=== PATIENT | male | born 1965 | race Caucasian/White ===

== ENCOUNTER 2020-06-28 06:21 | Outpatient (REF) | payer OTHER, SELFPAY ==
[2020-06-28 11:05] LABS: MANUAL DIFF FLAG NO
[2020-06-28 11:10] LABS: Basophils Absolute Auto 0.1 X10*3/uL (0.0-0.2); Eosinophils Percent Auto 12.8 % (0-4); Hematocrit 42.7 % (42-52); Hemoglobin 14.5 g/dl (14.0-18.0); Imm Gran Abs Auto 0.01 X10*3/uL (0.00-0.03); Imm Gran Pct Auto 0.1 % (0.0-0.4); Lymphocytes Percent Auto 38.3 % (20-40); Mean Corpuscular Hemoglobin 32.5 pg (27.0-33.0); Mean Corpuscular Volume 95.7 fL (80-98); Mean Platelet Volume 10.1 fL (9.4-12.4); Monocytes Absolute Auto 1.3 X10*3/uL (0.1-1.2); Monocytes Percent Auto 16.9 % (2-11); Neutrophils Absolute Auto 2.4 X10*3/uL (2.0-8.3); Neutrophils Percent Auto 30.9 % (45-73); Platelet Count 481 X10*3/uL (160-400); Red Blood Count 4.46 X10*6/uL (4.60-5.80); White Blood Count 7.8 X10*3/uL (4.8-10.8)
[2020-06-28 11:30] LABS: Alanine Aminotransferase 31 U/L (0-40); Alkaline Phosphatase 77 U/L (39-117); Anion Gap 13 (12-20); Aspartate Amino Transferase 25 U/L (5-37); Bilirubin Direct 0.3 mg/dL (0.0-0.5); Bilirubin Total 0.7 mg/dL (0.0-1.0); Blood Urea Nitrogen 11 mg/dL (9-16); Carbon Dioxide 29 mmol/L (22-29); Chloride 102 mmol/L (96-108); Cholesterol 167 mg/dL; Estimated Glomerular Filt Rate > 60; Glucose Fasting 90 mg/dL (60-99); HDL Cholesterol 57 mg/dL; LDL Cholesterol Calculated 91 mg/dl; Potassium 4.7 mmol/l (3.3-5.1); Sodium 139 mmol/L (135-145); Triglycerides 97 mg/dL
[2020-06-28 13:36] LABS: Prostate Specific Antigen Scr 0.38 ng/mL (<0.05-4.0)
== END 2020-06-28 06:22 | disposition home or self-care (01) ==
LOC: HO.HMGCLDS 06:21
PROVIDERS: PCP Internal Medicine; Visit Provider Internal Medicine
DX: Z12.5 Encounter for screening for malignant neoplasm of prostate (principal); E78.5 Hyperlipidemia, unspecified; R53.83 Other fatigue
CPT/HCPCS: 36415; 80051; 80061; 80076; 82565; 82947; 84153; 84520; 85025

== ENCOUNTER 2020-10-13 06:31 | Day surgery (SDC) | payer OTHER, SELFPAY ==
[2020-10-09 13:59] VITALS: BMI 45.1
--- NOTE | 2020-10-11 13:25 | HO.ANESPROP2 ---
Documented by User: Kristy Pena 10/11/20 13:27 HPI - Anesthesia Eval Consult details Narrative: 55yo M for Colonoscopy [facility] Past Medical History Medical History Asthma Hypertension Surgical History Surgical History Hx of splenectomy Social History Social History Have you been hit, kicked, punched, or otherwise hurt by someone within the past year? If so, by whom?: No Advance Directives: No Advance Directives Information Provided: No Advance Directives on File: No Meds Allergies Allergy/AdvReac Type Severity Reaction Status Date / Time No Known Allergies Allergy Verified 10/09/20 13:57 Home Medications Medication Instructions Recorded Confirmed Last Taken Type lisinopril 1 tab PO DAILY 10/09/20 10/09/20 Unknown History montelukast 1 tab PO DAILY 10/09/20 10/09/20 Unknown History naproxen sodium [Aleve] 220 mg PO BID PRN 10/09/20 10/09/20 Unknown History Exam Exam Date and Time: October 11, 2020 1325 Height,Weight and Vital Signs: Height 5 ft 6 in Weight 127.006 kg Pertinent Lab Results Pertinent Lab Results: Laboratory Tests 06/28/20 06/28/20 06:35 06:35 WBC 7.8 Hgb 14.5 Hct 42.7 Plt Count 481 H Sodium 139 Potassium 4.7 Chloride 102 Carbon Dioxide 29 BUN 11 Creatinine 0.87 Assessment and Plan Assessment Anesthesia Assessment: Chart Reviewed Documented by User: Bee Bajwa 10/13/20 07:42 [facility] Past Medical History Medical History Asthma Hypertension Surgical History Surgical History Hx of splenectomy Social History Social History (Reviewed 10/13/20 @ 07:41 by Bee Gabriel Have you been hit, kicked, punched, or otherwise hurt by someone within the past year? If so, by whom?: No Advance Directives: No Advance Directives Information Provided: No Advance Directives on File: No Meds Allergies Allergy/AdvReac Type Severity Reaction Status Date / Time No Known Allergies Allergy Verified 10/09/20 13:57 Home Medications Medication Instructions Recorded Confirmed Last Taken Type lisinopril 1 tab PO DAILY 10/09/20 10/09/20 Unknown History montelukast 1 tab PO DAILY 10/09/20 10/09/20 Unknown History naproxen sodium [Aleve] 220 mg PO BID PRN 10/09/20 10/09/20 Unknown History Exam Airway Mallampati Class: III (Full neck) TM Dist: >3cm Neck ROM: Full Heart: RRR Lungs: CTA Assessment and Plan Assessment Anesthesia Assessment: Anesthesia Plan Discussed and Chart Reviewed Final Anesthetic Review NPO: Yes ASA Class: III Final Preanesthetic Review: Meds/Allgs Chart Reviewed, Consent Obtained/Reviewed and Anes Risks/Benef Reviewed Patient Risk: Intermediate Procedure Risk: Low Anesthetic Plan Anesthetic Plan: MAC: Disposition: Standard PACU
[2020-10-13 07:00] VITALS: BP 147/95; PULSE 95; RESP 20; TEMP 36.3; O2SAT 96
[2020-10-13] MEDS: Lactated Ringers 1,000 ML 100 ML IVCONT (07:03)
--- NOTE | 2020-10-13 07:18 | MHC.SHP ---
Pre-Procedural Eval Section B Chief Complaint: Screening Details of Present Illness: screening Relevant Family History (Specify if Yes): No Relevant Social History: None Present Medications: see Short Stay Collaborative assessment Medical History: No relevant PMH History of Previous Operations: No relevant previous surgery Allergies: Allergies Allergy/AdvReac Type Severity Reaction Status Date / Time No Known Allergies Allergy Verified 10/09/20 13:57 Review of Systems Sugical H&P ROS: Negative: Constitution, Cardiovascular, Respiratory, Neurological, Psychiatric, Hem-Onc, Allergic/Immunologic, Gastrointestinal, Genitourinary, Musculoskeletal, Integumentary, Endocrine and Eyes/Ears/Nose/Throat Exam Surgical H&P Exam: Normal: HEENT, Normal: Heart, Normal: Lungs, Normal: Extremities, Normal: Abdomen, Normal: Skin and Normal: Neurological Plan Diagnosis/Plan: Unchanged I have reviewed the history and physical and performed a pertinent physical examination on my patient. No changes have occurred unless specified.
--- NOTE | 2020-10-13 07:48 | PM.OP ---
Brief Operative Note Date of Service: 10/13/20 Pre-op diagnosis: screening Post-op diagnosis: same Procedure: colonoscopy Surgeon: Addy Dubose Anesthesia: MAC Estimated blood loss (mL): 0 Pathology: none sent Condition: stable Disposition: PACU
[2020-10-13 07:49] VITALS: BP 132/77; PULSE 79; RESP 18; TEMP 36.7; O2SAT 96
[2020-10-13 08:04] VITALS: BP 153/100; PULSE 81; RESP 17; TEMP 36.4; O2SAT 97
--- NOTE | 2020-10-13 18:44 | OP_ITS ---
SURGEON: Addy Dubose MD INDICATIONS: Colon cancer screening. PREOPERATIVE DIAGNOSIS: POSTOPERATIVE DIAGNOSIS: PROCEDURE PERFORMED: Colonoscopy to the terminal ileum. ESTIMATED BLOOD LOSS: COMPLICATIONS: ANESTHESIA: ASSISTANTS: SPECIMENS: MEDICATIONS: Monitored anesthesia care. DESCRIPTION OF PROCEDURE: History and physical performed. The risks and benefits of the procedure were explained to the patient. Informed consent was obtained. The patient was placed in left lateral decubitus position. A digital rectal exam was performed and was found to be normal. The Olympus pediatric video colonoscope was introduced into the rectum and advanced to the cecum without difficulty. The cecum was identified by transillumination, palpation, and identification of ileocecal valve. Examination was performed. The scope was removed. He tolerated the procedure well and was returned to recovery area in stable condition. FINDINGS: The terminal ileum was normal. The visualized colonic mucosa was normal. The quality of prep was good. No polyps were identified. Retroflexed examination showed small internal hemorrhoids. IMPRESSION: Normal colonoscopy. RECOMMENDATION: 1. Follow up as needed. 2. Repeat colonoscopy is recommended in 10 years for average risk individuals. MD FRANKLIN Naranjo/JACQUELINE / [phone]
== END 2020-10-13 08:28 | disposition home or self-care (01) ==
PROVIDERS: PCP Internal Medicine; Visit Provider Internal Medicine Gastroenterology
PROC: 0DJD8ZZ Inspection of Lower Intestinal Tract, Via Natural or Artificial Opening Endoscopic (ICD-10-PCS; CPT 45378; principal; 2020-10-13 07:30)
DX: Z12.11 Encounter for screening for malignant neoplasm of colon (principal); K64.8 Other hemorrhoids; I10 Essential (primary) hypertension; J45.909 Unspecified asthma, uncomplicated; Z79.1 Long term (current) use of non-steroidal anti-inflammatories (NSAID); Z90.81 Acquired absence of spleen; Z79.899 Other long term (current) drug therapy
CPT/HCPCS: 45378

== ENCOUNTER 2021-07-03 10:50 | Outpatient (REF) | payer OTHER, SELFPAY ==
[2021-07-03 13:56] LABS: MANUAL DIFF FLAG NO
[2021-07-03 14:07] LABS: Basophils Absolute Auto 0.1 X10*3/uL (0.0-0.2); Basophils Percent Auto 1.3 % (0-2); Eosinophils Absolute Auto 1.3 X10*3/uL (0.0-0.4); Eosinophils Percent Auto 15.3 % (0-4); Hematocrit 42.1 % (42.0-52.0); Hemoglobin 14.8 g/dl (14.0-18.0); Imm Gran Abs Auto 0.03 X10*3/uL (0.00-0.03); Imm Gran Pct Auto 0.4 % (0.0-0.4); Lymphocytes Absolute Auto 3.1 X10*3/uL (1.2-4.9); Lymphocytes Percent Auto 35.7 % (20-40); Mean Corpuscular HGB Conc 35.2 g/dl (31.0-36.0); Mean Corpuscular Hemoglobin 33.4 pg (27.0-33.0); Mean Platelet Volume 9.9 fL (9.4-12.4); Monocytes Absolute Auto 1.3 X10*3/uL (0.1-1.2); Monocytes Percent Auto 15.3 % (2-11); Neutrophils Absolute Auto 2.7 x10*3/uL (2.0-8.3); Platelet Count 461 X10*3/uL (160-400); Red Blood Count 4.43 X10*6/uL (4.60-5.80); Red Cell Distribution Width 14.4 % (11.0-16.0); White Blood Count 8.6 X10*3/uL (4.8-10.8)
[2021-07-03 14:56] LABS: PSA,Total (Free>4and<10) 0.47 ng/mL (0.00-4.00)
[2021-07-03 14:58] LABS: Alanine Aminotransferase 31 U/L (0-40); Albumin Level 4.2 g/dL (3.5-5.0); Alkaline Phosphatase 68 U/L (39-117); Anion Gap 12 (12-20); Aspartate Amino Transferase 24 U/L (5-37); Bilirubin Direct 0.3 mg/dL (0.0-0.5); Bilirubin Total 0.8 mg/dL (0.0-1.0); Blood Urea Nitrogen 10 mg/dL (9-16); Calcium 9.4 mg/dL (8.4-10.2); Carbon Dioxide 28 mmol/L (22-29); Chloride 102 mmol/L (96-108); Cholesterol 175 mg/dL; Estimated Glomerular Filt Rate > 60; Glucose Fasting 88 mg/dL (60-99); HDL Cholesterol 55 mg/dL; LDL Cholesterol Calculated 96 mg/dl; Potassium 4.6 mmol/L (3.3-5.1); Sodium 137 mmol/L (135-145); Total Protein 7.2 g/dL (6.5-8.0); Triglycerides 121 mg/dL
== END 2021-07-03 10:51 | disposition home or self-care (01) ==
LOC: HO.HMGCLDS 10:50
PROVIDERS: PCP Internal Medicine; Visit Provider Internal Medicine
DX: Z12.5 Encounter for screening for malignant neoplasm of prostate (principal); R53.83 Other fatigue; E78.5 Hyperlipidemia, unspecified
CPT/HCPCS: 36415; 80053; 80061; 80076; 82248; 84153; 85025

== ENCOUNTER 2022-07-25 11:06 | Outpatient (REF) | payer OTHER, SELFPAY ==
[2022-07-25 14:14] LABS: MANUAL DIFF FLAG NO
[2022-07-25 14:34] LABS: Basophils Absolute Auto 0.1 X10*3/uL (0.0-0.2); Basophils Percent Auto 1.4 % (0-2); Eosinophils Absolute Auto 1.4 X10*3/uL (0.0-0.4); Eosinophils Percent Auto 16.6 % (0-4); Hematocrit 43.4 % (42.0-52.0); Hemoglobin 15.2 g/dl (14.0-18.0); Imm Gran Abs Auto 0.01 X10*3/uL (0.00-0.03); Imm Gran Pct Auto 0.1 % (0.0-0.4); Lymphocytes Absolute Auto 3.4 X10*3/uL (1.2-4.9); Lymphocytes Percent Auto 39.5 % (20-40); Mean Corpuscular Volume 94.1 fL (80.0-98.0); Mean Platelet Volume 9.4 fL (9.4-12.4); Monocytes Absolute Auto 1.3 X10*3/uL (0.1-1.2); Monocytes Percent Auto 14.8 % (2-11); Neutrophils Absolute Auto 2.4 x10*3/uL (2.0-8.3); Neutrophils Percent Auto 27.6 % (45-73); Platelet Count 592 X10*3/uL (160-400); Red Blood Count 4.61 X10*6/uL (4.60-5.80); Red Cell Distribution Width 14.4 % (11.0-16.0); White Blood Count 8.6 X10*3/uL (4.8-10.8)
[2022-07-25 15:17] LABS: Alanine Aminotransferase 21 U/L (0-40); Albumin Level 4.1 g/dL (3.5-5.0); Alkaline Phosphatase 83 U/L (39-117); Anion Gap 12 (12-20); Aspartate Amino Transferase 20 U/L (5-37); Bilirubin Direct 0.3 mg/dL (0.0-0.5); Bilirubin Total 0.8 mg/dL (0.0-1.0); Blood Urea Nitrogen 13 mg/dL (9-16); Carbon Dioxide 29 mmol/L (22-29); Chloride 103 mmol/L (96-108); Cholesterol 204 mg/dL; Estimated Glomerular Filt Rate > 60; Glucose Fasting 88 mg/dL (60-99); HDL Cholesterol 63 mg/dL; LDL Cholesterol Calculated 121 mg/dl; Potassium 5.2 mmol/L (3.3-5.1); Sodium 139 mmol/L (135-145); Total Protein 7.2 g/dL (6.5-8.0); Triglycerides 103 mg/dL
[2022-07-25 17:22] LABS: Prostate Specific Antigen Scr 0.81 ng/mL (<0.05-4.0)
== END 2022-07-25 11:07 | disposition home or self-care (01) ==
LOC: HO.HMGCLDS 11:06
PROVIDERS: PCP Internal Medicine; Visit Provider Internal Medicine
DX: Z00.00 Encounter for general adult medical examination without abnormal findings (principal); Z12.5 Encounter for screening for malignant neoplasm of prostate; R53.83 Other fatigue; E78.5 Hyperlipidemia, unspecified
CPT/HCPCS: 36415; 80051; 80061; 80076; 82565; 82947; 84153; 84520; 85025

== ENCOUNTER 2023-04-11 13:26 | Emergency (ER) | payer OTHER, SELFPAY ==
[2023-04-11 14:06] VITALS: BP 160/88; PULSE 94; RESP 20; TEMP 35.9; O2SAT 97; BMI 40.3
--- NOTE | 2023-04-11 14:10 | ED.GENADULT ---
HPI - General Adult General Chief complaint: Abdominal Pain Stated complaint: Abdominal Pain Related Data Home Medications Medication Instructions Recorded Confirmed lisinopril 10 mg tablet 1 tab PO DAILY 10/09/20 10/09/20 montelukast 10 mg tablet 1 tab PO DAILY 10/09/20 10/09/20 naproxen sodium 220 mg capsule 220 mg PO BID PRN Pain 10/09/20 10/09/20 (Aleve) Allergies Allergy/AdvReac Type Severity Reaction Status Date / Time No Known Allergies Allergy Verified 10/09/20 13:57 [facility] Past Medical History Medical History Asthma Hypertension Surgical History Hx of splenectomy Social History Social History Advance Directives: No Advance Directives Information Provided: No Physical Exam ED Vital Signs: Vital Signs - 24 hr 04/11/23 14:06 Temperature 96.6 F L Pulse Rate 94 Respiratory Rate 20 Blood Pressure 160/88 H Pulse Oximetry 97 Oxygen Delivery Method Room Air BMI result Body Mass Index 40.3 Course Course Course Narrative: This is a rapid medical exam: Additional HPI, ROS, PE not included below will be deferred to primary provider. Patient is a 57-year-old male presenting to the emergency department from PCP office with report of fever while at the office. Patient reports abdominal pain since Friday. Denies nausea, vomiting, diarrhea constipation. Reports pain is currently in area of right lower quadrant. Denies back or flank pain. Denies urinary symptoms. Abdomen soft and nontender, no CVA tenderness. Plan: labs, UA Medical Decision Making Lab Data 04/11/23 16:09 04/11/23 16:09 Labs: Lab Results 04/11/23 04/11/23 04/11/23 Range/Units 16:09 16:09 16:09 WBC 18.9 H (4.8-10.8) X10*3/uL RBC 4.65 (4.60-5.80) X10*6/uL Hgb 15.9 (14.0-18.0) g/dl Hct 44.7 (42.0-52.0) % MCV 96.1 (80.0-98.0) fL MCH 34.2 H (27.0-33.0) pg MCHC 35.6 (31.0-36.0) g/dl RDW 13.7 (11.0-16.0) % Plt Count 418 H D (160-400) X10*3/uL MPV 9.3 L (9.4-12.4) fL Immature Gran % (Auto) 0.4 (0.0-0.4) % Neut % (Auto) 81.8 H (45-73) % Lymph % (Auto) 7.7 L (20-40) % [place] % (Auto) 9.6 (2-11) % Eos % (Auto) 0.1 (0-4) % Baso % (Auto) 0.4 (0-2) % Lymph # (Auto) 1.5 (1.2-4.9) X10*3/uL [place] # (Auto) 1.8 H (0.1-1.2) X10*3/uL Eos # (Auto) 0.0 (0.0-0.4) X10*3/uL Baso # (Auto) 0.1 (0.0-0.2) X10*3/uL Abs Immat Gran (auto) 0.08 H (0.00-0.03) X10*3/uL Absolute Neuts (auto) 15.4 H (2.0-8.3) x10*3/uL Absolute Nucleated RBC 0.000 (0.0-0.012) X10*3/uL Nucleated RBC % (auto) 0.0 (0.0-0.2) /100WBC Sodium 134 L (135-145) mmol/L Potassium 3.9 D (3.3-5.1) mmol/L Chloride 101 (96-108) mmol/L Carbon Dioxide 22 (22-29) mmol/L Anion Gap 15 (12-20) BUN 7 L (9-16) mg/dL Creatinine 0.79 (0.5-1.4) mg/dL Estim Creat Clear Calc 119.1 Estimated GFR > 60 Random Glucose 100 (60-115) mg/dL Calcium 9.9 (8.4-10.2) mg/dL Total Bilirubin 1.1 H (0.0-1.0) mg/dL AST 40 H (5-37) U/L ALT 46 H (0-40) U/L Alkaline Phosphatase 106 (39-117) U/L Total Protein 8.1 H (6.5-8.0) g/dL Albumin 4.2 (3.5-5.0) g/dL Lipase 12 (8-78) U/L Urine Color Dark Yellow Urine Appearance Clear Urine pH 7.5 (5.0-9.0) Ur Specific [place] 1.020 (1.005-1.025) Urine Protein Trace (Neg-Trace) mg/dL Urine Glucose (UA) Negative (Negative) mg/dL Urine Ketones 15 (Negative) mg/dL Urine Blood Negative (Negative) Urine Nitrite Negative (Negative) Ur Leukocyte Esterase Negative (Negative) Discharge Plan Discharge Clinical Impression: Abdominal pain Patient Disposition: Elopement Prescriptions: No Action lisinopril 10 mg tablet 1 tab PO DAILY montelukast 10 mg tablet 1 tab PO DAILY naproxen sodium [Aleve] 220 mg Capsule 220 mg PO BID PRN (Reason: Pain) Discharge Date/Time: 04/11/23 21:17
[2023-04-11 16:13] LABS: MANUAL DIFF FLAG NO
[2023-04-11 16:16] LABS: Appearance Urine Clear; Color Urine Dark Yellow; Glucose Urine UA Negative (Negative); Leukocyte Esterase Urine Negative (Negative); Nitrite Urine Negative (Negative); PH 7.5 (5.0-9.0); Urine Blood Negative (Negative); Urine Ketones 15 mg/dL (Negative); Urine Protein Trace mg/dL (Neg-Trace)
[2023-04-11 16:28] LABS: Alanine Aminotransferase 46 U/L (0-40); Albumin Level 4.2 g/dL (3.5-5.0); Alkaline Phosphatase 106 U/L (39-117); Anion Gap 15 (12-20); Aspartate Amino Transferase 40 U/L (5-37); Bilirubin Total 1.1 mg/dL (0.0-1.0); Blood Urea Nitrogen 7 mg/dL (9-16); Calcium 9.9 mg/dL (8.4-10.2); Carbon Dioxide 22 mmol/L (22-29); Chloride 101 mmol/L (96-108); Creatinine Clr Calc Pharmacy 119.1; Estimated Glomerular Filt Rate > 60; Glucose Random 100 mg/dL (60-115); Lipase 12 U/L (8-78); Potassium 3.9 mmol/L (3.3-5.1); Sodium 134 mmol/L (135-145); Total Protein 8.1 g/dL (6.5-8.0)
[2023-04-11 16:33] LABS: Basophils Absolute Auto 0.1 X10*3/uL (0.0-0.2); Basophils Percent Auto 0.4 % (0-2); Eosinophils Percent Auto 0.1 % (0-4); Hematocrit 44.7 % (42.0-52.0); Hemoglobin 15.9 g/dl (14.0-18.0); Imm Gran Abs Auto 0.08 X10*3/uL (0.00-0.03); Imm Gran Pct Auto 0.4 % (0.0-0.4); Lymphocytes Absolute Auto 1.5 X10*3/uL (1.2-4.9); Lymphocytes Percent Auto 7.7 % (20-40); Mean Corpuscular HGB Conc 35.6 g/dl (31.0-36.0); Mean Corpuscular Hemoglobin 34.2 pg (27.0-33.0); Mean Corpuscular Volume 96.1 fL (80.0-98.0); Mean Platelet Volume 9.3 fL (9.4-12.4); Monocytes Absolute Auto 1.8 X10*3/uL (0.1-1.2); Monocytes Percent Auto 9.6 % (2-11); Neutrophils Absolute Auto 15.4 x10*3/uL (2.0-8.3); Neutrophils Percent Auto 81.8 % (45-73); Platelet Count 418 X10*3/uL (160-400); Red Blood Count 4.65 X10*6/uL (4.60-5.80); Red Cell Distribution Width 13.7 % (11.0-16.0); White Blood Count 18.9 X10*3/uL (4.8-10.8)
--- NOTE | 2023-04-12 14:35 | HO.ANESPROP2 ---
HPI - Anesthesia Eval Consult details Narrative: Acute appendicitis PMFSH Active Problems Active Problems: All Active Problems (Updated 04/12/23 @ 12:46 by JARETH Mack) Abdominal pain (Acute) Acute appendicitis (Acute) Sepsis (Acute) Past Medical History Medical History (Updated 04/12/23 @ 14:36 by Zachary Garibay MD) Asthma Hypertension Obesity (BMI 30-39.9) Family History Family history of problems with anesthesia: No Surgical History Surgical History Hx of splenectomy History of Problems with Anesthesia: No Social History Social History Alcohol intake: current Alcohol intake frequency: a few times a week Meds Allergies Allergy/AdvReac Type Severity Reaction Status Date / Time No Known Allergies Allergy Verified 04/12/23 10:32 Home Medications Medication Instructions Recorded Confirmed Last Taken Type montelukast 10 mg tablet 1 tab PO DAILY 10/09/20 04/12/23 04/11/23 History naproxen sodium 220 mg capsule 220 mg PO BID PRN Pain 10/09/20 04/12/23 Unknown History (Aleve) valsartan 160 mg tablet 160 mg PO DAILY 04/12/23 04/12/23 04/12/23 History Exam Exam Date and Time: April 12, 2023 1435 Height,Weight and Vital Signs: Height 5 ft 6 in Weight 113.398 kg Last Vital Signs Temp 96.6 F L 04/11/23 14:06 Pulse 94 04/11/23 14:06 Resp 20 04/11/23 14:06 BP 160/88 H 04/11/23 14:06 Pulse Ox 97 04/11/23 14:06 O2 Del Method Room Air 04/11/23 14:06 Pertinent Lab Results Pertinent Lab Results: Laboratory Tests 04/11/23 04/11/23 04/11/23 16:09 16:09 16:09 WBC 18.9 H RBC 4.65 Hgb 15.9 Hct 44.7 MCV 96.1 MCH 34.2 H MCHC 35.6 RDW 13.7 Plt Count 418 H D MPV 9.3 L Immature Gran % (Auto) 0.4 Neut % (Auto) 81.8 H Lymph % (Auto) 7.7 L [place] % (Auto) 9.6 Eos % (Auto) 0.1 Baso % (Auto) 0.4 Lymph # (Auto) 1.5 [place] # (Auto) 1.8 H Eos # (Auto) 0.0 Baso # (Auto) 0.1 Abs Immat Gran (auto) 0.08 H Absolute Neuts (auto) 15.4 H Absolute Nucleated RBC 0.000 Nucleated RBC % (auto) 0.0 Sodium 134 L Potassium 3.9 D Chloride 101 Carbon Dioxide 22 Anion Gap 15 BUN 7 L Creatinine 0.79 Estim Creat Clear Calc 119.1 Estimated GFR > 60 Random Glucose 100 Calcium 9.9 Total Bilirubin 1.1 H AST 40 H ALT 46 H Alkaline Phosphatase 106 Total Protein 8.1 H Albumin 4.2 Lipase 12 Urine Color Dark Yellow Urine Appearance Clear Urine pH 7.5 Ur Specific [place] 1.020 Urine Protein Trace Urine Glucose (UA) Negative Urine Ketones 15 Urine Blood Negative Urine Nitrite Negative Ur Leukocyte Esterase Negative Airway Mallampati Class: II TM Dist: >3cm Neck ROM: Full Heart: RRR Lungs: CTA Assessment and Plan Assessment Anesthesia Assessment: Anesthesia Plan Discussed and Chart Reviewed Final Anesthetic Review Family History of Problems with Anesthesia: No History of Problems with Anesthesia: No NPO: Yes ASA Class: III and Emergency Final Preanesthetic Review: No Changes in Pt Med Stat, Meds/Allgs Chart Reviewed, Consent Obtained/Reviewed and Anes Risks/Benef Reviewed Patient Risk: High Procedure Risk: Intermediate Anesthetic Plan Anesthetic Plan: GA Disposition: Standard PACU
== END 2023-04-11 21:17 | disposition left against medical advice (07) ==
PROVIDERS: Registered Nurse Emergency; Emergency Provider Emergency Medicine; PCP Internal Medicine
DX: R10.9 Unspecified abdominal pain (principal); Z79.899 Other long term (current) drug therapy
CPT/HCPCS: 36415; 80053; 81003; 83690; 85025; 99282; 99283

== ENCOUNTER 2023-04-12 10:14 | Inpatient (IN) | payer OTHER, SELFPAY ==
[2023-04-12] VITALS (10 sets, daily range): BP systolic 135–170; BP diastolic 67–90; PULSE 70–99; RESP 15–24; TEMP 36.2–37; O2SAT 96–98; BMI 41.3; BMI 42.7
--- NOTE | ~2023-04-12 | CT_ITS ---
EXAMINATION: CT abdomen pelvis wo IV con CLINICAL INFORMATION: Reason for Exam abd pain COMPARISON: No prior CT available for comparison. TECHNIQUE: Multidetector volumetric imaging was performed from the superior aspect of the liver through the pubic symphysis , noncontrasted study. Sagittal and coronal reformatted images were obtained on the technologist's workstation. This CT examination was performed using dose optimization techniques as appropriate, variously including the following: *Automated exposure control *Adjustment of mA and/or kV according to patient size (this includes techniques or standardized protocols for targeted exams where dose is matched to indication/reason for exam; i.e. extremities or head) *Use of iterative reconstruction technique DLP: 952 mGy-cm FINDINGS: LOWER THORAX: Included lung bases are clear. HEPATOBILIARY: No focal hepatic lesions. No biliary ductal dilatation. GALLBLADDER: Gallbladder unremarkable. 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 PANCREAS: No focal mass or ductal dilatation. STOMACH AND GASTROINTESTINAL TRACT: Stomach is grossly unremarkable. The appendix is dilated swollen 1.5 cm, there is periappendiceal fat stranding which extends surrounding the cecum, adjacent cecal wall inflammation could be reactive. Trace amount of fluid along the gallbladder, suggesting acute appendicitis.. Mild circumferential wall thickening of the right colon, cecum, ascending and proximal transverse colon could be a sequela of chronic or prior colitis. No obstruction. There is diverticulosis of the sigmoid colon without evidence of acute diverticulitis. ADRENALS: No adrenal nodules. KIDNEYS/URETERS: No hydronephrosis, stones or solid mass lesions. URINARY BLADDER: Partially decompressed. PELVIC VISCERA: Unremarkable PERITONEUM: No free air or fluid. LYMPH NODES: No lymphadenopathy. VASCULAR:Abdominal aorta normal in size, no aneurysm found. BONES, ABDOMINAL WALL AND SOFT TISSUES: Age-appropriate changes of the spine and skeletal system, no destructive osteolytic or osteosclerotic bone lesion found CT/CT abdomen pelvis wo IV con IMPRESSION: - ACUTE APPENDICITIS, the appendix is swollen 1.5 cm, there is periappendiceal fat stranding which extends around the cecum, there is a small amount of fluid along the gallbladder, suggesting acute appendicitis cannot rule out early perforation rupture. - There is circumferential wall thickening of the right colon, cecum, ascending and proximal transverse colon could be a sequela of chronic or prior colitis. - Diverticulosis without evidence of acute diverticulitis. - Spleen not found might have been congenitally absent or been removed. (Referring physician staff is being called, by physician staff assistance, to be alerted of the above critical findings and recommendations.) A J 04/12/2023 12:33 PM
--- NOTE | 2023-04-12 11:36 | PC.NURSE ---
Addendum entered by Gloria Muniz 04/12/23 11:46: afebrile Original Note: pt aox4, respirations even and unlabored, vss, skin warm and dry color appropriate to ethnicity. pt states return to ED d/t elevated WBC from previous visit. pt denies n/v/d/cp/sob/dizziness. skin intact no sign of infection. pt reports diffused abd pain x 3 days; last bm today. +bs x 4; no abd distention/tenderness noted. iv established, labs drawn. awaiting primary eval by ed provider. all needs met at this time. call kenney within reach.
--- NOTE | 2023-04-12 11:37 | ED_ITS ---
HPI - General Adult General Chief complaint: Recheck/Abnormal Lab/Rx Stated complaint: elevated white blood cells Time Seen by Provider: 04/12/23 11:17 Source: patient Mode of arrival: ambulatory Limitations: no limitations History of Present Illness HPI narrative: 57-year-old male with history of obesity, hypertension, history of a traumatic splenectomy back in 1970 who presents to the ER for evaluation of ongoing right- sided abdominal discomfort for the last 4 days. He was seen here yesterday for similar complaints, had lab work showing a leukocytosis of 18.9. He ended up eloping. Patient states the abdominal pain started diffusely 4 days ago and has since migrated to right side of his abdomen. The pain has improved since yesterday. He has no associated nausea, vomiting, diarrhea. He is moving his bowels normally. He had some sweats last night but no objective fevers. He denies any urinary symptoms aside from a dark color of his urine. Did not notice any blood. He is unsure if he has an appendix, may have been taken out during his open abdominal surgery in the 70s. No known sick contacts. No pain at this time. complaint: Elevated white blood cell count, right-sided abdominal pain Onset (ago): day(s) (4) Location: abdomen Severity: mild Quality: aching Pain Consistency: intermittent Relieving factors: none Exacerbating factors: none Associated symptoms: denies other symptoms Treatments prior to arrival: none Related Data Home Medications Medication Instructions Recorded Confirmed lisinopril 10 mg tablet 1 tab PO DAILY 10/09/20 04/12/23 montelukast 10 mg tablet 1 tab PO DAILY 10/09/20 04/12/23 naproxen sodium 220 mg capsule 220 mg PO BID PRN Pain 10/09/20 04/12/23 (Aleve) Allergies Allergy/AdvReac Type Severity Reaction Status Date / Time No Known Allergies Allergy Verified 04/12/23 10:32 Review of Systems Review of Systems: Yes all other systems are reviewed and are negative PMF Past Medical History Medical History Asthma Hypertension Surgical History Hx of splenectomy Social History Social History Alcohol intake: current Alcohol intake frequency: a few times a week Smoked in Last 30 Days: No Use of substances other than those prescribed or required for medical reasons: No Advance Directives: No Physical Exam ED Vital Signs: Vital Signs - 24 hr 04/12/23 10:26 04/12/23 11:45 Temperature 98.1 F 98.6 F Pulse Rate 99 89 Respiratory Rate 18 16 Blood Pressure 139/85 143/84 H Pulse Oximetry 96 96 Oxygen Delivery Method Room Air Room Air BMI result Body Mass Index 41.3 Appearance: Alert. Oriented X3. No acute distress. Head: normocephalic, atraumatic. Eyes: Pupils equal, round and reactive to light. ENT: Pharynx normal. No tonsillar swelling or exudate. Neck: Normal inspection. Neck supple. CVS: Normal heart rate and rhythm. Pulses normal. Respiratory: No respiratory distress. Breath sounds normal. Abdomen: Obese, all here old longitudinal surgical scar consistent laparotomy, Soft and nontender. +BS x4 Skin: Skin warm and dry. Normal skin color. Normal skin turgor. No rashes. Extremities: No lower extremity edema. No joint swelling. Neuro/psych: Oriented X 3. No motor deficit. No sensory deficit. CN II-XII intact. Normal speech and cognition. Medical Decision Making Medical Decision Making MDM Narrative: 57-year-old male with history of obesity, HTN, history of splenectomy in the past who presents to the ER for evaluation of leukocytosis and right-sided abdominal pain for the last 4 days. Currently has no pain. Afebrile and hemodynamically stable on arrival to the ER. He was seen in the ED yesterday, had basic labs done showing a significant leukocytosis of 18.9. He ended up eloping prior to imaging. PCP recommended he come back to the ER given the leukocytosis. His pain is overall improved however. Repeat labs today show persistent leukocytosis of 17. Lactic acid is normal. Other labs unremarkable. HR initially [address] scan of the abdomen is showing acute appendicitis, spoke with radiologist, possible early perforation with extensive fat stranding. Dr. Rasheed from [facility] contacted for admission. IV zosyn and fluids ordered. Meets sepsis criteria with tachycardia >90 and leukocytosis. Differential Diagnosis Differential Diagnoses: The differential diagnosis associated with the presentation includes Acute appendicitis, right-sided diverticulitis, colitis, kidney stone, biliary colic, cholecystitis Admission/Observation Consideration of admission/observation: Escalation of care including admission/observation considered Consult Healthcare Provider Management of the patient was discussed with: Software Tester Dr. Rasheed general surgery Lab Data MDM Lab Attestation statement: I reviewed the patient's lab results. Leukocytosis with normal lactic acid 04/12/23 11:46 04/12/23 11:46 Labs: Lab Results 04/12/23 04/12/23 04/12/23 Range/Units 11:46 11:46 11:46 WBC 17.0 H (4.8-10.8) X10*3/uL RBC 4.26 L (4.60-5.80) X10*6/uL Hgb 14.3 (14.0-18.0) g/dl Hct 39.8 L (42.0-52.0) % MCV 93.4 (80.0-98.0) fL MCH 33.6 H (27.0-33.0) pg MCHC 35.9 (31.0-36.0) g/dl RDW 13.2 (11.0-16.0) % Plt Count 429 H (160-400) X10*3/uL MPV 8.9 L (9.4-12.4) fL Immature Gran % (Auto) 0.4 (0.0-0.4) % Neut % (Auto) 76.9 H (45-73) % Lymph % (Auto) 9.4 L (20-40) % [place] % (Auto) 13.0 H (2-11) % Eos % (Auto) 0.1 (0-4) % Baso % (Auto) 0.2 (0-2) % Lymph # (Auto) 1.6 (1.2-4.9) X10*3/uL [place] # (Auto) 2.2 H (0.1-1.2) X10*3/uL Eos # (Auto) 0.0 (0.0-0.4) X10*3/uL Baso # (Auto) 0.0 (0.0-0.2) X10*3/uL Abs Immat Gran (auto) 0.06 H (0.00-0.03) X10*3/uL Absolute Neuts (auto) 13.1 H (2.0-8.3) x10*3/uL Absolute Nucleated RBC 0.000 (0.0-0.012) X10*3/uL Nucleated RBC % (auto) 0.0 (0.0-0.2) /100WBC Smear Tech's Comments VERIFIED Sodium 132 L (135-145) mmol/L Potassium 3.6 (3.3-5.1) mmol/L Chloride 101 (96-108) mmol/L Carbon Dioxide 24 (22-29) mmol/L Anion Gap 11 L (12-20) BUN 7 L (9-16) mg/dL Creatinine 0.76 (0.5-1.4) mg/dL Estim Creat Clear Calc 133.6 Estimated GFR > 60 Random Glucose 113 (60-115) mg/dL Lactic Acid 0.7 (0.5-2.0) mmol/L Calcium 9.3 D (8.4-10.2) mg/dL Total Bilirubin 1.5 H (0.0-1.0) mg/dL AST 64 H (5-37) U/L ALT 80 H (0-40) U/L Alkaline Phosphatase 147 H (39-117) U/L Total Protein 7.2 (6.5-8.0) g/dL Albumin 3.6 (3.5-5.0) g/dL Independent Interpretation I performed an independent interpretation of an: CT Scan Interpretation: CT scan reviewed, right lower quadrant stranding noted, agree with radiologist's read. Radiology Impression Discussion of test interpretation with radiology: I discussed test interpretation with the radiologist and I have reviewed the radiologist's reading. Radiologist Impression: EXAMINATION: CT abdomen pelvis wo IV con CLINICAL INFORMATION: Reason for Exam abd pain COMPARISON: No prior CT available for comparison. TECHNIQUE: Multidetector volumetric imaging was performed from the superior aspect of the liver through the pubic symphysis , noncontrasted study. Sagittal and coronal reformatted images were obtained on the technologist's workstation. ? This CT examination was performed using dose optimization techniques as appropriate, variously including the following: *Automated exposure control *Adjustment of mA and/or kV according to patient size (this includes techniques or standardized protocols for targeted exams where dose is matched to indication/reason for exam; i.e. extremities or head) *Use of iterative reconstruction technique DLP: 952 mGy-cm FINDINGS: LOWER THORAX: Included lung bases are clear. HEPATOBILIARY: No focal hepatic lesions. No biliary ductal dilatation. GALLBLADDER: Gallbladder unremarkable. 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 PANCREAS: No focal mass or ductal dilatation. STOMACH AND GASTROINTESTINAL TRACT: Stomach is grossly unremarkable. The appendix is dilated swollen 1.5 cm, there is periappendiceal fat stranding which extends surrounding the cecum, adjacent cecal wall inflammation could be reactive. Trace amount of fluid along the gallbladder, suggesting acute appendicitis.. Mild circumferential wall thickening of the right colon, cecum, ascending and proximal transverse colon could be a sequela of chronic or prior colitis. No obstruction. There is diverticulosis of the sigmoid colon without evidence of acute diverticulitis. ADRENALS: No adrenal nodules. KIDNEYS/URETERS: No hydronephrosis, stones or solid mass lesions. URINARY BLADDER: Partially decompressed. PELVIC VISCERA: Unremarkable PERITONEUM: No free air or fluid. LYMPH NODES: No lymphadenopathy. VASCULAR:Abdominal aorta normal in size, no aneurysm found. BONES, ABDOMINAL WALL AND SOFT TISSUES: Age-appropriate changes of the spine and skeletal system, no destructive osteolytic or osteosclerotic bone lesion found CT/CT abdomen pelvis wo IV con IMPRESSION: ? - ACUTE APPENDICITIS, the appendix is swollen 1.5 cm, there is periappendiceal fat stranding which extends around the cecum, there is a small amount of fluid along the gallbladder, suggesting acute appendicitis cannot rule out early perforation rupture. ? - There is circumferential wall thickening of the right colon, cecum, ascending and proximal transverse colon could be a sequela of chronic or prior colitis. ? - Diverticulosis without evidence of acute diverticulitis. ? - Spleen not found might have been congenitally absent or been removed. External Record Review External record reviewed: Outpatient record and Prior outpatient labs Prescription Management I considered prescription management with: Pain Medication and Antibiotic Chronic Conditions Patient?s care impacted by: Hypertension Critical Care Time Critical Care Time Critical Care Time: Yes Total Critical Care Time: 41 Attestation: I have personally provided critical care time exclusive of time spent on separately billable procedures. Time includes review of lab data, radiology results, discussion with consultants, and monitoring for potential decompen sation. Intervention performed as documented. Discharge Plan Discharge Clinical Impression: Acute appendicitis, Sepsis Patient Disposition: Admitted As Inpatient
[2023-04-12 11:58] LABS: Basophils Percent Auto 0.2 % (0-2); Eosinophils Percent Auto 0.1 % (0-4); Hematocrit 39.8 % (42.0-52.0); Hemoglobin 14.3 g/dl (14.0-18.0); Imm Gran Abs Auto 0.06 X10*3/uL (0.00-0.03); Imm Gran Pct Auto 0.4 % (0.0-0.4); Lymphocytes Absolute Auto 1.6 X10*3/uL (1.2-4.9); Lymphocytes Percent Auto 9.4 % (20-40); MANUAL DIFF FLAG SCAN; Mean Corpuscular HGB Conc 35.9 g/dl (31.0-36.0); Mean Corpuscular Hemoglobin 33.6 pg (27.0-33.0); Mean Corpuscular Volume 93.4 fL (80.0-98.0); Mean Platelet Volume 8.9 fL (9.4-12.4); Monocytes Absolute Auto 2.2 X10*3/uL (0.1-1.2); Neutrophils Absolute Auto 13.1 x10*3/uL (2.0-8.3); Neutrophils Percent Auto 76.9 % (45-73); Platelet Count 429 X10*3/uL (160-400); Red Blood Count 4.26 X10*6/uL (4.60-5.80); Red Cell Distribution Width 13.2 % (11.0-16.0); SCAN SMEAR FLAG 1
[2023-04-12 12:04] LABS: Lactic Acid 0.7 mmol/L (0.5-2.0)
[2023-04-12 12:09] LABS: Alanine Aminotransferase 80 U/L (0-40); Albumin Level 3.6 g/dL (3.5-5.0); Alkaline Phosphatase 147 U/L (39-117); Anion Gap 11 (12-20); Aspartate Amino Transferase 64 U/L (5-37); Bilirubin Total 1.5 mg/dL (0.0-1.0); Blood Urea Nitrogen 7 mg/dL (9-16); Calcium 9.3 mg/dL (8.4-10.2); Carbon Dioxide 24 mmol/L (22-29); Chloride 101 mmol/L (96-108); Creatinine Clr Calc Pharmacy 133.6; Estimated Glomerular Filt Rate > 60; Glucose Random 113 mg/dL (60-115); Potassium 3.6 mmol/L (3.3-5.1); Sodium 132 mmol/L (135-145); Total Protein 7.2 g/dL (6.5-8.0)
[2023-04-12 12:20] LABS: SLIDE REVIEW VERIFIED
[2023-04-12 12:30] LABS: Appearance Urine Clear; Color Urine Dark Yellow; Glucose Urine UA Negative (Negative); Leukocyte Esterase Urine Trace (Negative); Nitrite Urine Negative (Negative); PH 6.5 (5.0-9.0); Specific Gravity - Urine 1.015 (1.005-1.025); UMIC TRIGGER UACC YES; Urine Blood Negative (Negative); Urine Ketones 15 mg/dL (Negative); Urine Protein Trace mg/dL (Neg-Trace)
[2023-04-12 12:54] LABS: Bacteria Urine None Seen (None Seen); Hyaline Casts Urine 0-2 /LPF (0-2); RBC Urine 0-2 /HPF (0-2); Squamous Epithelial Cell Urine 0-2 /HPF (0-2); WBC Urine 0-5 /HPF (0-5)
[2023-04-12] MEDS: Piperacillin Sodium/Tazobactam 3.375 GM in 0.9 % Sodium Chloride 50 ML IV (12:55)
[2023-04-12] MEDS: 0.9 % Sodium Chloride 1,000 ML 999 ML IVCONT (12:56)
--- NOTE | 2023-04-12 13:10 | PC.NURSE ---
Dr. Acuna and Brian to bedside. ivf and abx infusing.
--- NOTE | 2023-04-12 13:41 | PHA.MEDREC ---
Pharmacy Consult ? Medication Reconciliation Pharmacy has completed the medication reconciliation. Spoke to patient to confirm meds.
--- NOTE | 2023-04-12 14:40 | PC.NURSE ---
report given to surgery.
--- NOTE | 2023-04-12 14:54 | P.HPGS_ITS ---
History of Present Illness History of Present Illness Date of Service: 04/12/23 Chief complaint: elevated white blood cells Narrative: Nitin Murillo JR is a 57 year old male who presents with a four-day history of progressive worsening right lower quadrant pain. This initially started as periumbilical discomfort which we located the right lower quadrant. Patient had progression of symptoms of presented emergency department last evening. Because there are many people waiting room, he left and returned this morning. 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 Chart was reviewed and patient evaluated. Elevated leukocyte count of 17. CT scan consistent with acute appendicitis and question of perforation. [facility] Past Medical History Medical History (Updated 04/12/23 @ 14:36 by Zachary Garibay MD) Asthma Hypertension Obesity (BMI 30-39.9) Surgical History Surgical History Hx of splenectomy Social History Social History Alcohol intake: current Alcohol intake frequency: a few times a week Smoked in Last 30 Days: No Use of substances other than those prescribed or required for medical reasons: No Advance Directives: No Meds Allergies Allergy/AdvReac Type Severity Reaction Status Date / Time No Known Allergies Allergy Verified 04/12/23 10:32 Home Medications Medication Instructions Recorded Confirmed Last Taken Type montelukast 10 mg tablet 1 tab PO DAILY 10/09/20 04/12/23 04/11/23 History naproxen sodium 220 mg capsule 220 mg PO BID PRN Pain 10/09/20 04/12/23 Unknown History (Aleve) valsartan 160 mg tablet 160 mg PO DAILY 04/12/23 04/12/23 04/12/23 History Physical Exam Vital Signs: Vital Signs: Last Vital Signs Temp 97.8 F 04/12/23 14:39 Pulse 85 04/12/23 14:39 Resp 16 04/12/23 14:39 BP 159/80 H 04/12/23 14:39 Pulse Ox 97 04/12/23 14:39 O2 Del Method Room Air 04/12/23 14:39 BMI result Body Mass Index 41.3 Chest: Other: Chest breath sounds bilaterally, HS 1 in 2 GI: Other: Very corpulent abdomen. Marked right lower quadrant localized rebound tenderness. Results Results Labs: Short CBC 04/12/23 Range/Units 11:46 WBC 17.0 H (4.8-10.8) X10*3/uL Hgb 14.3 (14.0-18.0) g/dl Hct 39.8 L (42.0-52.0) % Plt Count 429 H (160-400) X10*3/uL BMP 04/12/23 11:46 Sodium 132 L Potassium 3.6 Chloride 101 Carbon Dioxide 24 BUN 7 L Creatinine 0.76 Calcium 9.3 D Liver Function 04/12/23 Range/Units 11:46 Total Bilirubin 1.5 H (0.0-1.0) mg/dL AST 64 H (5-37) U/L ALT 80 H (0-40) U/L Alkaline Phosphatase 147 H (39-117) U/L Albumin 3.6 (3.5-5.0) g/dL Urine 04/12/23 Range/Units 12:23 Urine Color Dark Yellow Urine Appearance Clear Urine pH 6.5 (5.0-9.0) Ur Specific [place] 1.015 (1.005-1.025) Urine Protein Trace (Neg-Trace) mg/dL Urine Glucose (UA) Negative (Negative) mg/dL Assessment and Plan (1) Acute appendicitis: Status: Acute Plan Risks, benefits, alternatives of laparoscopic possible open appendectomy were reviewed with the patient and included but not limited to bleeding, infection, bowel or bladder injury or leak, numbness, pain, scarring, conversion to open procedure and patient wishes to proceed. All questions were answered. Patient will be taking upper room shortly for the procedure. Time Spent With Patient Time: Total time managing care of this patient today ____ minutes. Quality Stroke Does the patient have a stroke diagnosis?: No VTE Prior VTE?: No VTE Risk Level:: Surgical - low VTE Device Contraindication: Treatment Not Indicated VTE Drug Contraindication: Treatment Not Indicated Procedures Date of Service Date of Service: 04/12/23
[2023-04-12] MEDS: Dextrose 5 % and 0.45 % NaCl 1,000 ML 100 ML IVCONT (17:29)
[2023-04-12] MEDS: Piperacillin Sodium/Tazobactam 4.5 GM in 0.9 % Sodium Chloride 100 ML IV (17:29)
--- NOTE | 2023-04-12 20:06 | W.PM.OPN ---
Operative Note Operative Note Date of Service: 04/12/23 Narrative: Preoperative diagnosis: [] <del>Perforated</del> <del>appendicitis,</del> <del>incarcerated</del> <del>umbilical</del> <del>hernia</del> Postop diagnosis: [] Same Procedure [] laparoscopic appendectomy, primary repair incarcerated umbilical hernia Surgeon: [] Wili Jewel Cupping Machine Operator: [] Type of Anesthesia: [] General Indication for surgery: [] Locally perforated appendicitis with walled-off abscess involving omentum , terminal ileum and cecum. Very corpulent abdomen. Approximately 2 cm incarcerated umbilical hernia with omental contents, which was used as the umbilical port site. Findings: [] Patient brought to the operating room, placed on the operative table supine position, after adequate level of general anesthesia was induced, the patient's abdomen which is very corpulent was prepped and draped in usual sterile fashion. Using a supraumbilical curvilinear incision, which is the site of the patient's some incarcerated umbilical hernia, this carried down through skin, subcutaneous tissue, where hernia sac was identified and circumferentially dissected down the fascia. Sac was opened were incarcerated omental contents and sac were amputated using Bovie. Saucedo technique was used to insufflate the abdominal cavity to 15 mm of CO2. Lower midline and suprapubic ports were placed under direct laparoscopic view, and the patient was placed in Trendelenburg position, tilted to the left. Findings were as noted above. Omental and small bowel adhesions to the right lower quadrant phlegmonous mass were taken away when abscess cavity was identified. A phlegmonous appendix with local perforation was identified and brought out to the field. Next its mesentery was sequentially taken down using ligature device. Appendix was then transected at the cecal base using endoscopic RAKESH stapler. Specimen was placed in an Endo-Catch bag, a retrieved through the umbilical port. The abdominal cavity was very copiously irrigated and secured hemostasis. All ports were removed under direct laparoscopic view. Wounds were closed in the following manner; umbilical port which was decided hernia was closed primarily using interrupted 0 Vicryl sutures. Skin wounds were closed using subcuticular 4-0 Vicryl sutures followed by Steri-Strips and sterile dressings. Wounds were infiltrated 0.5% Marcaine with epinephrine a completion. Sponge, needle, and instrument counts reported correct. Patient tolerated the procedure well and emerged anesthesia in stable condition. EBL minimal
[2023-04-12] MEDS: Ketorolac Tromethamine 30 MG/ML VIAL IVPUSH (20:22)
[2023-04-13] MEDS: Zolpidem Tartrate 5 MG TABLET PO ×2 (00:25→20:03)
[2023-04-13] MEDS: Piperacillin Sodium/Tazobactam 4.5 GM in 0.9 % Sodium Chloride 100 ML IV ×4 (00:27→17:46)
[2023-04-13 02:52] VITALS: RESP 16
[2023-04-13] MEDS: Dextrose 5 % and 0.45 % NaCl 1,000 ML 100 ML IVCONT ×2 (03:25→12:35)
[2023-04-13 06:40] LABS: Anion Gap 12 (12-20); Blood Urea Nitrogen 7 mg/dL (9-16); Calcium 8.8 mg/dL (8.4-10.2); Carbon Dioxide 23 mmol/L (22-29); Chloride 104 mmol/L (96-108); Creatinine Clr Calc Pharmacy 123.2; Estimated Glomerular Filt Rate > 60; Glucose Random 131 mg/dL (60-115); Potassium 3.7 mmol/L (3.3-5.1); Sodium 135 mmol/L (135-145)
[2023-04-13 06:53] VITALS: BP 144/85; PULSE 73; RESP 18; TEMP 36.1; O2SAT 97
[2023-04-13] MEDS: Montelukast Sodium 10 MG TABLET PO (08:23)
[2023-04-13] MEDS: Valsartan 160 MG TABLET PO (08:23)
--- NOTE | 2023-04-13 09:15 | PC.NURSE ---
Pt tolerating clear liquids denies need for pain medication. abdominal lap sites CDI . Routine post op care
--- NOTE | 2023-04-13 15:37 | MHC.CM.PN ---
PT SLEEPING, CM MET WITH HIS S/O AT BEDSIDE SHE REPORTS THE FOLLOWING: PT LIVES WITH HIS S/O HE IS INDEPENDENT WITH ALL CARE HE HAS NO DME AND NO SERVICES SHE THINKS HE HAS A HCP, COPY REQUESTED PCP: LAUREEN ALVAREZ DCP: HOME NO SERVICES PT WILL DRIVE HIMSELF, CAR IN LOT
[2023-04-13 15:38] VITALS: BP 154/85; PULSE 82; RESP 20; TEMP 36.1; O2SAT 97
--- NOTE | 2023-04-13 15:54 | PM.PNGS ---
Subjective Subjective Date of Service: 04/13/23 Interval history: Aside from incisional discomfort, patient is doing well. He passed some flatus. He has been out of bed ambulating, and doing his incentive spirometer. Tolerating clear liquids. Physical Exam Vital Signs: Vital Signs: Last Vital Signs Temp 96.9 F 04/13/23 15:38 Pulse 82 04/13/23 15:38 Resp 20 04/13/23 15:38 BP 154/85 H 04/13/23 15:38 Pulse Ox 97 04/13/23 15:38 O2 Del Method Room Air 04/13/23 15:38 O2 Flow Rate 2 04/12/23 19:20 BMI result Body Mass Index 42.7 GI: Other: Abdomen soft. All wound dressings clean dry and intact Objective Data Active Medications Acetaminophen (Acetaminophen 325 Mg Tablet) 650 mg PO Q6H PRN PRN Reason: Pain, Mild (Pain Scale 1-3) Hydromorphone HCl (Hydromorphone Hcl 0.5 Mg/0.5 Ml Syringe) 0.5 mg IVPUSH Q4H PRN; Protocol PRN Reason: Pain, Severe (Pain Scale 7-10) Dextrose/Sodium Chloride (D51/2ns) 1,000 mls @ 100 mls/hr IVCONT .Q10H [facility] Last Admin: 04/13/23 12:35 Dose: 100 mls/hr Documented By: MI Piperacillin Sod/Tazobactam (Sod 4.5 gm/ Sodium Chloride) 100 mls @ 200 mls/hr IV Q6H [facility] Last Infusion: 04/13/23 12:33 Dose: 0 mls/hr Documented By: MI Ketorolac Tromethamine (Ketorolac Tromethamine 30 Mg/Ml Vial) 30 mg IVPUSH Q6H PRN PRN Reason: Pain, Mild (Pain Scale 1-3) Stop: 04/17/23 16:24 Last Admin: 04/12/23 20:22 Dose: 30 mg Documented By: EITAN Magnesium Hydroxide (Milk Of Magnesia 30 Ml Oral.Susp) 30 ml PO DAILY PRN PRN Reason: Constipation Montelukast Sodium (Montelukast Sodium 10 Mg Tablet) 10 mg PO DAILY [facility] Last Admin: 04/13/23 08:23 Dose: 10 mg Documented By: MI Ondansetron HCl (Ondansetron Hcl 4 Mg/2 Ml Vial) 4 mg IVPUSH Q8H PRN PRN Reason: Nausea and Vomiting Sodium Chloride (0.9 % Sodium Chloride Flush 3 Ml Syringe) 3 ml IVFLUSH QSHIFT [facility] Last Admin: 04/13/23 08:23 Dose: Not Given Documented By: MI Non-Admin Reason: IV Running Valsartan (Valsartan 160 Mg Tablet) 160 mg PO DAILY [facility]; Protocol Last Admin: 04/13/23 08:23 Dose: 160 mg Documented By: MI Zolpidem Tartrate (Zolpidem Tartrate 5 Mg Tablet) 5 mg PO BEDTIME PRN PRN Reason: Insomnia Last Admin: 04/13/23 00:25 Dose: 5 mg Documented By: EITAN Labs 04/12/23 11:46 04/13/23 05:26 Labs: Laboratory Results - last 24 hr 04/13/23 05:26 Anion Gap 12 Estim Creat Clear Calc 123.2 Estimated GFR > 60 Random Glucose 131 H Calcium 8.8 Microbiology Microbiology Results: Microbiology 04/12/23 11:45 Blood Culture - Preliminary Blood - Venous No growth after 24 hours. 04/12/23 11:32 Blood Culture - Preliminary Blood - Venous No growth after 24 hours. Procedures Date of Service Date of Service: 04/13/23 Progress Note: A&P Assessment and plan (1) Acute appendicitis: Status: Acute Plan Continue IV antibiotics, out of bed, incentive spirometry, weight further bowel function before advancing diet. Time Spent With Patient Time: Total time managing care of this patient today ____ minutes. Quality Stroke Does the patient have a stroke diagnosis?: No VTE Prior VTE?: No VTE Risk Level:: Surgical - low VTE Device Contraindication: Treatment Not Indicated VTE Drug Contraindication: Treatment Not Indicated
--- NOTE | 2023-04-13 16:11 | HO.POSTANES ---
Post Anesthesia Evaluation Post Anesthesia Evaluation Date of Service: 04/13/23 Vital Signs: Vital Signs Temp Pulse Resp BP Pulse Ox O2 Del Method 04/13/23 15:38 96.9 F 82 20 154/85 H 97 Room Air 04/13/23 06:53 97 F 73 18 144/85 H 97 Room Air Anesthesia: General Endotracheal-GETA Mental Status: Awake Pain Control: Satisfactory Nausea/Vomiting: None Hydration: Adequate Anesthesia-Related Issues: No Anes. Related Issues
[2023-04-13] MEDS: Lactated Ringers 1,000 ML 100 ML IVCONT (19:01)
[2023-04-13 19:54] VITALS: BP 106/57; PULSE 77; RESP 20; TEMP 37.4; O2SAT 97
[2023-04-13] MEDS: Ketorolac Tromethamine 30 MG/ML VIAL IVPUSH (20:02)
[2023-04-14 00:30] VITALS: BP 143/68; PULSE 80; RESP 18; TEMP 36.4; O2SAT 98
[2023-04-14] MEDS: Piperacillin Sodium/Tazobactam 4.5 GM in 0.9 % Sodium Chloride 100 ML IV ×3 (00:57→12:07)
[2023-04-14] MEDS: 0.9 % Sodium Chloride Flush 3 ML SYRINGE IVFLUSH ×2 (00:58→08:23)
[2023-04-14 07:20] VITALS: BP 158/84; PULSE 87; RESP 16; TEMP 36.7; O2SAT 95
[2023-04-14] MEDS: Montelukast Sodium 10 MG TABLET PO (08:23)
[2023-04-14] MEDS: Valsartan 160 MG TABLET PO (08:23)
--- NOTE | 2023-04-14 09:18 | PM.PNGS ---
Subjective Subjective Date of Service: 04/14/23 Interval history: Feels better this morning. Pain minimal. Has been OOB and ambulating halls. Passing flatus and had BM. Tolerating full liquids and wants solid food. WOuld like to go home. Physical Exam Vital Signs: Vital Signs: Last Vital Signs Temp 98.1 F 04/14/23 07:20 Pulse 87 04/14/23 07:20 Resp 16 04/14/23 07:20 BP 158/84 H 04/14/23 07:20 Pulse Ox 95 04/14/23 07:20 O2 Del Method Room Air 04/14/23 07:20 O2 Flow Rate 2 04/12/23 19:20 BMI result Body Mass Index 42.7 Const: General: comfortable, no acute distress and alert Orientation/consciousness: patient oriented x3 Resp: Effort & Inspection: normal respiratory effort GI: Inspection: Yes distended (mild) and Yes incision (clean) Palpation (GI): Soft to palpation, Tenderness to palpation present (GI) (mild incisional), no guarding and not rigid Skin: General skin exam: no rashes or lesions noted Neuro: General: patient oriented x3 Objective Data Active Medications Acetaminophen (Acetaminophen 325 Mg Tablet) 650 mg PO Q6H PRN PRN Reason: Pain, Mild (Pain Scale 1-3) Hydromorphone HCl (Hydromorphone Hcl 0.5 Mg/0.5 Ml Syringe) 0.5 mg IVPUSH Q4H PRN; Protocol PRN Reason: Pain, Severe (Pain Scale 7-10) Piperacillin Sod/Tazobactam (Sod 4.5 gm/ Sodium Chloride) 100 mls @ 200 mls/hr IV Q6H [facility] Last Infusion: 04/14/23 07:24 Dose: 0 mls/hr Documented By: IMAN Ketorolac Tromethamine (Ketorolac Tromethamine 30 Mg/Ml Vial) 30 mg IVPUSH Q6H PRN PRN Reason: Pain, Mild (Pain Scale 1-3) Stop: 04/17/23 16:24 Last Admin: 04/13/23 20:02 Dose: 30 mg Documented By: ELIZABETH Magnesium Hydroxide (Milk Of Magnesia 30 Ml Oral.Susp) 30 ml PO DAILY PRN PRN Reason: Constipation Montelukast Sodium (Montelukast Sodium 10 Mg Tablet) 10 mg PO DAILY [facility] Last Admin: 04/14/23 08:23 Dose: 10 mg Documented By: IMAN Ondansetron HCl (Ondansetron Hcl 4 Mg/2 Ml Vial) 4 mg IVPUSH Q8H PRN PRN Reason: Nausea and Vomiting Sodium Chloride (0.9 % Sodium Chloride Flush 3 Ml Syringe) 3 ml IVFLUSH QSHIFT [facility] Last Admin: 04/14/23 08:23 Dose: 3 ml Documented By: IMAN Valsartan (Valsartan 160 Mg Tablet) 160 mg PO DAILY [facility]; Protocol Last Admin: 04/14/23 08:23 Dose: 160 mg Documented By: IMAN Zolpidem Tartrate (Zolpidem Tartrate 5 Mg Tablet) 5 mg PO BEDTIME PRN PRN Reason: Insomnia Last Admin: 04/13/23 20:03 Dose: 5 mg Documented By: BEIT Labs 04/12/23 11:46 04/13/23 05:26 Microbiology Microbiology Results: Microbiology 04/12/23 11:45 Blood Culture - Preliminary Blood - Venous No growth after 24 hours. 04/12/23 11:32 Blood Culture - Preliminary Blood - Venous No growth after 24 hours. Procedures Date of Service Date of Service: 04/14/23 Progress Note: A&P Assessment and plan (1) Acute appendicitis: Status: Acute Plan POD #2 s/p laparoscopic appendectomy, primary repair incarcerated umbilical hernia for perforated appendicitis. Doing well with good pain control, moving bowels. VSS. Abdomen benign with clean incisions and appropriate post op tenderness. Will advance to solid diet. If tolerated, stable for dc to home today on PO abx. F/u in office in 1 week. patient comfortable with plan. Time Spent With Patient Time: Total time managing care of this patient today ____ minutes. Quality Stroke Does the patient have a stroke diagnosis?: No VTE Prior VTE?: No VTE Risk Level:: Surgical - low VTE Device Contraindication: Treatment Not Indicated VTE Drug Contraindication: Treatment Not Indicated
--- NOTE | 2023-04-14 13:21 | MHC.CM.PN ---
EMR REVIEWED AND PER M ROUNDS, PT NOT YET MEDICALLY CLEARED FOR DC S/P LAP APPY WITH PERF/SUBSEQUENT HERNIA REPAIR. CM WILL CONTINUE TO FOLLOW FOR ANY CHANGE IN DC NEEDS/PLAN
--- NOTE | 2023-04-14 13:34 | PM.DS ---
DS: Providers Provider Date of Service: 04/14/23 Date of admission: 04/12/23 16:26 Primary care physician: Marcos Woods MD Attending physician on admission: Eugene Rasheed Attending physician on discharge: Eugene Rasheed DS: Diagnosis Discharge Diagnosis (1) Acute appendicitis: Status: Acute DS: Summary Hospital Course Hospital Course: HPI AT ADMISSION: Nitin Murillo JR is a 57 year old male who presents with a four-day history of progressive worsening right lower quadrant pain. This initially started as periumbilical discomfort which we located the right lower quadrant. Patient had progression of symptoms of presented emergency department last evening. Because there are many people waiting room, he left and returned this morning. 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 Chart was reviewed and patient evaluated. Elevated leukocyte count of 17. CT scan consistent with acute appendicitis and question of perforation. HOSPITAL COURSE: He was admitted to the surgical service for further treatment of the acute appendicitis. It was recommended to proceed with laparoscopic appendectomy, possible open. He agreed. He was added onto the OR schedule for that day. He was started on IV zosyn, IVF and kept NPO. On 04/12/23, ?laparoscopic appendectomy, primary repair incarcerated umbilical hernia was performed by Dr. Rasheed without complication. He was found to have a locally perforated appendix intraoperatively. The patient tolerated the procedure well. He had an uncomplicated recovery course. His pain remained well controlled. He began passing flatus and then moving his bowels. His diet was advanced to clear liquids and then solids. He was ambulated. His abdomen remained benign with appropriate post op tenderness and clean incisions. He completed 3 days of IV zosyn. His WBC downtrended. He was discharged to home on 04/14/23 in stable condition on a PO course of flagyl and levaquin. He is to follow up in the office in 1 week. Status at Discharge Functional status at discharge: independent ambulation Overall status at discharge: patient is progressing back to baseline Time Spent with Patient Time attestation: Total time managing care of this patient today ____ minutes. Discharge coordination time: Less than 30 minutes Quality: Safe Use of Opioids Does Pt have an Active Cancer Diagnosis on the Problem List?: No Quality: Stroke Does the patient have a stroke diagnosis?: No Physical Exam Vital Signs: Vital Signs: Last Vital Signs Temp 98.1 F 04/14/23 07:20 Pulse 87 04/14/23 07:20 Resp 16 04/14/23 07:20 BP 158/84 H 04/14/23 07:20 Pulse Ox 95 04/14/23 07:20 O2 Del Method Room Air 04/14/23 07:20 O2 Flow Rate 2 04/12/23 19:20 BMI result Body Mass Index 42.7 Const: General: comfortable, no acute distress and alert Orientation/consciousness: patient oriented x3 Resp: Effort & Inspection: normal respiratory effort GI: Inspection: No distended and Yes incision (clean) Palpation (GI): Soft to palpation, Tenderness to palpation present (GI) (mild incisional), no guarding and not rigid Skin: General skin exam: no rashes or lesions noted Neuro: General: patient oriented x3 and moves all extremities DS: Data Data Completed and Pending Pending studies at discharge: Pending at discharge 04/12/23 16:01 Surgical [PTH] Routine Labs on day of discharge: Preliminary micro results at discharge 04/12/23 11:45 Blood Culture - Preliminary Blood - Venous No growth after 24 hours. 04/12/23 11:32 Blood Culture - Preliminary Blood - Venous No growth after 24 hours. Discharge Plan Discharge Anticipated Discharge Date/Time: 04/14/23 13:21 Patient Disposition: Home, Self-Care Discharge Diagnosis: Perforated appendicitis Referrals: Marcos Woods MD [Primary Care Provider] - 1 Week Eugene Rasheed MD [Physician] - 1 Week Discharge Medications: New hydrocodone-acetaminophen 5-325 mg tablet 1 tab PO Q4-6H PRN (Reason: pain) Qty: 30 0RF Rx Instructions: Partial Fill upon patient request. ciprofloxacin HCl 500 mg tablet 500 mg PO BID Qty: 14 0RF metronidazole [Flagyl] 375 mg capsule 375 mg PO BID Qty: 14 0RF Continued montelukast 10 mg tablet 1 tab PO DAILY naproxen sodium [Aleve] 220 mg Capsule 220 mg PO BID PRN (Reason: Pain) valsartan 160 mg tablet 160 mg PO DAILY Discharge Orders: Discharge Order (Routine); Ordered 04/14/23 Ordered By: Anna Shin Diet: Advance to usual diet Activity on Discharge: No heavy lifting Stand Alone Forms: Patient Portal Discharge page Activity Restrictions/Additional Instructions: Apply an ice pack for short intervals (20 minutes on, followed by at least 20 minutes off) for the first 2 days. Do not apply heat. Do not use creams, lotions, or topical antibiotics. These can cause infection or allergic reaction. Ok to shower. You have steri strips (small white cloth strips) covering your incision- these will fall off ~1 week. Follow up in office with Dr. Rasheed in 1 week. ([phone]) No heavy lifting (>10lbs) or strenuous activity! Call Your Doctor If: -Your temperature exceeds 101.5? F -You experience excessive pain or swelling -You have an unexpected reaction to medication -You have excessive bleeding -You experience continued vomiting/nausea -Your incision begins to separate -Your incision shows signs of infection such as increased redness, swelling, excessive pain, drainage (light blood or clear fluid is normal) or heat Care Plan Goals: Return to baseline health and resume normal activities following recovery period. Health Concerns: None Plan of Treatment: See discharge instructions Assessment: Stable
--- NOTE | 2023-04-14 14:24 | MHC.CM.PN ---
pr dcdhome no skilled services ordered by
== END 2023-04-14 15:14 | disposition home or self-care (01) | DRG 339 ==
LOC: HO.ED 12:43 → HO.SSS 14:46 → HO.SSSA 16:41 → HO.S3 16:42
PROVIDERS: Admitting Provider Surgery; Emergency Provider Student in an Organized Health Care Education/Training Program; PCP Internal Medicine; Visit Provider Surgery
PROC: 0DTJ4ZZ Resection of Appendix, Percutaneous Endoscopic Approach (ICD-10-PCS; CPT 44970; principal; 2023-04-12 14:30)
DX: K35.33 Acute appendicitis with perforation, localized peritonitis, and gangrene, with abscess (principal); K42.0 Umbilical hernia with obstruction, without gangrene; Z68.41 Body mass index [BMI] 40.0-44.9, adult; I10 Essential (primary) hypertension; E66.9 Obesity, unspecified; Z79.899 Other long term (current) drug therapy
CPT/HCPCS: 36415; 74176; 80048; 80053; 81001; 83605; 85025; 87040; 88302; 88304; 99284; J1100; J1885; J2250; J2405; J2543; J3010

== ENCOUNTER → 2023-04-12 14:45 | Outpatient (BNV) | payer OTHER, SELFPAY | PROVIDERS: Emergency Provider Student in an Organized Health Care Education/Training Program; PCP Internal Medicine; Visit Provider Surgery | DX: K35.80 Unspecified acute appendicitis (principal) | CPT/HCPCS: 44970; 99024; 99283 ==

== ENCOUNTER 2023-04-18 11:28 | Outpatient (AMB) | payer OTHER, SELFPAY ==
[2023-04-18 11:34] VITALS: BP 146/90; PULSE 84
--- NOTE | 2023-04-18 11:34 | A.OFFVIS_ITS ---
Intake Vital Signs 04/18/23 11:34 Weight 269 lb BP 146/90 H Blood Pressure Location Rt brachial Position Sitting Pulse 84 Intake Visit Reasons: s/p lap appy, repair incarcerated umbilical hernia Intake Note: Patient here for s/p lap appy, umbilical hernia repair. Reports incisions healing well. C/o mild tenderness with touch. Denies bleeding, pain or itch. Taking rx pain meds as needed. 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 She is doing quite well. He is tolerating a diet. Having normal bowel habits. He is increasing his activity level. He has minimal incisional discomfort. [facility] Medical History (Updated 04/18/23 @ 08:32 by BENSON Gonzalez) Asthma Hypertension Obesity (BMI 30-39.9) Umbilical hernia (04/12/23) Surgical History (Updated 04/18/23 @ 11:46 by Eugene Rasheed MD) History of appendectomy (04/12/23) Hx of splenectomy Social History Household Members: Significant Other Housing: House Do you presently have visiting nurse or other home services: No Alcohol intake: current Alcohol intake frequency: a few times a week Patient Tobacco Use Status: Never used Tobacco service: No Physical Exam Vital Signs: Last Vital Signs Pulse 84 04/18/23 11:34 BP 146/90 H 04/18/23 11:34 GI Other: Abdomen soft, all wounds clean dry and intact. Assessment & Plan Assessment & Plan (1) Acute appendicitis: Code(s): K35.80 - Unspecified acute appendicitis Plan Patient is doing well status post appendectomy for perforated appendicitis. He has been given local wound instructions, and appropriate work note and will follow-up p.r.n. Coding Level of Care Code Global (43531) Diagnoses Acute appendicitis K35.80
== END 2023-04-18 11:42 | disposition home or self-care (01) ==
PROVIDERS: PCP Internal Medicine; Visit Provider Surgery
DX: K35.80 Unspecified acute appendicitis (principal)
CPT/HCPCS: 99024

== ENCOUNTER → 2023-04-18 11:28 | Outpatient (BNVA) | payer OTHER, SELFPAY | PROVIDERS: PCP Internal Medicine; Visit Provider Surgery ==

== ENCOUNTER 2023-07-30 06:11 | Outpatient (REF) | payer OTHER, SELFPAY ==
[2023-07-30 11:24] LABS: MANUAL DIFF FLAG NO
[2023-07-30 11:34] LABS: Basophils Absolute Auto 0.1 X10*3/uL (0.0-0.2); Basophils Percent Auto 1.4 % (0-2); Eosinophils Absolute Auto 1.5 X10*3/uL (0.0-0.4); Eosinophils Percent Auto 17.2 % (0-4); Hematocrit 43.9 % (42.0-52.0); Imm Gran Abs Auto 0.02 X10*3/uL (0.00-0.03); Imm Gran Pct Auto 0.2 % (0.0-0.4); Lymphocytes Absolute Auto 3.3 X10*3/uL (1.2-4.9); Lymphocytes Percent Auto 38.4 % (20-40); Mean Corpuscular HGB Conc 34.2 g/dl (31.0-36.0); Mean Corpuscular Hemoglobin 32.5 pg (27.0-33.0); Mean Platelet Volume 9.6 fL (9.4-12.4); Monocytes Absolute Auto 1.3 X10*3/uL (0.1-1.2); Neutrophils Absolute Auto 2.4 x10*3/uL (2.0-8.3); Neutrophils Percent Auto 27.8 % (45-73); Platelet Count 501 X10*3/uL (160-400); Red Blood Count 4.62 X10*6/uL (4.60-5.80); Red Cell Distribution Width 14.6 % (11.0-16.0); White Blood Count 8.6 X10*3/uL (4.8-10.8)
[2023-07-30 11:53] LABS: Alanine Aminotransferase 24 U/L (0-40); Albumin Level 3.9 g/dL (3.5-5.0); Alkaline Phosphatase 77 U/L (39-117); Anion Gap 12 (12-20); Aspartate Amino Transferase 22 U/L (5-37); Bilirubin Total 0.4 mg/dL (0.0-1.0); Blood Urea Nitrogen 15 mg/dL (9-16); Calcium 9.1 mg/dL (8.4-10.2); Carbon Dioxide 24 mmol/L (22-29); Chloride 106 mmol/L (96-108); Cholesterol 173 mg/dL (<200); Estimated Glomerular Filt Rate > 60; Glucose Fasting 98 mg/dL (60-99); HDL Cholesterol 57 mg/dL (>40); LDL Cholesterol Calculated 95 mg/dL (<100); Potassium 4.4 mmol/L (3.3-5.1); Sodium 138 mmol/L (135-145); Total Protein 7.4 g/dL (6.5-8.0); Triglycerides 108 mg/dL (<150)
[2023-07-30 12:04] LABS: Prostate Specific Antigen 0.44 ng/mL (<0.05-4.0)
== END 2023-07-30 06:12 | disposition home or self-care (01) ==
LOC: HO.HMGCLDS 06:11
PROVIDERS: PCP Internal Medicine; Visit Provider Internal Medicine
DX: Z00.00 Encounter for general adult medical examination without abnormal findings (principal); Z12.5 Encounter for screening for malignant neoplasm of prostate
CPT/HCPCS: 36415; 80053; 80061; 84153; 85025

== ENCOUNTER 2024-07-30 07:47 | Outpatient (REF) | payer OTHER, SELFPAY ==
--- OUTSIDE RECORDS SUMMARY | 2024-07-30 07:50 | XMS_ITS | Patient Health Record ---
Author Organization [facility] Address [address] [place] [address] Care Team Providers Care Clinical Faculty Name Role Phone Marcos Woods MD Primary Care Provider Unavailab Addy Rutherford Jr Unavailable REASON FOR REFERRAL No Information MEDICATIONS Medication SIG (Take, Route, Frequency, Duration) Notes Start Date End Date Status Lisinopril 10 MG 1 tablet Orally Once a day Active Montelukast Sodium 10 MG TAKE 1 TABLET B Y MOUTH EVERY DAY Oral for 90 Active MiraLax (colon prep) 8.3 ounce ((238) grams mixed with Gatorade or Crystal Light orally begin at 5:00 p.m. the day before the procedure for 1 day 09/07/2020 Active Aleve prn Active IMMUNIZATIONS Vaccine Route Administration Date Status Comme nts Influenza Unknown 05/18/2019 Administered SOCIAL HISTORY Tobacco Use: Social History Observation Description Date Details (start date - stop date) Never Smoker NA - NA Sex Assigned At : Social History Observation Description Sex Assigned At Unknown Tobacco Use/Smoking Question Answer Notes Patient is a nonsmoker Alcohol Screen Question Answer Notes Did you have a drink contain ing alcohol in the past year? Yes How often did you have a dri nk containing alcohol in the past year? 2 to 4 times a month (2 points) How many drinks did you have on a typical day when you were drinking in the past year? 3 or 4 drinks (1 point) How often did you have 6 or more drinks on one occasion in the past year? Never (0 point) Points 3 Interpretation Negative PROBLEMS Problem Type ICD Code Onset Dates Problem Status W/U Status Risk SNOMED Code Notes Problem Colon cancer screening (Z12.11) Active confirmed 374886714 Problem buttermaker (current) use of non-steroidal anti-inflammatorie s (NSAID) (Z79.1) Active confirmed 314705372 Problem Encounter for other preprocedural examination (Z01.818) Active confirmed 683261243 PLAN OF TREATMENT Future Test Test Name Order Date COLONOSCOPY 08/05/2019 COLONOSCOPY 09/07/2020 Insurance Providers Payer Name Payer Address Payer Phone Subscriber Number Group Number Insured Name Patient Relationship to Insured Coverage Start Date Coverage End Date [facility] [address] [place] [phone] [id number] RALPH MENDENHALL Self - patient is the insured MEDICAL (GENERAL) HISTORY Medical History History ICD Code asthma hypertension Surgical History Surgery Date(Month/Year) splenectomy
[2024-07-30 10:31] LABS: MANUAL DIFF FLAG NO
[2024-07-30 10:42] LABS: Basophils Absolute Auto 0.1 X10*3/uL (0.0-0.2); Basophils Percent Auto 1.2 % (0-2); Eosinophils Absolute Auto 0.9 X10*3/uL (0.0-0.4); Eosinophils Percent Auto 11.2 % (0-4); Hematocrit 42.5 % (42.0-52.0); Hemoglobin 14.8 g/dl (14.0-18.0); Imm Gran Abs Auto 0.01 X10*3/uL (0.00-0.03); Imm Gran Pct Auto 0.1 % (0.0-0.4); Lymphocytes Absolute Auto 2.9 X10*3/uL (1.2-4.9); Lymphocytes Percent Auto 37.9 % (20-40); Mean Corpuscular HGB Conc 34.8 g/dl (31.0-36.0); Mean Corpuscular Hemoglobin 33.3 pg (27.0-33.0); Mean Corpuscular Volume 95.7 fL (80.0-98.0); Mean Platelet Volume 9.5 fL (9.4-12.4); Monocytes Absolute Auto 1.4 X10*3/uL (0.1-1.2); Monocytes Percent Auto 18.5 % (2-11); Neutrophils Absolute Auto 2.4 x10*3/uL (2.0-8.3); Neutrophils Percent Auto 31.1 % (45-73); Platelet Count 503 X10*3/uL (160-400); Red Blood Count 4.44 X10*6/uL (4.60-5.80); Red Cell Distribution Width 14.3 % (11.0-16.0); White Blood Count 7.7 X10*3/uL (4.8-10.8)
[2024-07-30 11:25] LABS: Alanine Aminotransferase 36 U/L (0-40); Albumin Level 3.9 g/dL (3.5-5.0); Alkaline Phosphatase 91 U/L (39-117); Anion Gap 9 (12-20); Aspartate Amino Transferase 29 U/L (5-37); Bilirubin Total 0.4 mg/dL (0.0-1.0); Blood Urea Nitrogen 14 mg/dL (9-16); Calcium 9.1 mg/dL (8.4-10.2); Carbon Dioxide 28 mmol/L (22-29); Chloride 106 mmol/L (96-108); Cholesterol 204 mg/dL (<200); Estimated Glomerular Filt Rate > 60; Glucose Fasting 102 mg/dL (60-99); HDL Cholesterol 55 mg/dL (>40); LDL Cholesterol Calculated 119 mg/dL (<100); Potassium 4.5 mmol/L (3.3-5.1); Sodium 138 mmol/L (135-145); Total Protein 7.2 g/dL (6.5-8.0); Triglycerides 151 mg/dL (<150)
== END 2024-07-30 07:48 | disposition home or self-care (01) ==
LOC: HO.HMGCLDS 07:47
PROVIDERS: PCP Internal Medicine; Visit Provider Internal Medicine
DX: Z00.00 Encounter for general adult medical examination without abnormal findings (principal); I10 Essential (primary) hypertension; E66.9 Obesity, unspecified; Z12.5 Encounter for screening for malignant neoplasm of prostate
CPT/HCPCS: 36415; 80053; 80061; 84153; 85025

== ENCOUNTER 2024-11-01 15:48 | Outpatient (AMB) | payer OTHER, SELFPAY ==
--- NOTE | 2024-11-01 15:50 | AM.OFFWIN_ITS ---
Intake Vital Signs 11/01/24 15:51 Weight 294 lb BP 126/84 Blood Pressure Location Rt brachial Position Sitting Pulse 100 Pulse Source Pulse Oximeter Temp 98.6 F Temp Source Oral Pulse Oximetry (%) 96 Oxygen Delivery Method Room Air Intake Visit Reasons: EP severe cough, tired Intake Note: Patient here for cough and fatigue that has been present since . Patient Tobacco Use Status: Never used Tobacco Allergies No Known Allergies Allergy (Verified 11/01/24 15:52) Do you need a note to return to daycare/school/sports/work: No HPI HPI Comments History of Present Illness Details History - The patient is a 59-year-old male pres enting with respiratory symptoms characterized by persistent cough and wheezing. - Symptoms initiated a week ago, initial ly improving with prednisone use but regressing subsequently. 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 - He denies associated fever or shortnes s of breath. - Admits to wheezing. - Home results for flu, COVID-19, and RS V tests were negative. - He has had prescribed inhalers but has not used them for years. - He tells me he called his doctor and rowdy jules prescribed 40mg prednisone daily for two weeks from his PCP, Dr Woods. He has the bottle with him and I did confirm that is the dose he was prescribed. He states he is on day 8 of the steroids. Physical Exam General: Cooperative, healthy appearing, comfortable and no acute distress Orientation/consciousness: Patient oriented x3 Limitations: No limitations Head: Normal to inspection Ears: external ears normal, EAC right has some blood, left is normal and TM's normal bilaterally Nose: Normal external nose present, Normal nares present and No nasal discharge present Face and sinus: Normal facial exam and Yes sinuses nontender Mouth: Normal oral and palatal mucosa present and moist mucous membranes Throat: Yes tonsils normal, Yes uvula midline. Posterior oropharynx erythema Eyes: Appearance normal, both eyes and all related structures Neck: Normal visual inspection Respiratory: Very slight expiratory wheeze, dim. Normal respiratory effort, able to speak in complete sentences, Actively coughing, no respiratory distress, not tachypneic, no tripod positioning and no use of accessory muscles. Cardiovascular: Regular rate and rhythm. Normal S1 and S2 Skin: No rashes or lesions noted Neuro: Patient oriented x3 Extremities: Normal to inspection and Yes no clubbing, cyanosis or edema PFSH Medical History Asthma Hypertension Obesity (BMI 30-39.9) Umbilical hernia (04/12/23) Surgical History History of appendectomy (04/12/23) Hx of splenectomy Social History Household Members: Significant Other Housing: House Do you presently have visiting nurse or other home services: No Alcohol intake: current Alcohol intake frequency: a few times a week Patient Tobacco Use Status: Never used Tobacco service: No Review of Systems Const All systems reviewed & are unremarkable except as noted in HPI and below Physical Exam Vital Signs: Last Vital Signs Temp 98.6 F 11/01/24 15:51 Pulse 100 11/01/24 15:51 BP 126/84 11/01/24 15:51 Pulse Ox 96 11/01/24 15:51 Oxygen Delivery Method Room Air 11/01/24 15:51 Assessment & Plan Assessment & Plan (1) Acute viral syndrome: Code(s): B34.9 - Viral infection, unspecified Plan: A PCR test is to be conducted for flu, COVID-19, and RSV for more sensitive results. Antibiotics will be selectively utilized pending chest x-ray results to rule out or confirm pneumonia. A chest x-ray is ordered to investigate potential pneumonia. Prescribe an Albuterol inhaler for symptom relief. Strongly recommended patient check with the prescribing provider, Dr. Woods of the 14 days of 40 mg of prednisone so he can be tapered safely off of the steroid. He is on day 8. Patient and his understands and will call Dr Woods in the morning. Patient was informed and verbally consented to the use of an ambient scribe for clinic note documentation during this visit Orders: Orders XR chest 2V Today R05.9 - Cough, unspecified SARS-CoV2/FLU/RSV Today R09.89 - Other specified symptoms and signs involving the circulatory and respiratory systems Medications: New albuterol sulfate 90 mcg/actuation 2 puffs inhalation Q6H PRN 8.5 grams 0RF shortness of breath or wheezing or cough Coding Level of Care Code New Pt Level 4 (53772) Diagnoses Acute viral syndrome B34.9
[2024-11-01 15:51] VITALS: BP 126/84; PULSE 100; TEMP 37; O2SAT 96
--- OUTSIDE RECORDS SUMMARY | 2024-11-01 18:12 | XMS_ITS | Patient Health Record ---
Author Organization [facility] Address [address] [place] [address] Care Team Providers Care Black Top Paver Operator Name Role Phone Marcos Woods MD Primary Care Provider Unavailab Addy Rutherford Jr Unavailable Reason For Referral No Information Medications Medication SIG (Take, Route, Frequency, Duration) Notes [...] 1 day 09/07/2020 Active Aleve prn Active Immunizations Vaccine Route Administration Date Status Comme nts Influenza Unknown 05/18/2019 Administered Social History Tobacco Use: Social History Observation Description Date Details (start date - stop date) Never Smoker NA - NA Tobacco Use/Smoking Question Answer Notes Patient is [...] Never (0 point) Points 3 Interpretation Negative Problems Problem Type SNOMED Code ICD Code Onset Dates Problem Status W/U Status Risk Notes Problem 938700733 Colon cancer screening (Z12.11) Active confirmed Problem 270925005 alf (current) use of non-steroidal anti-inflammatorie s (NSAID) (Z79.1) Active confirmed Problem 946324564 Encounter for other preprocedural examination (Z01.818) Active confirmed Plan Of Treatment Future Test Test Name Order Date COLONOSCOPY 08/05/2019 COLONOSCOPY 09/07/2020 Insurance Providers Payer Name Payer Address Payer Phone Subscriber Number Group Number Insured Name Patient Relationship to Insured Coverage Start Date Coverage End Date [facility] [address] [place] [phone] [id number] RALPH MENDENHALL Self - patient is the insured Medical (General) History Medical History History ICD Code asthma hypertension Surgical History Surgery Date(Month/Year) splenectomy
== END 2024-11-01 16:39 | disposition home or self-care (01) ==
PROVIDERS: PCP Internal Medicine; Visit Provider Physician Assistant
DX: B34.9 Viral infection, unspecified (principal)

== ENCOUNTER 2024-11-01 15:48 | Outpatient (REF) | payer OTHER, SELFPAY | END 2024-11-01 15:49 | disposition home or self-care (01) | LOC: HO.LAB 15:48 | PROVIDERS: PCP Internal Medicine | DX: Z13.89 Encounter for screening for other disorder (principal) ==

== ENCOUNTER 2024-11-01 16:08 | Outpatient (REF) | payer OTHER, SELFPAY ==
--- NOTE | ~2024-11-01 | XR_ITS ---
CLINICAL HISTORY: R05.9 - Cough, unspecified Chest Radiographs, 2 views Comparison: None Findings: No cardiomegaly. Normal mediastinal contours. No pneumothorax. No opacity. No pleural effusion. Normal upper abdomen. No acute fracture. Impression: No acute findings. This document has been electronically signed by: Alejandra Breaux MD on 11/01/2024 16:52:11
== END 2024-11-01 16:09 | disposition home or self-care (01) ==
LOC: HO.HMGCX 16:08
PROVIDERS: PCP Internal Medicine; Visit Provider Physician Assistant
DX: R05.9 Cough, unspecified (principal)
CPT/HCPCS: 71046

== ENCOUNTER → 2024-11-01 16:15 | Outpatient (BNV) | payer OTHER, SELFPAY | PROVIDERS: PCP Internal Medicine; Visit Provider Radiology Diagnostic Radiology | DX: R05.9 Cough, unspecified (principal) | CPT/HCPCS: 71047 ==

== ENCOUNTER 2024-11-01 19:06 | Emergency (ER) | payer OTHER, SELFPAY ==
--- NOTE | ~2024-11-01 | XR_ITS ---
CLINICAL HISTORY: cough Chest Radiographs, AP Comparison: 11/01/24 Findings: No cardiomegaly. Normal mediastinal contours. No pneumothorax. No opacity. No pleural effusion. Normal upper abdomen. No acute fracture. Impression: No acute findings. This document has been electronically signed by: Alejandra Breaux MD on 11/01/2024 20:45:38
--- NOTE | ~2024-11-01 | CT_ITS ---
CLINICAL HISTORY: + dimer, syncope, tachycardic CT Angiography Chest W Contrast 3D Postprocessing COMPARISON: CR/FL - XR CHEST 1V - 11/01/24 20:12 EDT FINDINGS: Detail limited by artifacts. No pulmonary embolism. No thoracic aortic aneurysm or dissection. No consolidation. Calcified pulmonary granulomas. Nodule in the right middle lobe measuring 6 mm (series 6, image 65). No pleural effusion. No pneumothorax. No cardiomegaly. No pericardial effusion. No pathologically enlarged lymph nodes. No acute fracture. Degenerative changes in the spine and shoulders. Diffusely hypodense liver consistent with hepatic steatosis. Hepatomegaly. IMPRESSION: No acute findings. No pulmonary embolism. Right middle lobe pulmonary nodule. Recommend follow-up chest CT in 6-12 months per Fleischner Society guidelines. Nonemergent/incidental findings above. This document has been electronically signed by: Emerson Ayala MD on 11/02/2024 02:41:42
[2024-11-01 19:31] VITALS: BP 114/72; PULSE 75; O2SAT 95; BMI 48.4
--- NOTE | 2024-11-01 19:41 | ECG_ITS ---
Test Reason : SYNCOPE Blood Pressure : */* mmHG Vent. Rate : 126 BPM Atrial Rate : 126 BPM P-R Int : 142 ms QRS Dur : 96 ms QT Int : 310 ms P-R-T Axes : 9 -33 36 degrees QTcB Int : 448 ms Sinus tachycardia Left axis deviation Inferior infarct , age undetermined Abnormal ECG No previous ECGs available Referred By: Generic ED Physician Electronically Signed By: Alexx Hunter
--- NOTE | 2024-11-01 19:59 | ED_ITS ---
HPI - Syncope General Chief Complaint: Syncope Stated Complaint: syncopal episode while trying for Bowel movement Time Seen by Provider: 11/01/24 19:45 Source: patient and EMS Mode of arrival: EMS Limitations: no limitations History of Present Illness HPI narrative: This is a 59 years old male presented to the emergency department after a syncopal episode he was having a bowel movement and he ended syncopal episode. He reported he has been having cough congestion for a week he was seen at the urgent care today and treated with prednisone. He has a history of COPD MD complaint: felt faint Onset (ago): hour(s) (1) Prodromal symptoms: lightheaded Witnessed: No Context: at rest Injuries sustained associated with event: none Current symptoms: other (Generalized malaise weakness) Related Data Home Medications ?Medication ?Instructions ?Recorded ?Confirmed montelukast 10 mg tablet 1 tab PO DAILY 10/09/20 04/12/23 naproxen sodium 220 mg capsule 220 mg PO BID PRN Pain 10/09/20 04/12/23 (Aleve) valsartan 160 mg tablet 160 mg PO DAILY 04/12/23 04/12/23 Previous Rx's ?Medication ?Instructions ?Recorded albuterol sulfate 90 mcg/actuation 2 puff inhalation Q6H PRN 11/01/24 aerosol inhaler shortness of breath or wheezing or cough #8.5 grams Allergies Allergy/AdvReac Type Severity Reaction Status Date / Time No Known Allergies Allergy Verified 11/01/24 19:35 Review of Systems Constitutional: Constitutional: Reports no additional constitutional complaints Cardiovascular: Cardiovascular: Reports no additional cardiovascular complaints [facility] Past Medical History Attestation statement: The following information was validated with the patient. [facility] Narrative: COPD, hypertension Medical History Umbilical hernia (04/12/23) Obesity (BMI 30-39.9) Hypertension Asthma Surgical History History of appendectomy (04/12/23) Hx of splenectomy Social History Social History Household Members: Significant Other Housing: House Do you presently have visiting nurse or other home services: No Alcohol intake: current Alcohol intake frequency: a few times a week Patient Tobacco Use Status: Never used Tobacco Advance Directives: No Advance Directives Information Provided: No Do you have a plan to hurt others: No Plan service: No Physical Exam Vital Signs: Vital Signs: BMI result Body Mass Index 48.4 Not acute distress tachycardic Const: General: cooperative Nutritional Appearance: well nourished Orientation/consciousness: patient oriented x3 Limitations: no limitations HEENT: Head: Yes normal to inspection Ears: hearing grossly normal bilaterally General nose exam: Normal external nose present Mouth: Normal oral and palatal mucosa present Neck: Neck: Yes normal visual inspection and Yes full ROM Chest: Chest palpation & inspection: normal inspection of the chest Resp: Effort & Inspection: normal respiratory effort Auscultation: rhonchi Cardio: Jugular venous distension: no JVD Rate: regular rate and tachycardic GI: Inspection: Yes normal to inspection Palpation (GI): Soft to palpation, not firm and nontender Skin: General skin exam: no rashes or lesions noted, elasticity normal and turgor normal Lesions: no lesions Rashes: no rashes Neuro: General: patient oriented x3 Extrem: General: Yes normal to inspection, Yes full ROM and Yes capillary refill normal Course Reevaluation(s) Reevaluation #1: Labs pending case signed out to Dr Fletcher ,I am off shift now Time: 21:00 Medical Decision Making Medical Decision Making [facility] Narrative: Patient is here after a syncopal episode also complaining of congestion we will obtain lab chest x-ray EKG Differential Diagnosis Differential Diagnoses: The differential diagnosis associated with the presentation includes Cardiac arrhythmia/dehydration/pneumonia Admission/Observation Consideration of admission/observation: Escalation of care including admission/observation considered Independent Interpretation I performed an independent interpretation of an: EKG Interpretation: Sinus tachycardia rate [address]-T changes Discharge Plan Discharge Clinical Impression: Syncope Qualifiers: Syncope type: unspecified Qualified Code(s): R55 - Syncope and collapse Patient Disposition: Still a Patient Prescriptions: No Action montelukast 10 mg tablet 1 tab PO DAILY naproxen sodium [Aleve] 220 mg Capsule 220 mg PO BID PRN (Reason: Pain) valsartan 160 mg tablet 160 mg PO DAILY albuterol sulfate 90 mcg/actuation HFA aerosol inhaler 2 puff inhalation Q6H PRN (Reason: shortness of breath or wheezing or cough) Qty: 8.5 0RF Print Language: Greek
[2024-11-01 21:14] LABS: MANUAL DIFF FLAG NO
[2024-11-01 21:17] LABS: Basophils Absolute Auto 0.1 X10*3/uL (0.0-0.2); Basophils Percent Auto 0.4 % (0-2); Eosinophils Absolute Auto 0.4 X10*3/uL (0.0-0.4); Hematocrit 39.7 % (42.0-52.0); Hemoglobin 13.9 g/dl (14.0-18.0); Imm Gran Abs Auto 0.21 X10*3/uL (0.00-0.03); Imm Gran Pct Auto 1.5 % (0.0-0.4); Lymphocytes Absolute Auto 0.8 X10*3/uL (1.2-4.9); Lymphocytes Percent Auto 5.2 % (20-40); Mean Corpuscular Hemoglobin 33.3 pg (27.0-33.0); Monocytes Percent Auto 0.2 % (2-11); NRBC Pct Auto 0.2 /100WBC (0.0-0.2); Neutrophils Percent Auto 89.7 % (45-73); Platelet Count 331 X10*3/uL (160-400); Red Blood Count 4.18 X10*6/uL (4.60-5.80); Red Cell Distribution Width 14.2 % (11.0-16.0); White Blood Count 14.4 X10*3/uL (4.8-10.8)
[2024-11-01 21:29] VITALS: BP 119/58; PULSE 107; RESP 21; TEMP 36.4; O2SAT 92
[2024-11-01 21:29] LABS: Alanine Aminotransferase 123 U/L (0-40); Albumin Level 3.2 g/dL (3.5-5.0); Alkaline Phosphatase 168 U/L (39-117); Anion Gap 16 (12-20); Aspartate Amino Transferase 113 U/L (5-37); Bilirubin Total 1.3 mg/dL (0.0-1.0); Blood Urea Nitrogen 14 mg/dL (9-16); Calcium 8.3 mg/dL (8.4-10.2); Carbon Dioxide 22 mmol/L (22-29); Chloride 101 mmol/L (96-108); Creatinine Clr Calc Pharmacy 86.1; Estimated Glomerular Filt Rate > 60; Glucose Random 113 mg/dL (60-115); Potassium 3.5 mmol/L (3.3-5.1); Sodium 135 mmol/L (135-145); Total Protein 6.2 g/dL (6.5-8.0)
[2024-11-01 21:36] LABS: Troponin-I High Sensitivity 16.2 ng/L (<3.5-35.0)
[2024-11-01 21:51] LABS: Influenza A PCR NEGATIVE (Negative); Influenza B PCR NEGATIVE (Negative); Resp Syncy Virus RNA Qual PCR NEGATIVE (Negative); SARS COV2 PCR INHOUSE NEGATIVE (Negative)
[2024-11-01] MEDS: 0.9 % Sodium Chloride 1,000 ML 999 ML IVCONT (22:33)
[2024-11-01 22:42] LABS: Troponin-I High Sensitivity 17.6 ng/L (<3.5-35.0)
[2024-11-01 23:04] LABS: D Dimer High Sensitivity 1123 NG/ML
[2024-11-02 00:18] VITALS: BP 104/67; BP 106/60; BP 113/67; PULSE 105; PULSE 107; PULSE 113
[2024-11-02] MEDS: iohexoL 350 MG/ML 100 ML INFUS..BTL 75 ML IV (01:56)
[2024-11-02 03:05] VITALS: O2SAT 93
[2024-11-02 04:18] LABS: Amphetamine Screen Urine Not Detected (Not Detect); Barbiturates, Urine Not Detected (Not Detect); Benzodiazepines Screen Urine Not Detected (Not Detect); Buprenorphine Scr Not Detected (Not Detect); Cannabinoid Screen Urine Not Detected (Not Detect); Cocaine Screen Urine Not Detected (Not Detect); Fentanyl, urine Not Detected (Not Detect); Methadone Screen, Urine Not Detected (Not Detect); Opiate Screen Urine Not Detected (Not Detect); Oxycodone Screen Urine Not Detected (Not Detect); Phencyclidine Screen Urine Not Detected (Not Detect)
[2024-11-02 04:39] LABS: B Type Natriuretic Peptide 477 pg/mL (<100)
[2024-11-02 04:43] LABS: Appearance Urine Cloudy; Color Urine Dark Yellow; Glucose Urine UA Negative (Negative); Leukocyte Esterase Urine Trace (Negative); Nitrite Urine Negative (Negative); Specific Gravity - Urine >= 1.030 (1.005-1.025); UMIC TRIGGER UACC YES; Urine Blood Negative (Negative); Urine Ketones Trace mg/dL (Negative); Urine Protein 30 (1+) mg/dL (Neg-Trace)
[2024-11-02 04:52] LABS: Bacteria Urine None Seen (None Seen); Granular Casts Urine Present; RBC Urine 0-2 /HPF (0-2); WBC Urine 0-5 /HPF (0-5)
[2024-11-02 05:30] VITALS: BP 104/62; PULSE 103; RESP 18; TEMP 36.4; O2SAT 95
== END 2024-11-02 05:36 | disposition home or self-care (01) ==
PROVIDERS: Emergency Medicine; Emergency Provider Emergency Medicine; PCP Internal Medicine
DX: R55 Syncope and collapse (principal); R05.9 Cough, unspecified; R06.02 Shortness of breath; R53.1 Weakness; R00.0 Tachycardia, unspecified; Z79.899 Other long term (current) drug therapy; Z51.81 Encounter for therapeutic drug level monitoring; Z03.818 Encounter for observation for suspected exposure to other biological agents ruled out
CPT/HCPCS: 0241U; 36415; 71045; 71275; 80053; 80307; 81001; 83880; 84484; 85025; 85379; 93005; 96360; 96361; 99284; 99285; Q9967

== ENCOUNTER → 2024-11-01 19:41 | Outpatient (BNV) | payer OTHER, SELFPAY | PROVIDERS: Emergency Provider Emergency Medicine; PCP Internal Medicine; Visit Provider Internal Medicine Cardiovascular Disease | DX: R00.0 Tachycardia, unspecified (principal) | CPT/HCPCS: 93010 ==

== ENCOUNTER → 2024-11-02 00:10 | Outpatient (BNV) | payer OTHER, SELFPAY | PROVIDERS: Emergency Provider Emergency Medicine; PCP Internal Medicine; Visit Provider Radiology Diagnostic Radiology | DX: R55 Syncope and collapse (principal); R00.0 Tachycardia, unspecified | CPT/HCPCS: 71275 ==

== ENCOUNTER 2024-11-03 19:32 | Inpatient (IN) | payer OTHER, SELFPAY ==
[2024-11-03] VITALS (12 sets, daily range): BP systolic 126–193; BP diastolic 51–125; PULSE 56–68; RESP 24–30; TEMP 36.5–37.9; O2SAT 95–100; BMI 44.6
--- NOTE | ~2024-11-03 | FL_ITS ---
EXAMINATION: XR LUMBAR PUNCTURE CLINICAL INFORMATION: ?meningitis/encephalitis COMPARISON: CT abdomen and pelvis 11/03/2024 TECHNIQUE: Patient has no one to obtain consent. There are 2 positions no sign consent as a necessity for patient to have a lumbar puncture. A site was marked on the skin overlying the L2-3 disc level. The marked area was cleaned and draped in usual sterile manner. 1% lidocaine was administered at the marked site. A 20-gauge 6 inch long needle was then advanced from the skin intrathecally at the L2-3 disc level. Subdural withdrawn and. CSF fluid was collected 2 chest tubes. Postprocedure stylet was reintroduced and needle withdrawn. Complete hemostasis achieved at the site. Sterile band aid was placed at the puncture site. Patient was monitored by anesthesiology during the procedure. FINDINGS/ FL/FL guided lumbar puncture LP impression: Successful fluoroscopy-guided L2-3 lumbar printer performed without immediate complications. Approximately 4 mL of purulent CSF fluid was collected and sent to lab as per referring physician's orders. FLUOROSCOPY TIME: 1 minute 2 seconds DOSE AREA PRODUCT: 2176 uGy-m2 (microgray-meter squared) Electronically signed by: Jn Fleming MD 11/04/2024 12:35 PM EDT
--- NOTE | ~2024-11-03 | XR_ITS ---
CLINICAL HISTORY: s p ett placement 1 view chest x-ray Comparison: CT/SR - CT ANGIO CHEST PE PROTOCOL - 11/03/24 20:49 EDT Findings: The endotracheal tube is approximately 4 cm above the garcia. Enteric tube also well-positioned. Lungs are slightly underexpanded. Right lower lobe linear consolidation. Mild interstitial prominence. Cardiac and mediastinal contours are stable. No acute fracture. IMPRESSION: Well-positioned endotracheal and enteric tubes. Interstitial prominence with somewhat streaky right lower lobe density. Favor atelectasis. This document has been electronically signed by: Bandar Guy MD on 11/06/2024 10:56:23
--- NOTE | ~2024-11-03 | XR_ITS ---
CLINICAL HISTORY: CVC placement Chest Radiograph Comparison: CT/SR - CT CHEST WO IV CON - 11/10/24 21:34 EDT CR/SR - XR CHEST 1V - 11/10/24 13:36 EDT CR - XR CHEST 1V - 11/06/24 10:10 EDT Findings: Left central venous catheter with the tip terminating at the cavoatrial junction. The endotracheal tube terminates 4.6 cm above the garcia. The enteric tube terminates in the upper abdomen out of the field of view. Cardiomegaly. Normal mediastinal contours. No pneumothorax. Right lower lung zone opacity, similar to the prior study and less than on 11/06/24, could be atelectasis and/or pneumonia. No visualized pleural effusion. Normal upper abdomen. No acute fracture. Impression: Properly positioned left central venous catheter. This document has been electronically signed by: Alejandra Breaux MD on 11/11/2024 00:30:15
--- NOTE | ~2024-11-03 | CT_ITS ---
CLINICAL HISTORY: altered mental status CT head without contrast Comparison: None Findings: No intra-axial mass, midline shift, hydrocephalus, or acute hemorrhage. No significant atrophy-like change or white matter disease. There are air-fluid levels within the maxillary sinuses bilaterally. Minimal opacification of the sphenoid sinus The orbits are within normal limits. There is no acute fracture. IMPRESSION: 1. No acute intracranial findings. 2. Acute maxillary sinusitis suggested. This document has been electronically signed by: Bandar uGy MD on 11/03/2024 21:42:15
--- NOTE | ~2024-11-03 | CT_ITS ---
CLINICAL HISTORY: shortness of breath, rising BNP CT angiography chest with contrast. 3D Postprocessing. Comparison: CT/SR - CT ANGIO CHEST PE PROTOCOL - 11/02/24 01:06 EDT Findings: There are a few calcified granulomata present. Previously seen 6 mm nodule in the right middle lobe is not well appreciated on today's study, likely due to motion artifact. Moderate cardiomegaly. Unremarkable thoracic aorta and great vessels. No aneurysm. No pulmonary artery filling defects. The visualized thyroid and mediastinum are unremarkable. There are scattered nonenlarged calcified lymph nodes in the mediastinum, residua from previous granulomatous disease. No consolidation or effusion. The visualized upper abdomen is unremarkable. The bones are intact. IMPRESSION: 1. No pulmonary emboli. This document has been electronically signed by: Bahman Quintana MD on 11/03/2024 22:25:11
--- NOTE | ~2024-11-03 | CT_ITS ---
CLINICAL HISTORY: sepsis, no clear source CT abdomen and pelvis with contrast Comparison: CT/DE/SR - CT ABDOMEN PELVIS WO IV CON - 04/12/23 10:43 EDT Findings: No consolidation or effusion. Moderate cardiomegaly. Spleen is absent. The adrenal glands, pancreas, liver, gallbladder and kidneys are normal in appearance. No bowel obstruction, pneumoperitoneum, or pneumatosis. No ascites. Fat containing bilateral inguinal hernias. The appendix is surgically absent. There is a Manzano catheter in the urinary bladder, in the bladder is decompressed. No acute fracture. IMPRESSION: No acute findings. This document has been electronically signed by: Bahman Quintana MD on 11/03/2024 22:26:10
--- NOTE | ~2024-11-03 | XR_ITS ---
EXAMINATION: XR CHEST 1 VIEW HISTORY: s/p ETT exchange COMPARISON: Comparison is made with the prior examination dated 11/10/2024. FINDINGS: A single AP portable view of the chest performed at 9:54 AM is submitted. Endotracheal tube is again noted with its tip approximately 5.5 cm above the garcia. Orogastric tube and left internal jugular central venous catheter are unchanged in position. The lungs are expanded and clear. There is no pleural effusion, pneumothorax, or pulmonary vascular congestion. The heart is normal in size. There is degenerative disc disease of the spine. XR/XR chest 1V IMPRESSION: 1. Lines and tubes in place as described. 2. No acute cardiopulmonary abnormality. Electronically signed by: Kyle Jimenez MD 11/15/2024 10:00 AM EDT
--- NOTE | ~2024-11-03 | MR_ITS ---
CLINICAL HISTORY: Persistent encephalopathy.Pt is unresponsive, intubated. Breathing motion thru out. Unable to repeat, unable to use anterior head coil for more signal. Best images obtained MR Brain without gadolinium Comparison: MR/SR - MR HEAD/BRAIN WO/W CON - 11/09/24 12:38 EDT Findings: Examination is degraded by motion artifact. Multifocal increased foci of elevated FLAIR, diffusion, and elevated ADC map signal foci within the bilateral cerebral hemispheres including the basal ganglia, as well as the bilateral cerebellar hemispheres, [id number]. Small focus of abnormal signal intensity within the right inferior natali is present. Largest of these lesions appears to be within the left basal ganglia measuring 23 mm anteroposterior (previously measuring 18 mm). No intra-axial mass or hemorrhage. No midline shift. No hydrocephalus. Vascular flow voids are intact. Orbital contents are unremarkable. There is moderate bilateral maxillary sinus mucosal thickening and fluid. Mild bilateral ethmoid and sphenoid sinus mucosal thickening. Small amount of mastoid fluid bilaterally. No focal bone lesion. IMPRESSION: 1. Increased meningoencephalitis. 2. Sinus and mastoid disease. This document has been electronically signed by: Ross Wong MD on 11/15/2024 18:34:25
--- NOTE | ~2024-11-03 | CT_ITS ---
CLINICAL HISTORY: leucocytosis CT chest without contrast Comparison: CR/SR - XR CHEST 1V - 11/10/24 13:36 EDT CR - XR CHEST 1V - 11/06/24 10:[address]/SR - CT ANGIO CHEST PE PROTOCOL - 11/03/24 20:[address]/SR - CT ANGIO CHEST PE PROTOCOL - 11/02/24 01:06 EDT Findings: No mediastinal mass or lymphadenopathy. Calcified lymph nodes. The endotracheal tube terminates 3.7 cm above the garcia. Cardiomegaly. Mild calcified atherosclerotic disease. Dilation of the ascending thoracic aorta, measuring 4.2 cm. Dilation of the descending thoracic aorta, measuring 3.1 cm. Mild calcified atherosclerotic disease. New consolidation at the lung bases. Air bronchograms in the right lower lobe. No pneumothorax. Trace bilateral pleural effusions, new. No acute osseous or soft tissue abnormality. No acute pathology in the imaged portion of the upper abdomen. The enteric tube terminates in the stomach. Impression: New consolidation in the lung bases is favored to be atelectasis. Pneumonia could be considered, particularly in the right lower lobe. New trace bilateral pleural effusions. This document has been electronically signed by: Alejandra Breaux MD on 11/10/2024 22:40:38
--- NOTE | ~2024-11-03 | XR_ITS ---
CLINICAL HISTORY: weakness, diaphoresis 1 view chest x-ray Comparison: CR/WV - XR CHEST 1V - 11/01/24 20:12 EDT Findings: No consolidation or effusion. Heart size is upper limits of normal. No acute fracture. IMPRESSION: 1. No acute findings. This document has been electronically signed by: Bahman Quintana MD on 11/03/2024 20:33:42
--- NOTE | ~2024-11-03 | MR_ITS ---
EXAMINATION: MR BRAIN WITHOUT AND WITH CONTRAST CLINICAL INFORMATION: Encephalitis. COMPARISON: Correlated to CT head dated November 03, 2024. TECHNIQUE: Multiplanar, multisequence MRI of the brain was obtained before and after the intravenous administration of 10 mL gadolinium based without reported immediate complications. FINDINGS: Patient's motion artifact. Bilateral, multifocal, predominantly right-sided patchy, punctate, intra-axial and extra-axial, supratentorial and to a lesser extent infratentorial compartment nonenhancing hyperintense T2 FLAIR restricted diffusion signal abnormality, the most conspicuous in the right frontal deep white matter/basal ganglia and along the hemicranial complexities likely subarachnoid compartment. No acute intracranial hemorrhage, mass effect, midline shift, hydrocephalus or herniation. Flow-void signal within the main cerebral vessels is normal. Sellar/suprasellar region demonstrated no gross masses or abnormal enhancement. There is a bone marrow signal abnormality in the clivus. There is mucosal thickening and enhancement and fluid secretions with the restricted diffusion in the maxillary sinuses. MR/MR head/brain wo/w con IMPRESSION: Meningoencephalitis. Acute Maxillary sinuses disease. Electronically signed by: Maurice Grimaldo MD 11/09/2024 01:59 PM EDT
--- NOTE | ~2024-11-03 | XR_ITS ---
EXAMINATION: XR CHEST 1 VIEW HISTORY: confirm OG tube placement COMPARISON: Comparison is made with the prior examination dated 11/06/2024. FINDINGS: Two AP portable views of the chest performed at 1:38 PM are submitted. An endotracheal tube is again noted, without significant change in position. An orogastric tube is in place with its tip and sidehole below the diaphragm. There is linear subsegmental atelectasis at the right lung base. The left lung is clear. There is no pleural effusion, pneumothorax, or pulmonary vascular congestion. The heart is normal in size. The aorta is tortuous. There is degenerative disc disease of the spine. XR/XR chest 1V IMPRESSION: 1. Lines and tubes in place as described. 2. Subsegmental atelectasis at the right lung base. Electronically signed by: Kyle Jimenez MD 11/10/2024 02:00 PM EDT
--- NOTE | ~2024-11-03 | CT_ITS ---
CLINICAL HISTORY: leucocytosis CT abdomen and pelvis without contrast Comparison: CT/SR - CT ABDOMEN PELVIS W IV CON - 11/03/24 20:49 EDT Findings: New consolidation in the lung bases with trace bilateral pleural effusions. Cholelithiasis. No gallbladder wall thickening or pericholecystic fluid. There is a Manzano catheter in the bladder. Moderate bilateral perinephric stranding, nonspecific and increased. Stranding tracks into the pelvis, greater on the right. The other solid organs are unremarkable. Enteric tube terminating in the stomach. No bowel dilation. Increased submucosal fat in the distal small bowel and colon. Status post appendectomy. Colonic diverticulosis. There is a rectal tube. No aneurysm. Trace calcified atherosclerotic disease. No lymphadenopathy. Trace, new ascites. No acute osseous abnormality. Infiltration of the subcutaneous fat most prominent in the right lower quadrant anterior abdominal wall. Impression: Trace bilateral pleural effusions, new. New consolidation in the lung bases could be atelectasis. Pneumonia could be considered in the right lower lobe. Increased bilateral perinephric stranding which is moderate and tracks into the pelvis, nonspecific. Correlate with urinalysis to exclude infection. Trace ascites, new. This document has been electronically signed by: Alejandra Breaux MD on 11/10/2024 22:39:22
--- NOTE | 2024-11-03 19:52 | ECG_ITS ---
Test Reason : weakness Blood Pressure : */* mmHG Vent. Rate : 66 BPM Atrial Rate : 66 BPM P-R Int : 138 ms QRS Dur : 124 ms QT Int : 424 ms P-R-T Axes : * 27 40 degrees QTcB Int : 444 ms Normal sinus rhythm Inferior infarct (cited on or before 01-Nov-2024) Abnormal ECG When compared with ECG of 01-Nov-2024 19:50, Vent. rate has decreased by 60 bpm Questionable change in QRS duration Referred By: Pako Horner Electronically Signed By: Alexx Hunter
--- NOTE | 2024-11-03 19:52 | ED.GENADULT ---
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 He also has a history of obesity, hypertension, and asthma/COPD. The patient has a apparently been sick for about 10 days with a cough and congestion. He has been seen at an urgent care several days ago and was put on a course of prednisone. He was brought to the emergency room here 2 days ago after he had a syncopal episode following a bowel movement. Yesterday his was hospitalized with RSV. Apparently the patient was still not feeling very well yesterday and today his had a friend of hers check on the patient. Apparently a friend of the 's went this morning and again this afternoon and felt the patient did not look very well. This evening the patient's brother, who was on [facility] [employer] tried to call his brother several times and got no answer. The brother called his sister who went to the patient's house. Apparently the patient was found sitting on the floor looking very ill. He was diaphoretic and looked mottled and seemed confused. Here in the emergency room the patient is denying any pain but he seems quite confused. However he is denying any pain. Specifically he denies a headache, neck pain, sore throat, chest pain, abdominal pain, pain in his extremities. He is not really able to give any additional history. Paramedics did not report any evidence of vomiting. There does not seem to has been any evidence of diarrhea. Related Data Home Medications ?Medication ?Instructions ?Recorded ?Confirmed montelukast 10 mg tablet 1 tab PO DAILY 10/09/20 04/12/23 naproxen sodium 220 mg capsule 220 mg PO BID PRN Pain 10/09/20 04/12/23 (Aleve) valsartan 160 mg tablet 160 mg PO DAILY 04/12/23 04/12/23 Previous Rx's ?Medication ?Instructions ?Recorded albuterol sulfate 90 mcg/actuation 2 puff inhalation Q6H PRN 11/01/24 aerosol inhaler shortness of breath or wheezing or cough #8.5 grams prednisone 1 mg tablet 1 mg PO DAILY #4 tabs 11/02/24 prednisone 5 mg tablet 5 mg PO DAILY #4 tabs 11/02/24 Allergies Allergy/AdvReac Type Severity Reaction Status Date / Time No Known Allergies Allergy Verified 11/03/24 19:43 Review of Systems Review of Systems: Yes all other systems are reviewed and are negative [facility] Past Medical History Medical History Umbilical hernia (04/12/23) Obesity (BMI 30-39.9) Hypertension Asthma Surgical History History of appendectomy (04/12/23) Hx of splenectomy Social History Social History Household Members: Significant Other Housing: House Do you presently have visiting nurse or other home services: No Alcohol intake: current Alcohol intake frequency: a few times a week Patient Tobacco Use Status: Never used Tobacco Smoked in Last 30 Days: No Use of substances other than those prescribed or required for medical reasons: No Advance Directives: No Advance Directives Information Provided: No service: No Physical Exam ED Vital Signs: Vital Signs - 24 hr 11/03/24 19:38 11/03/24 20:03 11/03/24 20:50 Temperature 97.7 F 100.2 F Pulse Rate 68 Respiratory Rate 30 H Blood Pressure 170/99 H 150/72 H Pulse Oximetry 100 Oxygen Delivery Method Non-Rebreather Mask Oxygen Flow Rate 11/03/24 21:03 11/03/24 21:32 11/03/24 21:50 Temperature 99.3 F 98.8 F Pulse Rate 67 59 56 Respiratory Rate 30 H 29 H Blood Pressure 133/51 L 127/66 134/110 H Pulse Oximetry 95 100 Oxygen Delivery Method Nasal Cannula Nasal Cannula Oxygen Flow Rate 2 2 11/03/24 21:54 11/03/24 21:56 11/03/24 22:19 Temperature 98.4 F Pulse Rate 56 62 57 Respiratory Rate 25 H 24 H Blood Pressure 147/68 H 145/67 H 154/74 H Pulse Oximetry Oxygen Delivery Method Oxygen Flow Rate 11/03/24 22:50 11/03/24 23:13 11/03/24 23:40 Temperature Pulse Rate Respiratory Rate Blood Pressure 151/79 H 126/107 H 157/83 H Pulse Oximetry Oxygen Delivery Method Oxygen Flow Rate BMI result Body Mass Index 44.6 Const Other: The patient is a 59-year-old male who was awake but seems somewhat confused. He was diaphoretic. He had mottled skin on his legs. He looked quite ill. HENMT Other: The patient's scalp was quite diaphoretic. Mucous membranes are moist. The posterior pharynx is normal. The face is symmetrical. Eyes Other: Pupils are round equal, conjunctivae are clear, extraocular movements intact. Neck Other: The patient has a thick neck. No JVD is apparent. No nuchal rigidity. Resp Other: Lungs seem fairly clear. No definite wheezes or crackles. Cardio Rate: regular rate Rhythm: regular rhythm Heart sounds: S1 normal heart sound present and S2 normal heart sound present GI Other: The patient has a large abdomen. The abdomen seems soft and not obviously tender. Other: Unremarkable external genitalia Skin Other: The skin of the patient's legs was quite mottled. Neuro Other: The patient was awake but seemed confused. He was able to tell me the correct ear. He was able to tell me his address and he was able to tell me that we are at [facility] but he told me that João Valdez was the president. Pupils are round equal, extraocular movements are intact, face is symmetrical, he has no definite dysarthria but he seems to have a paucity of speech. He is able to move all 4 extremities symmetrically. Extrem Other: The patient's legs are mottled. There is no edema. The patient has a very good left dorsalis pedis pulse. It was less clear whether the right foot had a good dorsalis pedis pulse but there was a good Doppler signal. No calf swelling. Medications Administered Generic Name Dose Route Start Last Admin Trade Name Freq PRN Reason Stop Dose Admin Potassium Chloride 10 meq in 100 mls @ 100 mls/hr 11/03/24 21:45 11/03/24 22:50 Potassium Chloride/H20 IV 11/04/24 01:44 100 mls/hr Q1H MEG Administration Discontinued Medications Generic Name Dose Route Start Last Admin Trade Name Freq PRN Reason Stop Dose Admin Piperacillin Sod/Tazobactam 100 mls @ 200 mls/hr 11/03/24 20:03 11/03/24 21:05 Sod 4.5 gm/ Sodium Chloride IV 11/03/24 20:32 Infused ONCE ONE Infusion Sodium Chloride 1,000 mls @ 999 mls/hr 11/03/24 20:30 11/03/24 21:53 Ns IV 11/03/24 21:30 Infused .Q1H1M MEG Infusion Vancomycin HCl 2,000 mg in 500 mls @ 250 mls/hr 11/03/24 20:38 11/03/24 23:13 Vancomycin/Ns IV 11/03/24 22:37 Infused ONCE ONE Infusion Lactated Ringer's 1,000 mls @ 999 mls/hr 11/03/24 20:45 11/03/24 21:44 Lr IV 11/03/24 21:45 Infused .Q1H1M MEG Infusion Lactated Ringer's 1,000 mls @ 999 mls/hr 11/03/24 22:00 11/03/24 23:12 Lr IV 11/03/24 23:00 Infused .Q1H1M MEG Infusion Iohexol 100 ml 11/03/24 20:58 11/03/24 20:58 Iohexol 350 Mg/Ml 100 Ml Infus..Btl IV 11/03/24 20:59 85 ml ONCE ONE Administration Iohexol 85 ml 11/03/24 21:07 11/03/24 21:08 Iohexol 350 Mg/Ml 100 Ml Infus..Btl IV 11/03/24 21:08 85 ml ONCE ONE Administration Procedures Lumbar Puncture Time Out Performed: Yes Patient Position: right lateral decubitus Skin Prep: Povidone-Iodine 1% Local Anesthetic: lidocaine 1% Amount of anesthesia used (mL): 5 Spinal Needle Gauge: 20G Interspace Used: L4-L5 Fluid Initially Obtained: other (A very small amount of what may have been blood-tinged CSF was obtained. This was sent for Gram stain and culture although the quantity may not has been sufficient.) Medical Decision Making Medical Decision Making MDM Narrative: The patient is a 59-year-old male who was brought to the hospital from his home or he has been found quite ill. He was confused and had mottled skin. It is not clear how long he might have been ill for. Apparently a family friend visit him twice today and thought he did not look very well. The patient has apparently been been sick with a respiratory symptoms for about 10 days. His girlfriend was hospitalized yesterday for a respiratory infection and has tested positive for human metapneumovirus. On arrival the patient was not tachycardic and was not hypotensive but was very diaphoretic and confused. The patient was able to answer simple questions and he denied any headache but it was not clear how reliable he was. He seemed as if he might be septic. 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 The source of sepsis was not obvious[place] [address] in his CRP of 60. Lactate was elevated at 4.2. He was given prompt Zosyn and vancomycin. He was given a L of normal saline, 2 L of lactated Ringer's, 500 mL of crystalloid with vancomycin, and 100 mL of crystalloid with Zosyn. The patient's weight is 133 kilos. He is approximately 5 ft and 10 in. His ideal body weight would be 73 kilos. Since the patient has proBNP was quite elevated at 764 and since this was higher than his BNP 2 days ago when it was 477 I felt that 3,600 mL was an appropriate fluid resuscitation. His initial lactate was 4.6. Repeat lactate was 3.1. Head CT is negative. A CT scan of the chest, abdomen, and pelvis does not show any source of sepsis. I spoke to the hospitalist about admitting the patient. We spoke about a spinal tap. Patient is morbidly obese. I called the patient's brother Domingo to get consent for spinal tap. He gave telephone consent. I attempted a spinal tap with the patient in the right lateral recumbent position at the L4-L5 level. This was done under usual sterile conditions. I used a 20 gauge 3.5 in needle. I think I have obtained a very small amount of serosanguineous spinal fluid, only a few drops. This was sent for a culture and or Gram stain. There was not enough fluid for other testing. The hospitalist will treat the patient empirically with the plan for Interventional Radiology to attempt another lumbar puncture on Friday. Lab Data 11/03/24 19:56 11/03/24 20:01 Labs: Lab Results 11/03/24 11/03/24 11/03/24 Range/Units 19:56 19:59 20:01 WBC 33.5 H* (4.8-10.8) X10*3/uL RBC 5.04 D (4.60-5.80) X10*6/uL Hgb 16.7 D (14.0-18.0) g/dl Hct 44.7 (42.0-52.0) % MCV 88.7 D (80.0-98.0) fL MCH 33.1 H (27.0-33.0) pg MCHC 37.4 H (31.0-36.0) g/dl RDW 13.9 (11.0-16.0) % Plt Count 191 D (160-400) X10*3/uL MPV 9.8 (9.4-12.4) fL Immature Gran % (Auto) Cancelled Neut % (Auto) Cancelled Lymph % (Auto) Cancelled [place] % (Auto) Cancelled Eos % (Auto) Cancelled Baso % (Auto) Cancelled Lymph # (Auto) Cancelled [place] # (Auto) Cancelled Eos # (Auto) Cancelled Baso # (Auto) Cancelled Abs Immat Gran (auto) Cancelled Absolute Neuts (auto) Cancelled Absolute Nucleated RBC 0.050 H (0.0-0.012) X10*3/uL Nucleated RBC % (auto) 0.1 (0.0-0.2) /100WBC Neutrophils % (Manual) 91 H (45-73) % Band Neutrophils % 5 (3-5) % Lymphocytes % (Manual) 3 L (20-40) % Myelocytes % 1 % Abs Neuts (Manual) 32.2 H (2.0-8.3) X10*3/uL Lymphocytes # (Manual) 1.0 L (1.2-4.9) X10*3/uL Myelocytes # 0.3 X10*/uL Nucleated RBCs 1 H (0-0) /100WBC Hypersegmented Neuts PRESENT Toxic Granulation PRESENT Toxic Vacuolation PRESENT Platelet Estimate NORMAL (NORMAL) Giant Platelets PRESENT Plt Morphology Comment NOTED RBC Morphology NORMAL Hypochromasia 1+ (5-14) /OIF Microcytosis 2+ (15-30) /OIF Target Cells 1+ (5-14) /OIF Schistocytes 2+ (3-5) /OIF PT 11.4 (10.9-12.4) SEC INR 1.0 (0.9-1.1) VBG pH (7.32-7.43) VBG pCO2 mmHg VBG pO2 mmHg VBG HCO3 (22-26) mmol/L VBG O2 Saturation % VBG Base Excess mmol/L Sodium 135 (135-145) mmol/L Potassium 3.2 L (3.3-5.1) mmol/L Chloride 99 (96-108) mmol/L Carbon Dioxide 23 (22-29) mmol/L Anion Gap 16 (12-20) BUN 38 H (9-16) mg/dL Creatinine 1.42 H (0.5-1.4) mg/dL Estim Creat Clear Calc 72.8 Estimated GFR 51 Random Glucose 163 H (60-115) mg/dL Lactic Acid (0.5-2.0) mmol/L Lactic Acid F/U @ 2Hr (0.5-2.0) mmol/L Calcium 9.3 D (8.4-10.2) mg/dL Magnesium 2.3 (1.6-2.6) mg/dL Total Bilirubin 1.3 H (0.0-1.0) mg/dL Direct Bilirubin 0.7 H (0.0-0.5) mg/dL AST 180 H (5-37) U/L ALT 232 H (0-40) U/L Alkaline Phosphatase 319 H (39-117) U/L Ammonia (13-55) umol/L Total Creatine Kinase (38-174) U/L Troponin I High Sens 362.4 H* D (<3.5-35.0) ng/L C-Reactive Protein 60.62 H (< or = 0.50) mg/dL B-Natriuretic Peptide 764 H (<100) pg/mL Total Protein 7.7 (6.5-8.0) g/dL Albumin 3.2 L (3.5-5.0) g/dL Lipase (8-78) U/L Urine Color Urine Appearance Urine pH (5.0-9.0) Ur Specific [place] (1.005-1.025) Urine Protein (Neg-Trace) mg/dL Urine Glucose (UA) (Negative) mg/dL Urine Ketones (Negative) mg/dL Urine Blood (Negative) Urine Nitrite (Negative) Ur Leukocyte Esterase (Negative) Urine RBC (0-2) /HPF Urine WBC (0-5) /HPF Ur Squamous Epith Cells (0-2) /HPF Urine Bacteria (None Seen) Hyaline Casts (0-2) /LPF Granular Casts Urine Opiates Screen (Not Detect) Ur Buprenorphine Scrn (Not Detect) ng/mL Ur Oxycodone Screen (Not Detect) ng/mL Urine Methadone Screen (Not Detect) ng/mL Urine Fentanyl Screen (Not Detect) Ur Barbiturates Screen (Not Detect) Ur Phencyclidine Scrn (Not Detect) Ur Amphetamines Screen (Not Detect) U Benzodiazepines Scrn (Not Detect) Urine Cocaine Screen (Not Detect) U Marijuana (THC) Screen (Not Detect) Ethyl Alcohol mg/dL Influenza Type A (PCR) NEGATIVE (Negative) Influenza Type B (PCR) NEGATIVE (Negative) RSV RNA Qual (PCR) NEGATIVE (Negative) SARS-CoV-2 RNA (RT-PCR) NEGATIVE (Negative) 11/03/24 11/03/24 11/03/24 Range/Units 20:03 20:08 20:22 WBC (4.8-10.8) X10*3/uL RBC (4.60-5.80) X10*6/uL Hgb (14.0-18.0) g/dl Hct (42.0-52.0) % MCV (80.0-98.0) fL MCH (27.0-33.0) pg MCHC (31.0-36.0) g/dl RDW (11.0-16.0) % Plt Count (160-400) X10*3/uL MPV (9.4-12.4) fL Immature Gran % (Auto) Neut % (Auto) Lymph % (Auto) [place] % (Auto) Eos % (Auto) Baso % (Auto) Lymph # (Auto) [place] # (Auto) Eos # (Auto) Baso # (Auto) Abs Immat Gran (auto) Absolute Neuts (auto) Absolute Nucleated RBC (0.0-0.012) X10*3/uL Nucleated RBC % (auto) (0.0-0.2) /100WBC Neutrophils % (Manual) (45-73) % Band Neutrophils % (3-5) % Lymphocytes % (Manual) (20-40) % Myelocytes % % Abs Neuts (Manual) (2.0-8.3) X10*3/uL Lymphocytes # (Manual) (1.2-4.9) X10*3/uL Myelocytes # X10*/uL Nucleated RBCs (0-0) /100WBC Hypersegmented Neuts Toxic Granulation Toxic Vacuolation Platelet Estimate (NORMAL) Giant Platelets Plt Morphology Comment RBC Morphology Hypochromasia /OIF Microcytosis /OIF Target Cells /OIF Schistocytes /OIF PT (10.9-12.4) SEC INR (0.9-1.1) VBG pH 7.40 (7.32-7.43) VBG pCO2 37 mmHg VBG pO2 39 mmHg VBG HCO3 23 (22-26) mmol/L VBG O2 Saturation 58.0 % VBG Base Excess -0.4 mmol/L Sodium (135-145) mmol/L Potassium (3.3-5.1) mmol/L Chloride (96-108) mmol/L Carbon Dioxide (22-29) mmol/L Anion Gap (12-20) BUN (9-16) mg/dL Creatinine (0.5-1.4) mg/dL Estim Creat Clear Calc Estimated GFR Random Glucose (60-115) mg/dL Lactic Acid 4.6 H* (0.5-2.0) mmol/L Lactic Acid F/U @ 2Hr (0.5-2.0) mmol/L Calcium (8.4-10.2) mg/dL Magnesium (1.6-2.6) mg/dL Total Bilirubin (0.0-1.0) mg/dL Direct Bilirubin (0.0-0.5) mg/dL AST (5-37) U/L ALT (0-40) U/L Alkaline Phosphatase (39-117) U/L Ammonia 43 (13-55) umol/L Total Creatine Kinase 886 H (38-174) U/L Troponin I High Sens (<3.5-35.0) ng/L C-Reactive Protein (< or = 0.50) mg/dL B-Natriuretic Peptide (<100) pg/mL Total Protein (6.5-8.0) g/dL Albumin (3.5-5.0) g/dL Lipase 39 (8-78) U/L Urine Color Urine Appearance Urine pH (5.0-9.0) Ur Specific [place] (1.005-1.025) Urine Protein (Neg-Trace) mg/dL Urine Glucose (UA) (Negative) mg/dL Urine Ketones (Negative) mg/dL Urine Blood (Negative) Urine Nitrite (Negative) Ur Leukocyte Esterase (Negative) Urine RBC (0-2) /HPF Urine WBC (0-5) /HPF Ur Squamous Epith Cells (0-2) /HPF Urine Bacteria (None Seen) Hyaline Casts (0-2) /LPF Granular Casts Urine Opiates Screen (Not Detect) Ur Buprenorphine Scrn (Not Detect) ng/mL Ur Oxycodone Screen (Not Detect) ng/mL Urine Methadone Screen (Not Detect) ng/mL Urine Fentanyl Screen (Not Detect) Ur Barbiturates Screen (Not Detect) Ur Phencyclidine Scrn (Not Detect) Ur Amphetamines Screen (Not Detect) U Benzodiazepines Scrn (Not Detect) Urine Cocaine Screen (Not Detect) U Marijuana (THC) Screen (Not Detect) Ethyl Alcohol < 10 mg/dL Influenza Type A (PCR) (Negative) Influenza Type B (PCR) (Negative) RSV RNA Qual (PCR) (Negative) SARS-CoV-2 RNA (RT-PCR) (Negative) 11/03/24 11/03/24 11/03/24 Range/Units 20:30 22:30 22:34 WBC (4.8-10.8) X10*3/uL RBC (4.60-5.80) X10*6/uL Hgb (14.0-18.0) g/dl Hct (42.0-52.0) % MCV (80.0-98.0) fL MCH (27.0-33.0) pg MCHC (31.0-36.0) g/dl RDW (11.0-16.0) % Plt Count (160-400) X10*3/uL MPV (9.4-12.4) fL Immature Gran % (Auto) Neut % (Auto) Lymph % (Auto) [place] % (Auto) Eos % (Auto) Baso % (Auto) Lymph # (Auto) [place] # (Auto) Eos # (Auto) Baso # (Auto) Abs Immat Gran (auto) Absolute Neuts (auto) Absolute Nucleated RBC (0.0-0.012) X10*3/uL Nucleated RBC % (auto) (0.0-0.2) /100WBC Neutrophils % (Manual) (45-73) % Band Neutrophils % (3-5) % Lymphocytes % (Manual) (20-40) % Myelocytes % % Abs Neuts (Manual) (2.0-8.3) X10*3/uL Lymphocytes # (Manual) (1.2-4.9) X10*3/uL Myelocytes # X10*/uL Nucleated RBCs (0-0) /100WBC Hypersegmented Neuts Toxic Granulation Toxic Vacuolation Platelet Estimate (NORMAL) Giant Platelets Plt Morphology Comment RBC Morphology Hypochromasia /OIF Microcytosis /OIF Target Cells /OIF Schistocytes /OIF PT (10.9-12.4) SEC INR (0.9-1.1) VBG pH 7.46 H (7.32-7.43) VBG pCO2 24 mmHg VBG pO2 190 mmHg VBG HCO3 17 L (22-26) mmol/L VBG O2 Saturation 99.0 % VBG Base Excess -4.0 mmol/L Sodium (135-145) mmol/L Potassium (3.3-5.1) mmol/L Chloride (96-108) mmol/L Carbon Dioxide (22-29) mmol/L Anion Gap (12-20) BUN (9-16) mg/dL Creatinine (0.5-1.4) mg/dL Estim Creat Clear Calc Estimated GFR Random Glucose (60-115) mg/dL Lactic Acid (0.5-2.0) mmol/L Lactic Acid F/U @ 2Hr (0.5-2.0) mmol/L Calcium (8.4-10.2) mg/dL Magnesium (1.6-2.6) mg/dL Total Bilirubin (0.0-1.0) mg/dL Direct Bilirubin (0.0-0.5) mg/dL AST (5-37) U/L ALT (0-40) U/L Alkaline Phosphatase (39-117) U/L Ammonia (13-55) umol/L Total Creatine Kinase (38-174) U/L Troponin I High Sens 338.9 H* (<3.5-35.0) ng/L C-Reactive Protein (< or = 0.50) mg/dL B-Natriuretic Peptide (<100) pg/mL Total Protein (6.5-8.0) g/dL Albumin (3.5-5.0) g/dL Lipase (8-78) U/L Urine Color Dark Yellow Urine Appearance Cloudy Urine pH 5.5 (5.0-9.0) Ur Specific [place] 1.025 (1.005-1.025) Urine Protein 100 (2+) H (Neg-Trace) mg/dL Urine Glucose (UA) Negative (Negative) mg/dL Urine Ketones Trace (Negative) mg/dL Urine Blood Large (3+) H (Negative) Urine Nitrite Negative (Negative) Ur Leukocyte Esterase Negative (Negative) Urine RBC 6-10 H (0-2) /HPF Urine WBC 0-5 (0-5) /HPF Ur Squamous Epith Cells 6-10 (0-2) /HPF Urine Bacteria None Seen (None Seen) Hyaline Casts 3-5 (0-2) /LPF Granular Casts Present Urine Opiates Screen Not Detected (Not Detect) Ur Buprenorphine Scrn Not Detected (Not Detect) ng/mL Ur Oxycodone Screen Not Detected (Not Detect) ng/mL Urine Methadone Screen Not Detected (Not Detect) ng/mL Urine Fentanyl Screen Not Detected (Not Detect) Ur Barbiturates Screen Not Detected (Not Detect) Ur Phencyclidine Scrn Not Detected (Not Detect) Ur Amphetamines Screen Not Detected (Not Detect) U Benzodiazepines Scrn Not Detected (Not Detect) Urine Cocaine Screen Not Detected (Not Detect) U Marijuana (THC) Screen Not Detected (Not Detect) Ethyl Alcohol mg/dL Influenza Type A (PCR) (Negative) Influenza Type B (PCR) (Negative) RSV RNA Qual (PCR) (Negative) SARS-CoV-2 RNA (RT-PCR) (Negative) 11/03/24 Range/Units 22:48 WBC (4.8-10.8) X10*3/uL RBC (4.60-5.80) X10*6/uL Hgb (14.0-18.0) g/dl Hct (42.0-52.0) % MCV (80.0-98.0) fL MCH (27.0-33.0) pg MCHC (31.0-36.0) g/dl RDW (11.0-16.0) % Plt Count (160-400) X10*3/uL MPV (9.4-12.4) fL Immature Gran % (Auto) Neut % (Auto) Lymph % (Auto) [place] % (Auto) Eos % (Auto) Baso % (Auto) Lymph # (Auto) [place] # (Auto) Eos # (Auto) Baso # (Auto) Abs Immat Gran (auto) Absolute Neuts (auto) Absolute Nucleated RBC (0.0-0.012) X10*3/uL Nucleated RBC % (auto) (0.0-0.2) /100WBC Neutrophils % (Manual) (45-73) % Band Neutrophils % (3-5) % Lymphocytes % (Manual) (20-40) % Myelocytes % % Abs Neuts (Manual) (2.0-8.3) X10*3/uL Lymphocytes # (Manual) (1.2-4.9) X10*3/uL Myelocytes # X10*/uL Nucleated RBCs (0-0) /100WBC Hypersegmented Neuts Toxic Granulation Toxic Vacuolation Platelet Estimate (NORMAL) Giant Platelets Plt Morphology Comment RBC Morphology Hypochromasia /OIF Microcytosis /OIF Target Cells /OIF Schistocytes /OIF PT (10.9-12.4) SEC INR (0.9-1.1) VBG pH (7.32-7.43) VBG pCO2 mmHg VBG pO2 mmHg VBG HCO3 (22-26) mmol/L VBG O2 Saturation % VBG Base Excess mmol/L Sodium (135-145) mmol/L Potassium (3.3-5.1) mmol/L Chloride (96-108) mmol/L Carbon Dioxide (22-29) mmol/L Anion Gap (12-20) BUN (9-16) mg/dL Creatinine (0.5-1.4) mg/dL Estim Creat Clear Calc Estimated GFR Random Glucose (60-115) mg/dL Lactic Acid (0.5-2.0) mmol/L Lactic Acid F/U @ 2Hr 3.1 H* (0.5-2.0) mmol/L Calcium (8.4-10.2) mg/dL Magnesium (1.6-2.6) mg/dL Total Bilirubin (0.0-1.0) mg/dL Direct Bilirubin (0.0-0.5) mg/dL AST (5-37) U/L ALT (0-40) U/L Alkaline Phosphatase (39-117) U/L Ammonia (13-55) umol/L Total Creatine Kinase 633 H (38-174) U/L Troponin I High Sens (<3.5-35.0) ng/L C-Reactive Protein (< or = 0.50) mg/dL B-Natriuretic Peptide (<100) pg/mL Total Protein (6.5-8.0) g/dL Albumin (3.5-5.0) g/dL Lipase (8-78) U/L Urine Color Urine Appearance Urine pH (5.0-9.0) Ur Specific [place] (1.005-1.025) Urine Protein (Neg-Trace) mg/dL Urine Glucose (UA) (Negative) mg/dL Urine Ketones (Negative) mg/dL Urine Blood (Negative) Urine Nitrite (Negative) Ur Leukocyte Esterase (Negative) Urine RBC (0-2) /HPF Urine WBC (0-5) /HPF Ur Squamous Epith Cells (0-2) /HPF Urine Bacteria (None Seen) Hyaline Casts (0-2) /LPF Granular Casts Urine Opiates Screen (Not Detect) Ur Buprenorphine Scrn (Not Detect) ng/mL Ur Oxycodone Screen (Not Detect) ng/mL Urine Methadone Screen (Not Detect) ng/mL Urine Fentanyl Screen (Not Detect) Ur Barbiturates Screen (Not Detect) Ur Phencyclidine Scrn (Not Detect) Ur Amphetamines Screen (Not Detect) U Benzodiazepines Scrn (Not Detect) Urine Cocaine Screen (Not Detect) U Marijuana (THC) Screen (Not Detect) Ethyl Alcohol mg/dL Influenza Type A (PCR) (Negative) Influenza Type B (PCR) (Negative) RSV RNA Qual (PCR) (Negative) SARS-CoV-2 RNA (RT-PCR) (Negative) Critical Care Time Critical Care Time Critical Care Time: Yes Total Critical Care Time: 35 Attestation: The patient was critically ill with a high probability of imminent or life-threatening deterioration. ?I spent greater than 30 minutes of discontinuous time evaluating the patient, delivering critical care at the bedside, discussing evaluating data with consultants. ?Critical care time does not include time spent performing separately billable procedures or teaching. ?Time spent performing critical care with 35 minutes. Discharge Plan Discharge Clinical Impression: Sepsis, Encephalopathy Patient Disposition: Admitted As Inpatient Print Language: Lao
[2024-11-03 20:01] LABS: Hematocrit 44.7 % (42.0-52.0); Hemoglobin 16.7 g/dl (14.0-18.0); Mean Corpuscular HGB Conc 37.4 g/dl (31.0-36.0); Mean Corpuscular Hemoglobin 33.1 pg (27.0-33.0); Mean Corpuscular Volume 88.7 fL (80.0-98.0); Mean Platelet Volume 9.8 fL (9.4-12.4); NRBC Pct Auto 0.1 /100WBC (0.0-0.2); Platelet Count 191 X10*3/uL (160-400); Red Blood Count 5.04 X10*6/uL (4.60-5.80); Red Cell Distribution Width 13.9 % (11.0-16.0)
[2024-11-03] MEDS: Piperacillin Sodium/Tazobactam 4.5 GM in 0.9 % Sodium Chloride 100 ML IV (20:10)
[2024-11-03 20:13] LABS: WBC ABN SCTR FOR CBC 1
[2024-11-03 20:15] LABS: White Blood Count 33.5 X10*3/uL (4.8-10.8)
[2024-11-03 20:17] LABS: VBG Base Excess -0.4 mmol/L; VBG HCO3 23 mmol/L (22-26); VBG pCO2 37 mmHg; VBG pO2 39 mmHg
[2024-11-03 20:19] LABS: Ammonia 43 umol/L (13-55)
[2024-11-03 20:20] LABS: B Type Natriuretic Peptide 764 pg/mL (<100)
[2024-11-03 20:30] LABS: Venous Blood Gas Refer to POC result
[2024-11-03 20:30] LABS: Prothrombin Time 11.4 SEC (10.9-12.4)
[2024-11-03 20:31] LABS: Band Neutrophils Percent 5 % (3-5); Lymphocytes Percent Manual 3 % (20-40); Myelocytes Absolute 0.3 X10*/uL; Myelocytes Percent 1 %; Neutrophils Absolute Manual 32.2 X10*3/uL (2.0-8.3); Neutrophils Percent Manual 91 % (45-73); Nucleated Red Blood Cells 1 /100WBC (0-0); RBC Morphology NORMAL
[2024-11-03 20:32] LABS: Giant Platelet PRESENT; Hypochromasia 1+ (5-14) /OIF; Microcytosis 2+ (15-30) /OIF; Platelet Estimate NORMAL (NORMAL); Platelet Morphology Comment NOTED; Schistocytes 2+ (3-5) /OIF; Target Cells 1+ (5-14) /OIF
[2024-11-03 20:33] LABS: Hypersegmented Neutrophils PRESENT; Toxic Granulation PRESENT; Toxic Vacuolation PRESENT
[2024-11-03] MEDS: 0.9 % Sodium Chloride 1,000 ML 999 ML IV (20:33)
[2024-11-03 20:35] LABS: Alanine Aminotransferase 232 U/L (0-40); Albumin Level 3.2 g/dL (3.5-5.0); Alkaline Phosphatase 319 U/L (39-117); Anion Gap 16 (12-20); Aspartate Amino Transferase 180 U/L (5-37); Bilirubin Direct 0.7 mg/dL (0.0-0.5); Bilirubin Total 1.3 mg/dL (0.0-1.0); Blood Urea Nitrogen 38 mg/dL (9-16); Calcium 9.3 mg/dL (8.4-10.2); Carbon Dioxide 23 mmol/L (22-29); Chloride 99 mmol/L (96-108); Creatinine Clr Calc Pharmacy 72.8; Estimated Glomerular Filt Rate 51; Glucose Random 163 mg/dL (60-115); Magnesium 2.3 mg/dL (1.6-2.6); Potassium 3.2 mmol/L (3.3-5.1); Sodium 135 mmol/L (135-145); Total Protein 7.7 g/dL (6.5-8.0)
[2024-11-03 20:36] LABS: Lactic Acid 4.6 mmol/L (0.5-2.0)
[2024-11-03 20:38] LABS: Appearance Urine Cloudy; Color Urine Dark Yellow; Glucose Urine UA Negative (Negative); Leukocyte Esterase Urine Negative (Negative); Nitrite Urine Negative (Negative); PH 5.5 (5.0-9.0); Specific Gravity - Urine 1.025 (1.005-1.025); UMIC TRIGGER UACC YES; Urine Blood Large (3+) (Negative); Urine Ketones Trace mg/dL (Negative); Urine Protein 100 (2+) mg/dL (Neg-Trace)
[2024-11-03 20:40] LABS: Influenza A PCR NEGATIVE (Negative); Influenza B PCR NEGATIVE (Negative); Resp Syncy Virus RNA Qual PCR NEGATIVE (Negative); SARS COV2 PCR INHOUSE NEGATIVE (Negative)
[2024-11-03 20:46] LABS: Ethanol < 10 mg/dL; Lipase 39 U/L (8-78)
[2024-11-03 20:47] LABS: Amphetamine Screen Urine Not Detected (Not Detect); Barbiturates, Urine Not Detected (Not Detect); Benzodiazepines Screen Urine Not Detected (Not Detect); Buprenorphine Scr Not Detected (Not Detect); Cannabinoid Screen Urine Not Detected (Not Detect); Cocaine Screen Urine Not Detected (Not Detect); Fentanyl, urine Not Detected (Not Detect); Methadone Screen, Urine Not Detected (Not Detect); Opiate Screen Urine Not Detected (Not Detect); Oxycodone Screen Urine Not Detected (Not Detect); Phencyclidine Screen Urine Not Detected (Not Detect)
[2024-11-03 20:55] LABS: Troponin-I High Sensitivity 362.4 ng/L (<3.5-35.0)
[2024-11-03] MEDS: iohexoL 350 MG/ML 100 ML INFUS..BTL IV (20:58)
[2024-11-03] MEDS: Lactated Ringers 1,000 ML 999 ML IV ×2 (20:59→21:55)
[2024-11-03] MEDS: vancomycin/NS 2,000 MG/500 ML PLAST..BAG 250 MG IV (21:05)
[2024-11-03] MEDS: iohexoL 350 MG/ML 100 ML INFUS..BTL 85 ML IV (21:08)
[2024-11-03 21:15] LABS: Bacteria Urine None Seen (None Seen); Granular Casts Urine Present; WBC Urine 0-5 /HPF (0-5)
[2024-11-03 21:37] LABS: C Reactive Protein 60.62 mg/dL (< or = 0.50)
[2024-11-03] MEDS: Potassium Chloride/H20 10 MEQ/100 ML PIGGYBACK 100 MEQ IV ×2 (21:51→22:50)
[2024-11-03 22:09] LABS: Reflex Lactate? Lactic Acid Added
[2024-11-03 22:37] LABS: VBG HCO3 17 mmol/L (22-26); VBG pCO2 24 mmHg; VBG pH 7.46 (7.32-7.43); VBG pO2 190 mmHg
[2024-11-03 22:39] LABS: Venous Blood Gas Refer to POC result
[2024-11-03 22:57] LABS: Troponin-I High Sensitivity 338.9 ng/L (<3.5-35.0)
[2024-11-03 23:15] LABS: ~Lactic Acid-LAB USE ONLY 3.1 mmol/L (0.5-2.0)
--- NOTE | 2024-11-03 23:53 | P.HPHOSP_ITS ---
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 He reports that he was feeling flu-like symptoms for about a week with cough, fever, chills and body aches. His girlfriend is currently admitted here with RSV. Patient was reportedly confused for EMS but but had improvement. Mottling improved with O2 on non-rebreather. Patient is no longer able to respond to any questions to take a further history at this time. He is alert and we will follow minimal verbal commands but does not respond verbally. In the ED the pt was found to have a WBC of 33.5, tachypneic with normal pulse, transitioned to nasal cannula from non-rebreather with good response. He has been unable to provide a history. Per ED provider note: The patient has a apparently been sick for about 10 days with a cough and congestion. He has been seen at an urgent care several days ago and was put on a course of prednisone. He was brought to the emergency room here 2 days ago after he had a syncopal episode following a bowel movement. Yesterday his was hospitalized with RSV. Apparently the patient was still not feeling very well yesterday and today his had a friend of hers check on the patient. Apparently a friend of the 's went this morning and again this afternoon and felt the patient did not look very well. This evening the patient's brother, who was on [facility], tried to call his brother several times and got no answer. The brother called his sister who went to the patient's house. Apparently the patient was found sitting on the floor looking very ill. He was diaphoretic and looked mottled and seemed confused. Here in the emergency room the patient is denying any pain but he seems quite confused. However he is denying any pain. Specifically he denies a headache, neck pain, sore throat, chest pain, abdominal pain, pain in his extremities. He is not really able to give any additional history. Paramedics did not report any evidence of vomiting. There does not seem to has been any evidence of diarrhea. Review of Systems 2 Review of Systems: Yes Unobtainable due to mental condition [facility] Medical History Umbilical hernia (04/12/23) Obesity (BMI 30-39.9) Hypertension Asthma Functional capacity: independent ambulation Surgical History History of appendectomy (04/12/23) Hx of splenectomy Social History Household Members: Significant Other Housing: House Do you presently have visiting nurse or other home services: No Alcohol intake: current Alcohol intake frequency: a few times a week Patient Tobacco Use Status: Never used Tobacco Smoked in Last 30 Days: No Use of substances other than those prescribed or required for medical reasons: No Advance Directives: No Advance Directives Information Provided: No service: No Meds Allergies Allergy/AdvReac Type Severity Reaction Status Date / Time No Known Allergies Allergy Verified 11/03/24 19:43 Active Medications: Current Medications Acetaminophen (Acetaminophen 325 Mg Tablet) 650 mg PO Q6H PRN PRN Reason: Pain, Mild 1-3,fever,headache Calcium Carbonate (Calcium Carbonate 750 Mg Tab.Chew) 750 mg PO Q4H PRN PRN Reason: Heartburn Ceftriaxone Sodium (Ceftriaxone Sodium 2 Gm Vial) 2 gm IVPUSH Q12H MEG Dexamethasone Sodium Phosphate (Dexamethasone Sod Phosphate 10 Mg/Ml Vial) 10 mg IVPUSH Q6H MEG Enoxaparin Sodium (Enoxaparin Sodium 40 Mg/0.4 Ml Syringe) 40 mg SUBCUT Q24H MEG Potassium Chloride (Potassium Chloride/H20) 10 meq in 100 mls @ 100 mls/hr IV Q1H MEG Stop: 11/04/24 01:44 Last Admin: 11/03/24 22:50 Dose: 100 mls/hr Ampicillin Sodium 2 gm/ Sodium (Chloride) 100 mls @ 200 mls/hr IV Q4H MEG Acyclovir Sodium 942.4 mg/ (Sodium Chloride) 118.848 mls @ 118.848 mls/hr IV Q8H MEG Magnesium Hydroxide (Milk Of Magnesia 30 Ml Oral.Susp) 30 ml PO DAILY PRN PRN Reason: Constipation Melatonin (Melatonin 3 Mg Tablet) 6 mg PO BEDTIME PRN PRN Reason: Insomnia Ondansetron HCl (Ondansetron Hcl 4 Mg/2 Ml Vial) 4 mg IVPUSH Q8H PRN PRN Reason: Nausea and Vomiting Pharmacy Consult (Consult Rx Vancomycin Dosing) 1 each MISCELLANE DAILY PRN PRN Reason: Consult order Sodium Chloride (0.9 % Sodium Chloride Flush 3 Ml Syringe) 3 ml IVFLUSH [facility] Medications ?Medication ?Instructions ?Recorded ?Confirmed ?Last Taken ?Type montelukast 10 mg tablet 1 tab PO DAILY 10/09/20 04/12/23 04/11/23 History naproxen sodium 220 mg capsule 220 mg PO BID PRN Pain 10/09/20 04/12/23 Unknown History (Alechidi) valsartan 160 mg tablet 160 mg PO DAILY 04/12/23 04/12/23 04/12/23 History Physical Exam 2 Vital Signs and Narrative: Vital Signs: Last Vital Signs Temp 98.4 F 11/03/24 21:54 Pulse 57 11/03/24 22:19 Resp 24 H 11/03/24 21:56 BP 157/83 H 11/03/24 23:40 Pulse Ox 100 11/03/24 21:32 O2 Del Method Nasal Cannula 11/03/24 21:32 O2 Flow Rate 2 11/03/24 21:32 Oxygen Flow Rate 8 11/03/24 19:38 BMI result Body Mass Index 44.6 General: Alert, not able to express if oriented to person, place or time, rocking on side Resp: CTA bilaterally, no wheezing or crackles CVS: S1, S2, RRR GI: +BS, NT, no distention Skin: Warm, dry. mottled lower extremities. capillary refill 2 seconds. Neuro: No increased sensitivity to light. pupils equal, round and reactive to light. Motor grossly intact bilaterally. was able to squeeze my fingers when prompted. Extremities: No LE edema Psych: Appropriate affect Results Labs 11/03/24 19:56 11/03/24 20:01 Labs: Laboratory Results - last 24 hr 11/03/24 11/03/24 11/03/24 19:56 19:59 20:01 MCV 88.7 D MCH 33.1 H MCHC 37.4 H RDW 13.9 Plt Count 191 D MPV 9.8 Immature Gran % (Auto) Cancelled Neut % (Auto) Cancelled Lymph % (Auto) Cancelled [place] % (Auto) Cancelled Eos % (Auto) Cancelled Baso % (Auto) Cancelled Lymph # (Auto) Cancelled [place] # (Auto) Cancelled Eos # (Auto) Cancelled Baso # (Auto) Cancelled Abs Immat Gran (auto) Cancelled Absolute Neuts (auto) Cancelled Absolute Nucleated RBC 0.050 H Nucleated RBC % (auto) 0.1 Neutrophils % (Manual) 91 H Band Neutrophils % 5 Lymphocytes % (Manual) 3 L Myelocytes % 1 Abs Neuts (Manual) 32.2 H Lymphocytes # (Manual) 1.0 L Myelocytes # 0.3 Nucleated RBCs 1 H Hypersegmented Neuts PRESENT Toxic Granulation PRESENT Toxic Vacuolation PRESENT Platelet Estimate NORMAL Giant Platelets PRESENT Plt Morphology Comment NOTED RBC Morphology NORMAL Hypochromasia 1+ (5-14) Microcytosis 2+ (15-30) Target Cells 1+ (5-14) Schistocytes 2+ (3-5) PT 11.4 INR 1.0 VBG pH VBG pCO2 VBG pO2 VBG HCO3 VBG O2 Saturation VBG Base Excess Anion Gap 16 Estim Creat Clear Calc 72.8 Estimated GFR 51 Random Glucose 163 H Lactic Acid Lactic Acid F/U @ 2Hr Calcium 9.3 D Magnesium 2.3 Total Bilirubin 1.3 H Direct Bilirubin 0.7 H AST 180 H ALT 232 H Alkaline Phosphatase 319 H Ammonia Total Creatine Kinase C-Reactive Protein 60.62 H B-Natriuretic Peptide 764 H Total Protein 7.7 Albumin 3.2 L Lipase Urine Color Urine Appearance Urine pH Ur Specific [place] Urine Protein Urine Glucose (UA) Urine Ketones Urine Blood Urine Nitrite Ur Leukocyte Esterase Urine RBC Urine WBC Ur Squamous Epith Cells Urine Bacteria Hyaline Casts Granular Casts Urine Opiates Screen Ur Buprenorphine Scrn Ur Oxycodone Screen Urine Methadone Screen Urine Fentanyl Screen Ur Barbiturates Screen Ur Phencyclidine Scrn Ur Amphetamines Screen U Benzodiazepines Scrn Urine Cocaine Screen U Marijuana (THC) Screen Ethyl Alcohol Influenza Type A (PCR) NEGATIVE Influenza Type B (PCR) NEGATIVE RSV RNA Qual (PCR) NEGATIVE SARS-CoV-2 RNA (RT-PCR) NEGATIVE 11/03/24 11/03/24 11/03/24 20:03 20:08 20:22 MCV MCH MCHC RDW Plt Count MPV Immature Gran % (Auto) Neut % (Auto) Lymph % (Auto) [place] % (Auto) Eos % (Auto) Baso % (Auto) Lymph # (Auto) [place] # (Auto) Eos # (Auto) Baso # (Auto) Abs Immat Gran (auto) Absolute Neuts (auto) Absolute Nucleated RBC Nucleated RBC % (auto) Neutrophils % (Manual) Band Neutrophils % Lymphocytes % (Manual) Myelocytes % Abs Neuts (Manual) Lymphocytes # (Manual) Myelocytes # Nucleated RBCs Hypersegmented Neuts Toxic Granulation Toxic Vacuolation Platelet Estimate Giant Platelets Plt Morphology Comment RBC Morphology Hypochromasia Microcytosis Target Cells Schistocytes PT INR VBG pH 7.40 VBG pCO2 37 VBG pO2 39 VBG HCO3 23 VBG O2 Saturation 58.0 VBG Base Excess -0.4 Anion Gap Estim Creat Clear Calc Estimated GFR Random Glucose Lactic Acid 4.6 H* Lactic Acid F/U @ 2Hr Calcium Magnesium Total Bilirubin Direct Bilirubin AST ALT Alkaline Phosphatase Ammonia 43 Total Creatine Kinase 886 H C-Reactive Protein B-Natriuretic Peptide Total Protein Albumin Lipase 39 Urine Color Urine Appearance Urine pH Ur Specific [place] Urine Protein Urine Glucose (UA) Urine Ketones Urine Blood Urine Nitrite Ur Leukocyte Esterase Urine RBC Urine WBC Ur Squamous Epith Cells Urine Bacteria Hyaline Casts Granular Casts Urine Opiates Screen Ur Buprenorphine Scrn Ur Oxycodone Screen Urine Methadone Screen Urine Fentanyl Screen Ur Barbiturates Screen Ur Phencyclidine Scrn Ur Amphetamines Screen U Benzodiazepines Scrn Urine Cocaine Screen U Marijuana (THC) Screen Ethyl Alcohol < 10 Influenza Type A (PCR) Influenza Type B (PCR) RSV RNA Qual (PCR) SARS-CoV-2 RNA (RT-PCR) 11/03/24 11/03/24 11/03/24 20:30 22:34 22:48 MCV MCH MCHC RDW Plt Count MPV Immature Gran % (Auto) Neut % (Auto) Lymph % (Auto) [place] % (Auto) Eos % (Auto) Baso % (Auto) Lymph # (Auto) [place] # (Auto) Eos # (Auto) Baso # (Auto) Abs Immat Gran (auto) Absolute Neuts (auto) Absolute Nucleated RBC Nucleated RBC % (auto) Neutrophils % (Manual) Band Neutrophils % Lymphocytes % (Manual) Myelocytes % Abs Neuts (Manual) Lymphocytes # (Manual) Myelocytes # Nucleated RBCs Hypersegmented Neuts Toxic Granulation Toxic Vacuolation Platelet Estimate Giant Platelets Plt Morphology Comment RBC Morphology Hypochromasia Microcytosis Target Cells Schistocytes PT INR VBG pH 7.46 H VBG pCO2 24 VBG pO2 190 VBG HCO3 17 L VBG O2 Saturation 99.0 VBG Base Excess -4.0 Anion Gap Estim Creat Clear Calc Estimated GFR Random Glucose Lactic Acid Lactic Acid F/U @ 2Hr 3.1 H* Calcium Magnesium Total Bilirubin Direct Bilirubin AST ALT Alkaline Phosphatase Ammonia Total Creatine Kinase 633 H C-Reactive Protein B-Natriuretic Peptide Total Protein Albumin Lipase Urine Color Dark Yellow Urine Appearance Cloudy Urine pH 5.5 Ur Specific [place] 1.025 Urine Protein 100 (2+) H Urine Glucose (UA) Negative Urine Ketones Trace Urine Blood Large (3+) H Urine Nitrite Negative Ur Leukocyte Esterase Negative Urine RBC 6-10 H Urine WBC 0-5 Ur Squamous Epith Cells 6-10 Urine Bacteria None Seen Hyaline Casts 3-5 Granular Casts Present Urine Opiates Screen Not Detected Ur Buprenorphine Scrn Not Detected Ur Oxycodone Screen Not Detected Urine Methadone Screen Not Detected Urine Fentanyl Screen Not Detected Ur Barbiturates Screen Not Detected Ur Phencyclidine Scrn Not Detected Ur Amphetamines Screen Not Detected U Benzodiazepines Scrn Not Detected Urine Cocaine Screen Not Detected U Marijuana (THC) Screen Not Detected Ethyl Alcohol Influenza Type A (PCR) Influenza Type B (PCR) RSV RNA Qual (PCR) SARS-CoV-2 RNA (RT-PCR) Assessment and Plan (1) Severe sepsis: Status: Acute (2) Metabolic encephalopathy: Status: Acute (3) Acute lactic acidosis: Status: Acute (4) Elevated LFTs: Status: Acute (5) Hypokalemia: Status: Acute (6) CORINA (acute kidney injury): Status: Acute (7) Class 3 obesity: Status: Acute Plan Patient is a 59-year-old male with a past medical history significant for 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 severe sepsis and metabolic encephalopathy with unknown source, suspected meningitis - WBC 84503, temp of 100.2 max, tachypenic, no tachycardia, lactic acid 4.6, 3.1 on repeat, blood cultures x2 pending - CXR negative - A/P CT negative for acute process - head CT with no acute intracranial findings, acute maxillary sinusitis suggested - Chest CTA negative - UA negative - COVID/flu/RSV negative - U tox negative - trop 362, 338 on repeat likely elevated due to demand ischemia and sepsis - LP difficult to obtain due to body habitus by ED provider quality not sufficient for culture, only sufficient for PCR panel. will need repeat LP by IR - CSF fluid analysis pending - given 2L LR and 1L NS in ED - started on vancomycin and zosyn in ED, switch to acyclovir, ceftriaxone, ampicillin and vancomycin - start decadron 10mg IV Q6H - follow CBC and CMP CORINA - Cr 1.42 - IV fluids as above - monitor BMP hypokalemia - due to CORINA/sepsis - repleated, given 40meq IV - monitor CMP acute lactic acidosis - secondary to sepsis - given IVF in ED - monitor CBC and CMP elevated LFTS - secondary to sepsis - monitor CMP elevated troponin - trop 362, 338 on repeat likely elevated due to demand ischemia and sepsis - EKG with NSR, inferior infarct cited previously class III obesity - BMI 44.6 Full code VTE prophy: lovenox and pneumoboots Pt with severe sepsis and metabolic encephalopathy suspected to be secondary to meningitis, requiring admission for at least 2 midnights stay for further evaluation, IV abx and antivirals. Quality Stroke Does the patient have a stroke diagnosis?: No VTE Prior VTE?: No VTE Risk Level:: Medical - moderate - high VTE Device Contraindication: N/A - Device Ordered VTE Drug Contraindication: N/A - Med Ordered
[2024-11-04] VITALS (32 sets, daily range): BP systolic 93–166; BP diastolic 57–104; PULSE 67–145; RESP 14–34; TEMP 37–37.6; O2SAT 90–98
--- NOTE | 2024-11-04 | ECG_ITS ---
Test Reason : tachy Blood Pressure : */* mmHG Vent. Rate : 161 BPM Atrial Rate : * BPM P-R Int : * ms QRS Dur : 108 ms QT Int : 314 ms P-R-T Axes : * 27 12 degrees QTcB Int : 513 ms Atrial fibrillation with rapid ventricular response Abnormal ECG When compared with ECG of 03-Nov-2024 21:01, Atrial fibrillation has replaced Sinus rhythm Vent. rate has increased by 95 bpm Referred By: Generic ED Physician Electronically Signed By: Alexx Hunter
--- NOTE | 2024-11-04 00:08 | MHC.EDTECH ---
Physically brought down one tube of spinal fluid to lab and handed to Austin. Per Austin, any one label on tube, rest in the bag, didn't matter which was on specimen.
[2024-11-04] MEDS: Potassium Chloride/H20 10 MEQ/100 ML PIGGYBACK 100 MEQ IV ×2 (00:29→01:26)
[2024-11-04] MEDS: dexAMETHasone sod phosphate 10 MG/ML VIAL IVPUSH ×5 (00:31→23:41)
[2024-11-04] MEDS: cefTRIAXone sodium 2 GM VIAL IVPUSH ×3 (00:31→23:34)
[2024-11-04] MEDS: 0.9 % Sodium Chloride Flush 3 ML SYRINGE IVFLUSH ×3 (00:33→23:41)
[2024-11-04 00:52] LABS: Reflex Lactate? 2 Y
--- NOTE | 2024-11-04 01:15 | PM.EVENT ---
Event Note Date of Service: 11/04/24 Event Note: Nurse reported HR in the 150-160's. EKG with afib with RVR. Ordering IV lopressor. Obtaining echo and TSH. Cardiology consult Time Spent With Patient Time: Total time managing care of this patient today ____ minutes.
[2024-11-04] MEDS: Metoprolol Tartrate 5 MG/5 ML VIAL IVPUSH ×2 (01:17→01:50)
--- NOTE | 2024-11-04 01:21 | PC.NURSE ---
Addendum entered by Sarah Payne 11/05/24 19:15: late entry from 11/03, patient IV zosyn completed at 2039. error in end infusion time in OCT. Original Note: patient HR up to 150-160. ek done at bedside and hospitalist notified. ekg now showing a fib rvr. iv metoprolol ordered IV and administered.
[2024-11-04] MEDS: Ampicillin Sodium 2 GM in 0.9 % Sodium Chloride 100 ML IV ×5 (01:55→21:41)
[2024-11-04 02:09] LABS: ~Lactic Acid-LAB USE ONLY 2.7 mmol/L (0.5-2.0)
[2024-11-04] MEDS: dilTIAZem HCL 125 MG in 0.9 % Sodium Chloride 100 ML 10 MG IVCONT (03:06)
[2024-11-04 03:08] LABS: Cryptococcus neoformans/gattii Not Detected (Not Detect.); Enterovirus Not Detected (Not Detect.); Escherichia coli K1 Not Detected (Not Detect.); Haemophilus influenzae Not Detected (Not Detect.); Herpes simplex virus 1 Not Detected (Not Detect.); Herpes simplex virus 2 Not Detected (Not Detect.); Human herpesvirus 6 Not Detected (Not Detect.); Human parechovirus Not Detected (Not Detect.); Listeria monocytogenes Not Detected (Not Detect.); Neisseria meningitidis Not Detected (Not Detect.); Streptococcus agalactiae Not Detected (Not Detect.); Varicella zoster virus Not Detected (Not Detect.)
[2024-11-04 03:17] LABS: Streptococcus pneumoniae Detected (Not Detect.)
[2024-11-04 03:27] LABS: Glucose, Whole Blood 138 mg/dL (60-115)
--- NOTE | 2024-11-04 03:38 | PC.NURSE ---
Took over care from CARISSA Gomez, pt repositioned, hernandez bag emptied.
--- NOTE | 2024-11-04 03:55 | MHC.EDTECH ---
Addendum entered by BENSON Chapa 11/04/24 04:11: Pt boosted/repositioned in bed for comfort. Original Note: 300 ml urine emptied from hernandez bag.
--- NOTE | 2024-11-04 04:14 | PC.NURSE ---
increased cardizem drip to 15mg/hr, wittnessed by CARISSA Irby
--- NOTE | 2024-11-04 04:40 | PC.NURSE ---
pt repositioned in bed, Per Dr. Fabian, no repeat trop.
[2024-11-04 05:17] LABS: Hematocrit 44.6 % (42.0-52.0); Hemoglobin 16.4 g/dl (14.0-18.0); Mean Corpuscular HGB Conc 36.8 g/dl (31.0-36.0); Mean Corpuscular Hemoglobin 33.1 pg (27.0-33.0); Mean Corpuscular Volume 89.9 fL (80.0-98.0); Mean Platelet Volume 10.7 fL (9.4-12.4); NRBC Pct Auto 0.2 /100WBC (0.0-0.2); Platelet Count 157 X10*3/uL (160-400); Red Blood Count 4.96 X10*6/uL (4.60-5.80); Red Cell Distribution Width 13.8 % (11.0-16.0); WBC ABN SCTR FOR CBC 1
[2024-11-04 05:39] LABS: Alanine Aminotransferase 180 U/L (0-40); Albumin Level 2.8 g/dL (3.5-5.0); Anion Gap 16 (12-20); Aspartate Amino Transferase 153 U/L (5-37); Band Neutrophils Percent 17 % (3-5); Bilirubin Total 1.1 mg/dL (0.0-1.0); Blood Urea Nitrogen 31 mg/dL (9-16); Calcium 8.7 mg/dL (8.4-10.2); Carbon Dioxide 19 mmol/L (22-29); Chloride 105 mmol/L (96-108); Creatinine Clr Calc Pharmacy 105.5; Estimated Glomerular Filt Rate > 60; Glucose Random 144 mg/dL (60-115); Lymphocytes Absolute Manual 0.7 X10*3/uL (1.2-4.9); Lymphocytes Percent Manual 2 % (20-40); Monocytes Absolute Manual 0.3 X10*3/uL (0.1-1.2); Monocytes Percent Manual 1 % (2-11); Neutrophils Percent Manual 80 % (45-73); Nucleated Red Blood Cells 1 /100WBC (0-0); Potassium 4.1 mmol/L (3.3-5.1); Sodium 136 mmol/L (135-145)
[2024-11-04 05:42] LABS: Burr Cells 2+ (3-5) /OIF; Large Platelet PRESENT; Platelet Estimate NORMAL (NORMAL); Platelet Morphology Comment NOTED; RBC Morphology NOTED; Schistocytes 1+ (0-2) /OIF; Spherocytes 1+ (0-2) /OIF; Target Cells 1+ (5-14) /OIF
[2024-11-04 05:43] LABS: Howell Jolly Bodies PRESENT; Toxic Granulation PRESENT; Toxic Vacuolation PRESENT
[2024-11-04 05:49] LABS: Alkaline Phosphatase 209 U/L (39-117)
--- NOTE | 2024-11-04 06:16 | PC.NURSE ---
medicated per Dr. Rui le aware of critical labs reported by roxie.
--- NOTE | 2024-11-04 06:30 | PC.NURSE ---
Spoke With Dr. Fabian keep Cardizem drip at 10mg, only go up if heart rate greater than 140
--- NOTE | 2024-11-04 06:41 | PHA.PROG ---
Admission Date/Time: November 03, 2024 23:34 Indication:MOLDER OPERATOR Infection Weight in k kg Serum Creatinine - Last 168 Hours 11/03/24 11/04/24 20:01 04:26 Creatinine 1.42 H 0.98 Estimated CrCl and GFR - Last 168 Hours 11/03/24 11/04/24 20:01 04:26 Estim Creat Clear Calc 72.8 105.5 Estimated GFR 51 > 60 Vancomycin Loading Dose: 2,000 mg Current Vancomycin Dosing Regimen: 1,250mg q12h Vancomycin Monitoring using AUC goal of 400 - 600 range with trough as surrogate marker: 554, predicted trough 17.2 Date and Time for next Vancomycin Level to be drawn: 11/05 @ 0700 Pharmacist Comments on Vancomycin Plan: Vancomycin dosing will take advantage of [employer] as a clinical decision support tool that uses Bayesian modeling to calculate individual patient's pharmacokinetic parameters and forecast the patient's drug concentration time course with the target goal AUC 24 range of 400 - 600 mg/L/hr.
--- NOTE | 2024-11-04 07:00 | CA_ITS ---
Transthoracic Echocardiogram Patient (Last, First, Middle): Nitin Murillo C Gender: Male Date of : 1965 Age: 59 Procedure Date: 11/04/2024 Procedure Type: Transthoracic Echocardiogram Location: ICU Height: 172.72 cm Weight: 132.9 kg BSA: 2.40 m2 Heart Rate: bpm BP: 134 / 86 mmHg Compensation Director: SB Referring MD: Rogelio Fabian MD Symptoms: afib with rvr Study Quality: Fair ECG Rhythm: Atrial Fibrillation w RVR Conclusions: - Normal left ventricular cavity size. The left ventricular systolic function is low normal. The visually estimated ejection fraction is between 50-55%. - Normal right ventricular cavity size and systolic function. Findings Procedure Information Contrast agent, definity, is being given per protocol without apparent complications. The quality of the study was technically difficult. The study quality is limited by patients body habitus and lung artifact. Left Ventricle Normal left ventricular cavity size. The left ventricular systolic function is low normal. The visually estimated ejection fraction is between 50-55%. Regional wall motion abnormalities can not be excluded due to suboptimal endocardial definition. Diastolic function is indeterminate on the basis of available data. Right Ventricle Normal right ventricular cavity size and systolic function. Atria The left atrium was not well visualized. The right atrium was not well visualized. Aortic Valve There is a normal trileaflet aortic valve. There is no aortic valve stenosis. There is no aortic valve regurgitation. Mitral Valve The mitral valve appears normal. There is no mitral valve regurgitation. There is no mitral valve stenosis. Pulmonic Valve The pulmonic valve was not well visualized. Tricuspid Valve The tricuspid valve was not well visualized. There is no tricuspid valve regurgitation. Normal right atrial pressure. There is no evidence of pulmonary hypertension. Great Vessels All visible segments of the aorta are normal in size. The visualized portions of the pulmonary artery and branches are normal. Venous The inferior vena cava is normal in size and collapses greater than 50% with inspiration. Pericardium/Pleural There is no evidence of pericardial effusion. Prior Study Comparison No prior study available for comparison. Measurements 2D Linear Measurements LA Diam: 4.00 2.7-3.8/3.0-4.0 cm LAIDs Index: 1.67 1.5-2.3 cm/m2 LVOT Diam: 2.50 3.0+(-)1.3 cm 2D Systolic Function EF 4C: 38.30 >55% EF 2C: 60.70 >55% EF BiP: 48.60 >55% Mitral Valve MV Pk E: 0.53 Aortic Valve AoV Pk Baltazar: 0.93 AoV Pk Grad: 3.00 ROBERT: 4.96 LVOT LVOT Pk Baltazar: 0.94 LVOT Mn Baltazar: 0.62 LVOT VTI: 0.14 LVOT Pk Grad: 3.00 LVOT Mn Grad: 2.00 LVOT Diam: 2.50 LVOT Area: 4.91 Diastolic Function MV Pk E: 0.53 Right Ventricle TAPSE (mm): 17.00 Tricuspid Valve TR Pk Baltazar: 2.05 TR Pk Grad: 17.00 RA Press: 15.00 RVSP: 32.00 Great Vessels Aorta Sinus of Valsalva: 3.80 2.0-3.5 cm Ao Asc: 3.90 2.1-3.4 cm Pulmonary Valve PV Pk Baltazar: 0.75 Peak PV Grad: 2.00 Updated in Other Vendor System with Status of Final Alexx Hunter MD electronically signed on 11/04/2024 8:16:58 PM with status of Final
--- NOTE | 2024-11-04 08:13 | PC.NURSE ---
assumed care of patient at 0700, patient is in ED stretcher, resting. patient eyes closed, open spontaneously and to noxious stimuli, pupils equal and reactive to light bilat. patient is currently on 2lNC, tachypneic rr 25-30. patient noted to be diaphoretic on upper extrem and face, lower extrem cool. patient mottled on upper and lower extremities, stomach, chest. patient has bilat pedal pulses. patient remains on droplet precautions, hernandez cath in placed emptied 100cc urine at 0700. inpatient attending aware of patient current presentation
--- NOTE | 2024-11-04 08:50 | PC.NURSE ---
seizure precautions in place due to high risk for seizure.
--- NOTE | 2024-11-04 08:58 | PHA.MEDREC ---
Pharmacy Consult ? Medication Reconciliation Pharmacy has completed the medication reconciliation.Med rec complete, spoke to patients , and compared with pharmacy claim history
[2024-11-04] MEDS: vancomycin HCL 1,250 MG in 0.9 % Sodium Chloride 250 ML 166.67 MG IV ×2 (09:12→20:47)
--- NOTE | 2024-11-04 09:48 | P.PNIM_ITS ---
Subjective Subjective Date of Service: 11/04/24 Interval History: Encephalopathy Review of Systems Patient seen and examined during the morning rounds. Patient only open eyes-specially with tactile stimuli. Pupils are still reactive Has some skin mottling specially on the lower extremities Physical Exam 2 Vital Signs: Vital Signs: Last Vital Signs Temp 99.3 F 11/04/24 09:13 Pulse 120 H 11/04/24 09:13 Resp 20 11/04/24 09:13 BP 93/64 11/04/24 09:13 Pulse Ox 93 11/04/24 09:13 O2 Del Method Nasal Cannula 11/04/24 09:13 O2 Flow Rate 2 11/04/24 09:13 Oxygen Flow Rate 8 11/03/24 19:38 BMI result Body Mass Index 44.6 Physical exam-limited due to patient participation neuro: As above-awake only to tactile stimuli, pupil are reactive. Unable to do other neuro exam because of patient participation. cvs: Irregular rhythm, S1-S2 heard. Skin: Has skin mottling specially on the lower extremities Rest of the exam-please see H and P note. Objective Data Active Medications Acetaminophen (Acetaminophen 325 Mg Tablet) 650 mg PO Q6H PRN PRN Reason: Pain, Mild 1-3,fever,headache Calcium Carbonate (Calcium Carbonate 750 Mg Tab.Chew) 750 mg PO Q4H PRN PRN Reason: Heartburn Ceftriaxone Sodium (Ceftriaxone Sodium 2 Gm Vial) 2 gm IVPUSH Q12H COUNT INCLUDES THE [facility] Last Admin: 11/04/24 00:31 Dose: 2 gm Documented By: HENOK Dexamethasone Sodium Phosphate (Dexamethasone Sod Phosphate 10 Mg/Ml Vial) 10 mg IVPUSH Q6H COUNT INCLUDES THE [facility] Last Admin: 11/04/24 05:56 Dose: 10 mg Documented By: HENOK Enoxaparin Sodium (Enoxaparin Sodium 40 Mg/0.4 Ml Syringe) 40 mg SUBCUT Q24H COUNT INCLUDES THE [facility] Last Admin: 11/04/24 08:03 Dose: Not Given Documented By: LUIS Non-Admin Reason: held for procedure Acyclovir Sodium 1,000 mg/ (Sodium Chloride) 270 mls @ 270 mls/hr IV Q8H COUNT INCLUDES THE [facility] Last Infusion: 11/04/24 09:12 Dose: Infused Documented By: LUIS Ampicillin Sodium 2 gm/ Sodium (Chloride) 100 mls @ 200 mls/hr IV Q4H COUNT INCLUDES THE [facility] Last Infusion: 11/04/24 08:09 Dose: Infused Documented By: LUIS Diltiazem HCl 125 mg/ Sodium (Chloride) 125 mls @ 0 mls/hr IVCONT .Q0M COUNT INCLUDES THE [facility]; Protocol Last Titration: 11/04/24 08:23 Dose: 15 mg/hr, 15 mls/hr Documented By: LUIS Vancomycin HCl 1,250 mg/ (Sodium Chloride) 250 mls @ 166.667 mls/hr IV Q12H COUNT INCLUDES THE [facility] Last Admin: 11/04/24 09:12 Dose: 166.67 mls/hr Documented By: LUIS Magnesium Hydroxide (Milk Of Magnesia 30 Ml Oral.Susp) 30 ml PO DAILY PRN PRN Reason: Constipation Melatonin (Melatonin 3 Mg Tablet) 6 mg PO BEDTIME PRN PRN Reason: Insomnia Ondansetron HCl (Ondansetron Hcl 4 Mg/2 Ml Vial) 4 mg IVPUSH Q8H PRN PRN Reason: Nausea and Vomiting Pharmacy Consult (Consult Rx Vancomycin Dosing) 1 each MISCELLANE DAILY PRN PRN Reason: Consult order Sodium Chloride (0.9 % Sodium Chloride Flush 3 Ml Syringe) 3 ml IVFLUSH QSHIFT COUNT INCLUDES THE [facility] Last Admin: 11/04/24 08:08 Dose: Not Given Documented By: LUIS Non-Admin Reason: IV Running Labs 11/04/24 04:26 11/04/24 04:26 Labs: Laboratory Results - last 24 hr 11/03/24 11/03/24 11/03/24 19:56 19:59 20:01 MCV 88.7 D MCH 33.1 H MCHC 37.4 H RDW 13.9 Plt Count 191 D MPV 9.8 Immature Gran % (Auto) Cancelled Neut % (Auto) Cancelled Lymph % (Auto) Cancelled [place] % (Auto) Cancelled Eos % (Auto) Cancelled Baso % (Auto) Cancelled Lymph # (Auto) Cancelled [place] # (Auto) Cancelled Eos # (Auto) Cancelled Baso # (Auto) Cancelled Abs Immat Gran (auto) Cancelled Absolute Neuts (auto) Cancelled Absolute Nucleated RBC 0.050 H Nucleated RBC % (auto) 0.1 Neutrophils % (Manual) 91 H Band Neutrophils % 5 Lymphocytes % (Manual) 3 L Monocytes % (Manual) Myelocytes % 1 Abs Neuts (Manual) 32.2 H Lymphocytes # (Manual) 1.0 L Monocytes # (Manual) Myelocytes # 0.3 Nucleated RBCs 1 H Hypersegmented Neuts PRESENT Toxic Granulation PRESENT Toxic Vacuolation PRESENT Platelet Estimate NORMAL Large Platelets Giant Platelets PRESENT Plt Morphology Comment NOTED RBC Morphology NORMAL Hypochromasia 1+ (5-14) Microcytosis 2+ (15-30) Spherocytes Target Cells 1+ (5-14) [place] Bodies [place] Cells Schistocytes 2+ (3-5) PT 11.4 INR 1.0 VBG pH VBG pCO2 VBG pO2 VBG HCO3 VBG O2 Saturation VBG Base Excess Anion Gap 16 Estim Creat Clear Calc 72.8 Estimated GFR 51 POC Glucose Random Glucose 163 H Lactic Acid Lactic Acid F/U @ 2Hr Lactic Acid F/U @ 4Hr Calcium 9.3 D Magnesium 2.3 Total Bilirubin 1.3 H Direct Bilirubin 0.7 H AST 180 H ALT 232 H Alkaline Phosphatase 319 H Ammonia Total Creatine Kinase C-Reactive Protein 60.62 H B-Natriuretic Peptide 764 H Total Protein 7.7 Albumin 3.2 L Lipase Urine Color Urine Appearance Urine pH Ur Specific [place] Urine Protein Urine Glucose (UA) Urine Ketones Urine Blood Urine Nitrite Ur Leukocyte Esterase Urine RBC Urine WBC Ur Squamous Epith Cells Urine Bacteria Hyaline Casts Granular Casts CSF C.neoform/gat PCR CSF CMV DNA (PCR) CSF Enterovirus (PCR) CSF E. coli K1 (PCR) CSF H. influenzae (PCR) CSF HSV I (PCR) CSF HSV II (PCR) CSF HHV 6 (PCR) CSF L.monocytogenes PCR CSF N. meningitidis PCR CSF Parechovirus (PCR) CSF S. agalactiae (PCR) CSF S. pneumoniae (PCR) CSF VZV (PCR) Urine Opiates Screen Ur Buprenorphine Scrn Ur Oxycodone Screen Urine Methadone Screen Urine Fentanyl Screen Ur Barbiturates Screen Ur Phencyclidine Scrn Ur Amphetamines Screen U Benzodiazepines Scrn Urine Cocaine Screen U Marijuana (THC) Screen Ethyl Alcohol Influenza Type A (PCR) NEGATIVE Influenza Type B (PCR) NEGATIVE RSV RNA Qual (PCR) NEGATIVE SARS-CoV-2 RNA (RT-PCR) NEGATIVE 11/03/24 11/03/24 11/03/24 20:03 20:08 20:22 MCV MCH MCHC RDW Plt Count MPV Immature Gran % (Auto) Neut % (Auto) Lymph % (Auto) [place] % (Auto) Eos % (Auto) Baso % (Auto) Lymph # (Auto) [place] # (Auto) Eos # (Auto) Baso # (Auto) Abs Immat Gran (auto) Absolute Neuts (auto) Absolute Nucleated RBC Nucleated RBC % (auto) Neutrophils % (Manual) Band Neutrophils % Lymphocytes % (Manual) Monocytes % (Manual) Myelocytes % Abs Neuts (Manual) Lymphocytes # (Manual) Monocytes # (Manual) Myelocytes # Nucleated RBCs Hypersegmented Neuts Toxic Granulation Toxic Vacuolation Platelet Estimate Large Platelets Giant Platelets Plt Morphology Comment RBC Morphology Hypochromasia Microcytosis Spherocytes Target Cells [place] Bodies [place] Cells Schistocytes PT INR VBG pH 7.40 VBG pCO2 37 VBG pO2 39 VBG HCO3 23 VBG O2 Saturation 58.0 VBG Base Excess -0.4 Anion Gap Estim Creat Clear Calc Estimated GFR POC Glucose Random Glucose Lactic Acid 4.6 H* Lactic Acid F/U @ 2Hr Lactic Acid F/U @ 4Hr Calcium Magnesium Total Bilirubin Direct Bilirubin AST ALT Alkaline Phosphatase Ammonia 43 Total Creatine Kinase 886 H C-Reactive Protein B-Natriuretic Peptide Total Protein Albumin Lipase 39 Urine Color Urine Appearance Urine pH Ur Specific [place] Urine Protein Urine Glucose (UA) Urine Ketones Urine Blood Urine Nitrite Ur Leukocyte Esterase Urine RBC Urine WBC Ur Squamous Epith Cells Urine Bacteria Hyaline Casts Granular Casts CSF C.neoform/gat PCR CSF CMV DNA (PCR) CSF Enterovirus (PCR) CSF E. coli K1 (PCR) CSF H. influenzae (PCR) CSF HSV I (PCR) CSF HSV II (PCR) CSF HHV 6 (PCR) CSF L.monocytogenes PCR CSF N. meningitidis PCR CSF Parechovirus (PCR) CSF S. agalactiae (PCR) CSF S. pneumoniae (PCR) CSF VZV (PCR) Urine Opiates Screen Ur Buprenorphine Scrn Ur Oxycodone Screen Urine Methadone Screen Urine Fentanyl Screen Ur Barbiturates Screen Ur Phencyclidine Scrn Ur Amphetamines Screen U Benzodiazepines Scrn Urine Cocaine Screen U Marijuana (THC) Screen Ethyl Alcohol < 10 Influenza Type A (PCR) Influenza Type B (PCR) RSV RNA Qual (PCR) SARS-CoV-2 RNA (RT-PCR) 11/03/24 11/03/24 11/03/24 20:30 22:34 22:48 MCV MCH MCHC RDW Plt Count MPV Immature Gran % (Auto) Neut % (Auto) Lymph % (Auto) [place] % (Auto) Eos % (Auto) Baso % (Auto) Lymph # (Auto) [place] # (Auto) Eos # (Auto) Baso # (Auto) Abs Immat Gran (auto) Absolute Neuts (auto) Absolute Nucleated RBC Nucleated RBC % (auto) Neutrophils % (Manual) Band Neutrophils % Lymphocytes % (Manual) Monocytes % (Manual) Myelocytes % Abs Neuts (Manual) Lymphocytes # (Manual) Monocytes # (Manual) Myelocytes # Nucleated RBCs Hypersegmented Neuts Toxic Granulation Toxic Vacuolation Platelet Estimate Large Platelets Giant Platelets Plt Morphology Comment RBC Morphology Hypochromasia Microcytosis Spherocytes Target Cells [place] Bodies [place] Cells Schistocytes PT INR VBG pH 7.46 H VBG pCO2 24 VBG pO2 190 VBG HCO3 17 L VBG O2 Saturation 99.0 VBG Base Excess -4.0 Anion Gap Estim Creat Clear Calc Estimated GFR POC Glucose Random Glucose Lactic Acid Lactic Acid F/U @ 2Hr 3.1 H* Lactic Acid F/U @ 4Hr Calcium Magnesium Total Bilirubin Direct Bilirubin AST ALT Alkaline Phosphatase Ammonia Total Creatine Kinase 633 H C-Reactive Protein B-Natriuretic Peptide Total Protein Albumin Lipase Urine Color Dark Yellow Urine Appearance Cloudy Urine pH 5.5 Ur Specific [place] 1.025 Urine Protein 100 (2+) H Urine Glucose (UA) Negative Urine Ketones Trace Urine Blood Large (3+) H Urine Nitrite Negative Ur Leukocyte Esterase Negative Urine RBC 6-10 H Urine WBC 0-5 Ur Squamous Epith Cells 6-10 Urine Bacteria None Seen Hyaline Casts 3-5 Granular Casts Present CSF C.neoform/gat PCR CSF CMV DNA (PCR) CSF Enterovirus (PCR) CSF E. coli K1 (PCR) CSF H. influenzae (PCR) CSF HSV I (PCR) CSF HSV II (PCR) CSF HHV 6 (PCR) CSF L.monocytogenes PCR CSF N. meningitidis PCR CSF Parechovirus (PCR) CSF S. agalactiae (PCR) CSF S. pneumoniae (PCR) CSF VZV (PCR) Urine Opiates Screen Not Detected Ur Buprenorphine Scrn Not Detected Ur Oxycodone Screen Not Detected Urine Methadone Screen Not Detected Urine Fentanyl Screen Not Detected Ur Barbiturates Screen Not Detected Ur Phencyclidine Scrn Not Detected Ur Amphetamines Screen Not Detected U Benzodiazepines Scrn Not Detected Urine Cocaine Screen Not Detected U Marijuana (THC) Screen Not Detected Ethyl Alcohol Influenza Type A (PCR) Influenza Type B (PCR) RSV RNA Qual (PCR) SARS-CoV-2 RNA (RT-PCR) 11/03/24 11/04/24 11/04/24 23:52 01:47 03:22 MCV MCH MCHC RDW Plt Count MPV Immature Gran % (Auto) Neut % (Auto) Lymph % (Auto) [place] % (Auto) Eos % (Auto) Baso % (Auto) Lymph # (Auto) [place] # (Auto) Eos # (Auto) Baso # (Auto) Abs Immat Gran (auto) Absolute Neuts (auto) Absolute Nucleated RBC Nucleated RBC % (auto) Neutrophils % (Manual) Band Neutrophils % Lymphocytes % (Manual) Monocytes % (Manual) Myelocytes % Abs Neuts (Manual) Lymphocytes # (Manual) Monocytes # (Manual) Myelocytes # Nucleated RBCs Hypersegmented Neuts Toxic Granulation Toxic Vacuolation Platelet Estimate Large Platelets Giant Platelets Plt Morphology Comment RBC Morphology Hypochromasia Microcytosis Spherocytes Target Cells [place] Bodies [place] Cells Schistocytes PT INR VBG pH VBG pCO2 VBG pO2 VBG HCO3 VBG O2 Saturation VBG Base Excess Anion Gap Estim Creat Clear Calc Estimated GFR POC Glucose 138 H Random Glucose Lactic Acid Lactic Acid F/U @ 2Hr Lactic Acid F/U @ 4Hr 2.7 H* Calcium Magnesium Total Bilirubin Direct Bilirubin AST ALT Alkaline Phosphatase Ammonia Total Creatine Kinase C-Reactive Protein B-Natriuretic Peptide Total Protein Albumin Lipase Urine Color Urine Appearance Urine pH Ur Specific [place] Urine Protein Urine Glucose (UA) Urine Ketones Urine Blood Urine Nitrite Ur Leukocyte Esterase Urine RBC Urine WBC Ur Squamous Epith Cells Urine Bacteria Hyaline Casts Granular Casts CSF C.neoform/gat PCR Not Detected CSF CMV DNA (PCR) Not Detected CSF Enterovirus (PCR) Not Detected CSF E. coli K1 (PCR) Not Detected CSF H. influenzae (PCR) Not Detected CSF HSV I (PCR) Not Detected CSF HSV II (PCR) Not Detected CSF HHV 6 (PCR) Not Detected CSF L.monocytogenes PCR Not Detected CSF N. meningitidis PCR Not Detected CSF Parechovirus (PCR) Not Detected CSF S. agalactiae (PCR) Not Detected CSF S. pneumoniae (PCR) Detected A* CSF VZV (PCR) Not Detected Urine Opiates Screen Ur Buprenorphine Scrn Ur Oxycodone Screen Urine Methadone Screen Urine Fentanyl Screen Ur Barbiturates Screen Ur Phencyclidine Scrn Ur Amphetamines Screen U Benzodiazepines Scrn Urine Cocaine Screen U Marijuana (THC) Screen Ethyl Alcohol Influenza Type A (PCR) Influenza Type B (PCR) RSV RNA Qual (PCR) SARS-CoV-2 RNA (RT-PCR) 11/04/24 04:26 MCV 89.9 MCH 33.1 H MCHC 36.8 H RDW 13.8 Plt Count 157 L MPV 10.7 Immature Gran % (Auto) Cancelled Neut % (Auto) Cancelled Lymph % (Auto) Cancelled [place] % (Auto) Cancelled Eos % (Auto) Cancelled Baso % (Auto) Cancelled Lymph # (Auto) Cancelled [place] # (Auto) Cancelled Eos # (Auto) Cancelled Baso # (Auto) Cancelled Abs Immat Gran (auto) Cancelled Absolute Neuts (auto) Cancelled Absolute Nucleated RBC 0.070 H Nucleated RBC % (auto) 0.2 Neutrophils % (Manual) 80 H Band Neutrophils % 17 H Lymphocytes % (Manual) 2 L Monocytes % (Manual) 1 L Myelocytes % Abs Neuts (Manual) 33.0 H Lymphocytes # (Manual) 0.7 L Monocytes # (Manual) 0.3 Myelocytes # Nucleated RBCs 1 H Hypersegmented Neuts Toxic Granulation PRESENT Toxic Vacuolation PRESENT Platelet Estimate NORMAL Large Platelets PRESENT Giant Platelets Plt Morphology Comment NOTED RBC Morphology NOTED Hypochromasia Microcytosis Spherocytes 1+ (0-2) Target Cells 1+ (5-14) [place] Bodies PRESENT [place] Cells 2+ (3-5) Schistocytes 1+ (0-2) PT INR VBG pH VBG pCO2 VBG pO2 VBG HCO3 VBG O2 Saturation VBG Base Excess Anion Gap 16 Estim Creat Clear Calc 105.5 Estimated GFR > 60 POC Glucose Random Glucose 144 H Lactic Acid Lactic Acid F/U @ 2Hr Lactic Acid F/U @ 4Hr Calcium 8.7 D Magnesium Total Bilirubin 1.1 H Direct Bilirubin AST 153 H ALT 180 H Alkaline Phosphatase 209 H Ammonia Total Creatine Kinase C-Reactive Protein B-Natriuretic Peptide Total Protein 7.0 Albumin 2.8 L Lipase Urine Color Urine Appearance Urine pH Ur Specific [place] Urine Protein Urine Glucose (UA) Urine Ketones Urine Blood Urine Nitrite Ur Leukocyte Esterase Urine RBC Urine WBC Ur Squamous Epith Cells Urine Bacteria Hyaline Casts Granular Casts CSF C.neoform/gat PCR CSF CMV DNA (PCR) CSF Enterovirus (PCR) CSF E. coli K1 (PCR) CSF H. influenzae (PCR) CSF HSV I (PCR) CSF HSV II (PCR) CSF HHV 6 (PCR) CSF L.monocytogenes PCR CSF N. meningitidis PCR CSF Parechovirus (PCR) CSF S. agalactiae (PCR) CSF S. pneumoniae (PCR) CSF VZV (PCR) Urine Opiates Screen Ur Buprenorphine Scrn Ur Oxycodone Screen Urine Methadone Screen Urine Fentanyl Screen Ur Barbiturates Screen Ur Phencyclidine Scrn Ur Amphetamines Screen U Benzodiazepines Scrn Urine Cocaine Screen U Marijuana (THC) Screen Ethyl Alcohol Influenza Type A (PCR) Influenza Type B (PCR) RSV RNA Qual (PCR) SARS-CoV-2 RNA (RT-PCR) Microbiology Microbiology Results: Microbiology 11/03/24 23:52 Gram Stain - Final Cerebrospinal Fluid CSF Examination - Final Fluid Description - Final 11/03/24 19:58 Blood Culture - Preliminary Blood - Venous Prelim: GPC Gram Stain only 11/03/24 20:03 Blood Culture - Preliminary Blood - Venous Prelim: GPC Gram Stain only Assessment and Plan (1) CORINA (acute kidney injury): Status: Acute (2) Elevated LFTs: Status: Acute (3) Metabolic encephalopathy: Status: Acute (4) Acute lactic acidosis: Status: Acute Assessment and Plan: 59-year-old male with a past medical history significant for 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 admited for severe sepsis and metabolic encephalopathy with unknown source, suspected meningitis WBC 31804, temp of 100.2 max, tachypenic acute lactic acidosis -lactic acid trending down 4.6-3.1-2.7 blood cultures -gram positive cocci in chains CXR negative,A/P CT negative for acute process, head CT with no acute intracranial findings, acute maxillary sinusitis suggested,Chest CTA negative, UA negative, COVID/flu/RSV negative, U tox negative LP difficult to obtain due to body habitus by ED provider quality not sufficient for culture, only sufficient for PCR panel-which is positive for strep pneumoniae. consider repeat LP by IR. plan: continue vancomycin and zosyn in ED, switch to acyclovir, ceftriaxone, ampicillin and vancomycin, decadron 10mg IV Q6H - follow CBC and CMP AFib with RVR: On Cardizem drip, please refer to Dr. luke's note last night. CORINA: cr improving with hydration hypokalemia - due to CORINA/sepsis - repleated,and resolved. acute lactic acidosis - secondary to sepsis improving with given IVF in ED - monitor CBC and CMP elevated LFTS-trending down - secondary to sepsis - monitor CMP elevated troponin- trop 362, 338 on repeat likely elevated due to demand ischemia and sepsis EKG with NSR, inferior infarct cited previously cardio eval pending class III obesity - BMI 44.6 Full code VTE prophy: lovenox and pneumoboots Patient will benefit from ICU level of care-considering severe encephalopathy with severe sepsis - suspected to be secondary to meningitis. Assessment and coordination time spent 70 minute. Above was discussed with ICU provider in detail. Total time managing care of this patient today: 70 minutes. Quality Stroke Does the patient have a stroke diagnosis?: No VTE Prior VTE?: No VTE Risk Level:: Medical - moderate - high VTE Device Contraindication: N/A - Device Ordered VTE Drug Contraindication: N/A - Med Ordered
[2024-11-04 09:51] LABS: Adenovirus PCR Not Detected (Not Detect.); Bordetella parapertussis PCR Not Detected (Not Detect.); Bordetella pertussis PCR Not Detected (Not Detect.); Chlamydia pneumoniae PCR Not Detected (Not Detect.); Coronavirus 229E PCR Not Detected (Not Detect.); Coronavirus HKU1 PCR Not Detected (Not Detect.); Coronavirus NL63 PCR Not Detected (Not Detect.); Coronavirus OC43 PCR Not Detected (Not Detect.); Human metapneumovirus PCR Not Detected (Not Detect.); Influenza A PCR Not Detected (Not Detect.); Influenza B PCR Not Detected (Not Detect.); Mycoplasma pneumoniae PCR Not Detected (Not Detect.); Parainfluenza 1 PCR Not Detected (Not Detect.); Parainfluenza 2 PCR Not Detected (Not Detect.); Parainfluenza 3 PCR Not Detected (Not Detect.); Parainfluenza 4 PCR Not Detected (Not Detect.); RSV PCR Not Detected (Not Detect.); Rhino/Enterovirus PCR Not Detected (Not Detect.); SARS-CoV-2 PCR Not Detected (Not Detect.)
--- NOTE | 2024-11-04 10:24 | MHC.CM.PN ---
Patient is here with AMS and per ROUNDS, being transferred to ICU. CM called only Contact/Significant Other/Ashley @ listed number and discovered that she is currently hospitalized herself. Patient lives in a house with Ashley and he works timekeeper plus and is functionally independent. Patient's goal would be to return home; CM has initiated and will follow for dc planning. PCP is Dr. Marcos Woods and Patient may need assist with transportation at time of dc, pending hospital coarse.Ashley was unsure if Patient ever completed a HCP but mentioned it may be his Sister/Massiel, if he did complete one.
--- NOTE | 2024-11-04 10:37 | P.CNNE_ITS ---
History of Present Illness Data of Consult Service Date: 11/04/24 Primary Care Provider: Unknown Physician HPI Reason for consult: Encephalitis 59 years old man with history of splenectomy was found unresponsive at home. Apparently he was not feeling well and was being treated for possible viral infection and then was noted to be unresponsive and brought here. When I saw him he was was to verbal communication. There was no sign of any seizure. After multiple investigations, he has been diagnosed with strep meningitis/encephalitis. Review of Systems 2 Review of Systems: Could not be done with [facility] Past Medical History Medical History Umbilical hernia (04/12/23) Obesity (BMI 30-39.9) Hypertension Asthma Surgical History Surgical History History of appendectomy (04/12/23) Hx of splenectomy Social History Social History Household Members: Significant Other Housing: House Do you presently have visiting nurse or other home services: No Alcohol intake: current Alcohol intake frequency: a few times a week Patient Tobacco Use Status: Never used Tobacco Smoked in Last 30 Days: No Use of substances other than those prescribed or required for medical reasons: No Advance Directives: No Advance Directives Information Provided: No service: No Meds Allergies Allergy/AdvReac Type Severity Reaction Status Date / Time No Known Allergies Allergy Verified 11/03/24 19:43 Active Medications: Current Medications Acetaminophen (Acetaminophen 325 Mg Tablet) 650 mg PO Q6H PRN PRN Reason: Pain, Mild 1-3,fever,headache Calcium Carbonate (Calcium Carbonate 750 Mg Tab.Chew) 750 mg PO Q4H PRN PRN Reason: Heartburn Ceftriaxone Sodium (Ceftriaxone Sodium 2 Gm Vial) 2 gm IVPUSH Q12H [facility] Last Admin: 11/04/24 00:31 Dose: 2 gm Dexamethasone Sodium Phosphate (Dexamethasone Sod Phosphate 10 Mg/Ml Vial) 10 mg IVPUSH Q6H [facility] Last Admin: 11/04/24 05:56 Dose: 10 mg Enoxaparin Sodium (Enoxaparin Sodium 40 Mg/0.4 Ml Syringe) 40 mg SUBCUT Q24H [facility] Last Admin: 11/04/24 08:03 Dose: Not Given Acyclovir Sodium 1,000 mg/ (Sodium Chloride) 270 mls @ 270 mls/hr IV Q8H [facility] Last Infusion: 11/04/24 09:12 Dose: Infused Ampicillin Sodium 2 gm/ Sodium (Chloride) 100 mls @ 200 mls/hr IV Q4H [facility] Last Infusion: 11/04/24 08:09 Dose: Infused Diltiazem HCl 125 mg/ Sodium (Chloride) 125 mls @ 0 mls/hr IVCONT .Q0M [facility]; Protocol Last Titration: 11/04/24 08:23 Dose: 15 mg/hr, 15 mls/hr Vancomycin HCl 1,250 mg/ (Sodium Chloride) 250 mls @ 166.667 mls/hr IV Q12H [facility] Last Admin: 11/04/24 09:12 Dose: 166.67 mls/hr Magnesium Hydroxide (Milk Of Magnesia 30 Ml Oral.Susp) 30 ml PO DAILY PRN PRN Reason: Constipation Melatonin (Melatonin 3 Mg Tablet) 6 mg PO BEDTIME PRN PRN Reason: Insomnia Ondansetron HCl (Ondansetron Hcl 4 Mg/2 Ml Vial) 4 mg IVPUSH Q8H PRN PRN Reason: Nausea and Vomiting Pharmacy Consult (Consult Rx Vancomycin Dosing) 1 each MISCELLANE DAILY PRN PRN Reason: Consult order Sodium Chloride (0.9 % Sodium Chloride Flush 3 Ml Syringe) [facility] Last Admin: 11/04/24 08:08 Dose: Not Given Home Medications ?Medication ?Instructions ?Recorded ?Confirmed ?Last Taken ?Type montelukast 10 mg tablet 10 mg PO BEDTIME 10/09/20 11/04/24 04/11/23 History naproxen sodium 220 mg capsule 220 mg PO BID PRN Pain 10/09/20 11/04/24 Unknown History (Aleve) valsartan 160 mg tablet 160 mg PO DAILY 04/12/23 11/04/24 04/12/23 History prednisone 20 mg tablet 20 mg PO BID 11/04/24 11/04/24 Unknown History sildenafil 100 mg tablet 100 mg PO DAILY PRN Erectile 11/04/24 11/04/24 Unknown History Dysfunction Physical Exam 2 Vital Signs: Vital Signs: Last Vital Signs Temp 99.5 F 11/04/24 10:11 Pulse 122 H 11/04/24 10:11 Resp 20 11/04/24 10:11 BP 106/57 L 11/04/24 10:11 Pulse Ox 95 11/04/24 10:11 O2 Del Method Nasal Cannula 11/04/24 10:11 O2 Flow Rate 2 11/04/24 10:11 Oxygen Flow Rate 8 11/03/24 19:38 BMI result Body Mass Index 44.6 Neuro: Other: Unresponsive to verbal stimuli. Did not open his eyes. Resisted to eye opening. Pupils were round reactive and eye movements were roving. Face was symmetrical. No respond to pain in upper extremities. In feet, he withdrew. Deep tendon reflexes were absent with flexor plantars. Results Labs 11/04/24 04:26 11/04/24 04:26 Labs: Short CBC 11/03/24 11/04/24 Range/Units 19:56 04:26 WBC 33.5 H* 34.0 H* (4.8-10.8) X10*3/uL Hgb 16.7 D 16.4 (14.0-18.0) g/dl Hct 44.7 44.6 (42.0-52.0) % Plt Count 191 D 157 L (160-400) X10*3/uL BMP 11/03/24 11/04/24 20:01 04:26 Sodium 135 136 Potassium 3.2 L 4.1 D Chloride 99 105 Carbon Dioxide 23 19 L BUN 38 H 31 H Creatinine 1.42 H 0.98 Calcium 9.3 D 8.7 D Cardiac Enzymes 11/03/24 11/03/24 Range/Units 20:22 22:48 Total Creatine Kinase 886 H 633 H (38-174) U/L Liver Function 11/03/24 11/04/24 Range/Units 20:01 04:26 Total Bilirubin 1.3 H 1.1 H (0.0-1.0) mg/dL Direct Bilirubin 0.7 H (0.0-0.5) mg/dL AST 180 H 153 H (5-37) U/L ALT 232 H 180 H (0-40) U/L Alkaline Phosphatase 319 H 209 H (39-117) U/L Albumin 3.2 L 2.8 L (3.5-5.0) g/dL Urine 11/03/24 Range/Units 20:30 Urine Color Dark Yellow Urine Appearance Cloudy Urine pH 5.5 (5.0-9.0) Ur Specific [place] 1.025 (1.005-1.025) Urine Protein 100 (2+) H (Neg-Trace) mg/dL Urine Glucose (UA) Negative (Negative) mg/dL Head CT did not reveal any significant abnormality. Microbiology Microbiology Results: Microbiology 11/03/24 20:03 Blood - Venous Blood Culture - Preliminary Prelim: GPC Gram Stain only 11/03/24 19:58 Blood - Venous Blood Culture - Preliminary Prelim: GPC Gram Stain only 11/03/24 23:52 Cerebrospinal Fluid Gram Stain - Final 11/03/24 23:52 Cerebrospinal Fluid CSF Examination - Final 11/03/24 23:52 Cerebrospinal Fluid Fluid Description - Final Assessment and Plan (1) Encephalopathy: Qualifiers: Encephalopathy type: toxic metabolic Qualified Code(s): G92.8 - Other toxic encephalopathy Status: Acute 59 years old man probably with bacterial encephalitis/meningitis. Other than appropriate treatment for infection, an EEG is recommended to rule out nonconvulsive status. Procedures Date of Service Date of Service: 11/04/24
--- NOTE | 2024-11-04 10:38 | P.CONCA_ITS ---
History of Present Illness History of Present Illness Date of Service: 11/04/24 Requesting physician: Emilia Acuna Chief complaint: AMS Narrative: The patient was seen and examined at bedside on 11/04/2024. He recently was in [place] where he and his both got sick and on coming back he had respiratory issues. He subsequently got really sick and came to the emergency department and was thought to have meningitis. He had LP performed which was positive for streptococcal PCR. He was barely responsive at the time of history. He was just mumbling. He went into atrial fibrillation with rapid ventricular response and that is the reason we were consulted. Heart rates were in 120s. No history possible due to poor mental status. [facility] Past Medical History Medical History (Updated 11/05/24 @ 11:23 by Alexx Hunter MD) Umbilical hernia (04/12/23) Obesity (BMI 30-39.9) Hypertension Asthma Surgical History Surgical History (Updated 11/04/24 @ 12:36 by Mason Spence MD) History of appendectomy (04/12/23) Hx of splenectomy Social History Social History Household Members: Significant Other Housing: House Do you presently have visiting nurse or other home services: No Alcohol intake: current Alcohol intake frequency: a few times a week Patient Tobacco Use Status: Never used Tobacco service: No Meds Allergies Allergy/AdvReac Type Severity Reaction Status Date / Time No Known Allergies Allergy Verified 11/03/24 19:43 Active Medications: Current Medications Acetaminophen (Acetaminophen 325 Mg Tablet) 650 mg PO Q6H PRN PRN Reason: Pain, Mild 1-3,fever,headache Calcium Carbonate (Calcium Carbonate 750 Mg Tab.Chew) 750 mg PO Q4H PRN PRN Reason: Heartburn Ceftriaxone Sodium (Ceftriaxone Sodium 2 Gm Vial) 2 gm IVPUSH Q12H [facility] Last Admin: 11/04/24 00:31 Dose: 2 gm Dexamethasone Sodium Phosphate (Dexamethasone Sod Phosphate 10 Mg/Ml Vial) 10 mg IVPUSH Q6H [facility] Last Admin: 11/04/24 05:56 Dose: 10 mg Enoxaparin Sodium (Enoxaparin Sodium 40 Mg/0.4 Ml Syringe) 40 mg SUBCUT Q24H [facility] Last Admin: 11/04/24 08:03 Dose: Not Given Acyclovir Sodium 1,000 mg/ (Sodium Chloride) 270 mls @ 270 mls/hr IV Q8H [facility] Last Infusion: 11/04/24 09:12 Dose: Infused Ampicillin Sodium 2 gm/ Sodium (Chloride) 100 mls @ 200 mls/hr IV Q4H [facility] Last Infusion: 11/04/24 08:09 Dose: Infused Diltiazem HCl 125 mg/ Sodium (Chloride) 125 mls @ 0 mls/hr IVCONT .Q0M [facility]; Protocol Last Titration: 11/04/24 08:23 Dose: 15 mg/hr, 15 mls/hr Vancomycin HCl 1,250 mg/ (Sodium Chloride) 250 mls @ 166.667 mls/hr IV Q12H [facility] Last Admin: 11/04/24 09:12 Dose: 166.67 mls/hr Magnesium Hydroxide (Milk Of Magnesia 30 Ml Oral.Susp) 30 ml PO DAILY PRN PRN Reason: Constipation Melatonin (Melatonin 3 Mg Tablet) 6 mg PO BEDTIME PRN PRN Reason: Insomnia Ondansetron HCl (Ondansetron Hcl 4 Mg/2 Ml Vial) 4 mg IVPUSH Q8H PRN PRN Reason: Nausea and Vomiting Pharmacy Consult (Consult Rx Vancomycin Dosing) 1 each MISCELLANE DAILY PRN PRN Reason: Consult order Sodium Chloride (0.9 % Sodium Chloride Flush 3 Ml Syringe) [facility] Last Admin: 11/04/24 08:08 Dose: Not Given Home Medications ?Medication ?Instructions ?Recorded ?Confirmed ?Last Taken ?Type montelukast 10 mg tablet 10 mg PO BEDTIME 10/09/20 11/04/24 04/11/23 History naproxen sodium 220 mg capsule 220 mg PO BID PRN Pain 10/09/20 11/04/24 Unknown History (Aleve) valsartan 160 mg tablet 160 mg PO DAILY 04/12/23 11/04/24 04/12/23 History prednisone 20 mg tablet 20 mg PO BID 11/04/24 11/04/24 Unknown History sildenafil 100 mg tablet 100 mg PO DAILY PRN Erectile 11/04/24 11/04/24 Unknown History Dysfunction Physical Exam 2 Vital Signs: Vital Signs: Last Vital Signs Temp 99.5 F 11/04/24 10:11 Pulse 122 H 11/04/24 10:11 Resp 20 11/04/24 10:11 BP 106/57 L 11/04/24 10:11 Pulse Ox 95 11/04/24 10:11 O2 Del Method Nasal Cannula 11/04/24 10:11 O2 Flow Rate 2 11/04/24 10:11 Oxygen Flow Rate 8 11/03/24 19:38 BMI result Body Mass Index 44.6 GENERAL APPEARANCE: Obtunded. Making grunting sounds. NECK: no carotid bruit, no obvious jugular venous distention. SKIN: no suspicious lesions, warm and dry. HEART: no murmurs, irregular rate and rhythm. LUNGS: clear to auscultation anteriorly. NEUROLOGIC: Unresponsive. Objective Labs and Meds 11/05/24 05:29 11/05/24 05:29 Lab results: Laboratory Results - last 24 hr 11/03/24 11/03/24 11/03/24 19:56 19:59 20:01 WBC 33.5 H* RBC 5.04 D Hgb 16.7 D Hct 44.7 MCV 88.7 D MCH 33.1 H MCHC 37.4 H RDW 13.9 Plt Count 191 D MPV 9.8 Immature Gran % (Auto) Cancelled Neut % (Auto) Cancelled Lymph % (Auto) Cancelled [place] % (Auto) Cancelled Eos % (Auto) Cancelled Baso % (Auto) Cancelled Lymph # (Auto) Cancelled [place] # (Auto) Cancelled Eos # (Auto) Cancelled Baso # (Auto) Cancelled Abs Immat Gran (auto) Cancelled Absolute Neuts (auto) Cancelled Absolute Nucleated RBC 0.050 H Nucleated RBC % (auto) 0.1 Neutrophils % (Manual) 91 H Band Neutrophils % 5 Lymphocytes % (Manual) 3 L Monocytes % (Manual) Myelocytes % 1 Abs Neuts (Manual) 32.2 H Lymphocytes # (Manual) 1.0 L Monocytes # (Manual) Myelocytes # 0.3 Nucleated RBCs 1 H Hypersegmented Neuts PRESENT Toxic Granulation PRESENT Toxic Vacuolation PRESENT Platelet Estimate NORMAL Large Platelets Giant Platelets PRESENT Plt Morphology Comment NOTED RBC Morphology NORMAL Hypochromasia 1+ (5-14) Microcytosis 2+ (15-30) Spherocytes Target Cells 1+ (5-14) [place] Bodies [place] Cells Schistocytes 2+ (3-5) Smear Path Review SEE NOTE PT 11.4 INR 1.0 VBG pH VBG pCO2 VBG pO2 VBG HCO3 VBG O2 Saturation VBG Base Excess Sodium 135 Potassium 3.2 L Chloride 99 Carbon Dioxide 23 Anion Gap 16 BUN 38 H Creatinine 1.42 H Estim Creat Clear Calc 72.8 Estimated GFR 51 POC Glucose Random Glucose 163 H Lactic Acid Lactic Acid F/U @ 2Hr Lactic Acid F/U @ 4Hr Calcium 9.3 D Magnesium 2.3 Total Bilirubin 1.3 H Direct Bilirubin 0.7 H AST 180 H ALT 232 H Alkaline Phosphatase 319 H Ammonia Total Creatine Kinase Troponin I High Sens 362.4 H* D C-Reactive Protein 60.62 H B-Natriuretic Peptide 764 H Total Protein 7.7 Albumin 3.2 L Lipase Urine Color Urine Appearance Urine pH Ur Specific [place] Urine Protein Urine Glucose (UA) Urine Ketones Urine Blood Urine Nitrite Ur Leukocyte Esterase Urine RBC Urine WBC Ur Squamous Epith Cells Urine Bacteria Hyaline Casts Granular Casts CSF C.neoform/gat PCR CSF CMV DNA (PCR) CSF Enterovirus (PCR) CSF E. coli K1 (PCR) CSF H. influenzae (PCR) CSF HSV I (PCR) CSF HSV II (PCR) CSF HHV 6 (PCR) CSF L.monocytogenes PCR CSF N. meningitidis PCR CSF Parechovirus (PCR) CSF S. agalactiae (PCR) CSF S. pneumoniae (PCR) CSF VZV (PCR) Urine Opiates Screen Ur Buprenorphine Scrn Ur Oxycodone Screen Urine Methadone Screen Urine Fentanyl Screen Ur Barbiturates Screen Ur Phencyclidine Scrn Ur Amphetamines Screen U Benzodiazepines Scrn Urine Cocaine Screen U Marijuana (THC) Screen Ethyl Alcohol Influenza Type A (PCR) NEGATIVE Influenza Type B (PCR) NEGATIVE RSV RNA Qual (PCR) NEGATIVE SARS-CoV-2 RNA (RT-PCR) NEGATIVE 11/03/24 11/03/24 11/03/24 20:03 20:08 20:22 WBC RBC Hgb Hct MCV MCH MCHC RDW Plt Count MPV Immature Gran % (Auto) Neut % (Auto) Lymph % (Auto) [place] % (Auto) Eos % (Auto) Baso % (Auto) Lymph # (Auto) [place] # (Auto) Eos # (Auto) Baso # (Auto) Abs Immat Gran (auto) Absolute Neuts (auto) Absolute Nucleated RBC Nucleated RBC % (auto) Neutrophils % (Manual) Band Neutrophils % Lymphocytes % (Manual) Monocytes % (Manual) Myelocytes % Abs Neuts (Manual) Lymphocytes # (Manual) Monocytes # (Manual) Myelocytes # Nucleated RBCs Hypersegmented Neuts Toxic Granulation Toxic Vacuolation Platelet Estimate Large Platelets Giant Platelets Plt Morphology Comment RBC Morphology Hypochromasia Microcytosis Spherocytes Target Cells [place] Cells Schistocytes Smear Path Review PT INR VBG pH 7.40 VBG pCO2 37 VBG pO2 39 VBG HCO3 23 VBG O2 Saturation 58.0 VBG Base Excess -0.4 Sodium Potassium Chloride Carbon Dioxide Anion Gap BUN Creatinine Estim Creat Clear Calc Estimated GFR POC Glucose Random Glucose Lactic Acid 4.6 H* Lactic Acid F/U @ 2Hr Lactic Acid F/U @ 4Hr Calcium Magnesium Total Bilirubin Direct Bilirubin AST ALT Alkaline Phosphatase Ammonia 43 Total Creatine Kinase 886 H Troponin I High Sens C-Reactive Protein B-Natriuretic Peptide Total Protein Albumin Lipase 39 Urine Color Urine Appearance Urine pH Ur Specific [place] Urine Protein Urine Glucose (UA) Urine Ketones Urine Blood Urine Nitrite Ur Leukocyte Esterase Urine RBC Urine WBC Ur Squamous Epith Cells Urine Bacteria Hyaline Casts Granular Casts CSF C.neoform/gat PCR CSF CMV DNA (PCR) CSF Enterovirus (PCR) CSF E. coli K1 (PCR) CSF H. influenzae (PCR) CSF HSV I (PCR) CSF HSV II (PCR) CSF HHV 6 (PCR) CSF L.monocytogenes PCR CSF N. meningitidis PCR CSF Parechovirus (PCR) CSF S. agalactiae (PCR) CSF S. pneumoniae (PCR) CSF VZV (PCR) Urine Opiates Screen Ur Buprenorphine Scrn Ur Oxycodone Screen Urine Methadone Screen Urine Fentanyl Screen Ur Barbiturates Screen Ur Phencyclidine Scrn Ur Amphetamines Screen U Benzodiazepines Scrn Urine Cocaine Screen U Marijuana (THC) Screen Ethyl Alcohol < 10 Influenza Type A (PCR) Influenza Type B (PCR) RSV RNA Qual (PCR) SARS-CoV-2 RNA (RT-PCR) 11/03/24 11/03/24 11/03/24 20:30 22:30 22:34 WBC RBC Hgb Hct MCV MCH MCHC RDW Plt Count MPV Immature Gran % (Auto) Neut % (Auto) Lymph % (Auto) [place] % (Auto) Eos % (Auto) Baso % (Auto) Lymph # (Auto) [place] # (Auto) Eos # (Auto) Baso # (Auto) Abs Immat Gran (auto) Absolute Neuts (auto) Absolute Nucleated RBC Nucleated RBC % (auto) Neutrophils % (Manual) Band Neutrophils % Lymphocytes % (Manual) Monocytes % (Manual) Myelocytes % Abs Neuts (Manual) Lymphocytes # (Manual) Monocytes # (Manual) Myelocytes # Nucleated RBCs Hypersegmented Neuts Toxic Granulation Toxic Vacuolation Platelet Estimate Large Platelets Giant Platelets Plt Morphology Comment RBC Morphology Hypochromasia Microcytosis Spherocytes Target Cells [place] Cells Schistocytes Smear Path Review PT INR VBG pH 7.46 H VBG pCO2 24 VBG pO2 190 VBG HCO3 17 L VBG O2 Saturation 99.0 VBG Base Excess -4.0 Sodium Potassium Chloride Carbon Dioxide Anion Gap BUN Creatinine Estim Creat Clear Calc Estimated GFR POC Glucose Random Glucose Lactic Acid Lactic Acid F/U @ 2Hr Lactic Acid F/U @ 4Hr Calcium Magnesium Total Bilirubin Direct Bilirubin AST ALT Alkaline Phosphatase Ammonia Total Creatine Kinase Troponin I High Sens 338.9 H* C-Reactive Protein B-Natriuretic Peptide Total Protein Albumin Lipase Urine Color Dark Yellow Urine Appearance Cloudy Urine pH 5.5 Ur Specific [place] 1.025 Urine Protein 100 (2+) H Urine Glucose (UA) Negative Urine Ketones Trace Urine Blood Large (3+) H Urine Nitrite Negative Ur Leukocyte Esterase Negative Urine RBC 6-10 H Urine WBC 0-5 Ur Squamous Epith Cells 6-10 Urine Bacteria None Seen Hyaline Casts 3-5 Granular Casts Present CSF C.neoform/gat PCR CSF CMV DNA (PCR) CSF Enterovirus (PCR) CSF E. coli K1 (PCR) CSF H. influenzae (PCR) CSF HSV I (PCR) CSF HSV II (PCR) CSF HHV 6 (PCR) CSF L.monocytogenes PCR CSF N. meningitidis PCR CSF Parechovirus (PCR) CSF S. agalactiae (PCR) CSF S. pneumoniae (PCR) CSF VZV (PCR) Urine Opiates Screen Not Detected Ur Buprenorphine Scrn Not Detected Ur Oxycodone Screen Not Detected Urine Methadone Screen Not Detected Urine Fentanyl Screen Not Detected Ur Barbiturates Screen Not Detected Ur Phencyclidine Scrn Not Detected Ur Amphetamines Screen Not Detected U Benzodiazepines Scrn Not Detected Urine Cocaine Screen Not Detected U Marijuana (THC) Screen Not Detected Ethyl Alcohol Influenza Type A (PCR) Influenza Type B (PCR) RSV RNA Qual (PCR) SARS-CoV-2 RNA (RT-PCR) 0311/03/24 11/04/24 22:48 23:52 01:47 WBC RBC Hgb Hct MCV MCH MCHC RDW Plt Count MPV Immature Gran % (Auto) Neut % (Auto) Lymph % (Auto) [place] % (Auto) Eos % (Auto) Baso % (Auto) Lymph # (Auto) [place] # (Auto) Eos # (Auto) Baso # (Auto) Abs Immat Gran (auto) Absolute Neuts (auto) Absolute Nucleated RBC Nucleated RBC % (auto) Neutrophils % (Manual) Band Neutrophils % Lymphocytes % (Manual) Monocytes % (Manual) Myelocytes % Abs Neuts (Manual) Lymphocytes # (Manual) Monocytes # (Manual) Myelocytes # Nucleated RBCs Hypersegmented Neuts Toxic Granulation Toxic Vacuolation Platelet Estimate Large Platelets Giant Platelets Plt Morphology Comment RBC Morphology Hypochromasia Microcytosis Spherocytes Target Cells [place]odies [place] Cells Schistocytes Smear Path Review PT INR VBG pH VBG pCO2 VBG pO2 VBG HCO3 VBG O2 Saturation VBG Base Excess Sodium Potassium Chloride Carbon Dioxide Anion Gap BUN Creatinine Estim Creat Clear Calc Estimated GFR POC Glucose Random Glucose Lactic Acid Lactic Acid F/U @ 2Hr 3.1 H* Lactic Acid F/U @ 4Hr 2.7 H* Calcium Magnesium Total Bilirubin Direct Bilirubin AST ALT Alkaline Phosphatase Ammonia Total Creatine Kinase 633 H Troponin I High Sens C-Reactive Protein B-Natriuretic Peptide Total Protein Albumin Lipase Urine Color Urine Appearance Urine pH Ur Specific [place] Urine Protein Urine Glucose (UA) Urine Ketones Urine Blood Urine Nitrite Ur Leukocyte Esterase Urine RBC Urine WBC Ur Squamous Epith Cells Urine Bacteria Hyaline Casts Granular Casts CSF C.neoform/gat PCR Not Detected CSF CMV DNA (PCR) Not Detected CSF Enterovirus (PCR) Not Detected CSF E. coli K1 (PCR) Not Detected CSF H. influenzae (PCR) Not Detected CSF HSV I (PCR) Not Detected CSF HSV II (PCR) Not Detected CSF HHV 6 (PCR) Not Detected CSF L.monocytogenes PCR Not Detected CSF N. meningitidis PCR Not Detected CSF Parechovirus (PCR) Not Detected CSF S. agalactiae (PCR) Not Detected CSF S. pneumoniae (PCR) Detected A* CSF VZV (PCR) Not Detected Urine Opiates Screen Ur Buprenorphine Scrn Ur Oxycodone Screen Urine Methadone Screen Urine Fentanyl Screen Ur Barbiturates Screen Ur Phencyclidine Scrn Ur Amphetamines Screen U Benzodiazepines Scrn Urine Cocaine Screen U Marijuana (THC) Screen Ethyl Alcohol Influenza Type A (PCR) Influenza Type B (PCR) RSV RNA Qual (PCR) SARS-CoV-2 RNA (RT-PCR) 11/04/24 11/04/24 03:22 04:26 WBC 34.0 H* RBC 4.96 Hgb 16.4 Hct 44.6 MCV 89.9 MCH 33.1 H MCHC 36.8 H RDW 13.8 Plt Count 157 L MPV 10.7 Immature Gran % (Auto) Cancelled Neut % (Auto) Cancelled Lymph % (Auto) Cancelled [place] % (Auto) Cancelled Eos % (Auto) Cancelled Baso % (Auto) Cancelled Lymph # (Auto) Cancelled [place] # (Auto) Cancelled Eos # (Auto) Cancelled Baso # (Auto) Cancelled Abs Immat Gran (auto) Cancelled Absolute Neuts (auto) Cancelled Absolute Nucleated RBC 0.070 H Nucleated RBC % (auto) 0.2 Neutrophils % (Manual) 80 H Band Neutrophils % 17 H Lymphocytes % (Manual) 2 L Monocytes % (Manual) 1 L Myelocytes % Abs Neuts (Manual) 33.0 H Lymphocytes # (Manual) 0.7 L Monocytes # (Manual) 0.3 Myelocytes # Nucleated RBCs 1 H Hypersegmented Neuts Toxic Granulation PRESENT Toxic Vacuolation PRESENT Platelet Estimate NORMAL Large Platelets PRESENT Giant Platelets Plt Morphology Comment NOTED RBC Morphology NOTED Hypochromasia Microcytosis Spherocytes 1+ (0-2) Target Cells 1+ (5-14) [place] Bodies PRESENT [place] Cells 2+ (3-5) Schistocytes 1+ (0-2) Smear Path Review PT INR VBG pH VBG pCO2 VBG pO2 VBG HCO3 VBG O2 Saturation VBG Base Excess Sodium 136 Potassium 4.1 D Chloride 105 Carbon Dioxide 19 L Anion Gap 16 BUN 31 H Creatinine 0.98 Estim Creat Clear Calc 105.5 Estimated GFR > 60 POC Glucose 138 H Random Glucose 144 H Lactic Acid Lactic Acid F/U @ 2Hr Lactic Acid F/U @ 4Hr Calcium 8.7 D Magnesium Total Bilirubin 1.1 H Direct Bilirubin AST 153 H ALT 180 H Alkaline Phosphatase 209 H Ammonia Total Creatine Kinase Troponin I High Sens C-Reactive Protein B-Natriuretic Peptide Total Protein 7.0 Albumin 2.8 L Lipase Urine Color Urine Appearance Urine pH Ur Specific [place] Urine Protein Urine Glucose (UA) Urine Ketones Urine Blood Urine Nitrite Ur Leukocyte Esterase Urine RBC Urine WBC Ur Squamous Epith Cells Urine Bacteria Hyaline Casts Granular Casts CSF C.neoform/gat PCR CSF CMV DNA (PCR) CSF Enterovirus (PCR) CSF E. coli K1 (PCR) CSF H. influenzae (PCR) CSF HSV I (PCR) CSF HSV II (PCR) CSF HHV 6 (PCR) CSF L.monocytogenes PCR CSF N. meningitidis PCR CSF Parechovirus (PCR) CSF S. agalactiae (PCR) CSF S. pneumoniae (PCR) CSF VZV (PCR) Urine Opiates Screen Ur Buprenorphine Scrn Ur Oxycodone Screen Urine Methadone Screen Urine Fentanyl Screen Ur Barbiturates Screen Ur Phencyclidine Scrn Ur Amphetamines Screen U Benzodiazepines Scrn Urine Cocaine Screen U Marijuana (THC) Screen Ethyl Alcohol Influenza Type A (PCR) Influenza Type B (PCR) RSV RNA Qual (PCR) SARS-CoV-2 RNA (RT-PCR) Assessment and Plan (1) Streptococcal meningitis: Status: Acute (2) PAF (paroxysmal atrial fibrillation): Status: Acute Plan 59 year gentleman presenting with change in mental status and bacterial meningitis. He developed AFib with RVR. Not unusual developed AFib in the setting of severe sepsis. He is quite sick and has mottling of skin on his legs. He we will be transferred to intensive care unit. On appropriate antibiotics. Atrial fibrillation is a bystander currently, we will treat with rate controlled. Given lumbar puncture I would wait before starting any anticoagulation at least for a couple of days. We will follow along with you. Procedures Date of Service Date of Service: 11/05/24
[2024-11-04] MEDS: dilTIAZem HCL 125 MG in 0.9 % Sodium Chloride 100 ML 15 MG IVCONT ×2 (11:09→19:25)
--- NOTE | 2024-11-04 11:44 | PC.NURSE ---
patient off unit with resource rn from ED, patient report given to danii in icu
--- NOTE | 2024-11-04 12:32 | P.PNCC_ITS ---
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 On ER evaluation patient encephalopathic with significant leukocytosis. Initial CT head with no acute findings. Initial LP with on insufficiency so for PCR that is positive for Streptococcus. Blood cultures positive for Streptococcus. 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 Repeat LP performed in IR with additional CSF sent for culture. Critical Care Time (minutes): 60 Physical Exam 2 Vital Signs: Vital Signs: Last Vital Signs Temp 99.5 F 11/04/24 10:11 Pulse 122 H 11/04/24 10:11 Resp 20 11/04/24 10:11 BP 106/57 L 11/04/24 10:11 Pulse Ox 95 11/04/24 10:11 O2 Del Method Nasal Cannula 11/04/24 10:11 O2 Flow Rate 2 11/04/24 10:11 Oxygen Flow Rate 8 11/03/24 19:38 BMI result Body Mass Index 44.6 Const: General: no acute distress, lethargic (Withdraws to pain) and other (Lower extremities mottled) Nutritional Appearance: obese O rientation/consciousness: lethargic (Withdraws to pain) Eyes: Sclerae: sclerae normal Neck: Neck: Yes no lymphadenopathy, Yes trachea midline and Yes supple Resp: Effort & Inspection: normal respiratory effort and no respiratory distress Auscultation: clear to auscultation bilaterally Cardio: Rate: tachycardic Rhythm: regular rhythm Heart sounds: no gallops, no murmurs and no rubs GI: Palpation (GI): Soft to palpation and Other GI palpation findings present ( Nontender) Auscultation: normal bowel sounds Extrem: General: Yes no pedal edema, No clubbing and No cyanosis Objective Data Labs 11/04/24 04:26 11/04/24 04:26 Labs: Laboratory Results - last 24 hr 11/03/24 11/03/24 11/03/24 19:56 19:59 20:01 WBC 33.5 H* RBC 5.04 D Hgb 16.7 D Hct 44.7 MCV 88.7 D MCH 33.1 H MCHC 37.4 H RDW 13.9 Plt Count 191 D MPV 9.8 Immature Gran % (Auto) Cancelled Neut % (Auto) Cancelled Lymph % (Auto) Cancelled [place] % (Auto) Cancelled Eos % (Auto) Cancelled Baso % (Auto) Cancelled Lymph # (Auto) Cancelled [place] # (Auto) Cancelled Eos # (Auto) Cancelled Baso # (Auto) Cancelled Abs Immat Gran (auto) Cancelled Absolute Neuts (auto) Cancelled Absolute Nucleated RBC 0.050 H Nucleated RBC % (auto) 0.1 Neutrophils % (Manual) 91 H Band Neutrophils % 5 Lymphocytes % (Manual) 3 L Monocytes % (Manual) Myelocytes % 1 Abs Neuts (Manual) 32.2 H Lymphocytes # (Manual) 1.0 L Monocytes # (Manual) Myelocytes # 0.3 Nucleated RBCs 1 H Hypersegmented Neuts PRESENT Toxic Granulation PRESENT Toxic Vacuolation PRESENT Platelet Estimate NORMAL Large Platelets Giant Platelets PRESENT Plt Morphology Comment NOTED RBC Morphology NORMAL Hypochromasia 1+ (5-14) Microcytosis 2+ (15-30) Spherocytes Target Cells 1+ (5-14) [place] Bodies [place] Cells Schistocytes 2+ (3-5) Smear Path Review SEE NOTE PT 11.4 INR 1.0 VBG pH VBG pCO2 VBG pO2 VBG HCO3 VBG O2 Saturation VBG Base Excess Sodium 135 Potassium 3.2 L Chloride 99 Carbon Dioxide 23 Anion Gap 16 BUN 38 H Creatinine 1.42 H Estim Creat Clear Calc 72.8 Estimated GFR 51 POC Glucose Random Glucose 163 H Lactic Acid Lactic Acid F/U @ 2Hr Lactic Acid F/U @ 4Hr Calcium 9.3 D Magnesium 2.3 Total Bilirubin 1.3 H Direct Bilirubin 0.7 H AST 180 H ALT 232 H Alkaline Phosphatase 319 H Ammonia Total Creatine Kinase Troponin I High Sens 362.4 H* D C-Reactive Protein 60.62 H B-Natriuretic Peptide 764 H Total Protein 7.7 Albumin 3.2 L Lipase Urine Color Urine Appearance Urine pH Ur Specific [place] Urine Protein Urine Glucose (UA) Urine Ketones Urine Blood Urine Nitrite Ur Leukocyte Esterase Urine RBC Urine WBC Ur Squamous Epith Cells Urine Bacteria Hyaline Casts Granular Casts CSF C.neoform/gat PCR CSF CMV DNA (PCR) CSF Enterovirus (PCR) CSF E. coli K1 (PCR) CSF H. influenzae (PCR) CSF HSV I (PCR) CSF HSV II (PCR) CSF HHV 6 (PCR) CSF L.monocytogenes PCR CSF N. meningitidis PCR CSF Parechovirus (PCR) CSF S. agalactiae (PCR) CSF S. pneumoniae (PCR) CSF VZV (PCR) Urine Opiates Screen Ur Buprenorphine Scrn Ur Oxycodone Screen Urine Methadone Screen Urine Fentanyl Screen Ur Barbiturates Screen Ur Phencyclidine Scrn Ur Amphetamines Screen U Benzodiazepines Scrn Urine Cocaine Screen U Marijuana (THC) Screen Ethyl Alcohol Respiratory Panel [place] Adenovirus (Rapid PCR) B.pert (TEM-PCR) B.parapertussis DNA PCR C. pneumoniae DNA (PCR) Coronavirus OC43 (PCR) Coronavirus HKU1 (PCR) Coronavirus 229E (PCR) Coronavirus NL63 (PCR) Human Metapneumovir PCR Influenza A (RT-PCR) Influenza Type A (PCR) NEGATIVE Influenza B (RT-PCR) Influenza Type B (PCR) NEGATIVE M. pneumoniae (PCR) Parainfluenza 1 (PCR) Parainfluenza 2 (PCR) Parainfluenza 3 (PCR) Parainfluenza 4 (PCR) RSV (PCR) RSV RNA Qual (PCR) NEGATIVE Entero/Rhino (PCR) SARS-CoV-2 RNA (RT-PCR) NEGATIVE 11/03/24 11/03/24 11/03/24 20:03 20:08 20:22 WBC RBC Hgb Hct MCV MCH MCHC RDW Plt Count MPV Immature Gran % (Auto) Neut % (Auto) Lymph % (Auto) [place] % (Auto) Eos % (Auto) Baso % (Auto) Lymph # (Auto) [place] # (Auto) Eos # (Auto) Baso # (Auto) Abs Immat Gran (auto) Absolute Neuts (auto) Absolute Nucleated RBC Nucleated RBC % (auto) Neutrophils % (Manual) Band Neutrophils % Lymphocytes % (Manual) Monocytes % (Manual) Myelocytes % Abs Neuts (Manual) Lymphocytes # (Manual) Monocytes # (Manual) Myelocytes # Nucleated RBCs Hypersegmented Neuts Toxic Granulation Toxic Vacuolation Platelet Estimate Large Platelets Giant Platelets Plt Morphology Comment RBC Morphology Hypochromasia Microcytosis Spherocytes Target Cells [place] Bodies [place] Cells Schistocytes Smear Path Review PT INR VBG pH 7.40 VBG pCO2 37 VBG pO2 39 VBG HCO3 23 VBG O2 Saturation 58.0 VBG Base Excess -0.4 Sodium Potassium Chloride Carbon Dioxide Anion Gap BUN Creatinine Estim Creat Clear Calc Estimated GFR POC Glucose Random Glucose Lactic Acid 4.6 H* Lactic Acid F/U @ 2Hr Lactic Acid F/U @ 4Hr Calcium Magnesium Total Bilirubin Direct Bilirubin AST ALT Alkaline Phosphatase Ammonia 43 Total Creatine Kinase 886 H Troponin I High Sens C-Reactive Protein B-Natriuretic Peptide Total Protein Albumin Lipase 39 Urine Color Urine Appearance Urine pH Ur Specific [place] Urine Protein Urine Glucose (UA) Urine Ketones Urine Blood Urine Nitrite Ur Leukocyte Esterase Urine RBC Urine WBC Ur Squamous Epith Cells Urine Bacteria Hyaline Casts Granular Casts CSF C.neoform/gat PCR CSF CMV DNA (PCR) CSF Enterovirus (PCR) CSF E. coli K1 (PCR) CSF H. influenzae (PCR) CSF HSV I (PCR) CSF HSV II (PCR) CSF HHV 6 (PCR) CSF L.monocytogenes PCR CSF N. meningitidis PCR CSF Parechovirus (PCR) CSF S. agalactiae (PCR) CSF S. pneumoniae (PCR) CSF VZV (PCR) Urine Opiates Screen Ur Buprenorphine Scrn Ur Oxycodone Screen Urine Methadone Screen Urine Fentanyl Screen Ur Barbiturates Screen Ur Phencyclidine Scrn Ur Amphetamines Screen U Benzodiazepines Scrn Urine Cocaine Screen U Marijuana (THC) Screen Ethyl Alcohol < 10 Respiratory Panel [place] Adenovirus (Rapid PCR) B.pert (TEM-PCR) B.parapertussis DNA PCR C. pneumoniae DNA (PCR) Coronavirus OC43 (PCR) Coronavirus HKU1 (PCR) Coronavirus 229E (PCR) Coronavirus NL63 (PCR) Human Metapneumovir PCR Influenza A (RT-PCR) Influenza Type A (PCR) Influenza B (RT-PCR) Influenza Type B (PCR) M. pneumoniae (PCR) Parainfluenza 1 (PCR) Parainfluenza 2 (PCR) Parainfluenza 3 (PCR) Parainfluenza 4 (PCR) RSV (PCR) RSV RNA Qual (PCR) Entero/Rhino (PCR) SARS-CoV-2 RNA (RT-PCR) 11/03/24 11/03/24 11/03/24 20:30 22:30 22:34 WBC RBC Hgb Hct MCV MCH MCHC RDW Plt Count MPV Immature Gran % (Auto) Neut % (Auto) Lymph % (Auto) [place] % (Auto) Eos % (Auto) Baso % (Auto) Lymph # (Auto) [place] # (Auto) Eos # (Auto) Baso # (Auto) Abs Immat Gran (auto) Absolute Neuts (auto) Absolute Nucleated RBC Nucleated RBC % (auto) Neutrophils % (Manual) Band Neutrophils % Lymphocytes % (Manual) Monocytes % (Manual) Myelocytes % Abs Neuts (Manual) Lymphocytes # (Manual) Monocytes # (Manual) Myelocytes # Nucleated RBCs Hypersegmented Neuts Toxic Granulation Toxic Vacuolation Platelet Estimate Large Platelets Giant Platelets Plt Morphology Comment RBC Morphology Hypochromasia Microcytosis Spherocytes Target Cells [place] Bodies [place] Cells Schistocytes Smear Path Review PT INR VBG pH 7.46 H VBG pCO2 24 VBG pO2 190 VBG HCO3 17 L VBG O2 Saturation 99.0 VBG Base Excess -4.0 Sodium Potassium Chloride Carbon Dioxide Anion Gap BUN Creatinine Estim Creat Clear Calc Estimated GFR POC Glucose Random Glucose Lactic Acid Lactic Acid F/U @ 2Hr Lactic Acid F/U @ 4Hr Calcium Magnesium Total Bilirubin Direct Bilirubin AST ALT Alkaline Phosphatase Ammonia Total Creatine Kinase Troponin I High Sens 338.9 H* C-Reactive Protein B-Natriuretic Peptide Total Protein Albumin Lipase Urine Color Dark Yellow Urine Appearance Cloudy Urine pH 5.5 Ur Specific [place] 1.025 Urine Protein 100 (2+) H Urine Glucose (UA) Negative Urine Ketones Trace Urine Blood Large (3+) H Urine Nitrite Negative Ur Leukocyte Esterase Negative Urine RBC 6-10 H Urine WBC 0-5 Ur Squamous Epith Cells 6-10 Urine Bacteria None Seen Hyaline Casts 3-5 Granular Casts Present CSF C.neoform/gat PCR CSF CMV DNA (PCR) CSF Enterovirus (PCR) CSF E. coli K1 (PCR) CSF H. influenzae (PCR) CSF HSV I (PCR) CSF HSV II (PCR) CSF HHV 6 (PCR) CSF L.monocytogenes PCR CSF N. meningitidis PCR CSF Parechovirus (PCR) CSF S. agalactiae (PCR) CSF S. pneumoniae (PCR) CSF VZV (PCR) Urine Opiates Screen Not Detected Ur Buprenorphine Scrn Not Detected Ur Oxycodone Screen Not Detected Urine Methadone Screen Not Detected Urine Fentanyl Screen Not Detected Ur Barbiturates Screen Not Detected Ur Phencyclidine Scrn Not Detected Ur Amphetamines Screen Not Detected U Benzodiazepines Scrn Not Detected Urine Cocaine Screen Not Detected U Marijuana (THC) Screen Not Detected Ethyl Alcohol Respiratory Panel [place] Adenovirus (Rapid PCR) B.pert (TEM-PCR) B.parapertussis DNA PCR C. pneumoniae DNA (PCR) Coronavirus OC43 (PCR) Coronavirus HKU1 (PCR) Coronavirus 229E (PCR) Coronavirus NL63 (PCR) Human Metapneumovir PCR Influenza A (RT-PCR) Influenza Type A (PCR) Influenza B (RT-PCR) Influenza Type B (PCR) M. pneumoniae (PCR) Parainfluenza 1 (PCR) Parainfluenza 2 (PCR) Parainfluenza 3 (PCR) Parainfluenza 4 (PCR) RSV (PCR) RSV RNA Qual (PCR) Entero/Rhino (PCR) SARS-CoV-2 RNA (RT-PCR) 11/03/24 11/03/24 11/04/24 22:48 23:52 01:13 WBC RBC Hgb Hct MCV MCH MCHC RDW Plt Count MPV Immature Gran % (Auto) Neut % (Auto) Lymph % (Auto) [place] % (Auto) Eos % (Auto) Baso % (Auto) Lymph # (Auto) [place] # (Auto) Eos # (Auto) Baso # (Auto) Abs Immat Gran (auto) Absolute Neuts (auto) Absolute Nucleated RBC Nucleated RBC % (auto) Neutrophils % (Manual) Band Neutrophils % Lymphocytes % (Manual) Monocytes % (Manual) Myelocytes % Abs Neuts (Manual) Lymphocytes # (Manual) Monocytes # (Manual) Myelocytes # Nucleated RBCs Hypersegmented Neuts Toxic Granulation Toxic Vacuolation Platelet Estimate Large Platelets Giant Platelets Plt Morphology Comment RBC Morphology Hypochromasia Microcytosis Spherocytes Target Cells [place] Bodies [place] Cells Schistocytes Smear Path Review PT INR VBG pH VBG pCO2 VBG pO2 VBG HCO3 VBG O2 Saturation VBG Base Excess Sodium Potassium Chloride Carbon Dioxide Anion Gap BUN Creatinine Estim Creat Clear Calc Estimated GFR POC Glucose Random Glucose Lactic Acid Lactic Acid F/U @ 2Hr 3.1 H* Lactic Acid F/U @ 4Hr Calcium Magnesium Total Bilirubin Direct Bilirubin AST ALT Alkaline Phosphatase Ammonia Total Creatine Kinase 633 H Troponin I High Sens C-Reactive Protein B-Natriuretic Peptide Total Protein Albumin Lipase Urine Color Urine Appearance Urine pH Ur Specific [place] Urine Protein Urine Glucose (UA) Urine Ketones Urine Blood Urine Nitrite Ur Leukocyte Esterase Urine RBC Urine WBC Ur Squamous Epith Cells Urine Bacteria Hyaline Casts Granular Casts CSF C.neoform/gat PCR Not Detected CSF CMV DNA (PCR) Not Detected CSF Enterovirus (PCR) Not Detected CSF E. coli K1 (PCR) Not Detected CSF H. influenzae (PCR) Not Detected CSF HSV I (PCR) Not Detected CSF HSV II (PCR) Not Detected CSF HHV 6 (PCR) Not Detected CSF L.monocytogenes PCR Not Detected CSF N. meningitidis PCR Not Detected CSF Parechovirus (PCR) Not Detected CSF S. agalactiae (PCR) Not Detected CSF S. pneumoniae (PCR) Detected A* CSF VZV (PCR) Not Detected Urine Opiates Screen Ur Buprenorphine Scrn Ur Oxycodone Screen Urine Methadone Screen Urine Fentanyl Screen Ur Barbiturates Screen Ur Phencyclidine Scrn Ur Amphetamines Screen U Benzodiazepines Scrn Urine Cocaine Screen U Marijuana (THC) Screen Ethyl Alcohol Respiratory Panel [place] See Note Adenovirus (Rapid PCR) Not Detected B.pert (TEM-PCR) Not Detected B.parapertussis DNA PCR Not Detected C. pneumoniae DNA (PCR) Not Detected Coronavirus OC43 (PCR) Not Detected Coronavirus HKU1 (PCR) Not Detected Coronavirus 229E (PCR) Not Detected Coronavirus NL63 (PCR) Not Detected Human Metapneumovir PCR Not Detected Influenza A (RT-PCR) Not Detected Influenza Type A (PCR) Influenza B (RT-PCR) Not Detected Influenza Type B (PCR) M. pneumoniae (PCR) Not Detected Parainfluenza 1 (PCR) Not Detected Parainfluenza 2 (PCR) Not Detected Parainfluenza 3 (PCR) Not Detected Parainfluenza 4 (PCR) Not Detected RSV (PCR) Not Detected RSV RNA Qual (PCR) Entero/Rhino (PCR) Not Detected SARS-CoV-2 RNA (RT-PCR) Not Detected 11/04/24 11/04/24 11/04/24 01:47 03:22 04:26 WBC 34.0 H* RBC 4.96 Hgb 16.4 Hct 44.6 MCV 89.9 MCH 33.1 H MCHC 36.8 H RDW 13.8 Plt Count 157 L MPV 10.7 Immature Gran % (Auto) Cancelled Neut % (Auto) Cancelled Lymph % (Auto) Cancelled [place] % (Auto) Cancelled Eos % (Auto) Cancelled Baso % (Auto) Cancelled Lymph # (Auto) Cancelled [place] # (Auto) Cancelled Eos # (Auto) Cancelled Baso # (Auto) Cancelled Abs Immat Gran (auto) Cancelled Absolute Neuts (auto) Cancelled Absolute Nucleated RBC 0.070 H Nucleated RBC % (auto) 0.2 Neutrophils % (Manual) 80 H Band Neutrophils % 17 H Lymphocytes % (Manual) 2 L Monocytes % (Manual) 1 L Myelocytes % Abs Neuts (Manual) 33.0 H Lymphocytes # (Manual) 0.7 L Monocytes # (Manual) 0.3 Myelocytes # Nucleated RBCs 1 H Hypersegmented Neuts Toxic Granulation PRESENT Toxic Vacuolation PRESENT Platelet Estimate NORMAL Large Platelets PRESENT Giant Platelets Plt Morphology Comment NOTED RBC Morphology NOTED Hypochromasia Microcytosis Spherocytes 1+ (0-2) Target Cells 1+ (5-14) [place] Bodies PRESENT [place] Cells 2+ (3-5) Schistocytes 1+ (0-2) Smear Path Review PT INR VBG pH VBG pCO2 VBG pO2 VBG HCO3 VBG O2 Saturation VBG Base Excess Sodium 136 Potassium 4.1 D Chloride 105 Carbon Dioxide 19 L Anion Gap 16 BUN 31 H Creatinine 0.98 Estim Creat Clear Calc 105.5 Estimated GFR > 60 POC Glucose 138 H Random Glucose 144 H Lactic Acid Lactic Acid F/U @ 2Hr Lactic Acid F/U @ 4Hr 2.7 H* Calcium 8.7 D Magnesium Total Bilirubin 1.1 H Direct Bilirubin AST 153 H ALT 180 H Alkaline Phosphatase 209 H Ammonia Total Creatine Kinase Troponin I High Sens C-Reactive Protein B-Natriuretic Peptide Total Protein 7.0 Albumin 2.8 L Lipase Urine Color Urine Appearance Urine pH Ur Specific [place] Urine Protein Urine Glucose (UA) Urine Ketones Urine Blood Urine Nitrite Ur Leukocyte Esterase Urine RBC Urine WBC Ur Squamous Epith Cells Urine Bacteria Hyaline Casts Granular Casts CSF C.neoform/gat PCR CSF CMV DNA (PCR) CSF Enterovirus (PCR) CSF E. coli K1 (PCR) CSF H. influenzae (PCR) CSF HSV I (PCR) CSF HSV II (PCR) CSF HHV 6 (PCR) CSF L.monocytogenes PCR CSF N. meningitidis PCR CSF Parechovirus (PCR) CSF S. agalactiae (PCR) CSF S. pneumoniae (PCR) CSF VZV (PCR) Urine Opiates Screen Ur Buprenorphine Scrn Ur Oxycodone Screen Urine Methadone Screen Urine Fentanyl Screen Ur Barbiturates Screen Ur Phencyclidine Scrn Ur Amphetamines Screen U Benzodiazepines Scrn Urine Cocaine Screen U Marijuana (THC) Screen Ethyl Alcohol Respiratory Panel [place] Adenovirus (Rapid PCR) B.pert (TEM-PCR) B.parapertussis DNA PCR C. pneumoniae DNA (PCR) Coronavirus OC43 (PCR) Coronavirus HKU1 (PCR) Coronavirus 229E (PCR) Coronavirus NL63 (PCR) Human Metapneumovir PCR Influenza A (RT-PCR) Influenza Type A (PCR) Influenza B (RT-PCR) Influenza Type B (PCR) M. pneumoniae (PCR) Parainfluenza 1 (PCR) Parainfluenza 2 (PCR) Parainfluenza 3 (PCR) Parainfluenza 4 (PCR) RSV (PCR) RSV RNA Qual (PCR) Entero/Rhino (PCR) SARS-CoV-2 RNA (RT-PCR) Microbiology Microbiology Results: Microbiology 11/03/24 20:03 Blood - Venous Blood Culture - Preliminary Prelim: GPC Gram Stain only 11/03/24 19:58 Blood - Venous Blood Culture - Preliminary Prelim: GPC Gram Stain only 11/03/24 23:52 Cerebrospinal Fluid Gram Stain - Final 11/03/24 23:52 Cerebrospinal Fluid CSF Examination - Final 11/03/24 23:52 Cerebrospinal Fluid Fluid Description - Final Progress Note: A&P Assessment and plan (1) Streptococcal bacteremia: Status: Acute (2) Streptococcal meningitis: Status: Acute (3) Hx of splenectomy: Status: Acute (4) Encephalopathy: Status: Acute Plan Assessment: 59-year-old gentleman admitted with encephalopathy secondary to streptococcal meningitis/bacteremia Plan: Neuro: Streptococcal meningitis based on CSF PCR studies. CSF culture is pending. Continue empiric antibiotics and general dexamethasone. Initial CT head with no acute findings. Cardiac: No acute issues. Pulmonary: No acute issues. Renal: Acute renal failure resolved. Endo: No acute issues. GI: No acute issues. ID: Streptococcal bacteremia and streptococcal meningitis. Continue empiric antibiotics Inogen dexamethasone. Cultures are pending. Repeat blood cultures positive, will consider 2D echo. Heme/Onc: No acute issues. Psych: No acute issues. Miscellaneous: No acute issues. Prophylaxis: Heparin Diet: NPO Critical care time spent: 60 minutes Quality Stroke Does the patient have a stroke diagnosis?: No VTE Prior VTE?: No VTE Risk Level:: Medical - moderate - high VTE Device Contraindication: N/A - Device Ordered VTE Drug Contraindication: N/A - Med Ordered
[2024-11-04 13:29] LABS: Appearance CSF TURBID; CSF Monos 1 %; CSF Tube # 2; CSF Volume 2.5 ML; Color CSF YELLOW; Lymphocytes CSF 1 %; Neutrophils CSF 98 %; Red Blood Cell CSF 50 MM*3
[2024-11-04 13:32] LABS: White Blood Cell CSF 3375 MM*3
--- NOTE | 2024-11-04 18:08 | PC.NURSE ---
Assumed care at approx 1200. PT arrived on a stretcher from ED by way of IR procedure. Diltiazem drip running at 15mg/hr upon arrival. Pt moaning, diaphoretic, obtunded. Pt has mottled skin, barely opens eyes to voice. Dilt drip titrated per MAR. Pt remains tachypnic, tachycardic. See MAR for medication administration, assessments for further details.
[2024-11-04] MEDS: Albumin Human 25 % 100 ML IV (19:27)
[2024-11-05] VITALS (27 sets, daily range): BP systolic 119–189; BP diastolic 63–107; PULSE 97–123; RESP 21–42; TEMP 37.3–38.1; O2SAT 90–93; BMI 49.5
[2024-11-05] MEDS: Ampicillin Sodium 2 GM in 0.9 % Sodium Chloride 100 ML IV ×3 (01:21→11:23)
[2024-11-05] MEDS: Albumin Human 25 % 100 ML IV ×3 (01:22→14:27)
[2024-11-05] MEDS: dilTIAZem HCL 125 MG in 0.9 % Sodium Chloride 100 ML 15 MG IVCONT ×3 (01:35→18:30)
[2024-11-05] MEDS: dexAMETHasone sod phosphate 10 MG/ML VIAL IVPUSH ×4 (05:51→23:51)
[2024-11-05 05:56] LABS: Hematocrit 37.8 % (42.0-52.0); Hemoglobin 13.8 g/dl (14.0-18.0); Mean Corpuscular HGB Conc 36.5 g/dl (31.0-36.0); Mean Corpuscular Hemoglobin 32.5 pg (27.0-33.0); Mean Corpuscular Volume 88.9 fL (80.0-98.0); Mean Platelet Volume 11.9 fL (9.4-12.4); NRBC Pct Auto 0.4 /100WBC (0.0-0.2); PLT CLUMP 1; Red Blood Count 4.25 X10*6/uL (4.60-5.80); Red Cell Distribution Width 13.8 % (11.0-16.0); WBC ABN SCTR FOR CBC 1
[2024-11-05 05:59] LABS: White Blood Count 28.2 X10*3/uL (4.8-10.8)
[2024-11-05 06:11] LABS: VBG Base Excess 1.4 mmol/L; VBG HCO3 20 mmol/L (22-26); VBG pCO2 21 mmHg; VBG pO2 123 mmHg
[2024-11-05 06:13] LABS: Alanine Aminotransferase 98 U/L (0-40); Albumin Level 2.8 g/dL (3.5-5.0); Anion Gap 16 (12-20); Aspartate Amino Transferase 136 U/L (5-37); Bilirubin Total 0.7 mg/dL (0.0-1.0); Blood Urea Nitrogen 40 mg/dL (9-16); Carbon Dioxide 18 mmol/L (22-29); Chloride 113 mmol/L (96-108); Creatinine Clr Calc Pharmacy 83.3; Estimated Glomerular Filt Rate 59; Glucose Random 154 mg/dL (60-115); Magnesium 2.7 mg/dL (1.6-2.6); Phosphorus 2.2 mg/dL (2.7-4.5); Potassium 4.6 mmol/L (3.3-5.1); Sodium 142 mmol/L (135-145); Total Protein 6.5 g/dL (6.5-8.0)
[2024-11-05 06:21] LABS: Alkaline Phosphatase 126 U/L (39-117)
[2024-11-05 06:27] LABS: Thyroid Stimulating Hormone 0.49 uIU/mL (0.32-4.0)
--- NOTE | 2024-11-05 06:37 | PC.NURSE ---
Assumed care at 1900. Patient remains obtunded. Withdraws from pain. Responds to care by moaning out at times. Afib on telemetry, Cardizem drip infusing at 15mg/hr. LS rhonchorous, Oxymask/ O2 increased to 8L overnight. Patient desating to mid 80's. O2 sat 93% at present time. Patient NPO. [place] patent /draining yellow urine. Skin intact , diffuse purple rash . Vitals signs stable.
[2024-11-05 06:46] LABS: Platelet Count 86 X10*3/uL (160-400)
[2024-11-05 06:50] LABS: Band Neutrophils Percent 5 % (3-5); Lymphocytes Absolute Manual 0.3 X10*3/uL (1.2-4.9); Lymphocytes Percent Manual 1 % (20-40); Monocytes Absolute Manual 1.4 X10*3/uL (0.1-1.2); Monocytes Percent Manual 5 % (2-11); Neutrophils Absolute Manual 26.5 X10*3/uL (2.0-8.3); Neutrophils Percent Manual 89 % (45-73)
[2024-11-05 06:51] LABS: Burr Cells 1+ (0-2) /OIF; Large Platelet PRESENT; Platelet Estimate DECREASED (NORMAL); Platelet Morphology Comment NOTED; RBC Morphology NOTED; Rouleau PRESENT; Schistocytes 1+ (0-2) /OIF; Target Cells 1+ (5-14) /OIF
[2024-11-05 06:52] LABS: Toxic Granulation PRESENT
[2024-11-05] MEDS: Potassium Phosphate/NS 15 MMOL/250 ML PLAST..BAG 62.5 MMOL IV (08:02)
[2024-11-05 08:05] LABS: Venous Blood Gas Refer to POC result
[2024-11-05] MEDS: 0.9 % Sodium Chloride Flush 3 ML SYRINGE IVFLUSH ×3 (08:11→23:50)
[2024-11-05] MEDS: Enoxaparin Sodium 40 MG/0.4 ML SYRINGE SUBCUT (08:16)
[2024-11-05 09:04] LABS: Vancomycin Trough 15.6 mcg/mL (10.0-20.0)
--- NOTE | 2024-11-05 09:16 | HE.PHANOTE ---
RE: VANCO DOSING Trough came back as 15.6 mg/L. Due to indication of [employer] infection, dose is kept at 1250 mg q12h for 1 more dose and trough is scheduled for tonight 11/05/24 @1900 and will reassess.
[2024-11-05] MEDS: vancomycin HCL 1,250 MG in 0.9 % Sodium Chloride 250 ML 166.67 MG IV (10:22)
--- NOTE | 2024-11-05 11:24 | PM.PNCARD ---
Subjective Subjective Date of Service: 11/05/24 Interval history: Seen examined at bedside. Getting albumin infusion. AFib heart rates are low 100s. Poor mental status as before Physical Exam Vital Signs: Last Vital Signs Temp 99.5 F 11/05/24 10:00 Pulse 102 H 11/05/24 10:10 Resp 26 H 11/05/24 10:00 BP 146/92 H 11/05/24 10:10 Pulse Ox 92 11/05/24 10:00 O2 Del Method Oxymask 11/05/24 10:00 O2 Flow Rate 8 11/05/24 10:00 Oxygen Flow Rate 8 11/03/24 19:38 BMI result Body Mass Index 49.5 GENERAL APPEARANCE: Not responding to stimuli. Making grunting sounds. NECK: no carotid bruit, no obvious jugular venous distention. SKIN: no suspicious lesions, warm and dry. HEART: no murmurs, irregular rate and rhythm. LUNGS: clear to auscultation anteriorly. NEUROLOGIC: Unresponsive. Objective Labs and Meds 11/05/24 05:29 11/05/24 05:29 Lab results: Laboratory Results - last 24 hr 11/04/24 11/05/24 11/05/24 11:55 05:29 06:08 WBC 28.2 H RBC 4.25 L Hgb 13.8 L Hct 37.8 L MCV 88.9 MCH 32.5 MCHC 36.5 H RDW 13.8 Plt Count 86 L D MPV 11.9 Immature Gran % (Auto) Cancelled Neut % (Auto) Cancelled Lymph % (Auto) Cancelled [place] % (Auto) Cancelled Eos % (Auto) Cancelled Baso % (Auto) Cancelled Lymph # (Auto) Cancelled [place] # (Auto) Cancelled Eos # (Auto) Cancelled Baso # (Auto) Cancelled Abs Immat Gran (auto) Cancelled Absolute Neuts (auto) Cancelled Absolute Nucleated RBC 0.100 H Nucleated RBC % (auto) 0.4 H Neutrophils % (Manual) 89 H Band Neutrophils % 5 Lymphocytes % (Manual) 1 L Monocytes % (Manual) 5 Abs Neuts (Manual) 26.5 H Lymphocytes # (Manual) 0.3 L Monocytes # (Manual) 1.4 H Toxic Granulation PRESENT Platelet Estimate DECREASED Large Platelets PRESENT Plt Morphology Comment NOTED RBC Morphology NOTED Target Cells 1+ (5-14) [place] Cells 1+ (0-2) Rouleaux PRESENT Schistocytes 1+ (0-2) VBG pH 7.60 H* VBG pCO2 21 VBG pO2 123 VBG HCO3 20 L VBG O2 Saturation 99.0 VBG Base Excess 1.4 Sodium 142 Potassium 4.6 Chloride 113 H Carbon Dioxide 18 L Anion Gap 16 BUN 40 H Creatinine 1.24 Estim Creat Clear Calc 83.3 Estimated GFR 59 Random Glucose 154 H Calcium 9.0 Phosphorus 2.2 L Magnesium 2.7 H Total Bilirubin 0.7 AST 136 H ALT 98 H Alkaline Phosphatase 126 H Total Protein 6.5 Albumin 2.8 L TSH 0.49 CSF Tube Number 2 CSF Volume 2.5 CSF Appearance TURBID CSF Color YELLOW CSF WBC 3375 H* CSF RBC 50 CSF Neutrophils 98 CSF Lymphocytes 1 CSF Monocytes % 1 Vancomycin Trough 11/05/24 08:36 WBC RBC Hgb Hct MCV MCH MCHC RDW Plt Count MPV Immature Gran % (Auto) Neut % (Auto) Lymph % (Auto) [place] % (Auto) Eos % (Auto) Baso % (Auto) Lymph # (Auto) [place] # (Auto) Eos # (Auto) Baso # (Auto) Abs Immat Gran (auto) Absolute Neuts (auto) Absolute Nucleated RBC Nucleated RBC % (auto) Neutrophils % (Manual) Band Neutrophils % Lymphocytes % (Manual) Monocytes % (Manual) Abs Neuts (Manual) Lymphocytes # (Manual) Monocytes # (Manual) Toxic Granulation Platelet Estimate Large Platelets Plt Morphology Comment RBC Morphology Target Cells Juan Manuel Cells Rouleaux Schistocytes VBG pH VBG pCO2 VBG pO2 VBG HCO3 VBG O2 Saturation VBG Base Excess Sodium Potassium Chloride Carbon Dioxide Anion Gap BUN Creatinine Estim Creat Clear Calc Estimated GFR Random Glucose Calcium Phosphorus Magnesium Total Bilirubin AST ALT Alkaline Phosphatase Total Protein Albumin TSH CSF Tube Number CSF Volume CSF Appearance CSF Color CSF WBC CSF RBC CSF Neutrophils CSF Lymphocytes CSF Monocytes % Vancomycin Trough 15.6 Imaging Radiologist's impression: Impressions Lumbar Puncture Fluoroscopy 11/03/24 11:00 impression: Successful fluoroscopy-guided L2-3 lumbar printer performed without immediate complications. Approximately 4 mL of purulent CSF fluid was collected and sent to lab as per referring physician's orders. FLUOROSCOPY TIME: 1 minute 2 seconds DOSE AREA PRODUCT: 2176 uGy-m2 (microgray-meter squared) Electronically signed by: Jn Fleming MD 11/04/2024 12:35 PM EDT Progress Note: A&P Assessment and plan (1) PAF (paroxysmal atrial fibrillation): Status: Acute Plan Paroxysmal atrial fibrillation in his 59 year gentleman with bacterial meningitis. He is on antibiotics and steroids at this point. AFib is not uncontrolled currently. Can use beta-blockers as he has good biventricular function on echocardiography. Would avoid anticoagulation for at least 48 hours. If platelets are dropping with sepsis I think we should be more careful. Overall quite sick with severe sepsis. Care conservative and supportive. Thank you for allowing me to participate in the care of your patient. Please feel free to contact me if you have any questions. Time Spent With Patient Time: Total time managing care of this patient today ____ minutes. Progress Note: Quality Stroke Does the patient have a stroke diagnosis?: No Procedures Date of Service Date of Service: 11/05/24
[2024-11-05] MEDS: cefTRIAXone sodium 2 GM VIAL IVPUSH ×2 (12:11→23:51)
--- NOTE | 2024-11-05 13:51 | P.PNCC_ITS ---
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 On ER evaluation patient encephalopathic with significant leukocytosis. Initial CT head with no acute findings. Initial LP with on insufficiency so for PCR that is positive for Streptococcus. Blood cultures positive for Streptococcus. 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 Repeat LP performed in IR with additional CSF sent for culture with CSF Gram stain positive for Streptococcus. No events overnight. Critical Care Time (minutes): 30 Physical Exam 2 Vital Signs: Vital Signs: Last Vital Signs Temp 99.9 F 11/05/24 13:00 Pulse 103 H 11/05/24 13:00 Resp 30 H 11/05/24 13:00 BP 157/96 H 11/05/24 13:00 Pulse Ox 92 11/05/24 13:00 O2 Del Method Oxymask 11/05/24 13:00 O2 Flow Rate 8 11/05/24 13:00 Oxygen Flow Rate 8 11/03/24 19:38 BMI result Body Mass Index 49.5 Const: General: no acute distress and lethargic (Response to painful stimuli) Nutritional Appearance: obese Orientation/consciousness: lethargic (Response to painful stimuli) Eyes: Sclerae: sclerae normal Neck: Neck: Yes no lymphadenopathy, Yes trachea midline and Yes supple Resp: Effort & Inspection: normal respiratory effort and no respiratory distress Auscultation: clear to auscultation bilaterally Cardio: Rate: tachycardic Rhythm: regular rhythm Heart sounds: no gallops, no murmurs and no rubs GI: Palpation (GI): Soft to palpation and Other GI palpation findings present ( Nontender) Auscultation: normal bowel sounds Extrem: General: No clubbing, No cyanosis and Yes edema (Trace bilateral) Objective Data Labs 11/05/24 05:29 11/05/24 05:29 Labs: Laboratory Results - last 24 hr 11/05/24 11/05/24 11/05/24 05:29 06:08 08:36 WBC 28.2 H RBC 4.25 L Hgb 13.8 L Hct 37.8 L MCV 88.9 MCH 32.5 MCHC 36.5 H RDW 13.8 Plt Count 86 L D MPV 11.9 Immature Gran % (Auto) Cancelled Neut % (Auto) Cancelled Lymph % (Auto) Cancelled [place] % (Auto) Cancelled Eos % (Auto) Cancelled Baso % (Auto) Cancelled Lymph # (Auto) Cancelled [place] # (Auto) Cancelled Eos # (Auto) Cancelled Baso # (Auto) Cancelled Abs Immat Gran (auto) Cancelled Absolute Neuts (auto) Cancelled Absolute Nucleated RBC 0.100 H Nucleated RBC % (auto) 0.4 H Neutrophils % (Manual) 89 H Band Neutrophils % 5 Lymphocytes % (Manual) 1 L Monocytes % (Manual) 5 Abs Neuts (Manual) 26.5 H Lymphocytes # (Manual) 0.3 L Monocytes # (Manual) 1.4 H Toxic Granulation PRESENT Platelet Estimate DECREASED Large Platelets PRESENT Plt Morphology Comment NOTED RBC Morphology NOTED Target Cells 1+ (5-14) Juan Manuel Cells 1+ (0-2) Rouleaux PRESENT Schistocytes 1+ (0-2) VBG pH 7.60 H* VBG pCO2 21 VBG pO2 123 VBG HCO3 20 L VBG O2 Saturation 99.0 VBG Base Excess 1.4 Sodium 142 Potassium 4.6 Chloride 113 H Carbon Dioxide 18 L Anion Gap 16 BUN 40 H Creatinine 1.24 Estim Creat Clear Calc 83.3 Estimated GFR 59 Random Glucose 154 H Calcium 9.0 Phosphorus 2.2 L Magnesium 2.7 H Total Bilirubin 0.7 AST 136 H ALT 98 H Alkaline Phosphatase 126 H Total Protein 6.5 Albumin 2.8 L TSH 0.49 Vancomycin Trough 15.6 Microbiology Microbiology Results: Microbiology 11/03/24 20:03 Blood - Venous Blood Culture - Preliminary Streptococcus pneumoniae 11/03/24 19:58 Blood - Venous Blood Culture - Preliminary Streptococcus pneumoniae 11/03/24 23:52 Cerebrospinal Fluid Gram Stain - Final 11/03/24 23:52 Cerebrospinal Fluid CSF Examination - Final 11/03/24 23:52 Cerebrospinal Fluid Fluid Description - Final 11/03/24 23:52 Cerebrospinal Fluid CSF Culture - Preliminary Streptococcus pneumoniae 11/04/24 11:55 Cerebrospinal Fluid Gram Stain - Final 11/04/24 11:55 Cerebrospinal Fluid CSF Examination - Final 11/04/24 11:55 Cerebrospinal Fluid Fluid Description - Final 11/04/24 11:55 Cerebrospinal Fluid CSF Culture - Preliminary Culture in progress. Progress Note: A&P Assessment and plan (1) PAF (paroxysmal atrial fibrillation): Status: Acute (2) Hx of splenectomy: Status: Acute (3) Streptococcal bacteremia: Status: Acute (4) Streptococcal meningitis: Status: Acute (5) Encephalopathy: Status: Acute Plan Assessment: 59-year-old gentleman admitted with encephalopathy secondary to streptococcal meningitis/bacteremia Plan: Neuro: Streptococcal meningitis based on CSF PCR studies and Gram stain. CSF culture is pending. Continue empiric antibiotics and general dexamethasone. Initial CT head with no acute findings. Cardiac: No acute issues. Pulmonary: No acute issues. Renal: Acute renal failure resolved. Endo: No acute issues. GI: No acute issues. ID: Streptococcal bacteremia and streptococcal meningitis. Continue empiric antibiotics and dexamethasone. Cultures are pending. Repeat blood cultures negative to date. 2D echo with no evidence of vegetation. Heme/Onc: No acute issues. Psych: No acute issues. Miscellaneous: No acute issues. Prophylaxis: Heparin Diet: NPO Critical care time spent: 30 minutes Quality Stroke Does the patient have a stroke diagnosis?: No VTE Prior VTE?: No VTE Risk Level:: Medical - moderate - high VTE Device Contraindication: N/A - Device Ordered VTE Drug Contraindication: N/A - Med Ordered
--- NOTE | 2024-11-05 14:14 | P.CNID_ITS ---
History of Present Illness Data of Consult Service Date: 11/05/24 Requesting physician: Emilia Acuna Primary Care Provider: Unknown Physician HPI Reason for consult: strep pneumonia meningitis He presents to ER after being found on floor mottled and not speaking coherently on 11/03. He was admitted and LP and blood cultures done both showed strep pneumonia and sensitivities pending. He has h/o splenectomy as child. He has unremarkable CXR and head film shows sinus CT. On 11/01 he came to ER with cough and syncopal episode and WBC 14,000 but wanted to go home and left. Review of Systems 2 Review of Systems: Yes Unobtainable due to mental status PMFSH Past Medical History Medical History Umbilical hernia (04/12/23) Obesity (BMI 30-39.9) Hypertension Asthma Family History Family history: reviewed and not pertinent Surgical History Surgical History History of appendectomy (04/12/23) Hx of splenectomy Social History Social History Household Members: Significant Other Housing: House Do you presently have visiting nurse or other home services: No Alcohol intake: current Alcohol intake frequency: a few times a week Patient Tobacco Use Status: Never used Tobacco service: No Meds Allergies Allergy/AdvReac Type Severity Reaction Status Date / Time No Known Allergies Allergy Verified 11/03/24 19:43 Active Medications: Current Medications Acetaminophen (Acetaminophen 325 Mg Tablet) 650 mg PO Q6H PRN PRN Reason: Pain, Mild 1-3,fever,headache Calcium Carbonate (Calcium Carbonate 750 Mg Tab.Chew) 750 mg PO Q4H PRN PRN Reason: Heartburn Ceftriaxone Sodium (Ceftriaxone Sodium 2 Gm Vial) 2 gm IVPUSH Q12H MEG Last Admin: 11/05/24 12:11 Dose: 2 gm Dexamethasone Sodium Phosphate (Dexamethasone Sod Phosphate 10 Mg/Ml Vial) 10 mg IVPUSH Q6H MEG Last Admin: 11/05/24 12:08 Dose: 10 mg Enoxaparin Sodium (Enoxaparin Sodium 40 Mg/0.4 Ml Syringe) 40 mg SUBCUT Q24H MEG Last Admin: 11/05/24 08:16 Dose: 40 mg Diltiazem HCl 125 mg/ Sodium (Chloride) 125 mls @ 0 mls/hr IVCONT .Q0M [facility]; Protocol Last Admin: 11/05/24 10:10 Dose: 15 mg/hr, 15 mls/hr Vancomycin HCl 1,250 mg/ (Sodium Chloride) 250 mls @ 166.667 mls/hr IV Q12H [facility] Last Infusion: 11/05/24 12:00 Dose: Infused Albumin Human (Kedbumin 25 %) 100 mls @ 100 mls/hr IV Q6H [facility] Stop: 11/05/24 14:59 Last Infusion: 11/05/24 09:15 Dose: Infused Magnesium Hydroxide (Milk Of Magnesia 30 Ml Oral.Susp) 30 ml PO DAILY PRN PRN Reason: Constipation Melatonin (Melatonin 3 Mg Tablet) 6 mg PO BEDTIME PRN PRN Reason: Insomnia Ondansetron HCl (Ondansetron Hcl 4 Mg/2 Ml Vial) 4 mg IVPUSH Q8H PRN PRN Reason: Nausea and Vomiting Pharmacy Consult (Consult Rx Vancomycin Dosing) 1 each MISCELLANE DAILY PRN PRN Reason: Consult order Sodium Chloride (0.9 % Sodium Chloride Flush 3 Ml Syringe) 3 ml IVFLUSH [facility] Last Admin: 11/05/24 08:11 Dose: 3 ml Home Medications ?Medication ?Instructions ?Recorded ?Confirmed ?Last Taken ?Type montelukast 10 mg tablet 10 mg PO BEDTIME 10/09/20 11/04/24 04/11/23 History naproxen sodium 220 mg capsule 220 mg PO BID PRN Pain 10/09/20 11/04/24 Unknown History (Aleve) valsartan 160 mg tablet 160 mg PO DAILY 04/12/23 11/04/24 04/12/23 History prednisone 20 mg tablet 20 mg PO BID 11/04/24 11/04/24 Unknown History sildenafil 100 mg tablet 100 mg PO DAILY PRN Erectile 11/04/24 11/04/24 Unknown History Dysfunction Physical Exam 2 Vital Signs: Vital Signs: Last Vital Signs Temp 99.9 F 11/05/24 13:00 Pulse 103 H 11/05/24 13:00 Resp 30 H 11/05/24 13:00 BP 157/96 H 11/05/24 13:00 Pulse Ox 92 11/05/24 13:00 O2 Del Method Oxymask 11/05/24 13:00 O2 Flow Rate 8 11/05/24 13:00 Oxygen Flow Rate 8 11/03/24 19:38 BMI result Body Mass Index 49.5 Const: General: cooperative HEENT: Head: Yes normal to inspection Face and sinus: Yes normal facial exam Mouth: Normal oral and palatal mucosa present Teeth and gingiva: d entition normal Eyes: Other: pupil pinpoint,not focusing Pupils: Equal, round and reactive pupils present Resp: Effort & Inspection: normal respiratory effort Cardio: Rate: regular rate Rhythm: regular rhythm GI: Palpation (GI): Soft to palpation and nontender : General: Yes no CVA tenderness Back/Spine/Pelvis: Back: no CVA tenderness Skin: General skin exam: no rashes or lesions noted Neuro: Other: completely encephalopathic,no response meningismus Cranial nerves: Yes Equal, round and reactive pupils present Extrem: General: Yes normal to inspection Psych: Appearance: grossly normal Results Labs 11/05/24 05:29 11/05/24 05:29 Labs: Short CBC 11/05/24 Range/Units 05:29 WBC 28.2 H (4.8-10.8) X10*3/uL Hgb 13.8 L (14.0-18.0) g/dl Hct 37.8 L (42.0-52.0) % Plt Count 86 L D (160-400) X10*3/uL BMP 11/05/24 05:29 Sodium 142 Potassium 4.6 Chloride 113 H Carbon Dioxide 18 L BUN 40 H Creatinine 1.24 Calcium 9.0 Liver Function 11/05/24 Range/Units 05:29 Total Bilirubin 0.7 (0.0-1.0) mg/dL AST 136 H (5-37) U/L ALT 98 H (0-40) U/L Alkaline Phosphatase 126 H (39-117) U/L Albumin 2.8 L (3.5-5.0) g/dL Microbiology Microbiology Results: Microbiology 11/03/24 20:03 Blood - Venous Blood Culture - Preliminary Streptococcus pneumoniae 11/03/24 19:58 Blood - Venous Blood Culture - Preliminary Streptococcus pneumoniae 11/03/24 23:52 Cerebrospinal Fluid Gram Stain - Final 11/03/24 23:52 Cerebrospinal Fluid CSF Examination - Final 11/03/24 23:52 Cerebrospinal Fluid Fluid Description - Final 11/03/24 23:52 Cerebrospinal Fluid CSF Culture - Preliminary Streptococcus pneumoniae 11/04/24 11:55 Cerebrospinal Fluid Gram Stain - Final 11/04/24 11:55 Cerebrospinal Fluid CSF Examination - Final 11/04/24 11:55 Cerebrospinal Fluid Fluid Description - Final 11/04/24 11:55 Cerebrospinal Fluid CSF Culture - Preliminary Culture in progress. Assessment and Plan (1) Hx of splenectomy: Status: Acute (2) Streptococcal meningitis: Status: Acute (3) Streptococcal bacteremia: Status: Acute (4) Sepsis: Status: Acute Plan He is still obtunded. He has had tachypnea and tachycardia and leukocytosis. He does have 3375 cells in CSF. Would continue meningitis doses Ceftriaxone. 4 days Dexamethasone. No need prophyaxis family or isolate. If doesnt wake up next day or two consider MRI brain look for abscess/enlarged ventricles. Check for hearing loss and visual changes when more awake. Prognosis guarded and splenectomy risk factor. Consider check HIV test as well.
[2024-11-05 17:38] LABS: Vancomycin Random 21.7 mcg/mL (15-20)
[2024-11-05 20:33] LABS: ABG Base Excess 0.2 mmol/L; ABG HCO3 22 mmol/L (22-26); ABG pCO2 29 mmHg (32-45); ABG pH 7.49 (7.35-7.45); ABG pO2 73 mmHg (83-108)
[2024-11-05 21:35] LABS: ABG Refer to POC result
[2024-11-05] MEDS: Furosemide 40 MG/4 ML VIAL IVPUSH (22:39)
[2024-11-06] VITALS (30 sets, daily range): BP systolic 104–189; BP diastolic 55–103; PULSE 83–125; RESP 18–48; TEMP 34.6–38.4; O2SAT 90–97; BMI 46.9
[2024-11-06] MEDS: Labetalol HCL 100 MG/20 ML VIAL 10 MG IVPUSH (02:19)
[2024-11-06] MEDS: dilTIAZem HCL 125 MG in 0.9 % Sodium Chloride 100 ML 15 MG IVCONT (02:39)
[2024-11-06 05:06] LABS: VBG Base Excess 3.3 mmol/L; VBG HCO3 24 mmol/L (22-26); VBG pCO2 29 mmHg; VBG pH 7.53 (7.32-7.43); VBG pO2 80 mmHg
[2024-11-06 05:10] LABS: Basophils Absolute Auto 0.1 X10*3/uL (0.0-0.2); Basophils Percent Auto 0.6 % (0-2); Hematocrit 38.2 % (42.0-52.0); Hemoglobin 13.8 g/dl (14.0-18.0); Imm Gran Abs Auto 0.38 X10*3/uL (0.00-0.03); Imm Gran Pct Auto 1.9 % (0.0-0.4); Lymphocytes Absolute Auto 0.6 X10*3/uL (1.2-4.9); Lymphocytes Percent Auto 2.8 % (20-40); MANUAL DIFF FLAG SCAN; Mean Corpuscular HGB Conc 36.1 g/dl (31.0-36.0); Mean Corpuscular Hemoglobin 32.9 pg (27.0-33.0); Mean Corpuscular Volume 91.2 fL (80.0-98.0); Mean Platelet Volume 12.1 fL (9.4-12.4); Monocytes Absolute Auto 1.8 X10*3/uL (0.1-1.2); Monocytes Percent Auto 8.8 % (2-11); NRBC Pct Auto 0.4 /100WBC (0.0-0.2); Neutrophils Absolute Auto 17.3 x10*3/uL (2.0-8.3); Neutrophils Percent Auto 85.9 % (45-73); Red Blood Count 4.19 X10*6/uL (4.60-5.80); Red Cell Distribution Width 14.5 % (11.0-16.0); SCAN SMEAR FLAG 1; White Blood Count 20.1 X10*3/uL (4.8-10.8)
[2024-11-06 05:15] LABS: Platelet Count 94 X10*3/uL (160-400)
[2024-11-06 05:32] LABS: SLIDE REVIEW VERIFIED
[2024-11-06 05:37] LABS: Alanine Aminotransferase 75 U/L (0-40); Albumin Level 3.4 g/dL (3.5-5.0); Anion Gap 16 (12-20); Aspartate Amino Transferase 94 U/L (5-37); Bilirubin Total 0.9 mg/dL (0.0-1.0); Blood Urea Nitrogen 50 mg/dL (9-16); Calcium 9.2 mg/dL (8.4-10.2); Carbon Dioxide 23 mmol/L (22-29); Chloride 116 mmol/L (96-108); Creatinine Clr Calc Pharmacy 76.8; Estimated Glomerular Filt Rate 50; Glucose Random 204 mg/dL (60-115); Magnesium 2.8 mg/dL (1.6-2.6); Phosphorus 3.5 mg/dL (2.7-4.5); Potassium 3.6 mmol/L (3.3-5.1); Sodium 151 mmol/L (135-145)
[2024-11-06 05:40] LABS: Alkaline Phosphatase 119 U/L (39-117)
[2024-11-06] MEDS: dexAMETHasone sod phosphate 10 MG/ML VIAL IVPUSH ×4 (05:54→23:42)
[2024-11-06 06:14] LABS: Venous Blood Gas Refer to POC result
--- NOTE | 2024-11-06 06:21 | PC.NURSE ---
Critical Care Nursing Note? assumed care of patient at 1900 Neuro:? alert and oriented, vague at times Cardiac: sinus rhythm, levophed gtt titrated off Resp: BiPAP and HiFlo, lung sounds diminished, O2 saturation reads 5-6 points less when taken on finger versus forehead GI/:? urinal Integumentary/Musculoskeletal: dry, flaky skin? ID:? [email or web address]? Events: n/a Plan moving forward:Wean supplemental oxygen to baseline 2LNC?
[2024-11-06 07:02] LABS: Vancomycin Random 11.7 mcg/mL (15-20)
--- NOTE | 2024-11-06 07:13 | HE.PHANOTE ---
RE VANCO DOSING: DOSE WAS HELD 11/05 @2100 DUE TO ELEVATIONS IN SCR AND TROUGH. TODAY, TROUGH IS LOWER AT 11.7. PATIENT HAS MIDLEVEL PROVIDER INFECTION, PLAN IS TO CONTINUE ON VANCO RESTARTING THIS MORNING AT 0800 AND WILL RECHECK LEVEL AND SCR TONIGHT BEFORE NEXT DOSE @1800.
[2024-11-06] MEDS: vancomycin HCL 1,000 MG in 0.9 % Sodium Chloride 250 ML 270 MG IV (09:28)
[2024-11-06] MEDS: 0.9 % Sodium Chloride Flush 3 ML SYRINGE IVFLUSH ×3 (09:29→23:42)
[2024-11-06] MEDS: propofoL 200 MG/20 ML VIAL 100 MG IVPUSH (09:55)
[2024-11-06] MEDS: propofoL 1,000 MG/100 ML VIAL 25.2 MG IVCONT ×4 (10:00→21:03)
[2024-11-06] MEDS: Enoxaparin Sodium 40 MG/0.4 ML SYRINGE SUBCUT (10:14)
[2024-11-06] MEDS: Chlorhexidine Gluc Oral Rinse 15 ML MOUTHWASH BUCCAL ×3 (10:24→20:22)
[2024-11-06] MEDS: bisacodyL 10 MG SUPP.RECT PR (10:25)
[2024-11-06] MEDS: dilTIAZem HCL 125 MG in 0.9 % Sodium Chloride 100 ML IVCONT (11:08)
--- NOTE | 2024-11-06 11:19 | W.PM.CCHP ---
Procedures Date of Service Date of Service: 11/06/24 Intubation Intubation Comments: Patient with acute hypoxia secondary to pulmonary aspiration refractory to nasotracheal suctioning requiring emergent intubation. Intubated with 7.5 cuffed ET tube under glide scope guidance with no immediate complications. ET tube position verified on chest x-ray Consent for Procedure: Emergent-no informed consent obtained
--- NOTE | 2024-11-06 11:26 | P.PNCC_ITS ---
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 On ER evaluation patient encephalopathic with significant leukocytosis. Initial CT head with no acute findings. Initial LP with on insufficiency so for PCR that is positive for Streptococcus. Blood cultures positive for Streptococcus. 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 Repeat LP performed in IR with additional CSF culture positive for Streptococcus. Overnight with increasing aspiration events requiring emergent intubation for hypoxia this a.m. Critical Care Time (minutes): 60 Physical Exam 2 Vital Signs: Vital Signs: Last Vital Signs Temp 97.7 F 11/06/24 10:00 Pulse 98 11/06/24 11:08 Resp 18 11/06/24 11:00 BP 105/70 11/06/24 11:00 Pulse Ox 96 11/06/24 11:00 O2 Del Method Mechanical Ventil ation 11/06/24 11:00 O2 Flow Rate 8 11/06/24 09:00 FiO2 100 11/06/24 10:19 Oxygen Flow Rate 8 11/03/24 19:38 BMI result Body Mass Index 46.9 Const: General: no acute distress and other (Sedated on ventilatory support) Eyes: Sclerae: sclerae normal EOM: EOMs intact bilaterally Neck: Neck: Yes no lymphadenopathy, Yes trachea midline and Yes supple Resp: Auscultation: crackles (Mild bilateral) Cardio: Rate: regular rate Rhythm: regular rhythm Heart sounds: no gallops, no murmurs and no rubs GI: Palpation (GI): Soft to palpation and Other GI palpation findings present ( Nontender) Auscultation: normal bowel sounds Extrem: Other: Mottled lower extremities lower thigh down bilateral General: Yes no pedal edema, No clubbing and No cyanosis Objective Data Labs 11/06/24 04:57 11/06/24 04:57 Labs: Laboratory Results - last 24 hr 11/05/24 11/05/24 11/06/24 17:11 20:29 04:57 WBC 20.1 H RBC 4.19 L Hgb 13.8 L Hct 38.2 L MCV 91.2 MCH 32.9 MCHC 36.1 H RDW 14.5 Plt Count 94 L MPV 12.1 Immature Gran % (Auto) 1.9 H Neut % (Auto) 85.9 H Lymph % (Auto) 2.8 L [place] % (Auto) 8.8 Eos % (Auto) 0.0 Baso % (Auto) 0.6 Lymph # (Auto) 0.6 L [place] # (Auto) 1.8 H Eos # (Auto) 0.0 Baso # (Auto) 0.1 Abs Immat Gran (auto) 0.38 H Absolute Neuts (auto) 17.3 H Absolute Nucleated RBC 0.080 H Nucleated RBC % (auto) 0.4 H Smear Tech's Comments VERIFIED O2 Saturation 94.0 ABG pH at Pt Temp 7.49 H ABG pCO2 at Pt Temp 29 L ABG pO2 at Pt Temp 73 L ABG HCO3 22 ABG Base Excess (Actual) 0.2 VBG pH VBG pCO2 VBG pO2 VBG HCO3 VBG O2 Saturation VBG Base Excess Sodium 151 H Potassium 3.6 D Chloride 116 H Carbon Dioxide 23 Anion Gap 16 BUN 50 H Creatinine 1.43 H Estim Creat Clear Calc 76.8 Estimated GFR 50 Random Glucose 204 H Calcium 9.2 Phosphorus 3.5 Magnesium 2.8 H Total Bilirubin 0.9 AST 94 H ALT 75 H Alkaline Phosphatase 119 H Total Protein 7.0 Albumin 3.4 L Random Vancomycin 21.7 H 11/06/24 11/06/24 05:01 06:32 WBC RBC Hgb Hct MCV MCH MCHC RDW Plt Count MPV Immature Gran % (Auto) Neut % (Auto) Lymph % (Auto) [place] % (Auto) Eos % (Auto) Baso % (Auto) Lymph # (Auto) [place] # (Auto) Eos # (Auto) Baso # (Auto) Abs Immat Gran (auto) Absolute Neuts (auto) Absolute Nucleated RBC Nucleated RBC % (auto) Smear Tech's Comments O2 Saturation ABG pH at Pt Temp ABG pCO2 at Pt Temp ABG pO2 at Pt Temp ABG HCO3 ABG Base Excess (Actual) VBG pH 7.53 H VBG pCO2 29 VBG pO2 80 VBG HCO3 24 VBG O2 Saturation 96.0 VBG Base Excess 3.3 Sodium Potassium Chloride Carbon Dioxide Anion Gap BUN Creatinine Estim Creat Clear Calc Estimated GFR Random Glucose Calcium Phosphorus Magnesium Total Bilirubin AST ALT Alkaline Phosphatase Total Protein Albumin Random Vancomycin 11.7 L Microbiology Microbiology Results: Microbiology 11/04/24 13:35 Blood - Venous Blood Culture - Preliminary No growth after 24 hours. 11/04/24 13:35 Blood - Venous Blood Culture - Preliminary No growth after 24 hours. 11/03/24 20:03 Blood - Venous Blood Culture - Preliminary Streptococcus pneumoniae 11/03/24 19:58 Blood - Venous Blood Culture - Preliminary Streptococcus pneumoniae 11/03/24 23:52 Cerebrospinal Fluid Gram Stain - Final 11/03/24 23:52 Cerebrospinal Fluid CSF Examination - Final 11/03/24 23:52 Cerebrospinal Fluid Fluid Description - Final 11/03/24 23:52 Cerebrospinal Fluid CSF Culture - Preliminary Streptococcus pneumoniae 11/04/24 11:55 Cerebrospinal Fluid Gram Stain - Final 11/04/24 11:55 Cerebrospinal Fluid CSF Examination - Final 11/04/24 11:55 Cerebrospinal Fluid Fluid Description - Final 11/04/24 11:55 Cerebrospinal Fluid CSF Culture - Preliminary Culture in progress. Progress Note: A&P Assessment and plan (1) Pulmonary aspiration: Status: Acute (2) Acute respiratory failure with hypoxia: Status: Acute (3) Encephalopathy: Status: Acute (4) Streptococcal meningitis: Status: Acute (5) Streptococcal bacteremia: Status: Acute (6) Class 3 obesity: Status: Acute (7) PAF (paroxysmal atrial fibrillation): Status: Acute Plan Assessment: 59-year-old gentleman admitted with encephalopathy secondary to streptococcal meningitis/bacteremia further complicated by pulmonary aspiration requiring intubation and ventilatory support Plan: Neuro: Streptococcal meningitis based on CSF PCR studies and Gram stain. CSF culture is pending. Continue empiric antibiotics and general dexamethasone. Initial CT head with no acute findings. Cardiac: No acute issues. Pulmonary: Acute hypoxic respiratory failure secondary to pulmonary aspiration requiring intubation and ventilatory support. Continue to titrate off as tolerated. Renal: Acute renal failure resolved. Endo: No acute issues. GI: No acute issues. ID: Streptococcal bacteremia and streptococcal meningitis. Continue empiric antibiotics and dexamethasone. Cultures are pending. Repeat blood cultures negative to date. 2D echo with no evidence of vegetation. Heme/Onc: No acute issues. Psych: No acute issues. Miscellaneous: No acute issues. Prophylaxis: Heparin, famotidine Diet: Tube feeds Critical care time spent: 60 minutes Quality Stroke Does the patient have a stroke diagnosis?: No VTE Prior VTE?: No VTE Risk Level:: Medical - moderate - high VTE Device Contraindication: N/A - Device Ordered VTE Drug Contraindication: N/A - Med Ordered
[2024-11-06] MEDS: cefTRIAXone sodium 2 GM VIAL IVPUSH ×2 (13:16→23:42)
--- NOTE | 2024-11-06 15:14 | PM.IDPN ---
Subjective Subjective Date of Service: 11/06/24 Critical Care Time (minutes): 15 Comment: He is intubated now. He has strep pneumonia sensitive to PCN and cephalosporin He has decreased GFR today. CXR streaky right base ?atelectasis Objective Data Labs 11/06/24 04:57 11/06/24 04:57 Labs: Laboratory Results - last 24 hr 11/05/24 11/05/24 11/06/24 17:11 20:29 04:57 WBC 20.1 H RBC 4.19 L Hgb 13.8 L Hct 38.2 L MCV 91.2 MCH 32.9 MCHC 36.1 H RDW 14.5 Plt Count 94 L MPV 12.1 Immature Gran % (Auto) 1.9 H Neut % (Auto) 85.9 H Lymph % (Auto) 2.8 L [place] % (Auto) 8.8 Eos % (Auto) 0.0 Baso % (Auto) 0.6 Lymph # (Auto) 0.6 L [place] # (Auto) 1.8 H Eos # (Auto) 0.0 Baso # (Auto) 0.1 Abs Immat Gran (auto) 0.38 H Absolute Neuts (auto) 17.3 H Absolute Nucleated RBC 0.080 H Nucleated RBC % (auto) 0.4 H Smear Tech's Comments VERIFIED O2 Saturation 94.0 ABG pH at Pt Temp 7.49 H ABG pCO2 at Pt Temp 29 L ABG pO2 at Pt Temp 73 L ABG HCO3 22 ABG Base Excess (Actual) 0.2 VBG pH VBG pCO2 VBG pO2 VBG HCO3 VBG O2 Saturation VBG Base Excess Sodium 151 H Potassium 3.6 D Chloride 116 H Carbon Dioxide 23 Anion Gap 16 BUN 50 H Creatinine 1.43 H Estim Creat Clear Calc 76.8 Estimated GFR 50 Random Glucose 204 H Calcium 9.2 Phosphorus 3.5 Magnesium 2.8 H Total Bilirubin 0.9 AST 94 H ALT 75 H Alkaline Phosphatase 119 H Total Protein 7.0 Albumin 3.4 L Random Vancomycin 21.7 H 11/06/24 11/06/24 05:01 06:32 WBC RBC Hgb Hct MCV MCH MCHC RDW Plt Count MPV Immature Gran % (Auto) Neut % (Auto) Lymph % (Auto) [place] % (Auto) Eos % (Auto) Baso % (Auto) Lymph # (Auto) [place] # (Auto) Eos # (Auto) Baso # (Auto) Abs Immat Gran (auto) Absolute Neuts (auto) Absolute Nucleated RBC Nucleated RBC % (auto) Smear Tech's Comments O2 Saturation ABG pH at Pt Temp ABG pCO2 at Pt Temp ABG pO2 at Pt Temp ABG HCO3 ABG Base Excess (Actual) VBG pH 7.53 H VBG pCO2 29 VBG pO2 80 VBG HCO3 24 VBG O2 Saturation 96.0 VBG Base Excess 3.3 Sodium Potassium Chloride Carbon Dioxide Anion Gap BUN Creatinine Estim Creat Clear Calc Estimated GFR Random Glucose Calcium Phosphorus Magnesium Total Bilirubin AST ALT Alkaline Phosphatase Total Protein Albumin Random Vancomycin 11.7 L Microbiology Microbiology Results: Microbiology 11/03/24 23:52 Cerebrospinal Fluid Gram Stain - Final 11/03/24 23:52 Cerebrospinal Fluid CSF Examination - Final 11/03/24 23:52 Cerebrospinal Fluid Fluid Description - Final 11/03/24 23:52 Cerebrospinal Fluid CSF Culture - Final Streptococcus pneumoniae 11/03/24 20:03 Blood - Venous Blood Culture - Final Streptococcus pneumoniae 11/03/24 19:58 Blood - Venous Blood Culture - Final Streptococcus pneumoniae 11/04/24 11:55 Cerebrospinal Fluid Gram Stain - Final 11/04/24 11:55 Cerebrospinal Fluid CSF Examination - Final 11/04/24 11:55 Cerebrospinal Fluid Fluid Description - Final 11/04/24 11:55 Cerebrospinal Fluid CSF Culture - Preliminary Gram positive cocci 11/04/24 13:35 Blood - Venous Blood Culture - Preliminary No growth after 24 hours. 11/04/24 13:35 Blood - Venous Blood Culture - Preliminary No growth after 24 hours. Physical Exam Vital Signs: Vital Signs: Last Vital Signs Temp 99.0 F 11/06/24 14:00 Pulse 88 11/06/24 14:00 Resp 19 11/06/24 14:00 BP 120/73 11/06/24 14:00 Pulse Ox 93 11/06/24 14:00 O2 Del Method Mechanical Ventil ation 11/06/24 14:00 O2 Flow Rate 8 11/06/24 09:00 FiO2 50 11/06/24 14:00 Oxygen Flow Rate 8 11/03/24 19:38 BMI result Body Mass Index 46.9 Const: General: cooperative HEENT: Other: pupils pinpoint Head: Yes normal to inspection Face and sinus: Yes normal facial exam Mouth: Normal oral and palatal mucosa present Teeth and gingiva: dentition normal Eyes: General: appearance normal, both eyes and all related structures Pupils: Equal, round and reactive pupils present Resp: Effort & Inspection: normal respiratory effort Cardio: Rate: regular rate Rhythm: regular rhythm GI: Palpation (GI): Soft to palpation and nontender : General: Yes no CVA tenderness Back/Spine/Pelvis: Back: no CVA tenderness Skin: General skin exam: no rashes or lesions noted Neuro: General: moves all extremities Cranial nerves: Yes Equal, round and reactive pupils present Extrem: General: Yes normal to inspection Psych: Other: sedated Assessment and Plan Assessment and plan (1) Acute respiratory failure with hypoxia: Problem details: Sepsis ,strep pneumonia timmons sensitive Decreased GFR IV Ceftriaxone 2 g every 12 h and Dexamethasone 3/4 days Ceftriaxone 3/14 days Prognosis guarded. PCV-20 and catch up other vaccines on discharge. Status: Acute (2) Pulmonary aspiration: Status: Acute (3) Streptococcal meningitis: Status: Acute (4) Streptococcal bacteremia: Status: Acute (5) Sepsis: Status: Acute Time Spent With Patient Time: Total time managing care of this patient today ____ minutes.
[2024-11-06 18:20] LABS: Vancomycin Random 16.8 mcg/mL (15-20)
[2024-11-06 18:21] LABS: Creatinine Clr Calc Pharmacy 67.3; Estimated Glomerular Filt Rate 45
[2024-11-06 18:26] LABS: Glucose, Whole Blood 193 mg/dL (60-115)
--- NOTE | 2024-11-06 19:33 | PC.NURSE ---
Neuro: Patient currently sedated on Propofol as per OCT, attempted to titrate but patient resp increased to 24-30, and vent alarming, returned to original dosage as per OCT Cardiac: Cardizem gtt, titrated off this shift as HR decreased to 80?s dipped to 70, MD aware currently 100-110's Resp: Patient Tachypenic into the 50?s this morning, HR 110?-120?s, MD made aware, intubated at 0955 for respiratory distress, bilateral lung sounds heard, color change noted on colorimetric, placed on ACVC, see vent assessment for full details. Confirmed placement on chest xray, Tolerating well with sedation.? GI/: OG tube placed on intubation and placement confirmed on xray, tube feeds started as ordered increasing to goal as ordered, hernandez patent and draining. Integumentary/Musculoskeletal: purplish discoloration to lower extremities bilaterally, non pitting edema noted to upper and lower extremities Psychosocial (family etc.): family at bedside most of the day Infectious Disease: ID MD in to see patient, stated no precautions needed and family is not at risk, family made aware.
[2024-11-06] MEDS: dilTIAZem HCL 125 MG in 0.9 % Sodium Chloride 100 ML 10 MG IVCONT (23:35)
[2024-11-07] VITALS (31 sets, daily range): BP systolic 122–158; BP diastolic 68–96; PULSE 79–118; RESP 19–30; TEMP 34.8–38.6; O2SAT 91–96
[2024-11-07] MEDS: propofoL 1,000 MG/100 ML VIAL 25.2 MG IVCONT ×5 (00:15→18:03)
[2024-11-07 04:57] LABS: VBG HCO3 24 mmol/L (22-26); VBG pCO2 27 mmHg; VBG pH 7.55 (7.32-7.43); VBG pO2 92 mmHg
[2024-11-07 05:08] LABS: Basophils Percent Auto 0.3 % (0-2); Hematocrit 37.2 % (42.0-52.0); Hemoglobin 13.8 g/dl (14.0-18.0); Imm Gran Abs Auto 0.48 X10*3/uL (0.00-0.03); Imm Gran Pct Auto 3.1 % (0.0-0.4); Lymphocytes Absolute Auto 0.9 X10*3/uL (1.2-4.9); Lymphocytes Percent Auto 5.8 % (20-40); MANUAL DIFF FLAG SCAN; Mean Corpuscular HGB Conc 37.1 g/dl (31.0-36.0); Mean Corpuscular Hemoglobin 33.5 pg (27.0-33.0); Mean Corpuscular Volume 90.3 fL (80.0-98.0); Monocytes Absolute Auto 1.4 X10*3/uL (0.1-1.2); Monocytes Percent Auto 9.1 % (2-11); NRBC Pct Auto 0.8 /100WBC (0.0-0.2); Neutrophils Absolute Auto 12.6 x10*3/uL (2.0-8.3); Neutrophils Percent Auto 81.7 % (45-73); Platelet Count 130 X10*3/uL (160-400); Red Blood Count 4.12 X10*6/uL (4.60-5.80); Red Cell Distribution Width 15.1 % (11.0-16.0); SCAN SMEAR FLAG 1; White Blood Count 15.4 X10*3/uL (4.8-10.8)
[2024-11-07 05:35] LABS: SLIDE REVIEW VERIFIED
[2024-11-07] MEDS: dexAMETHasone sod phosphate 10 MG/ML VIAL IVPUSH ×3 (05:37→17:54)
[2024-11-07 05:45] LABS: Anion Gap 15 (12-20); Blood Urea Nitrogen 64 mg/dL (9-16); Carbon Dioxide 22 mmol/L (22-29); Chloride 123 mmol/L (96-108); Creatinine Clr Calc Pharmacy 66.5; Estimated Glomerular Filt Rate 44; Glucose Random 267 mg/dL (60-115); Magnesium 2.8 mg/dL (1.6-2.6); Phosphorus 2.4 mg/dL (2.7-4.5); Potassium 4.3 mmol/L (3.3-5.1); Sodium 156 mmol/L (135-145)
[2024-11-07 05:55] LABS: Venous Blood Gas Refer to POC result
[2024-11-07] MEDS: dilTIAZem HCL 125 MG in 0.9 % Sodium Chloride 100 ML 15 MG IVCONT ×2 (07:20→15:40)
[2024-11-07] MEDS: Chlorhexidine Gluc Oral Rinse 15 ML MOUTHWASH BUCCAL ×3 (08:08→20:20)
[2024-11-07] MEDS: Famotidine/PF 20 MG/2 ML VIAL IVPUSH (08:08)
[2024-11-07] MEDS: Enoxaparin Sodium 40 MG/0.4 ML SYRINGE SUBCUT (08:08)
[2024-11-07] MEDS: Albumin Human 25 % 100 ML IV ×2 (08:08→14:29)
[2024-11-07] MEDS: 0.9 % Sodium Chloride Flush 3 ML SYRINGE IVFLUSH ×3 (08:09→23:47)
[2024-11-07] MEDS: Potassium Phosphate/NS 15 MMOL/250 ML PLAST..BAG 62.5 MMOL IV (09:00)
--- NOTE | 2024-11-07 10:20 | PM.CCPN ---
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 On ER evaluation patient encephalopathic with significant leukocytosis. Initial CT head with no acute findings. Initial LP with on insufficiency so for PCR that is positive for Streptococcus. Blood cultures positive for Streptococcus. 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 Repeat LP performed in IR with additional CSF culture positive for Streptococcus. Required intubation on 11/06/2024 for pulmonary aspiration and acute refractory hypoxia. No events overnight. Critical Care Time (minutes): 60 Physical Exam Vital Signs: Vital Signs: Last Vital Signs Temp 100.8 F H 11/07/24 09:00 Pulse 103 H 11/07/24 09:00 Resp 19 11/07/24 09:00 BP 125/74 11/07/24 09:00 Pulse Ox 96 11/07/24 09:00 O2 Del Method Mechanical Ventil ation 11/07/24 09:00 O2 Flow Rate 8 11/06/24 09:00 FiO2 50 11/07/24 09:00 Oxygen Flow Rate 8 11/03/24 19:38 BMI result Body Mass Index 46.9 Const: General: no acute distress and other (Sedated on ventilatory support) Nutritional Appearance: obese Eyes: Sclerae: sclerae normal Neck: Neck: Yes no lymphadenopathy, Yes trachea midline and Yes supple Resp: Auscultation: crackles (Mild bilateral) Cardio: Rate: regular rate Rhythm: regular rhythm Heart sounds: no gallops, no murmurs and no rubs GI: Palpation (GI): Soft to palpation and Other GI palpation findings present ( Nontender) Auscultation: normal bowel sounds Extrem: General: Yes no pedal edema, No clubbing and No cyanosis Objective Data Labs 11/07/24 04:48 11/07/24 04:48 Labs: Laboratory Results - last 24 hr 11/06/24 11/06/24 11/07/24 17:54 18:21 04:48 WBC 15.4 H RBC 4.12 L Hgb 13.8 L Hct 37.2 L MCV 90.3 MCH 33.5 H MCHC 37.1 H RDW 15.1 Plt Count 130 L D MPV 12.0 Immature Gran % (Auto) 3.1 H Neut % (Auto) 81.7 H Lymph % (Auto) 5.8 L [place] % (Auto) 9.1 Eos % (Auto) 0.0 Baso % (Auto) 0.3 Lymph # (Auto) 0.9 L [place] # (Auto) 1.4 H Eos # (Auto) 0.0 Baso # (Auto) 0.0 Abs Immat Gran (auto) 0.48 H Absolute Neuts (auto) 12.6 H Absolute Nucleated RBC 0.120 H Nucleated RBC % (auto) 0.8 H Smear Tech's Comments VERIFIED VBG pH VBG pCO2 VBG pO2 VBG HCO3 VBG O2 Saturation VBG Base Excess Sodium 156 H Potassium 4.3 Chloride 123 H Carbon Dioxide 22 Anion Gap 15 BUN 64 H Creatinine 1.58 H 1.60 H Estim Creat Clear Calc 67.3 66.5 Estimated GFR 45 44 POC Glucose 193 H Random Glucose 267 H Calcium 9.0 Phosphorus 2.4 L Magnesium 2.8 H Albumin 3.0 L Random Vancomycin 16.8 11/07/24 04:52 WBC RBC Hgb Hct MCV MCH MCHC RDW Plt Count MPV Immature Gran % (Auto) Neut % (Auto) Lymph % (Auto) [place] % (Auto) Eos % (Auto) Baso % (Auto) Lymph # (Auto) [place] # (Auto) Eos # (Auto) Baso # (Auto) Abs Immat Gran (auto) Absolute Neuts (auto) Absolute Nucleated RBC Nucleated RBC % (auto) Smear Tech's Comments VBG pH 7.55 H VBG pCO2 27 VBG pO2 92 VBG HCO3 24 VBG O2 Saturation 98.0 VBG Base Excess 3.0 Sodium Potassium Chloride Carbon Dioxide Anion Gap BUN Creatinine Estim Creat Clear Calc Estimated GFR POC Glucose Random Glucose Calcium Phosphorus Magnesium Albumin Random Vancomycin Microbiology Microbiology Results: Microbiology 11/04/24 11:55 Cerebrospinal Fluid Gram Stain - Final 11/04/24 11:55 Cerebrospinal Fluid CSF Examination - Final 11/04/24 11:55 Cerebrospinal Fluid Fluid Description - Final 11/04/24 11:55 Cerebrospinal Fluid CSF Culture - Final Streptococcus pneumoniae 11/04/24 13:35 Blood - Venous Blood Culture - Preliminary No growth after 48 hours. 11/04/24 13:35 Blood - Venous Blood Culture - Preliminary No growth after 48 hours. 11/03/24 23:52 Cerebrospinal Fluid Gram Stain - Final 11/03/24 23:52 Cerebrospinal Fluid CSF Examination - Final 11/03/24 23:52 Cerebrospinal Fluid Fluid Description - Final 11/03/24 23:52 Cerebrospinal Fluid CSF Culture - Final Streptococcus pneumoniae 11/03/24 20:03 Blood - Venous Blood Culture - Final Streptococcus pneumoniae 11/03/24 19:58 Blood - Venous Blood Culture - Final Streptococcus pneumoniae Progress Note: A&P Assessment and plan (1) PAF (paroxysmal atrial fibrillation): Status: Acute (2) Class 3 obesity: Status: Acute (3) Hx of splenectomy: Status: Acute (4) CORINA (acute kidney injury): Status: Acute (5) Streptococcal bacteremia: Status: Acute (6) Streptococcal meningitis: Status: Acute (7) Pulmonary aspiration: Status: Acute (8) Acute respiratory failure with hypoxia: Status: Acute Plan Assessment: 59-year-old gentleman admitted with encephalopathy secondary to streptococcal meningitis/bacteremia further complicated by pulmonary aspiration requiring intubation and ventilatory support Plan: Neuro: Streptococcal meningitis based on CSF PCR studies and Gram stain. CSF culture is pending. Continue empiric antibiotics and general dexamethasone. Initial CT head with no acute findings. Cardiac: No acute issues. Pulmonary: Acute hypoxic respiratory failure secondary to pulmonary aspiration requiring intubation and ventilatory support. Continue to titrate off as tolerated. Renal: Hypernatremia, started on D5. Non oliguric. Continue to monitor renal indices and urine output. Endo: No acute issues. GI: No acute issues. ID: Streptococcal bacteremia and streptococcal meningitis. Continue ceftriaxone day 11/29 and dexamethasone day 11/19. Repeat blood cultures negative to date. 2D echo with no evidence of vegetation. Heme/Onc: No acute issues. Psych: No acute issues. Miscellaneous: No acute issues. Prophylaxis: Heparin, famotidine Diet: Tube feeds Critical care time spent: 60 minutes Quality Stroke Does the patient have a stroke diagnosis?: No VTE Prior VTE?: No VTE Risk Level:: Medical - moderate - high VTE Device Contraindication: N/A - Device Ordered VTE Drug Contraindication: N/A - Med Ordered
[2024-11-07] MEDS: Dextrose 5 % 1,000 ML 200 ML IVCONT ×2 (10:58→16:24)
[2024-11-07] MEDS: cefTRIAXone sodium 2 GM VIAL IVPUSH (11:12)
[2024-11-07 12:18] LABS: Glucose, Whole Blood 287 mg/dL (60-115)
[2024-11-07 15:21] LABS: OBS Int Ctl Valid YES; OBS1 POSITIVE (NEGATIVE)
--- NOTE | 2024-11-07 18:22 | PC.NURSE ---
ICU Day #: 4 Vent Day #: 2 Neuro/Resp: Sedated/intubated, on? propofol gtt per OCT. Does not open eyes , does not track, does not follow commands, flaccid extremities (passive ROM performed/reposition maintained).? Sedation vacation initiated approx. @ 1010,? tolerated PSV for approx 40 minutes? Now back on sedation and ACVC vent support? Cardiac: A fib, HR up to 110s, on Cardizem gtt - see MAR, Dr. Spence aware of the above vitals. GI: LBM? 11/07 , +bowel sounds, OGT in place, tolerating? TF without signs of intolerance. POC Q6hr : Manzano in place, patent /draining. Infectious:? on Ceftriaxone? Lines: peripheral IVs.
[2024-11-07 18:28] LABS: Glucose, Whole Blood 349 mg/dL (60-115)
[2024-11-07 20:37] LABS: Anion Gap 11 (12-20); Blood Urea Nitrogen 58 mg/dL (9-16); Calcium 8.5 mg/dL (8.4-10.2); Carbon Dioxide 23 mmol/L (22-29); Chloride 123 mmol/L (96-108); Creatinine Clr Calc Pharmacy 74.4; Estimated Glomerular Filt Rate 50; Glucose Random 403 mg/dL (60-115); Magnesium 2.6 mg/dL (1.6-2.6); Phosphorus 3.1 mg/dL (2.7-4.5); Potassium 4.3 mmol/L (3.3-5.1); Sodium 153 mmol/L (135-145)
[2024-11-07] MEDS: Insulin Lispro 100 UNIT/ML 3 ML VIAL 10 UNIT SUBCUT (21:03)
[2024-11-07] MEDS: propofoL 1,000 MG/100 ML VIAL 16.8 MG IVCONT (21:06)
[2024-11-07] MEDS: Dextrose 5 % 1,000 ML 125 ML IVCONT (21:45)
[2024-11-07] MEDS: dilTIAZem HCL 125 MG in 0.9 % Sodium Chloride 100 ML 10 MG IVCONT (23:47)
[2024-11-08] VITALS (40 sets, daily range): BP systolic 120–182; BP diastolic 58–113; PULSE 69–132; RESP 25–33; TEMP 34.9–38.7; O2SAT 92–95; BMI 43.2
[2024-11-08] MEDS: cefTRIAXone sodium 2 GM VIAL IVPUSH ×3 (00:39→23:48)
[2024-11-08] MEDS: dexAMETHasone sod phosphate 10 MG/ML VIAL IVPUSH ×2 (00:39→06:27)
[2024-11-08] MEDS: propofoL 1,000 MG/100 ML VIAL 25.2 MG IVCONT ×3 (00:40→08:27)
[2024-11-08 00:56] LABS: Glucose, Whole Blood 342 mg/dL (60-115)
[2024-11-08] MEDS: Insulin Lispro 100 UNIT/ML 3 ML VIAL SUBCUT ×4 (01:00→17:51)
[2024-11-08 05:41] LABS: VBG Base Excess 1.1 mmol/L; VBG HCO3 22 mmol/L (22-26); VBG pCO2 27 mmHg; VBG pH 7.52 (7.32-7.43); VBG pO2 69 mmHg
[2024-11-08 05:55] LABS: Venous Blood Gas Refer to POC result
[2024-11-08 06:11] LABS: Hematocrit 34.3 % (42.0-52.0); Hemoglobin 12.1 g/dl (14.0-18.0); Mean Corpuscular HGB Conc 35.3 g/dl (31.0-36.0); Mean Corpuscular Volume 93.5 fL (80.0-98.0); Mean Platelet Volume 12.2 fL (9.4-12.4); Platelet Count 182 X10*3/uL (160-400); Red Blood Count 3.67 X10*6/uL (4.60-5.80); Red Cell Distribution Width 15.2 % (11.0-16.0); White Blood Count 15.7 X10*3/uL (4.8-10.8)
[2024-11-08 06:12] LABS: NRBC Pct Auto 1.9 /100WBC (0.0-0.2)
[2024-11-08 06:16] LABS: Alanine Aminotransferase 72 U/L (0-40); Alkaline Phosphatase 101 U/L (39-117); Anion Gap 12 (12-20); Aspartate Amino Transferase 45 U/L (5-37); Bilirubin Total 0.6 mg/dL (0.0-1.0); Blood Urea Nitrogen 54 mg/dL (9-16); Calcium 8.2 mg/dL (8.4-10.2); Carbon Dioxide 22 mmol/L (22-29); Chloride 123 mmol/L (96-108); Estimated Glomerular Filt Rate 47; Glucose Random 374 mg/dL (60-115); Magnesium 2.5 mg/dL (1.6-2.6); Potassium 4.4 mmol/L (3.3-5.1); Sodium 153 mmol/L (135-145); Total Protein 5.9 g/dL (6.5-8.0)
[2024-11-08 07:53] LABS: Band Neutrophils Percent 1 % (3-5); Lymphocytes Absolute Manual 0.9 X10*3/uL (1.2-4.9); Lymphocytes Percent Manual 6 % (20-40); Metamyelocytes Absolute 0.3 X10*3/uL; Metamyelocytes Percent 2 %; Monocytes Absolute Manual 0.8 X10*3/uL (0.1-1.2); Monocytes Percent Manual 5 % (2-11); Neutrophils Absolute Manual 13.7 X10*3/uL (2.0-8.3); Neutrophils Percent Manual 86 % (45-73); Nucleated Red Blood Cells 3 /100WBC (0-0); RBC Morphology NOTED
[2024-11-08 07:54] LABS: Howell Jolly Bodies PRESENT; Large Platelet PRESENT; Platelet Estimate NORMAL (NORMAL); Platelet Morphology Comment NOTED; Target Cells 1+ (5-14) /OIF
[2024-11-08] MEDS: 0.9 % Sodium Chloride Flush 3 ML SYRINGE IVFLUSH ×3 (07:57→21:29)
[2024-11-08] MEDS: Chlorhexidine Gluc Oral Rinse 15 ML MOUTHWASH BUCCAL ×3 (08:26→19:36)
[2024-11-08] MEDS: Enoxaparin Sodium 40 MG/0.4 ML SYRINGE SUBCUT (08:26)
[2024-11-08] MEDS: Famotidine/PF 20 MG/2 ML VIAL IVPUSH (08:27)
[2024-11-08] MEDS: Acetaminophen 325 MG TABLET 650 MG PO ×2 (09:25→17:52)
[2024-11-08] MEDS: dexmedeTOMIDidine HCL/NS 400 MCG/100 ML INFUS..BTL 32.25 MCG IVCONT ×2 (09:28→11:42)
[2024-11-08 10:16] LABS: Osmolality Urine 554 mosm/kg (373-1093)
--- NOTE | 2024-11-08 10:35 | MHC.CLN ---
PT IS INTUBATED AND SEDATED DISCUSSED AT ROUNDS WITH PT RECEIVING PROMOTE AT MAX GOAL RATE 60ML/HR WITH 240ML FWF Q 6 HRS PROVIDES 1440KCALS (2105KCALS WITH SEDATION; 30KCALS/KG), 90G PROTEIN (1.28G/KG), 2168ML TOTAL WATER FROM FORMULA AND FLUSHES (30.9ML/KG) RECOMMEND INCREASING WATER FLUSHES TO 300ML FWF Q 4 HRS TO PROVIDE 3008ML TOTAL (33ML/KG BASED ON CMW) MONITOR TOLERANCE & LYTES SEE ALSO FULL CLINICAL NUTRITION ASSESSMENT
[2024-11-08 11:30] LABS: Glucose, Whole Blood 263 mg/dL (60-115)
[2024-11-08] MEDS: Dextrose 5 % 1,000 ML 80 ML IVCONT (13:17)
[2024-11-08] MEDS: fentaNYL citrate/PF 100 MCG/2 ML VIAL 25 MCG IVPUSH ×2 (13:49→18:00)
[2024-11-08] MEDS: dexmedeTOMIDidine HCL/NS 400 MCG/100 ML INFUS..BTL 38.7 MCG IVCONT (14:36)
--- NOTE | 2024-11-08 14:41 | MHC.CM.PN ---
PER MD ROUNDS, PT REMAINS ON VENTILATORY SUPPORT. BROTHER REMINGTON AT BEDSIDE. CM WILL CONTINUE TO FOLLOW FOR ANY CHANGE TO DC NEEDS.
[2024-11-08] MEDS: niCARdipine HCL 25 MG in 0.9 % Sodium Chloride 240 ML 50 MG IVCONT ×2 (15:07→19:35)
[2024-11-08 15:29] LABS: Anion Gap 13 (12-20); Blood Urea Nitrogen 60 mg/dL (9-16); Calcium 8.4 mg/dL (8.4-10.2); Carbon Dioxide 20 mmol/L (22-29); Chloride 124 mmol/L (96-108); Creatinine Clr Calc Pharmacy 68.2; Estimated Glomerular Filt Rate 48; Glucose Random 314 mg/dL (60-115); Potassium 5.3 mmol/L (3.3-5.1); Sodium 152 mmol/L (135-145)
[2024-11-08 16:29] LABS: Glucose, Whole Blood 282 mg/dL (60-115)
--- NOTE | 2024-11-08 16:44 | PM.CCPN ---
Subjective Subjective Date of Service: 11/08/24 Critical Care Time (minutes): 35 Comment: Continues to be on ventilator support On diltiazem drip this morning for AFib with RVR On propofol drip for sedation Physical Exam Vital Signs: Vital Signs: Last Vital Signs Temp 101.1 F H 11/08/24 16:00 Pulse 82 11/08/24 16:00 Resp 30 H 11/08/24 16:00 BP 132/87 11/08/24 16:00 Pulse Ox 92 11/08/24 16:00 O2 Del Method Mechanical Ventil ation 11/08/24 16:00 O2 Flow Rate 8 11/06/24 09:00 FiO2 40 11/08/24 16:00 Oxygen Flow Rate 8 11/03/24 19:38 BMI result Body Mass Index 43.2 General: acute distress, ill appearing and tired appearing Nutritional Appearance: well nourished and overweight Eyes: appearance normal, both eyes and all related structures; Alignment and Position: alignment normal and position normal Neck: No lymphadenopathy, no thyromegaly Resp: bilateral air entry equal, occasional added sounds present Cardio: Regular rate, regular rhythm; Heart sounds: S1 normal heart sound present and S2 normal heart sound present GI: soft, nontender, no guarding, no hepatosplenomegaly : bladder normal to inspection, bladder normal to palpation, no renal angle tenderness Skin: no rashes or lesions noted and elasticity normal Neuro: Does not follow any commands, poor neurological response, no focal deficits Objective Data Labs 11/08/24 05:33 11/08/24 14:51 Labs: Laboratory Results - last 24 hr 11/07/24 11/07/24 11/08/24 18:24 19:54 00:44 WBC RBC Hgb Hct MCV MCH MCHC RDW Plt Count MPV Immature Gran % (Auto) Neut % (Auto) Lymph % (Auto) [place] % (Auto) Eos % (Auto) Baso % (Auto) Lymph # (Auto) [place] # (Auto) Eos # (Auto) Baso # (Auto) Abs Immat Gran (auto) Absolute Neuts (auto) Absolute Nucleated RBC Nucleated RBC % (auto) Neutrophils % (Manual) Band Neutrophils % Lymphocytes % (Manual) Monocytes % (Manual) Metamyelocytes % Abs Neuts (Manual) Lymphocytes # (Manual) Monocytes # (Manual) Metamyelocytes # Nucleated RBCs Platelet Estimate Large Platelets Plt Morphology Comment RBC Morphology Target Cells Felipe-Alafaya Bodies Smear Path Review VBG pH VBG pCO2 VBG pO2 VBG HCO3 VBG O2 Saturation VBG Base Excess Sodium 153 H Potassium 4.3 Chloride 123 H Carbon Dioxide 23 Anion Gap 11 L BUN 58 H Creatinine 1.43 H Estim Creat Clear Calc 74.4 Estimated GFR 50 POC Glucose 349 H 342 H Random Glucose 403 H* Calcium 8.5 Phosphorus 3.1 Magnesium 2.6 Total Bilirubin AST ALT Alkaline Phosphatase Total Protein Albumin Urine Osmolality Ur Random Sodium 11/08/24 11/08/24 11/08/24 05:33 05:38 09:22 WBC 15.7 H RBC 3.67 L Hgb 12.1 L Hct 34.3 L MCV 93.5 MCH 33.0 MCHC 35.3 RDW 15.2 Plt Count 182 D MPV 12.2 Immature Gran % (Auto) Cancelled Neut % (Auto) Cancelled Lymph % (Auto) Cancelled [place] % (Auto) Cancelled Eos % (Auto) Cancelled Baso % (Auto) Cancelled Lymph # (Auto) Cancelled [place] # (Auto) Cancelled Eos # (Auto) Cancelled Baso # (Auto) Cancelled Abs Immat Gran (auto) Cancelled Absolute Neuts (auto) Cancelled Absolute Nucleated RBC 0.300 H Nucleated RBC % (auto) 1.9 H Neutrophils % (Manual) 86 H Band Neutrophils % 1 L Lymphocytes % (Manual) 6 L Monocytes % (Manual) 5 Metamyelocytes % 2 Abs Neuts (Manual) 13.7 H Lymphocytes # (Manual) 0.9 L Monocytes # (Manual) 0.8 Metamyelocytes # 0.3 Nucleated RBCs 3 H Platelet Estimate NORMAL Large Platelets PRESENT Plt Morphology Comment NOTED RBC Morphology NOTED Target Cells 1+ (5-14) Felipe-Alafaya Bodies PRESENT Smear Path Review SEE NOTE VBG pH 7.52 H VBG pCO2 27 VBG pO2 69 VBG HCO3 22 VBG O2 Saturation 94.0 VBG Base Excess 1.1 Sodium 153 H Potassium 4.4 Chloride 123 H Carbon Dioxide 22 Anion Gap 12 BUN 54 H Creatinine 1.52 H Estim Creat Clear Calc 70.0 Estimated GFR 47 POC Glucose Random Glucose 374 H* Calcium 8.2 L Phosphorus 3.0 Magnesium 2.5 Total Bilirubin 0.6 AST 45 H ALT 72 H Alkaline Phosphatase 101 Total Protein 5.9 L Albumin 3.0 L Urine Osmolality 554 Ur Random Sodium 24.0 11/08/24 11/08/24 11/08/24 11:22 14:51 16:23 WBC RBC Hgb Hct MCV MCH MCHC RDW Plt Count MPV Immature Gran % (Auto) Neut % (Auto) Lymph % (Auto) [place] % (Auto) Eos % (Auto) Baso % (Auto) Lymph # (Auto) [place] # (Auto) Eos # (Auto) Baso # (Auto) Abs Immat Gran (auto) Absolute Neuts (auto) Absolute Nucleated RBC Nucleated RBC % (auto) Neutrophils % (Manual) Band Neutrophils % Lymphocytes % (Manual) Monocytes % (Manual) Metamyelocytes % Abs Neuts (Manual) Lymphocytes # (Manual) Monocytes # (Manual) Metamyelocytes # Nucleated RBCs Platelet Estimate Large Platelets Plt Morphology Comment RBC Morphology Target Cells Felipe-Alafaya Bodies Smear Path Review VBG pH VBG pCO2 VBG pO2 VBG HCO3 VBG O2 Saturation VBG Base Excess Sodium 152 H Potassium 5.3 H D Chloride 124 H Carbon Dioxide 20 L Anion Gap 13 BUN 60 H Creatinine 1.49 H Estim Creat Clear Calc 68.2 Estimated GFR 48 POC Glucose 263 H 282 H Random Glucose 314 H Calcium 8.4 Phosphorus Magnesium Total Bilirubin AST ALT Alkaline Phosphatase Total Protein Albumin Urine Osmolality Ur Random Sodium Microbiology Microbiology Results: Microbiology 11/04/24 11:55 Cerebrospinal Fluid Gram Stain - Final 11/04/24 11:55 Cerebrospinal Fluid CSF Examination - Final 11/04/24 11:55 Cerebrospinal Fluid Fluid Description - Final 11/04/24 11:55 Cerebrospinal Fluid CSF Culture - Final Streptococcus pneumoniae 11/04/24 13:35 Blood - Venous Blood Culture - Preliminary No growth after 48 hours. 11/04/24 13:35 Blood - Venous Blood Culture - Preliminary No growth after 48 hours. 11/03/24 23:52 Cerebrospinal Fluid Gram Stain - Final 11/03/24 23:52 Cerebrospinal Fluid CSF Examination - Final 11/03/24 23:52 Cerebrospinal Fluid Fluid Description - Final 11/03/24 23:52 Cerebrospinal Fluid CSF Culture - Final Streptococcus pneumoniae 11/03/24 20:03 Blood - Venous Blood Culture - Final Streptococcus pneumoniae 11/03/24 19:58 Blood - Venous Blood Culture - Final Streptococcus pneumoniae Progress Note: A&P Assessment and plan (1) PAF (paroxysmal atrial fibrillation): Status: Acute (2) Class 3 obesity: Status: Acute (3) CORINA (acute kidney injury): Status: Acute (4) Hypokalemia: Status: Acute (5) Metabolic encephalopathy: Status: Acute (6) Pulmonary aspiration: Status: Acute (7) Acute respiratory failure with hypoxia: Status: Acute Plan 59-year-old gentleman with underlying 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 On ER evaluation patient encephalopathic with significant leukocytosis. Initial CT head with no acute findings. Initial LP with on insufficiency so for PCR that is positive for Streptococcus. Blood cultures positive for Streptococcus. 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 Repeat LP performed in IR with additional CSF culture positive for Streptococcus. Required intubation on 11/06/2024 for pulmonary aspiration and acute refractory hypoxia. Neuro: Acute encephalopathy due to pneumococcal meningitis If the mental status does not improve by tomorrow we will get a MRI of the brain On propofol for sedation, as needed fentanyl for analgesia. Propofol turned off, started on Precedex, we will continue to closely monitor the mental status off propofol Close neurological status monitoring in the ICU every hour Cardiac: Patient was already around Cardizem drip due to tachycardia, after starting Precedex heart rate improved, currently is off Cardizem drip Became became hypotensive to 180s so started on a nicardipine drip for the management of hypertensive urgency Respiratory: Acute hypoxemic respiratory failure due to aspiration pneumonia from poor mental status, reintubated on 11/06/2024 Currently on ventilator support On PRVC mode FiO2 40%, PEEP 5, TV 400, RR 20 Peak pressures and plateau pressures are under the curve Ventilator management bundle with head end elevation, aspiration precaution, chlorhexidine mouthwash, daily awakening trials, daily spontaneous breathing trials GI: We will start on tube feeds Renal: Acute kidney injury possibly secondary to ATN from strep bacteremia Baseline creatinine normal, creatinine today is 1.49 We will closely monitor I's and O's Avoid nephrotoxic medications Acute hypernatremia: Sodium up to 153 On D5 water drip We will send urine sodium and urine osmolality Overall patient is volume overloaded, IVC 2.4 cm noncollapsible, peripheral edema present Heme: Chronic anemia, closely monitor H&H, transfuse for hemoglobin less than 7 grams/deciliter Endocrine: Blood sugars under control Sliding scale insulin as needed Infectious disease: Blood and CSF cultures positive for strep Initially treated with dexamethasone for the management of strep meningitis Antibiotics de-escalated to ceftriaxone Musculoskeletal: Decubitus ulcer prevention protocol Lines: Peripheral Manzano removed Abdominal ultrasound bedside showed some urine in the bladder Prophylaxis: Lovenox, famotidine Quality Stroke Does the patient have a stroke diagnosis?: No VTE Prior VTE?: No VTE Risk Level:: Medical - moderate - high VTE Device Contraindication: N/A - Device Ordered VTE Drug Contraindication: N/A - Med Ordered
[2024-11-08] MEDS: dexmedeTOMIDidine HCL/NS 400 MCG/100 ML INFUS..BTL 48.38 MCG IVCONT ×4 (16:53→22:27)
[2024-11-08] MEDS: propofoL 1,000 MG/100 ML VIAL 8.4 MG IVCONT (17:21)
[2024-11-08 17:38] LABS: Glucose, Whole Blood 313 mg/dL (60-115)
--- NOTE | 2024-11-08 18:40 | PC.NURSE ---
Assumed care at 0700- pt. remains mechanically vented and sedated on propofol gtt- +cough, +pain response, -gag, grimaces with oral care, does not open eyes, extremities flaccid. HR sustaining 140s- MD notified. Pt. cross titrated to precedex- see MAR- no change in neuro status. Pt. afib on tele, HR sustaining 70s-90s on precedex gtt. Pt. RR sustaining >35, SBP sustaining 160s-180s, MD notified- PRN fentanyl ordered and given per OCT. No change to SBPs, MD notified- nicardipine gtt ordered and started per MAR. RR remains >30-Propofol restarted per OCT. OGT patent, running TF per order- no s/s of TF intolerance. Manzano removed at 1230, no spontaneous void. Bladder scanned at 1800 for approx 880cc- straight cath performed for 800cc dark yellow urine. [place] catheter currently in place. Tmax 101.8- MD aware, PRN tylenol given per OCT, ice bags applied. Q2 oral care and repositioning performed. Family at bedside, updated by this RN and MD. Plan of care ongoing.
[2024-11-08] MEDS: propofoL 1,000 MG/100 ML VIAL 33.6 MG IVCONT ×2 (21:28→23:48)
[2024-11-09] VITALS (38 sets, daily range): BP systolic 86–147; BP diastolic 48–89; PULSE 50–109; RESP 17–31; TEMP 34.8–39.1; O2SAT 94–100; BMI 43.6
--- NOTE | 2024-11-09 | EEG_ITS ---
This is a 16-channel portable EEG performed in ICU. Patient is intubated and unresponsive. Background EEG rhythm is low amplitude diffuse theta to delta range with no asymmetry, sharp wave spikes, or paroxysmal tendency or asymmetry. Some lead artifacts are noted. Cardiac lead did not reveal any significant abnormality. IMPRESSION: Severe generalized slowing of nonspecific nature. Clinical correlation is recommended. No evidence of epileptic activity. MD KEYUR Olsen/JACQUELINE / [id number]
[2024-11-09] MEDS: Insulin Lispro 100 UNIT/ML 3 ML VIAL SUBCUT ×4 (00:04→17:32)
[2024-11-09 00:05] LABS: Glucose, Whole Blood 292 mg/dL (60-115)
[2024-11-09] MEDS: dexmedeTOMIDidine HCL/NS 400 MCG/100 ML INFUS..BTL 48.38 MCG IVCONT ×11 (00:38→19:58)
[2024-11-09] MEDS: niCARdipine HCL 25 MG in 0.9 % Sodium Chloride 240 ML 50 MG IVCONT (00:39)
[2024-11-09] MEDS: Dextrose 5 % 1,000 ML 80 ML IVCONT ×2 (01:21→15:58)
[2024-11-09] MEDS: propofoL 1,000 MG/100 ML VIAL 33.6 MG IVCONT ×3 (02:32→08:30)
[2024-11-09 04:42] LABS: VBG Base Excess 0.1 mmol/L; VBG HCO3 22 mmol/L (22-26); VBG pCO2 30 mmHg; VBG pH 7.47 (7.32-7.43); VBG pO2 40 mmHg
[2024-11-09 05:09] LABS: Venous Blood Gas Refer to POC result
[2024-11-09 05:15] LABS: Basophils Absolute Auto 0.1 X10*3/uL (0.0-0.2); Basophils Percent Auto 0.3 % (0-2); Hematocrit 39.1 % (42.0-52.0); Hemoglobin 13.4 g/dl (14.0-18.0); Imm Gran Pct Auto 1.9 % (0.0-0.4); Lymphocytes Absolute Auto 1.6 X10*3/uL (1.2-4.9); Lymphocytes Percent Auto 5.9 % (20-40); MANUAL DIFF FLAG SCAN; Mean Corpuscular HGB Conc 34.3 g/dl (31.0-36.0); Mean Corpuscular Volume 96.3 fL (80.0-98.0); Mean Platelet Volume 11.9 fL (9.4-12.4); Monocytes Absolute Auto 1.4 X10*3/uL (0.1-1.2); Monocytes Percent Auto 5.3 % (2-11); NRBC Pct Auto 0.7 /100WBC (0.0-0.2); Neutrophils Absolute Auto 22.9 x10*3/uL (2.0-8.3); Neutrophils Percent Auto 86.6 % (45-73); Platelet Count 255 X10*3/uL (160-400); Red Blood Count 4.06 X10*6/uL (4.60-5.80); Red Cell Distribution Width 15.4 % (11.0-16.0); SCAN SMEAR FLAG 1; White Blood Count 26.4 X10*3/uL (4.8-10.8)
[2024-11-09 05:37] LABS: Alanine Aminotransferase 52 U/L (0-40); Albumin Level 2.7 g/dL (3.5-5.0); Anion Gap 13 (12-20); Aspartate Amino Transferase 25 U/L (5-37); Bilirubin Total 0.5 mg/dL (0.0-1.0); Blood Urea Nitrogen 52 mg/dL (9-16); Calcium 7.6 mg/dL (8.4-10.2); Carbon Dioxide 20 mmol/L (22-29); Chloride 124 mmol/L (96-108); Creatinine Clr Calc Pharmacy 74.7; Estimated Glomerular Filt Rate 53; Glucose Random 302 mg/dL (60-115); Magnesium 2.4 mg/dL (1.6-2.6); Potassium 4.7 mmol/L (3.3-5.1); Sodium 152 mmol/L (135-145); Total Protein 5.5 g/dL (6.5-8.0)
[2024-11-09 05:44] LABS: Alkaline Phosphatase 85 U/L (39-117)
[2024-11-09 05:51] LABS: SLIDE REVIEW VERIFIED
--- NOTE | 2024-11-09 06:11 | PC.NURSE ---
Patient remains intubated/sedated. RASS -4 for vent synchrony, propofol and precedex gtts running per OCT. Afib on tele, HR 80s-90s. Nicardipine gtt running?per MAR for BP control. Patient is edematous to extremities, occasionally?weeping. Tmax 101.8, ice packs applied with good effect. Lung sounds diminished throughout, see vent assessment. TF running at goal. FMS in place and patent, draining dark brown liquid stool. Patient has [place] catheter, no urine output. Bladder scanned at 0000 for >750mL, patient straight cath'd?per protocol for 900mL. Patient continued with no urine output, bladder scanned at 0600 for 1120mLs. JARETH Roche notified, hernandez catheter replaced with 1200 immediate output. Skin overall warm dry and intact, with purple mottling/discoloration?to bilateral thighs. Patient repositioned Q2HR, bed locked in lowest position, bed alarm on.?
[2024-11-09] MEDS: Enoxaparin Sodium 40 MG/0.4 ML SYRINGE SUBCUT (08:29)
[2024-11-09] MEDS: Chlorhexidine Gluc Oral Rinse 15 ML MOUTHWASH BUCCAL ×3 (08:29→19:58)
[2024-11-09] MEDS: 0.9 % Sodium Chloride Flush 3 ML SYRINGE IVFLUSH ×3 (08:29→23:22)
[2024-11-09] MEDS: Famotidine/PF 20 MG/2 ML VIAL IVPUSH (08:30)
--- NOTE | 2024-11-09 08:55 | P.PNCC_ITS ---
Subjective Subjective Date of Service: 11/09/24 Critical Care Time (minutes): 35 Comment: Continues to be on ventilator support Poor neurological response Physical Exam 2 Vital Signs: Vital Signs: Last Vital Signs Temp 101.1 F H 11/09/24 08:00 Pulse 78 11/09/24 08:00 Resp 25 H 11/09/24 08:00 BP 136/87 11/09/24 08:00 Pulse Ox 97 11/09/24 08:00 O2 Del Method Mechanical Ventil ation 11/09/24 08:00 O2 Flow Rate 8 11/06/24 09:00 FiO2 30 11/09/24 08:00 Oxygen Flow Rate 8 11/03/24 19:38 BMI result Body Mass Index 43.6 General: In somewhat acute distress, ill appearing and tired appearing Nutritional Appearance: well nourished and overweight Eyes: appearance normal, both eyes and all related structures; Alignment and Position: alignment normal and position normal Neck: No lymphadenopathy, no thyromegaly Resp: bilateral air entry equal, occasional added sounds present Cardio: Regular rate, regular rhythm; Heart sounds: S1 normal heart sound present and S2 normal heart sound present GI: soft, nontender, no guarding, no hepatosplenomegaly : bladder normal to inspection, bladder normal to palpation, no renal angle tenderness Skin: no rashes or lesions noted and elasticity normal Neuro: Poor neurological response, does not follow any commands Objective Data Labs 11/09/24 04:39 11/09/24 04:39 Labs: Laboratory Results - last 24 hr 11/08/24 11/08/24 11/08/24 05:33 09:22 11:22 WBC RBC Hgb Hct MCV MCH MCHC RDW Plt Count MPV Immature Gran % (Auto) Neut % (Auto) Lymph % (Auto) [place] % (Auto) Eos % (Auto) Baso % (Auto) Lymph # (Auto) [place] # (Auto) Eos # (Auto) Baso # (Auto) Abs Immat Gran (auto) Absolute Neuts (auto) Absolute Nucleated RBC Nucleated RBC % (auto) Smear Tech's Comments Smear Path Review SEE NOTE VBG pH VBG pCO2 VBG pO2 VBG HCO3 VBG O2 Saturation VBG Base Excess Sodium Potassium Chloride Carbon Dioxide Anion Gap BUN Creatinine Estim Creat Clear Calc Estimated GFR POC Glucose 263 H Random Glucose Calcium Phosphorus Magnesium Total Bilirubin AST ALT Alkaline Phosphatase Total Protein Albumin Urine Osmolality 554 Ur Random Sodium 24.0 11/08/24 11/08/24 11/08/24 14:51 16:23 17:30 WBC RBC Hgb Hct MCV MCH MCHC RDW Plt Count MPV Immature Gran % (Auto) Neut % (Auto) Lymph % (Auto) [place] % (Auto) Eos % (Auto) Baso % (Auto) Lymph # (Auto) [place] # (Auto) Eos # (Auto) Baso # (Auto) Abs Immat Gran (auto) Absolute Neuts (auto) Absolute Nucleated RBC Nucleated RBC % (auto) Smear Tech's Comments Smear Path Review VBG pH VBG pCO2 VBG pO2 VBG HCO3 VBG O2 Saturation VBG Base Excess Sodium 152 H Potassium 5.3 H D Chloride 124 H Carbon Dioxide 20 L Anion Gap 13 BUN 60 H Creatinine 1.49 H Estim Creat Clear Calc 68.2 Estimated GFR 48 POC Glucose 282 H 313 H Random Glucose 314 H Calcium 8.4 Phosphorus Magnesium Total Bilirubin AST ALT Alkaline Phosphatase Total Protein Albumin Urine Osmolality Ur Random Sodium 11/09/24 11/09/24 11/09/24 00:02 04:38 04:39 WBC 26.4 H RBC 4.06 L Hgb 13.4 L Hct 39.1 L MCV 96.3 MCH 33.0 MCHC 34.3 RDW 15.4 Plt Count 255 D MPV 11.9 Immature Gran % (Auto) 1.9 H Neut % (Auto) 86.6 H Lymph % (Auto) 5.9 L [place] % (Auto) 5.3 Eos % (Auto) 0.0 Baso % (Auto) 0.3 Lymph # (Auto) 1.6 [place] # (Auto) 1.4 H Eos # (Auto) 0.0 Baso # (Auto) 0.1 Abs Immat Gran (auto) 0.50 H Absolute Neuts (auto) 22.9 H Absolute Nucleated RBC 0.180 H Nucleated RBC % (auto) 0.7 H Smear Tech's Comments VERIFIED Smear Path Review VBG pH 7.47 H VBG pCO2 30 VBG pO2 40 VBG HCO3 22 VBG O2 Saturation 65.0 VBG Base Excess 0.1 Sodium 152 H Potassium 4.7 Chloride 124 H Carbon Dioxide 20 L Anion Gap 13 BUN 52 H Creatinine 1.36 Estim Creat Clear Calc 74.7 Estimated GFR 53 POC Glucose 292 H Random Glucose 302 H Calcium 7.6 L D Phosphorus 4.0 Magnesium 2.4 Total Bilirubin 0.5 AST 25 ALT 52 H Alkaline Phosphatase 85 Total Protein 5.5 L Albumin 2.7 L Urine Osmolality Ur Random Sodium Microbiology Microbiology Results: Microbiology 11/04/24 11:55 Cerebrospinal Fluid Gram Stain - Final 11/04/24 11:55 Cerebrospinal Fluid CSF Examination - Final 11/04/24 11:55 Cerebrospinal Fluid Fluid Description - Final 11/04/24 11:55 Cerebrospinal Fluid CSF Culture - Final Streptococcus pneumoniae 11/04/24 13:35 Blood - Venous Blood Culture - Preliminary No growth after 48 hours. 11/04/24 13:35 Blood - Venous Blood Culture - Preliminary No growth after 48 hours. 11/03/24 23:52 Cerebrospinal Fluid Gram Stain - Final 11/03/24 23:52 Cerebrospinal Fluid CSF Examination - Final 11/03/24 23:52 Cerebrospinal Fluid Fluid Description - Final 11/03/24 23:52 Cerebrospinal Fluid CSF Culture - Final Streptococcus pneumoniae 11/03/24 20:03 Blood - Venous Blood Culture - Final Streptococcus pneumoniae 11/03/24 19:58 Blood - Venous Blood Culture - Final Streptococcus pneumoniae Progress Note: A&P Assessment and plan (1) PAF (paroxysmal atrial fibrillation): Status: Acute (2) Class 3 obesity: Status: Acute (3) Elevated LFTs: Status: Acute (4) CORINA (acute kidney injury): Status: Acute (5) Acute viral syndrome: Status: Acute (6) Streptococcal bacteremia: Status: Acute (7) Metabolic encephalopathy: Status: Acute (8) Pulmonary aspiration: Status: Acute (9) Acute respiratory failure with hypoxia: Status: Acute Plan 59-year-old gentleman with underlying 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 On ER evaluation patient encephalopathic with significant leukocytosis. Initial CT head with no acute findings. Initial LP with on insufficiency so for PCR that is positive for Streptococcus. Blood cultures positive for Streptococcus. 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 Repeat LP performed in IR with additional CSF culture positive for Streptococcus. Required intubation on 11/06/2024 for pulmonary aspiration and acute refractory hypoxia. 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 Propofol turned off, started on Precedex, we will continue to closely monitor the mental status off propofol Close neurological status monitoring in the ICU every hour Cardiac: Hypertensive urgency: on nicardipine drip for the management of hypertensive urgency Respiratory: Acute hypoxemic respiratory failure due to aspiration pneumonia from poor mental status, reintubated on 11/06/2024 Currently on ventilator support On PRVC mode FiO2 40%, PEEP 5, TV 400, RR 20 poor candidate for weaning trials due to poor mental status Peak pressures and plateau pressures are under the curve Ventilator management bundle with head end elevation, aspiration precaution, chlorhexidine mouthwash, daily awakening trials, daily spontaneous breathing trials GI: on tube feeds Renal: Acute kidney injury possibly secondary to ATN from strep bacteremia Baseline creatinine normal, creatinine today is 1.36 which is trending down We will closely monitor I's and O's Avoid nephrotoxic medications Acute hypernatremia: Sodium up to 152, will give lasix 40mg 1 time due to significant edema and volume overload on the bedside ultrasound On D5 water drip at 100 cc/hour Overall patient is volume overloaded, IVC 2.4 cm noncollapsible, peripheral edema present Heme: Chronic anemia, closely monitor H&H, transfuse for hemoglobin less than 7 grams/deciliter Endocrine: Blood sugars under control Sliding scale insulin as needed Infectious disease: Blood and CSF cultures positive for strep, in the setting of s/p spleenectomy Initially treated with dexamethasone for the management of strep meningitis Antibiotics de-escalated to ceftriaxone Musculoskeletal: Decubitus ulcer prevention protocol Lines: Peripheral Manzano removed Abdominal ultrasound bedside showed some urine in the bladder Prophylaxis: Lovenox, famotidine Quality Stroke Does the patient have a stroke diagnosis?: No VTE Prior VTE?: No VTE Risk Level:: Medical - moderate - high VTE Device Contraindication: N/A - Device Ordered VTE Drug Contraindication: N/A - Med Ordered
[2024-11-09] MEDS: niCARdipine HCL 25 MG in 0.9 % Sodium Chloride 240 ML IVCONT (09:26)
[2024-11-09] MEDS: Furosemide 40 MG/4 ML VIAL IVPUSH (09:44)
[2024-11-09 11:17] LABS: Glucose, Whole Blood 351 mg/dL (60-115)
[2024-11-09] MEDS: cefTRIAXone sodium 2 GM VIAL IVPUSH ×2 (11:21→23:52)
[2024-11-09] MEDS: fentaNYL citrate/PF 100 MCG/2 ML VIAL 25 MCG IVPUSH (12:45)
[2024-11-09] MEDS: gadobutroL 10 ML VIAL IVPUSH (13:14)
--- NOTE | 2024-11-09 14:45 | MHC.CM.PN ---
Pt remains intubated in ICU w/meningitis: MRI and EEG scheduled. Pt on Cardene gtt secondary to Afib. D/C planning ongoing - pt independent prior to admission. CM to follow
[2024-11-09 18:01] LABS: Glucose, Whole Blood 280 mg/dL (60-115)
--- NOTE | 2024-11-09 18:12 | PC.NURSE ---
Assumed care at 0700. Pt mechanically vented. Pt on dex and prop drips. D5 running at 80mL/hr. TF running at goal rate, pt tolerating. Propofol stopped at 1000 in preparation for EEG and for sedation vacation. Pt taken to MRI at approx 1200. Pt temp elevated, 102.6 max. Pt placed on cooling blanket at approx 1430 to some positive effect. See MAR and assorted assessments for details.
[2024-11-09 21:55] LABS: Alanine Aminotransferase 58 U/L (0-40); Albumin Level 2.4 g/dL (3.5-5.0); Alkaline Phosphatase 88 U/L (39-117); Anion Gap 10 (12-20); Aspartate Amino Transferase 43 U/L (5-37); Bilirubin Total 0.8 mg/dL (0.0-1.0); Blood Urea Nitrogen 71 mg/dL (9-16); Carbon Dioxide 19 mmol/L (22-29); Chloride 125 mmol/L (96-108); Estimated Glomerular Filt Rate 40; Glucose Random 290 mg/dL (60-115); Potassium 5.3 mmol/L (3.3-5.1); Sodium 149 mmol/L (135-145); Total Protein 5.5 g/dL (6.5-8.0)
[2024-11-09] MEDS: dexmedeTOMIDidine HCL/NS 400 MCG/100 ML INFUS..BTL 41.93 MCG IVCONT (21:56)
[2024-11-09] MEDS: Sodium Zirconium Cyclosilicate 10 GM POWD.PACK PO (22:35)
[2024-11-10] VITALS (56 sets, daily range): BP systolic 75–169; BP diastolic 37–87; PULSE 58–174; RESP 23–42; TEMP 35–39.2; O2SAT 91–100; BMI 41.6
[2024-11-10] MEDS: dexmedeTOMIDidine HCL/NS 400 MCG/100 ML INFUS..BTL 41.93 MCG IVCONT ×4 (00:13→06:16)
[2024-11-10] MEDS: Insulin Lispro 100 UNIT/ML 3 ML VIAL SUBCUT ×5 (00:14→23:45)
[2024-11-10] MEDS: Dextrose 5 % 1,000 ML 80 ML IVCONT (04:16)
[2024-11-10 04:49] LABS: Glucose, Whole Blood 266 mg/dL (60-115)
[2024-11-10 05:15] LABS: VBG Base Excess -3.4 mmol/L; VBG HCO3 18 mmol/L (22-26); VBG pCO2 25 mmHg; VBG pH 7.46 (7.32-7.43); VBG pO2 41 mmHg
[2024-11-10 05:17] LABS: Basophils Absolute Auto 0.1 X10*3/uL (0.0-0.2); Basophils Percent Auto 0.4 % (0-2); Eosinophils Absolute Auto 0.1 X10*3/uL (0.0-0.4); Eosinophils Percent Auto 0.3 % (0-4); Hematocrit 37.8 % (42.0-52.0); Hemoglobin 12.9 g/dl (14.0-18.0); Imm Gran Abs Auto 0.49 X10*3/uL (0.00-0.03); Imm Gran Pct Auto 1.5 % (0.0-0.4); Lymphocytes Absolute Auto 1.9 X10*3/uL (1.2-4.9); Lymphocytes Percent Auto 5.8 % (20-40); MANUAL DIFF FLAG SCAN; Mean Corpuscular HGB Conc 34.1 g/dl (31.0-36.0); Mean Corpuscular Hemoglobin 32.6 pg (27.0-33.0); Mean Corpuscular Volume 95.5 fL (80.0-98.0); Mean Platelet Volume 12.1 fL (9.4-12.4); Monocytes Absolute Auto 0.8 X10*3/uL (0.1-1.2); Monocytes Percent Auto 2.4 % (2-11); NRBC Pct Auto 0.2 /100WBC (0.0-0.2); Neutrophils Absolute Auto 29.8 x10*3/uL (2.0-8.3); Neutrophils Percent Auto 89.6 % (45-73); Platelet Count 181 X10*3/uL (160-400); Red Blood Count 3.96 X10*6/uL (4.60-5.80); Red Cell Distribution Width 14.6 % (11.0-16.0); SCAN SMEAR FLAG 1
[2024-11-10 05:23] LABS: Venous Blood Gas Refer to POC result
[2024-11-10 05:24] LABS: White Blood Count 33.3 X10*3/uL (4.8-10.8)
[2024-11-10 05:35] LABS: Alanine Aminotransferase 40 U/L (0-40); Albumin Level 2.1 g/dL (3.5-5.0); Anion Gap 13 (12-20); Aspartate Amino Transferase 33 U/L (5-37); Bilirubin Total 0.6 mg/dL (0.0-1.0); Blood Urea Nitrogen 79 mg/dL (9-16); Calcium 7.4 mg/dL (8.4-10.2); Carbon Dioxide 18 mmol/L (22-29); Chloride 121 mmol/L (96-108); Creatinine Clr Calc Pharmacy 48.5; Estimated Glomerular Filt Rate 33; Glucose Random 337 mg/dL (60-115); Magnesium 2.3 mg/dL (1.6-2.6); Phosphorus 5.9 mg/dL (2.7-4.5); Potassium 4.8 mmol/L (3.3-5.1); Sodium 147 mmol/L (135-145); Total Protein 4.8 g/dL (6.5-8.0)
[2024-11-10 05:37] LABS: Alkaline Phosphatase 84 U/L (39-117)
[2024-11-10 05:47] LABS: SLIDE REVIEW VERIFIED
--- NOTE | 2024-11-10 06:24 | PC.NURSE ---
Assumed care 1899 - pt intubated?and sedated. On precedex, RASS - 4 for vent synchrony - see MAR for titrations. On ACPC settings - see vent assessment.BP 90-100s systolic, Cardene turned off - see MAR for titrations. Afib on tele, converted to sinus?@ 2109,??HR 50s. K - 5.3, Lokelma ordered and administered. Fecal management?system in place and patent - draining dark brown liquid stool.?
[2024-11-10] MEDS: 0.9 % Sodium Chloride Flush 3 ML SYRINGE IVFLUSH ×2 (07:41→16:17)
[2024-11-10] MEDS: Chlorhexidine Gluc Oral Rinse 15 ML MOUTHWASH BUCCAL ×3 (07:41→20:20)
[2024-11-10] MEDS: Enoxaparin Sodium 40 MG/0.4 ML SYRINGE SUBCUT (07:41)
[2024-11-10] MEDS: Famotidine/PF 20 MG/2 ML VIAL IVPUSH (07:42)
--- NOTE | 2024-11-10 08:47 | P.PNCC_ITS ---
Subjective Subjective Date of Service: 11/10/24 Interval History: Continues to have very poor mental status, not opening eyes or following any commands. Only neurological response we see is over breathing the vent and vent dyssynchrony Critical Care Time (minutes): 35 Physical Exam 2 Vital Signs: Vital Signs: Last Vital Signs Temp 99.9 F 11/10/24 08:00 Pulse 78 11/10/24 08:00 Resp 30 H 11/10/24 08:00 BP 101/52 L 11/10/24 08:00 Pulse Ox 94 11/10/24 08:00 O2 Del Method Mechanical Ventil ation 11/10/24 08:00 O2 Flow Rate 8 11/06/24 09:00 FiO2 25 11/10/24 08:00 Oxygen Flow Rate 8 11/03/24 19:38 BMI result Body Mass Index 41.6 General: Middle-aged male, ill-appearing, lying unresponsive connected to the ventilator Nutritional Appearance: well nourished and overweight Eyes: appearance normal, both eyes and all related structures; Alignment and Position: alignment normal and position normal Neck: No lymphadenopathy, no thyromegaly Resp: bilateral air entry equal, occasional added sounds present Cardio: Regular rate, regular rhythm; Heart sounds: S1 normal heart sound present and S2 normal heart sound present GI: soft, nontender, no guarding, no hepatosplenomegaly : bladder normal to inspection, bladder normal to palpation, no renal angle tenderness Skin: no rashes or lesions noted and elasticity normal Neuro: No spontaneous movements, does not follow commands, Objective Data Labs 11/10/24 05:05 11/10/24 05:05 Labs: Laboratory Results - last 24 hr 11/09/24 11/09/24 11/09/24 11:08 17:14 21:29 WBC RBC Hgb Hct MCV MCH MCHC RDW Plt Count MPV Immature Gran % (Auto) Neut % (Auto) Lymph % (Auto) Patrick % (Auto) Eos % (Auto) Baso % (Auto) Lymph # (Auto) Patrick # (Auto) Eos # (Auto) Baso # (Auto) Abs Immat Gran (auto) Absolute Neuts (auto) Absolute Nucleated RBC Nucleated RBC % (auto) Smear Tech's Comments VBG pH VBG pCO2 VBG pO2 VBG HCO3 VBG O2 Saturation VBG Base Excess Sodium 149 H Potassium 5.3 H Chloride 125 H Carbon Dioxide 19 L Anion Gap 10 L BUN 71 H Creatinine 1.76 H Estim Creat Clear Calc 58.0 Estimated GFR 40 POC Glucose 351 H* 280 H Random Glucose 290 H Calcium 8.0 L Phosphorus Magnesium Total Bilirubin 0.8 AST 43 H ALT 58 H Alkaline Phosphatase 88 Total Protein 5.5 L Albumin 2.4 L 11/09/24 11/10/24 11/10/24 23:43 05:05 05:06 WBC 33.3 H* RBC 3.96 L Hgb 12.9 L Hct 37.8 L MCV 95.5 MCH 32.6 MCHC 34.1 RDW 14.6 Plt Count 181 D MPV 12.1 Immature Gran % (Auto) 1.5 H Neut % (Auto) 89.6 H Lymph % (Auto) 5.8 L Patrick % (Auto) 2.4 Eos % (Auto) 0.3 Baso % (Auto) 0.4 Lymph # (Auto) 1.9 Patrick # (Auto) 0.8 Eos # (Auto) 0.1 Baso # (Auto) 0.1 Abs Immat Gran (auto) 0.49 H Absolute Neuts (auto) 29.8 H Absolute Nucleated RBC 0.060 H Nucleated RBC % (auto) 0.2 Smear Tech's Comments VERIFIED VBG pH 7.46 H VBG pCO2 25 VBG pO2 41 VBG HCO3 18 L VBG O2 Saturation 68.0 VBG Base Excess -3.4 Sodium 147 H Potassium 4.8 Chloride 121 H Carbon Dioxide 18 L Anion Gap 13 BUN 79 H Creatinine 2.05 H Estim Creat Clear Calc 48.5 Estimated GFR 33 POC Glucose 266 H Random Glucose 337 H Calcium 7.4 L D Phosphorus 5.9 H Magnesium 2.3 Total Bilirubin 0.6 AST 33 ALT 40 Alkaline Phosphatase 84 Total Protein 4.8 L Albumin 2.1 L Microbiology Microbiology Results: Microbiology 11/04/24 13:35 Blood - Venous Blood Culture - Final No growth after 5 days. 11/04/24 13:35 Blood - Venous Blood Culture - Final No growth after 5 days. 11/04/24 11:55 Cerebrospinal Fluid Gram Stain - Final 11/04/24 11:55 Cerebrospinal Fluid CSF Examination - Final 11/04/24 11:55 Cerebrospinal Fluid Fluid Description - Final 11/04/24 11:55 Cerebrospinal Fluid CSF Culture - Final Streptococcus pneumoniae 11/03/24 23:52 Cerebrospinal Fluid Gram Stain - Final 11/03/24 23:52 Cerebrospinal Fluid CSF Examination - Final 11/03/24 23:52 Cerebrospinal Fluid Fluid Description - Final 11/03/24 23:52 Cerebrospinal Fluid CSF Culture - Final Streptococcus pneumoniae 11/03/24 20:03 Blood - Venous Blood Culture - Final Streptococcus pneumoniae 11/03/24 19:58 Blood - Venous Blood Culture - Final Streptococcus pneumoniae Progress Note: A&P Assessment and plan (1) PAF (paroxysmal atrial fibrillation): Status: Acute (2) Class 3 obesity: Status: Acute (3) Elevated LFTs: Status: Acute (4) CORINA (acute kidney injury): Status: Acute (5) Hypokalemia: Status: Acute (6) Acute viral syndrome: Status: Acute (7) Sepsis: Status: Acute (8) Streptococcal bacteremia: Status: Acute (9) Encephalopathy: Status: Acute (10) Acute respiratory failure with hypoxia: Status: Acute (11) Pulmonary aspiration: Status: Acute Plan 59-year-old gentleman with underlying 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 On ER evaluation patient encephalopathic with significant leukocytosis. Initial CT head with no acute findings. Initial LP with on insufficiency so for PCR that is positive for Streptococcus. Blood cultures positive for Streptococcus. 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 Repeat LP performed in IR with additional CSF culture positive for Streptococcus. Required intubation on 11/06/2024 for pulmonary aspiration and acute refractory hypoxia. 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 EEG showing generalized slowing, no seizures. On Precedex for anxiolysis- will titrate down; off propofol since yesterday. Close neurological status monitoring in the ICU every hour Cardiac: Hypertensive urgency: off nicardipine drip for the management of hypertensive urgency Paroxysmal atrial fibrillation: previously on diltiazem drip currently in sinus rhtyhm Respiratory: Acute hypoxemic respiratory failure due to aspiration pneumonia from poor mental status, reintubated on 11/06/2024 Currently on ventilator support On PRVC mode FiO2 40%, PEEP 5, TV 400, RR 20, poor candidate for weaning trials due to poor mental status Peak pressures and plateau pressures are under the curve Ventilator management bundle with head end elevation, aspiration precaution, chlorhexidine mouthwash, daily awakening trials, daily spontaneous breathing trials GI: on tube feeds Renal: Acute kidney injury possibly secondary to ATN from strep bacteremia Baseline creatinine normal, creatinine increasing, up to 2.05 this morning Net fluid balance 3.8 L positive yesterday, we will increase Lasix to 40 mg b.i.d. We will closely monitor I's and O's Avoid nephrotoxic medications Acute hypernatremia: Sodium down to 147 On D5 water drip at 100 cc/hour, we will stop Overall patient is volume overloaded, IVC 2.4 cm noncollapsible, peripheral edema present Acute hyperphosphatemia: We will adjust the tube feeds as his renal function is slightly worsening Heme: Chronic anemia, closely monitor H&H, transfuse for hemoglobin less than 7 grams/deciliter Endocrine: Blood sugars not under control due to dextrose drip for hypernatremia We will discontinue dextrose Sliding scale insulin as needed Infectious disease: Blood and CSF cultures positive for strep, in the setting of s/p spleenectomy Initially treated with dexamethasone for the management of strep meningitis Antibiotics de-escalated to ceftriaxone Musculoskeletal: Decubitus ulcer prevention protocol Lines: Peripheral Manzano removed Prophylaxis: heparin, famotidine Quality Stroke Does the patient have a stroke diagnosis?: No VTE Prior VTE?: No VTE Risk Level:: Medical - moderate - high VTE Device Contraindication: N/A - Device Ordered VTE Drug Contraindication: N/A - Med Ordered
[2024-11-10] MEDS: Heparin Sodium,Porcine 5,000 UNIT/ML VIAL 5000 UNIT SUBCUT ×2 (10:17→16:50)
--- NOTE | 2024-11-10 10:30 | MHC.CLN ---
F/U PT REMAINS INTUBATED AND SEDATED DISCUSSED AT ROUNDS WITH PT RECEIVING PROMOTE AT MAX GOAL RATE 60ML/HR WITH 300ML FWF Q 4 HRS PROVIDES 1440KCALS (2105KCALS WITH SEDATION; 30KCALS/KG), 90G PROTEIN (1.28G/KG), 3008ML TOTAL WATER FROM FORMULA AND FLUSHES (33ML/KG) MONITOR TOLERANCE & LYTES
[2024-11-10] MEDS: cefTRIAXone sodium 2 GM VIAL IVPUSH (11:32)
[2024-11-10] MEDS: Furosemide 40 MG/4 ML VIAL IVPUSH ×2 (11:32→16:50)
[2024-11-10 11:47] LABS: Glucose, Whole Blood 237 mg/dL (60-115)
--- NOTE | 2024-11-10 14:36 | MHC.CM.PN ---
Pt continues on ventilatory support d/t strep pna in a pt s/p splenectomy as a child. No sedation and no return of neuro/cognitive fx:pt to continue vent support and IV ATB. Pt from home w/significant other: d/c plans remain ongoing
[2024-11-10] MEDS: Amiodarone/Dextrose 150 MG/100 ML PLAST..BAG 600 MG IV ×2 (15:00→15:09)
--- NOTE | 2024-11-10 15:08 | P.CNID_ITS ---
History of Present Illness Data of Consult Service Date: 11/10/24 Primary Care Provider: Marcos Woods MD [facility] Past Medical History Medical History Umbilical hernia (04/12/23) Obesity (BMI 30-39.9) Hypertension Asthma Family History Family history: reviewed and not pertinent Surgical History Surgical History History of appendectomy (04/12/23) Hx of splenectomy Social History Social History Household Members: Significant Other Housing: House Do you presently have visiting nurse or other home services: No Alcohol intake: current Alcohol intake frequency: a few times a week Patient Tobacco Use Status: Never used Tobacco service: No Meds Allergies Allergy/AdvReac Type Severity Reaction Status Date / Time No Known Allergies Allergy Verified 11/03/24 19:43 Active Medications: Current Medications Acetaminophen (Acetaminophen 325 Mg Tablet) 650 mg PO Q6H PRN PRN Reason: Pain, Mild 1-3,fever,headache Last Admin: 11/08/24 17:52 Dose: 650 mg Calcium Carbonate (Calcium Carbonate 750 Mg Tab.Chew) 750 mg PO Q4H PRN PRN Reason: Heartburn Ceftriaxone Sodium (Ceftriaxone Sodium 2 Gm Vial) 2 gm IVPUSH Q12H FOR[facility]LY [facility], [facility]1983 Last Admin: 11/10/24 11:32 Dose: 2 gm Chlorhexidine Gluconate (Chlorhexidine Gluc Oral Rinse 15 Ml Mouthwash) 15 ml BUCCAL TID FORMERLY [facility], 1928–1983 Last Admin: 11/10/24 07:41 Dose: 15 ml Famotidine (Famotidine/Pf 20 Mg/2 Ml Vial) 20 mg IVPUSH DAILY FOR[facility]LY [facility], [facility]1983 Last Admin: 11/10/24 07:42 Dose: 20 mg Fentanyl (Fentanyl Citrate/Pf 100 Mcg/2 Ml Vial) 25 mcg IVPUSH Q2H PRN; Protocol PRN Reason: Anxiety Last Admin: 11/09/24 12:45 Dose: 25 mcg Furosemide (Furosemide 40 Mg/4 Ml Vial) 40 mg IVPUSH BID@0900,1800 FOR[facility], [facility]; Protocol Last Admin: 11/10/24 11:32 Dose: 40 mg Heparin Sodium (Porcine) (Heparin Sodium,Porcine 5,000 Unit/Ml Vial) 5,000 unit SUBCUT Q8H EMG Last Admin: 11/10/24 10:17 Dose: 5,000 unit Propofol (Diprivan) 1,000 mg in 100 mls @ 0 mls/hr IVCONT .Q0M MEG; Protocol Last Titration: 11/09/24 19:15 Dose: Infused Dexmedetomidine HCl (Precedex) 400 mcg in 100 mls @ 0 mls/hr IVCONT .Q0M MEG; Protocol Last Titration: 11/10/24 15:06 Dose: 1 mcg/kg/hr, 32.25 mls/hr Insulin Human Lispro (Insulin Lispro 100 Unit/Ml 3 Ml Vial) 0 unit SUBCUT Q6H MEG; Protocol Last Admin: 11/10/24 12:07 Dose: 4 unit Sodium Chloride (0.9 % Sodium Chloride Flush 3 Ml Syringe) 3 ml IVFLUSH QSHIFT [facility] Last Admin: 11/10/24 07:41 Dose: 3 ml Home Medications ?Medication ?Instructions ?Recorded ?Confirmed ?Last Taken ?Type montelukast 10 mg tablet 10 mg PO BEDTIME 10/09/20 11/04/24 04/11/23 History naproxen sodium 220 mg capsule 220 mg PO BID PRN Pain 10/09/20 11/04/24 Unknown History (Aleve) valsartan 160 mg tablet 160 mg PO DAILY 04/12/23 11/04/24 04/12/23 History prednisone 20 mg tablet 20 mg PO BID 11/04/24 11/04/24 Unknown History sildenafil 100 mg tablet 100 mg PO DAILY PRN Erectile 11/04/24 11/04/24 Unknown History Dysfunction Physical Exam 2 Vital Signs: Vital Signs: Last Vital Signs Temp 101.3 F H 11/10/24 15:00 Pulse 174 H 11/10/24 15:06 Resp 24 H 11/10/24 15:06 BP 123/86 11/10/24 15:06 Pulse Ox 96 11/10/24 15:06 O2 Del Method Mechanical Ventil ation 11/10/24 15:00 O2 Flow Rate 8 11/06/24 09:00 FiO2 25 11/10/24 15:00 Oxygen Flow Rate 8 11/03/24 19:38 BMI result Body Mass Index 41.6 Results Labs 11/10/24 05:05 11/10/24 05:05 Labs: Short CBC 11/10/24 Range/Units 05:05 WBC 33.3 H* (4.8-10.8) X10*3/uL Hgb 12.9 L (14.0-18.0) g/dl Hct 37.8 L (42.0-52.0) % Plt Count 181 D (160-400) X10*3/uL BMP 11/09/24 11/10/24 21:29 05:05 Sodium 149 H 147 H Potassium 5.3 H 4.8 Chloride 125 H 121 H Carbon Dioxide 19 L 18 L BUN 71 H 79 H Creatinine 1.76 H 2.05 H Calcium 8.0 L 7.4 L D Liver Function 11/09/24 11/10/24 Range/Units 21:29 05:05 Total Bilirubin 0.8 0.6 (0.0-1.0) mg/dL AST 43 H 33 (5-37) U/L ALT 58 H 40 (0-40) U/L Alkaline Phosphatase 88 84 (39-117) U/L Albumin 2.4 L 2.1 L (3.5-5.0) g/dL Microbiology Microbiology Results: Microbiology 11/04/24 13:35 Blood - Venous Blood Culture - Final No growth after 5 days. 11/04/24 13:35 Blood - Venous Blood Culture - Final No growth after 5 days. 11/04/24 11:55 Cerebrospinal Fluid Gram Stain - Final 11/04/24 11:55 Cerebrospinal Fluid CSF Examination - Final 11/04/24 11:55 Cerebrospinal Fluid Fluid Description - Final 11/04/24 11:55 Cerebrospinal Fluid CSF Culture - Final Streptococcus pneumoniae 11/03/24 23:52 Cerebrospinal Fluid Gram Stain - Final 11/03/24 23:52 Cerebrospinal Fluid CSF Examination - Final 11/03/24 23:52 Cerebrospinal Fluid Fluid Description - Final 11/03/24 23:52 Cerebrospinal Fluid CSF Culture - Final Streptococcus pneumoniae 11/03/24 20:03 Blood - Venous Blood Culture - Final Streptococcus pneumoniae 11/03/24 19:58 Blood - Venous Blood Culture - Final Streptococcus pneumoniae
[2024-11-10] MEDS: dexmedeTOMIDidine HCL/NS 400 MCG/100 ML INFUS..BTL 48.38 MCG IVCONT ×2 (15:09→15:53)
[2024-11-10 15:14] LABS: Hematocrit 40.1 % (42.0-52.0); Hemoglobin 13.9 g/dl (14.0-18.0); Mean Corpuscular HGB Conc 34.7 g/dl (31.0-36.0); Mean Corpuscular Hemoglobin 32.8 pg (27.0-33.0); Mean Corpuscular Volume 94.6 fL (80.0-98.0); Mean Platelet Volume 11.9 fL (9.4-12.4); NRBC Pct Auto 0.1 /100WBC (0.0-0.2); Platelet Count 252 X10*3/uL (160-400); Red Blood Count 4.24 X10*6/uL (4.60-5.80); Red Cell Distribution Width 14.5 % (11.0-16.0)
[2024-11-10 15:18] LABS: White Blood Count 46.5 X10*3/uL (4.8-10.8)
[2024-11-10] MEDS: dilTIAZem HCL 125 MG in 0.9 % Sodium Chloride 100 ML 10 MG IVCONT ×2 (15:20→22:04)
[2024-11-10 15:30] LABS: Anion Gap 15 (12-20); Blood Urea Nitrogen 86 mg/dL (9-16); Calcium 8.3 mg/dL (8.4-10.2); Carbon Dioxide 21 mmol/L (22-29); Chloride 118 mmol/L (96-108); Creatinine Clr Calc Pharmacy 39.6; Estimated Glomerular Filt Rate 26; Glucose Random 225 mg/dL (60-115); Potassium 4.5 mmol/L (3.3-5.1); Sodium 149 mmol/L (135-145)
[2024-11-10] MEDS: fentaNYL citrate/PF 100 MCG/2 ML VIAL 25 MCG IVPUSH (15:36)
[2024-11-10] MEDS: Amiodarone HCL 900 MG in 0.9 % Sodium Chloride 500 ML 34.53 MG IVCONT (15:41)
[2024-11-10] MEDS: propofoL 1,000 MG/100 ML VIAL 25.2 MG IVCONT (15:52)
[2024-11-10] MEDS: Norepinephrine Bitartrate/D5W 8 MG/250 ML PLAST..BAG 11.63 MG IVCONT (16:06)
[2024-11-10] MEDS: cefEPime HCl 1 GM in 0.9 % Sodium Chloride 50 ML IV (16:16)
[2024-11-10] MEDS: Acetaminophen 1,000 MG/100 ML PIGGYBACK 400 MG IV (16:49)
[2024-11-10] MEDS: Linezolid/D5W 600 MG/300 ML PIGGYBACK 300 MG IV (17:10)
--- NOTE | 2024-11-10 17:44 | P.PNCC_ITS ---
Critical Care Event Note Summary Date of Service: 11/10/24 Code activated: No Narrative: This case had a high probability of a clinically significant, sudden, or life threatening deterioration of this patient's condition which required my full and direct attention, intervention and personal management. Critical Care Time (minutes): 60 Comment: Patient went into AFib with RVR with heart rate over 200 along with tachypnea and desaturation. Patient's ventilator settings was changed from pressor support to PRVC due to instability. Patient is treated with 2 boluses of amiodarone without much improvement in the heart rate, a diltiazem drip was started which was up titrated to maximum of 15 mg per hour. Following the amiodarone boluses amiodarone drip has been started. Precedex was restarted to help with increased work of breathing without much benefit, later propofol was added following which patient became hypotensive. Levophed support was started, heart rate continues to remain high we will switch from Levophed to phenylephrine. As his white count increased to 40,000, creatinine increased to 2.5 his antibiotics is escalated to cefepime and Zyvox. We will get a [facility] abdomen and pelvis once he is more stable. Critical care time spent is about 60 minutes on managing AFib with RVR with rates about 200, managing ventilator dyssynchrony, managing multiple sedative drips, vasopressor management, switching vasopressors, titrating multiple drips.
[2024-11-10] MEDS: dexmedeTOMIDidine HCL/NS 400 MCG/100 ML INFUS..BTL 32.25 MCG IVCONT ×3 (17:53→23:18)
[2024-11-10] MEDS: Phenylephrine HCL 20 MG in 0.9 % Sodium Chloride 250 ML 46.91 MG IVCONT ×2 (18:45→23:19)
--- NOTE | 2024-11-10 19:00 | PC.NURSE ---
Assumed care of patient 0700. Sedation vacation per MD started 08:45. PSV trial started at 10:00AM, vent settings PSV 14/5.0, 25%. Pt maintaining volumes 400+ mL, mild tachypnea. Pt provided cold bed bath due to temp 99.9F at 11:15AM. Minerva care and hernandez care provided. IV Ceftriaxone given per orders. Pt has increased stool output via fecal management system, dark brown color. MD notified. 800mL output this shift 0700-19:00.? Approx 14:00 patient HR increasing, sinus tachycardia. Plan for repeat CBC, BMP and repeat blood cultures x2. 14:55 RN assisted phlebotomy with BC draw via ultrasound due to miss. Pt tele rhythm changed to Afib RVR with HR 200. MD called to bedside. New orders: Amiodarone load dose 150mg given x2. Amiodarone gtt started @1mg/min per MD. Cardizem gtt started per protocol. Prn Fentanyl IVP 25 mcg given per MD for RR 40. IV Precedex gtt restarted per MD. Respiratory therapy to bedside, changed vent settings from PSV back to ACPC RR 18/ inspiratory pressure 12/ PEEP 5 /FiO2 25%. Propofol gtt started per protocol per MD verbal order. Levophed gtt started per MD 16:06 after propofol initiated for MAP less than goal of 65. Levophed gtt titrated off 17:45 due to MAP 80s-90s. New critical lab 15:18 WBC count 46.5. New orders for Linezolid IV and Cefepime IV given. Plan for Abd CT and Chest CT w/o contrast when patient HR stabilized. IV Tylenol given for Tmax 102.6F, improved to 101.3F. Family (brother Nelson + Sister Massiel) updated by MD in waiting room. Family visited at bedside when patient HR improved to 120s. 18:30? FiO2 increased to 35% due to SaO2 88%. Phenylephrine gtt started per MD and per protocol 18:45 for MAP <65 with positive effect. HR 105 Afib during RN to RN report. BP 104/66 (MAP 68).
[2024-11-10 20:16] LABS: Appearance Urine Clear; Color Urine Yellow; Glucose Urine UA Negative (Negative); Leukocyte Esterase Urine Trace (Negative); Nitrite Urine Negative (Negative); UMIC TRIGGER UACC YES; Urine Blood Small (1+) (Negative); Urine Ketones Negative (Negative); Urine Protein Trace mg/dL (Neg-Trace)
[2024-11-10] MEDS: propofoL 1,000 MG/100 ML VIAL 16.8 MG IVCONT (20:20)
[2024-11-10 20:26] LABS: Bacteria Urine None Seen (None Seen); Squamous Epithelial Cell Urine 0-2 /HPF (0-2); UACC Culture Trigger YES
[2024-11-10] MEDS: Acetaminophen Oral Liquid 650 MG/20.3 ML SOLUTION 975 MG PO (23:46)
[2024-11-11] VITALS (35 sets, daily range): BP systolic 79–166; BP diastolic 29–88; PULSE 58–145; RESP 20–34; TEMP 34.7–39.1; O2SAT 92–99
[2024-11-11 01:07] LABS: Alanine Aminotransferase 38 U/L (0-40); Albumin Level 2.4 g/dL (3.5-5.0); Alkaline Phosphatase 83 U/L (39-117); Anion Gap 13 (12-20); Aspartate Amino Transferase 32 U/L (5-37); Bilirubin Total 0.3 mg/dL (0.0-1.0); Blood Urea Nitrogen 92 mg/dL (9-16); Calcium 7.9 mg/dL (8.4-10.2); Carbon Dioxide 19 mmol/L (22-29); Chloride 122 mmol/L (96-108); Creatinine Clr Calc Pharmacy 36.3; Estimated Glomerular Filt Rate 24; Glucose Random 253 mg/dL (60-115); Potassium 4.7 mmol/L (3.3-5.1); Sodium 149 mmol/L (135-145); Total Protein 5.7 g/dL (6.5-8.0)
[2024-11-11] MEDS: Heparin Sodium,Porcine 5,000 UNIT/ML VIAL 5000 UNIT SUBCUT ×3 (01:15→16:51)
[2024-11-11] MEDS: Albumin Human 25 % 100 ML 133.33 ML IV ×2 (01:15→01:54)
[2024-11-11] MEDS: propofoL 1,000 MG/100 ML VIAL 16.8 MG IVCONT ×2 (01:56→08:06)
[2024-11-11] MEDS: dexmedeTOMIDidine HCL/NS 400 MCG/100 ML INFUS..BTL 32.25 MCG IVCONT ×4 (01:57→20:33)
--- NOTE | 2024-11-11 03:14 | W.PM.CCHP ---
Procedures Date of Service Date of Service: 11/11/24 Central Line Placement Left IJ: Consent for Procedure: Emergent-no informed consent obtained Time out performed: Yes Sterile Technique Used: Yes Patient placed on monitor/pulse ox: Yes MD prep: mask, gown, gloves and other (hair cap) Central line prep: Chlorhexidine scrub Local anesthesia used: other anesthetic (propofol 100mg IVP) Ultrasound used for placement: Yes Central line lumen inserted: triple (20cm) Post procedure: sutured in place, good blood return, all ports aspirated, flushed, capped and sterile dressing applied Post procedure x-ray: tip of catheter in good position and no pneumothorax seen Patient tolerated procedure: well Complications: none
[2024-11-11] MEDS: cefEPime HCl 1 GM in 0.9 % Sodium Chloride 50 ML IV ×2 (03:40→16:52)
[2024-11-11] MEDS: Linezolid/D5W 600 MG/300 ML PIGGYBACK 300 MG IV ×2 (04:03→16:53)
[2024-11-11 04:22] LABS: Glucose, Whole Blood 264 mg/dL (60-115)
[2024-11-11 04:22] LABS: Glucose, Whole Blood 192 mg/dL (60-115)
[2024-11-11 04:35] LABS: VBG Base Excess -1.4 mmol/L; VBG HCO3 18 mmol/L (22-26); VBG pCO2 20 mmHg; VBG pH 7.57 (7.32-7.43); VBG pO2 55 mmHg
--- NOTE | 2024-11-11 04:35 | PC.NURSE ---
Upon initial assessment at 1900- pt on propofol/precedex gtts, RASS -4, titrated for vent synchrony. Afib on tele, HR 90-110s, cardizem/amio gtts infusing per OCT. Phenylephrine gtt titrated to maintain MAP > 65. Pt brought to CT scan at approx 2130 without incident. Pt converted from AF to NSR at approx 2200. Cardizem/amio gtts turned off per JARETH Roche. Phlebotomy unable to obtain labs. L IJ TLC placed by PA, placement confirmed by pCXR. ETT #7.5, 25 cm at lip, on ACPC settings, FiO2 titrated down as tolerated. Sputum sample sent per order. TF infusing at goal. FMS in place. Manzano in place, UOP approx 100 mL/hr. Urine sample sent per ordered. Tmax 102.6 via core bladder probe despite ice bags and APAP 975 mg via OGT x1- cooling blanket applied anteriorly with good effect. Skin overall intact. Repositioned in bed q2hr with wedges/pillows. Bed locked in lowest position. Family updated at bedside adn aware of pt status/plan of care. See EMR/flowsheet for further details.
[2024-11-11 04:38] LABS: Venous Blood Gas Refer to POC result
[2024-11-11 05:08] LABS: Basophils Absolute Auto 0.1 X10*3/uL (0.0-0.2); Basophils Percent Auto 0.2 % (0-2); Eosinophils Absolute Auto 0.1 X10*3/uL (0.0-0.4); Eosinophils Percent Auto 0.3 % (0-4); Hematocrit 28.6 % (42.0-52.0); Hemoglobin 10.1 g/dl (14.0-18.0); Imm Gran Abs Auto 0.34 X10*3/uL (0.00-0.03); Imm Gran Pct Auto 1.1 % (0.0-0.4); Lymphocytes Absolute Auto 1.6 X10*3/uL (1.2-4.9); Lymphocytes Percent Auto 5.1 % (20-40); MANUAL DIFF FLAG SCAN; Mean Corpuscular HGB Conc 35.3 g/dl (31.0-36.0); Mean Corpuscular Hemoglobin 32.8 pg (27.0-33.0); Mean Corpuscular Volume 92.9 fL (80.0-98.0); Mean Platelet Volume 12.4 fL (9.4-12.4); Monocytes Absolute Auto 0.9 X10*3/uL (0.1-1.2); Monocytes Percent Auto 2.8 % (2-11); NRBC Pct Auto 0.1 /100WBC (0.0-0.2); Neutrophils Percent Auto 90.5 % (45-73); Platelet Count 198 X10*3/uL (160-400); Red Blood Count 3.08 X10*6/uL (4.60-5.80); Red Cell Distribution Width 14.4 % (11.0-16.0); SCAN SMEAR FLAG 1
[2024-11-11 05:14] LABS: White Blood Count 30.9 X10*3/uL (4.8-10.8)
[2024-11-11 05:27] LABS: Alanine Aminotransferase 26 U/L (0-40); Albumin Level 2.7 g/dL (3.5-5.0); Anion Gap 16 (12-20); Aspartate Amino Transferase 25 U/L (5-37); Bilirubin Total 0.4 mg/dL (0.0-1.0); Blood Urea Nitrogen 97 mg/dL (9-16); Carbon Dioxide 16 mmol/L (22-29); Chloride 122 mmol/L (96-108); Creatinine Clr Calc Pharmacy 31.4; Estimated Glomerular Filt Rate 20; Glucose Random 276 mg/dL (60-115); Magnesium 2.5 mg/dL (1.6-2.6); Phosphorus 5.3 mg/dL (2.7-4.5); Potassium 4.5 mmol/L (3.3-5.1); Sodium 149 mmol/L (135-145); Total Protein 5.4 g/dL (6.5-8.0)
[2024-11-11 05:29] LABS: Alkaline Phosphatase 64 U/L (39-117)
[2024-11-11 05:32] LABS: SLIDE REVIEW VERIFIED
[2024-11-11] MEDS: Insulin Lispro 100 UNIT/ML 3 ML VIAL SUBCUT ×3 (05:36→17:56)
[2024-11-11] MEDS: 0.9 % Sodium Chloride Flush 3 ML SYRINGE IVFLUSH ×2 (08:09→15:00)
--- NOTE | 2024-11-11 08:33 | P.PNCC_ITS ---
Subjective Subjective Date of Service: 11/11/24 Interval History: Restarted back on sedation yesterday after the episode of tachycardia and tachypnea that lasted several hours He was in AFib with RVR needing multiple amiodarone boluses, amiodarone drip and a Cardizem drip. Currently he is reverted back to sinus rhythm. Remains on ventilator support Critical Care Time (minutes): 35 Physical Exam 2 Vital Signs: Vital Signs: Last Vital Signs Temp 100.4 F 11/11/24 08:00 Pulse 61 11/11/24 08:00 Resp 32 H 11/11/24 08:00 BP 109/54 L 11/11/24 08:00 Pulse Ox 96 11/11/24 08:00 O2 Del Method Mechanical Ventil ation 11/11/24 08:00 O2 Flow Rate 8 11/06/24 09:00 FiO2 30 11/11/24 08:00 Oxygen Flow Rate 8 11/03/24 19:38 BMI result Body Mass Index 41.6 General: Late middle-aged male in severe distress, lying unresponsive Nutritional Appearance: well nourished and overweight Eyes: appearance normal, both eyes and all related structures; Alignment and Position: alignment normal and position normal Neck: No lymphadenopathy, no thyromegaly Resp: bilateral air entry equal, crackles heard more in the left lung base and lateral areas Cardio: Regular rate, regular rhythm; Heart sounds: S1 normal heart sound present and S2 normal heart sound present, edema present GI: soft, nontender, no guarding, no hepatosplenomegaly : bladder normal to inspection, bladder normal to palpation, no renal angle tenderness Skin: no rashes or lesions noted and elasticity normal Neuro: No spontaneous neurological activity Objective Data Labs 11/11/24 04:24 11/11/24 04:24 Labs: Laboratory Results - last 24 hr 11/10/24 11/10/24 11/10/24 11:37 14:56 18:12 WBC 46.5 H* RBC 4.24 L Hgb 13.9 L Hct 40.1 L MCV 94.6 MCH 32.8 MCHC 34.7 RDW 14.5 Plt Count 252 D MPV 11.9 Immature Gran % (Auto) Neut % (Auto) Lymph % (Auto) [place] % (Auto) Eos % (Auto) Baso % (Auto) Lymph # (Auto) [place] # (Auto) Eos # (Auto) Baso # (Auto) Abs Immat Gran (auto) Absolute Neuts (auto) Absolute Nucleated RBC 0.040 H Nucleated RBC % (auto) 0.1 Smear Tech's Comments VBG pH VBG pCO2 VBG pO2 VBG HCO3 VBG O2 Saturation VBG Base Excess Sodium 149 H Potassium 4.5 Chloride 118 H Carbon Dioxide 21 L Anion Gap 15 BUN 86 H Creatinine 2.51 H Estim Creat Clear Calc 39.6 Estimated GFR 26 POC Glucose 237 H 264 H Random Glucose 225 H Calcium 8.3 L D Phosphorus Magnesium Total Bilirubin AST ALT Alkaline Phosphatase Total Protein Albumin Urine Color Urine Appearance Urine pH Ur Specific [place] Urine Protein Urine Glucose (UA) Urine Ketones Urine Blood Urine Nitrite Ur Leukocyte Esterase Urine RBC Urine WBC Ur Squamous Epith Cells Urine Bacteria Hyaline Casts 11/10/24 11/10/24 11/11/24 20:07 23:43 00:46 WBC RBC Hgb Hct MCV MCH MCHC RDW Plt Count MPV Immature Gran % (Auto) Neut % (Auto) Lymph % (Auto) [place] % (Auto) Eos % (Auto) Baso % (Auto) Lymph # (Auto) [place] # (Auto) Eos # (Auto) Baso # (Auto) Abs Immat Gran (auto) Absolute Neuts (auto) Absolute Nucleated RBC Nucleated RBC % (auto) Smear Tech's Comments VBG pH VBG pCO2 VBG pO2 VBG HCO3 VBG O2 Saturation VBG Base Excess Sodium 149 H Potassium 4.7 Chloride 122 H Carbon Dioxide 19 L Anion Gap 13 BUN 92 H Creatinine 2.74 H Estim Creat Clear Calc 36.3 Estimated GFR 24 POC Glucose 192 H Random Glucose 253 H Calcium 7.9 L Phosphorus Magnesium Total Bilirubin 0.3 AST 32 ALT 38 Alkaline Phosphatase 83 Total Protein 5.7 L Albumin 2.4 L Urine Color Yellow Urine Appearance Clear Urine pH 5.0 Ur Specific [place] 1.010 Urine Protein Trace Urine Glucose (UA) Negative Urine Ketones Negative Urine Blood Small (1+) H Urine Nitrite Negative Ur Leukocyte Esterase Trace H Urine RBC 3-5 H Urine WBC 11-20 H Ur Squamous Epith Cells 0-2 Urine Bacteria None Seen Hyaline Casts 6-10 11/11/24 11/11/24 04:24 04:28 WBC 30.9 H* RBC 3.08 L D Hgb 10.1 L D Hct 28.6 L D MCV 92.9 MCH 32.8 MCHC 35.3 RDW 14.4 Plt Count 198 MPV 12.4 Immature Gran % (Auto) 1.1 H Neut % (Auto) 90.5 H Lymph % (Auto) 5.1 L [place] % (Auto) 2.8 Eos % (Auto) 0.3 Baso % (Auto) 0.2 Lymph # (Auto) 1.6 [place] # (Auto) 0.9 Eos # (Auto) 0.1 Baso # (Auto) 0.1 Abs Immat Gran (auto) 0.34 H Absolute Neuts (auto) 28.0 H Absolute Nucleated RBC 0.020 H Nucleated RBC % (auto) 0.1 Smear Tech's Comments VERIFIED VBG pH 7.57 H VBG pCO2 20 VBG pO2 55 VBG HCO3 18 L VBG O2 Saturation 88.0 VBG Base Excess -1.4 Sodium 149 H Potassium 4.5 Chloride 122 H Carbon Dioxide 16 L Anion Gap 16 BUN 97 H Creatinine 3.16 H Estim Creat Clear Calc 31.4 Estimated GFR 20 POC Glucose Random Glucose 276 H Calcium 8.0 L Phosphorus 5.3 H Magnesium 2.5 Total Bilirubin 0.4 AST 25 ALT 26 Alkaline Phosphatase 64 Total Protein 5.4 L Albumin 2.7 L Urine Color Urine Appearance Urine pH Ur Specific [place] Urine Protein Urine Glucose (UA) Urine Ketones Urine Blood Urine Nitrite Ur Leukocyte Esterase Urine RBC Urine WBC Ur Squamous Epith Cells Urine Bacteria Hyaline Casts Microbiology Microbiology Results: Microbiology 11/10/24 20:07 Sputum - Suctioned Gram Stain - Final 11/04/24 13:35 Blood - Venous Blood Culture - Final No growth after 5 days. 11/04/24 13:35 Blood - Venous Blood Culture - Final No growth after 5 days. 11/04/24 11:55 Cerebrospinal Fluid Gram Stain - Final 11/04/24 11:55 Cerebrospinal Fluid CSF Examination - Final 11/04/24 11:55 Cerebrospinal Fluid Fluid Description - Final 11/04/24 11:55 Cerebrospinal Fluid CSF Culture - Final Streptococcus pneumoniae 11/03/24 23:52 Cerebrospinal Fluid Gram Stain - Final 11/03/24 23:52 Cerebrospinal Fluid CSF Examination - Final 11/03/24 23:52 Cerebrospinal Fluid Fluid Description - Final 11/03/24 23:52 Cerebrospinal Fluid CSF Culture - Final Streptococcus pneumoniae 11/03/24 20:03 Blood - Venous Blood Culture - Final Streptococcus pneumoniae 11/03/24 19:58 Blood - Venous Blood Culture - Final Streptococcus pneumoniae Progress Note: A&P Assessment and plan (1) PAF (paroxysmal atrial fibrillation): Status: Acute (2) Class 3 obesity: Status: Acute (3) CORINA (acute kidney injury): Status: Acute (4) Hypokalemia: Status: Acute (5) Acute lactic acidosis: Status: Acute (6) Streptococcal bacteremia: Status: Acute (7) Metabolic encephalopathy: Status: Acute (8) Encephalopathy: Status: Acute (9) Pulmonary aspiration: Status: Acute (10) Acute respiratory failure with hypoxia: Status: Acute Plan 59-year-old gentleman with underlying 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 On ER evaluation patient encephalopathic with significant leukocytosis. Initial CT head with no acute findings. Initial LP with on insufficiency so for PCR that is positive for Streptococcus. Blood cultures positive for Streptococcus. 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 Repeat LP performed in IR with additional CSF culture positive for Streptococcus. Required intubation on 11/06/2024 for pulmonary aspiration and acute refractory hypoxia. 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 EEG showing generalized slowing, no seizures. Had to be restarted on Precedex and propofol yesterday, we will taper off propofol 1st and then wean Precedex as tolerated Close neurological status monitoring in the ICU every hour Cardiac: Paroxysmal atrial fibrillation: on diltiazem drip that was turned off this morning Continue amiodarone drip currently in sinus [facility] Respiratory: Acute hypoxemic respiratory failure due to aspiration pneumonia from poor mental status, reintubated on 11/06/2024 Currently on ventilator support On PC mode FiO2 30%, 18/5, rate 18, poor candidate for weaning trials due to poor mental status Peak pressures and plateau pressures are under the curve Ventilator management bundle with head end elevation, aspiration precaution, chlorhexidine mouthwash, daily awakening trials, daily spontaneous breathing trials GI: on tube feeds Renal: Acute kidney injury possibly secondary to ATN from strep bacteremia Baseline creatinine normal, creatinine increasing, up to 2.05 this morning Net fluid balance 3.8 L positive yesterday, we will increase Lasix to 40 mg t.i.d. We will closely monitor I's and O's Avoid nephrotoxic medications high an-ion gap metabolic acidosis: secondary to renal failure, non anion gap acidosis secondary to hyperventilation will watch, bicarb 16 Acute hypernatremia: Sodium remains at 149 D5W stopped due to concerns of generalized edema, continue free water flushes Overall patient is volume overloaded, IVC 2.4 cm noncollapsible, peripheral edema present Acute hyperphosphatemia: We will adjust the tube feeds as his renal function is slightly worsening Heme: Chronic anemia,HB drop from 13.9 to 10.1 this morning; will watch for signs for bleeding closely monitor H&H, transfuse for hemoglobin less than 7 grams/deciliter WBC count down to 30.9 this morning from 46.5k yesterday Endocrine: blood sugars better after stopping dextrose drip Sliding scale insulin as needed Infectious disease: Blood and CSF cultures positive for strep, in the setting of s/p spleenectomy Initially treated with dexamethasone for 4 days for the management of strep meningitis Antibiotics escalated to cefepime and Zyvox due to worsening leuckocytosis and fevers CT chest abdomen and pelvis suggestive of bilateral pneumonia and perinephric stranding. Blood and urine cultures from yesterday pending. Musculoskeletal: Decubitus ulcer prevention protocol Lines: left IJ TLC Manzano due to failed voiding trials Prophylaxis: heparin, famotidine Quality Stroke Does the patient have a stroke diagnosis?: No VTE Prior VTE?: No VTE Risk Level:: Medical - moderate - high VTE Device Contraindication: N/A - Device Ordered VTE Drug Contraindication: N/A - Med Ordered
[2024-11-11] MEDS: Famotidine/PF 20 MG/2 ML VIAL IVPUSH (09:36)
[2024-11-11] MEDS: Furosemide 40 MG/4 ML VIAL IVPUSH ×3 (09:36→20:33)
[2024-11-11] MEDS: Chlorhexidine Gluc Oral Rinse 15 ML MOUTHWASH BUCCAL ×3 (09:38→20:32)
[2024-11-11] MEDS: dexmedeTOMIDidine HCL/NS 400 MCG/100 ML INFUS..BTL 19.35 MCG IVCONT ×2 (12:18→17:40)
[2024-11-11 12:51] LABS: Glucose, Whole Blood 269 mg/dL (60-115)
[2024-11-11 12:51] LABS: Glucose, Whole Blood 268 mg/dL (60-115)
[2024-11-11] MEDS: Acetaminophen 325 MG TABLET 650 MG PO (14:56)
[2024-11-11 15:15] LABS: Hematocrit 30.6 % (42.0-52.0); Hemoglobin 10.9 g/dl (14.0-18.0); Mean Corpuscular HGB Conc 35.6 g/dl (31.0-36.0); Mean Corpuscular Hemoglobin 33.4 pg (27.0-33.0); Mean Corpuscular Volume 93.9 fL (80.0-98.0); Mean Platelet Volume 12.4 fL (9.4-12.4); Platelet Count 250 X10*3/uL (160-400); Red Blood Count 3.26 X10*6/uL (4.60-5.80); Red Cell Distribution Width 14.5 % (11.0-16.0)
[2024-11-11 15:22] LABS: White Blood Count 31.4 X10*3/uL (4.8-10.8)
[2024-11-11 15:59] LABS: Anion Gap 14 (12-20); Blood Urea Nitrogen 102 mg/dL (9-16); Calcium 8.4 mg/dL (8.4-10.2); Carbon Dioxide 21 mmol/L (22-29); Chloride 120 mmol/L (96-108); Creatinine Clr Calc Pharmacy 30.9; Estimated Glomerular Filt Rate 20; Glucose Random 322 mg/dL (60-115); Potassium 4.5 mmol/L (3.3-5.1); Sodium 150 mmol/L (135-145)
[2024-11-11] MEDS: Amiodarone HCL 900 MG in 0.9 % Sodium Chloride 500 ML 17.27 MG IVCONT (17:24)
[2024-11-11 17:47] LABS: Glucose, Whole Blood 285 mg/dL (60-115)
--- NOTE | 2024-11-11 18:32 | PC.NURSE ---
ICU Day #: 8 Vent Day #: 6 Neuro/Resp:? Continues Sedated/intubated, propofol titrated off this am, continues on? precedex gtt per OCT. Does not open eyes , does not track, does not follow commands, flaccid extremities (passive ROM performed/reposition maintained).? Cardiac: Sinus Rhythm, Amiodarone gtt restarted per Dr. Estrada?s orders. GI: Fecal management device in place , +bowel sounds, OGT in place, tolerating? TF without signs of intolerance. POC Q6hr : Manzano in place, patent /draining. Infectious: ? On cefepine & zyvox Lines: TLC L. IJ, ?peripheral IV
[2024-11-12] VITALS (38 sets, daily range): BP systolic 100–164; BP diastolic 55–84; PULSE 62–166; RESP 28–99; TEMP 34.5–39.6; O2SAT 93–99
--- NOTE | 2024-11-12 | ECG_ITS ---
Test Reason : arrhythmia Blood Pressure : */* mmHG Vent. Rate : 63 BPM Atrial Rate : 63 BPM P-R Int : 154 ms QRS Dur : 98 ms QT Int : 380 ms P-R-T Axes : 10 40 61 degrees QTcB Int : 388 ms Normal sinus rhythm Normal ECG When compared with ECG of 04-Nov-2024 01:10, Sinus rhythm has replaced Atrial fibrillation Vent. rate has decreased by 98 bpm Nonspecific T wave abnormality no longer evident in Inferior leads Referred By: Tomas Roche Electronically Signed By: CODI ROTHMAN MD
[2024-11-12] MEDS: Insulin Lispro 100 UNIT/ML 3 ML VIAL SUBCUT ×4 (00:12→17:47)
[2024-11-12] MEDS: dexmedeTOMIDidine HCL/NS 400 MCG/100 ML INFUS..BTL 12.9 MCG IVCONT ×3 (00:12→13:04)
[2024-11-12] MEDS: Heparin Sodium,Porcine 5,000 UNIT/ML VIAL 5000 UNIT SUBCUT ×3 (00:15→16:51)
[2024-11-12] MEDS: 0.9 % Sodium Chloride Flush 3 ML SYRINGE IVFLUSH ×3 (00:15→16:05)
[2024-11-12 01:14] LABS: Glucose, Whole Blood 298 mg/dL (60-115)
[2024-11-12] MEDS: Acetaminophen 325 MG TABLET 650 MG PO ×3 (02:12→17:47)
[2024-11-12] MEDS: cefEPime HCl 1 GM in 0.9 % Sodium Chloride 50 ML IV ×2 (03:45→16:48)
[2024-11-12] MEDS: Linezolid/D5W 600 MG/300 ML PIGGYBACK 300 MG IV ×2 (04:38→16:50)
[2024-11-12 04:59] LABS: VBG Base Excess 0.3 mmol/L; VBG HCO3 22 mmol/L (22-26); VBG pCO2 27 mmHg; VBG pH 7.51 (7.32-7.43); VBG pO2 50 mmHg
[2024-11-12 05:09] LABS: Basophils Percent Auto 0.1 % (0-2); Eosinophils Absolute Auto 0.1 X10*3/uL (0.0-0.4); Eosinophils Percent Auto 0.5 % (0-4); Hematocrit 28.8 % (42.0-52.0); Hemoglobin 10.3 g/dl (14.0-18.0); Imm Gran Abs Auto 0.22 X10*3/uL (0.00-0.03); Imm Gran Pct Auto 0.8 % (0.0-0.4); Lymphocytes Absolute Auto 1.1 X10*3/uL (1.2-4.9); MANUAL DIFF FLAG SCAN; Mean Corpuscular HGB Conc 35.8 g/dl (31.0-36.0); Mean Corpuscular Hemoglobin 33.2 pg (27.0-33.0); Mean Corpuscular Volume 92.9 fL (80.0-98.0); Mean Platelet Volume 11.8 fL (9.4-12.4); Monocytes Absolute Auto 1.2 X10*3/uL (0.1-1.2); Monocytes Percent Auto 4.2 % (2-11); Neutrophils Absolute Auto 24.8 x10*3/uL (2.0-8.3); Neutrophils Percent Auto 90.4 % (45-73); Platelet Count 300 X10*3/uL (160-400); Red Cell Distribution Width 14.3 % (11.0-16.0); SCAN SMEAR FLAG 1; White Blood Count 27.4 X10*3/uL (4.8-10.8)
[2024-11-12 05:30] LABS: Alanine Aminotransferase 28 U/L (0-40); Albumin Level 2.6 g/dL (3.5-5.0); Alkaline Phosphatase 85 U/L (39-117); Anion Gap 13 (12-20); Aspartate Amino Transferase 37 U/L (5-37); Bilirubin Total 0.7 mg/dL (0.0-1.0); Blood Urea Nitrogen 106 mg/dL (9-16); Calcium 8.3 mg/dL (8.4-10.2); Carbon Dioxide 21 mmol/L (22-29); Chloride 118 mmol/L (96-108); Estimated Glomerular Filt Rate 19; Glucose Random 352 mg/dL (60-115); Magnesium 2.3 mg/dL (1.6-2.6); Phosphorus 4.7 mg/dL (2.7-4.5); Potassium 4.5 mmol/L (3.3-5.1); Sodium 147 mmol/L (135-145); Total Protein 5.9 g/dL (6.5-8.0)
[2024-11-12 05:32] LABS: Venous Blood Gas Refer to POC result
[2024-11-12 05:41] LABS: SLIDE REVIEW VERIFIED
[2024-11-12] MEDS: Albumin Human 25 % 100 ML 133.33 ML IV ×4 (06:02→23:22)
--- NOTE | 2024-11-12 08:37 | PM.CCPN ---
Subjective Subjective Date of Service: 11/12/24 Interval History: Continues to be on ventilator support WBC count slightly improving, down to 27k Sodium down to 147 Critical Care Time (minutes): 35 Physical Exam Vital Signs: Vital Signs: Last Vital Signs Temp 101.1 F H 11/12/24 08:00 Pulse 92 11/12/24 08:00 Resp 36 H 11/12/24 08:00 BP 152/78 H 11/12/24 08:00 Pulse Ox 97 11/12/24 08:00 O2 Del Method Mechanical Ventil ation 11/12/24 08:00 O2 Flow Rate 8 11/06/24 09:00 FiO2 30 11/12/24 08:00 Oxygen Flow Rate 8 11/03/24 19:38 BMI result Body Mass Index 41.6 General: acute distress, ill appearing and tired appearing Nutritional Appearance: well nourished and overweight Eyes: appearance normal, both eyes and all related structures; Alignment and Position: alignment normal and position normal Neck: No lymphadenopathy, no thyromegaly Resp: bilateral air entry equal, occasional added sounds present Cardio: Regular rate, regular rhythm; Heart sounds: S1 normal heart sound present and S2 normal heart sound present GI: soft, nontender, no guarding, no hepatosplenomegaly : bladder normal to inspection, bladder normal to palpation, no renal angle tenderness Skin: no rashes or lesions noted and elasticity normal Neuro: oriented to person, oriented to place, oriented to time and moves all extremities Objective Data Labs 11/12/24 05:00 11/12/24 05:00 Labs: Laboratory Results - last 24 hr 11/11/24 11/11/24 11/11/24 11:38 12:35 14:52 WBC 31.4 H* RBC 3.26 L Hgb 10.9 L Hct 30.6 L MCV 93.9 MCH 33.4 H MCHC 35.6 RDW 14.5 Plt Count 250 D MPV 12.4 Immature Gran % (Auto) Neut % (Auto) Lymph % (Auto) [place] % (Auto) Eos % (Auto) Baso % (Auto) Lymph # (Auto) [place] # (Auto) Eos # (Auto) Baso # (Auto) Abs Immat Gran (auto) Absolute Neuts (auto) Absolute Nucleated RBC 0.000 Nucleated RBC % (auto) 0.0 Smear Tech's Comments VBG pH VBG pCO2 VBG pO2 VBG HCO3 VBG O2 Saturation VBG Base Excess Sodium 150 H Potassium 4.5 Chloride 120 H Carbon Dioxide 21 L Anion Gap 14 BUN 102 H Creatinine 3.21 H Estim Creat Clear Calc 30.9 Estimated GFR 20 POC Glucose 269 H 268 H Random Glucose 322 H Calcium 8.4 Phosphorus Magnesium Total Bilirubin AST ALT Alkaline Phosphatase Total Protein Albumin 11/11/24 11/11/24 11/12/24 17:24 23:30 04:54 WBC RBC Hgb Hct MCV MCH MCHC RDW Plt Count MPV Immature Gran % (Auto) Neut % (Auto) Lymph % (Auto) [place] % (Auto) Eos % (Auto) Baso % (Auto) Lymph # (Auto) [place] # (Auto) Eos # (Auto) Baso # (Auto) Abs Immat Gran (auto) Absolute Neuts (auto) Absolute Nucleated RBC Nucleated RBC % (auto) Smear Tech's Comments VBG pH 7.51 H VBG pCO2 27 VBG pO2 50 VBG HCO3 22 VBG O2 Saturation 81.0 VBG Base Excess 0.3 Sodium Potassium Chloride Carbon Dioxide Anion Gap BUN Creatinine Estim Creat Clear Calc Estimated GFR POC Glucose 285 H 298 H Random Glucose Calcium Phosphorus Magnesium Total Bilirubin AST ALT Alkaline Phosphatase Total Protein Albumin 11/12/24 05:00 WBC 27.4 H RBC 3.10 L Hgb 10.3 L Hct 28.8 L MCV 92.9 MCH 33.2 H MCHC 35.8 RDW 14.3 Plt Count 300 MPV 11.8 Immature Gran % (Auto) 0.8 H Neut % (Auto) 90.4 H Lymph % (Auto) 4.0 L [place] % (Auto) 4.2 Eos % (Auto) 0.5 Baso % (Auto) 0.1 Lymph # (Auto) 1.1 L [place] # (Auto) 1.2 Eos # (Auto) 0.1 Baso # (Auto) 0.0 Abs Immat Gran (auto) 0.22 H Absolute Neuts (auto) 24.8 H Absolute Nucleated RBC 0.000 Nucleated RBC % (auto) 0.0 Smear Tech's Comments VERIFIED VBG pH VBG pCO2 VBG pO2 VBG HCO3 VBG O2 Saturation VBG Base Excess Sodium 147 H Potassium 4.5 Chloride 118 H Carbon Dioxide 21 L Anion Gap 13 BUN 106 H Creatinine 3.31 H Estim Creat Clear Calc 30.0 Estimated GFR 19 POC Glucose Random Glucose 352 H* Calcium 8.3 L Phosphorus 4.7 H Magnesium 2.3 Total Bilirubin 0.7 AST 37 ALT 28 Alkaline Phosphatase 85 Total Protein 5.9 L Albumin 2.6 L Microbiology Microbiology Results: Microbiology 11/10/24 20:07 Sputum - Suctioned Gram Stain - Final 11/10/24 20:07 Sputum - Suctioned Sputum Culture - Preliminary Culture in progress. 11/10/24 14:59 Blood - Venous Blood Culture - Preliminary No growth after 24 hours. 11/10/24 14:57 Blood - Venous Blood Culture - Preliminary No growth after 24 hours. 11/10/24 20:26 Urine clean catch - Clean Catch Midstream Urine Culture - Preliminary No growth to date. 11/04/24 13:35 Blood - Venous Blood Culture - Final No growth after 5 days. 11/04/24 13:35 Blood - Venous Blood Culture - Final No growth after 5 days. 11/04/24 11:55 Cerebrospinal Fluid Gram Stain - Final 11/04/24 11:55 Cerebrospinal Fluid CSF Examination - Final 11/04/24 11:55 Cerebrospinal Fluid Fluid Description - Final 11/04/24 11:55 Cerebrospinal Fluid CSF Culture - Final Streptococcus pneumoniae 11/03/24 23:52 Cerebrospinal Fluid Gram Stain - Final 11/03/24 23:52 Cerebrospinal Fluid CSF Examination - Final 11/03/24 23:52 Cerebrospinal Fluid Fluid Description - Final 11/03/24 23:52 Cerebrospinal Fluid CSF Culture - Final Streptococcus pneumoniae 11/03/24 20:03 Blood - Venous Blood Culture - Final Streptococcus pneumoniae 11/03/24 19:58 Blood - Venous Blood Culture - Final Streptococcus pneumoniae Progress Note: A&P Assessment and plan (1) PAF (paroxysmal atrial fibrillation): Status: Acute (2) Class 3 obesity: Status: Acute (3) Hx of splenectomy: Status: Acute (4) CORINA (acute kidney injury): Status: Acute (5) Acute lactic acidosis: Status: Acute (6) Acute viral syndrome: Status: Acute (7) Metabolic encephalopathy: Status: Acute (8) Encephalopathy: Status: Acute (9) Acute respiratory failure with hypoxia: Status: Acute (10) Pulmonary aspiration: Status: Acute Plan 59-year-old gentleman with underlying 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 On ER evaluation patient encephalopathic with significant leukocytosis. Initial CT head with no acute findings. Initial LP with on insufficiency so for PCR that is positive for Streptococcus. Blood cultures positive for Streptococcus. 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 Repeat LP performed in IR with additional CSF culture positive for Streptococcus. Required intubation on 11/06/2024 for pulmonary aspiration and acute refractory hypoxia. 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 EEG showing generalized slowing, no seizures. on Precedex for anxiolysis, off propofol Close neurological status monitoring in the ICU every hour Cardiac: Paroxysmal atrial fibrillation: remains in sinus rhythm Continue amiodarone drip, will switch to PO for loading dose tomorrow Respiratory: Acute hypoxemic respiratory failure due to aspiration pneumonia from poor mental status, reintubated on 11/06/2024 Currently on ventilator support On PC mode FiO2 30%, 12/5, rate 18, poor candidate for weaning trials due to poor mental status Peak pressures and plateau pressures are under the curve Ventilator management bundle with head end elevation, aspiration precaution, chlorhexidine mouthwash, daily awakening trials, daily spontaneous breathing trials GI: on tube feeds s/p spleenectomy during childhood secondary to trauma Renal: Acute kidney injury possibly secondary to ATN from strep bacteremia Baseline creatinine normal, creatinine increasing but no indication for renal replacement therapy Net fluid balance negative 3 litres yesterday, we will decrease Lasix to 40 mg B.i.d. Overall volume overloaded IVC. We will closely monitor I's and O's Avoid nephrotoxic medications high an-ion gap metabolic acidosis: secondary to renal failure, non anion gap acidosis secondary to hyperventilation will watch, bicarb 21 Acute hypernatremia: Sodium down to 147 continue free water flushes Acute hyperphosphatemia: down to 4.7, tube feeds changed to nepro Heme: Chronic anemia,HB stable at 10.3; will watch for signs for bleeding closely monitor H&H, transfuse for hemoglobin less than 7 grams/deciliter WBC count down to 27k Endocrine: blood sugars better after stopping dextrose drip Sliding scale insulin as needed Infectious disease: Blood and CSF cultures positive for strep, in the setting of s/p spleenectomy Initially treated with dexamethasone for 4 days for the management of strep meningitis Antibiotics escalated to cefepime and Zyvox due to worsening leuckocytosis and fevers CT chest abdomen and pelvis suggestive of bilateral pneumonia and perinephric stranding. Blood and urine cultures negative. Musculoskeletal: Decubitus ulcer prevention protocol Lines: left IJ TLC placed on 11/10/2024 Manzano due to failed voiding trials Prophylaxis: heparin, famotidine Quality Stroke Does the patient have a stroke diagnosis?: No VTE Prior VTE?: No VTE Risk Level:: Medical - moderate - high VTE Device Contraindication: N/A - Device Ordered VTE Drug Contraindication: N/A - Med Ordered
[2024-11-12] MEDS: Famotidine/PF 20 MG/2 ML VIAL IVPUSH (10:29)
[2024-11-12] MEDS: Chlorhexidine Gluc Oral Rinse 15 ML MOUTHWASH BUCCAL ×3 (10:29→20:15)
--- NOTE | 2024-11-12 11:10 | MHC.CLN ---
F/U PT REMAINS INTUBATED DISCUSSED AT ROUNDS WITH MD-SWITCH TO RENAL FRIENDLY FORMULA PT RECEIVING PROMOTE AT MAX GOAL RATE 60ML/HR WITH 300ML FWF Q 4 HRS PROVIDES 1440KCALS (2105KCALS WITH SEDATION; 30KCALS/KG), 90G PROTEIN (1.28G/KG), 3008ML TOTAL WATER FROM FORMULA AND FLUSHES (33ML/KG) RECOMMEND SWITCHING TO NEPRO AT MAX GOAL RATE 40ML/HR WITH 240ML FWF Q 4 HRS TO PROVIDE 1728KCALS (25KCALS/KG BASED ON IBW), 78G PROTEIN (1.1G/KG), 2138ML TOTAL WATER FROM FORMULA AND FLUSHES (30.5ML/KG) CAN INCREASE WATER FLUSHES BASED ON SERUM NA-HAS IMPROVED TO 147 TODAY MONITOR TOLERANCE AND LYTES
[2024-11-12 12:21] LABS: Glucose, Whole Blood 288 mg/dL (60-115)
[2024-11-12] MEDS: Amiodarone HCL 900 MG in 0.9 % Sodium Chloride 500 ML 17.27 MG IVCONT (12:57)
--- NOTE | 2024-11-12 13:26 | MHC.CM.PN ---
Pt continues care in ICU: intubated and on IV ATB for strep meningitis. Family requesting transfer to [place] - unknown if that will occur - currently inquiring on sending pt to tertiary center. CM to follow
[2024-11-12] MEDS: dilTIAZem HCL 50 MG/10 ML VIAL 15 MG IVPUSH (16:02)
[2024-11-12] MEDS: fentaNYL citrate/PF 100 MCG/2 ML VIAL 25 MCG IVPUSH (16:56)
[2024-11-12] MEDS: dilTIAZem HCL 125 MG in 0.9 % Sodium Chloride 100 ML 10 MG IVCONT (17:09)
[2024-11-12] MEDS: Furosemide 40 MG/4 ML VIAL IVPUSH (17:15)
[2024-11-12] MEDS: Amiodarone/Dextrose 150 MG/100 ML PLAST..BAG 600 MG IV (18:32)
[2024-11-12] MEDS: dexmedeTOMIDidine HCL/NS 400 MCG/100 ML INFUS..BTL 48.38 MCG IVCONT ×3 (18:41→22:52)
--- NOTE | 2024-11-12 19:28 | PC.NURSE ---
assumed care of patient 0700 on 11/12/24 patient vented and on dex for mild sedation. tachypnic on ventilator but satting high 90s. patient temperatures began to increase around noon, tylenol given. temperatures began to increase again around 1600. patient given cold bath. during repositioning around this time patient was on ACPC settings, tachypnic, temp 101.7, and went into a rapid A-Fib up to 180s.... 15 of diltiazem given IV with no effect.... Diltiazem Gtt started... Dex maxed per MD... PRN fent... PRN tylenol... Amiodarone bolus infused per MD with concurrent Amiodarone ggt still running per MD.... patients rhythm slowed to afib 90-120s at time of shift change... also at this time patient's blood pressures began to drop with marginal MAPs, ESMOLOL ordered, but not infused due to marginal MAPS and improved HR... all information on patient current status handed off to power and recovery shift engineer RN at 1900 on 11/12/24
[2024-11-12 20:10] LABS: Alanine Aminotransferase 37 U/L (0-40); Alkaline Phosphatase 100 U/L (39-117); Anion Gap 12 (12-20); Aspartate Amino Transferase 40 U/L (5-37); Bilirubin Total 0.8 mg/dL (0.0-1.0); Blood Urea Nitrogen 102 mg/dL (9-16); Calcium 8.6 mg/dL (8.4-10.2); Carbon Dioxide 23 mmol/L (22-29); Chloride 119 mmol/L (96-108); Creatinine Clr Calc Pharmacy 29.6; Estimated Glomerular Filt Rate 19; Glucose Random 327 mg/dL (60-115); Magnesium 2.4 mg/dL (1.6-2.6); Phosphorus 4.3 mg/dL (2.7-4.5); Potassium 4.6 mmol/L (3.3-5.1); Sodium 149 mmol/L (135-145); Total Protein 6.3 g/dL (6.5-8.0)
[2024-11-13] VITALS (36 sets, daily range): BP systolic 111–163; BP diastolic 56–101; PULSE 51–81; RESP 13–33; TEMP 34.6–39.5; O2SAT 95–100; BMI 39.7
[2024-11-13] MEDS: 0.9 % Sodium Chloride Flush 3 ML SYRINGE IVFLUSH ×4 (00:18→22:45)
[2024-11-13] MEDS: Insulin Lispro 100 UNIT/ML 3 ML VIAL SUBCUT ×4 (00:18→17:24)
[2024-11-13] MEDS: dexmedeTOMIDidine HCL/NS 400 MCG/100 ML INFUS..BTL 48.38 MCG IVCONT ×3 (00:50→04:54)
[2024-11-13] MEDS: dilTIAZem HCL 125 MG in 0.9 % Sodium Chloride 100 ML 10 MG IVCONT (00:55)
[2024-11-13] MEDS: Heparin Sodium,Porcine 5,000 UNIT/ML VIAL 5000 UNIT SUBCUT ×3 (00:57→17:24)
[2024-11-13 02:01] LABS: Glucose, Whole Blood 302 mg/dL (60-115)
[2024-11-13 02:02] LABS: Glucose, Whole Blood 214 mg/dL (60-115)
[2024-11-13] MEDS: cefEPime HCl 1 GM in 0.9 % Sodium Chloride 50 ML IV ×2 (03:00→16:18)
[2024-11-13] MEDS: Linezolid/D5W 600 MG/300 ML PIGGYBACK 300 MG IV ×2 (04:09→16:18)
[2024-11-13] MEDS: Acetaminophen 325 MG TABLET 650 MG PO ×2 (04:50→21:24)
[2024-11-13 04:51] LABS: VBG Base Excess -0.3 mmol/L; VBG HCO3 22 mmol/L (22-26); VBG pCO2 29 mmHg; VBG pH 7.48 (7.32-7.43); VBG pO2 40 mmHg
[2024-11-13 04:52] LABS: Venous Blood Gas Refer to POC result
[2024-11-13 04:58] LABS: MANUAL DIFF FLAG NO
[2024-11-13 04:59] LABS: Basophils Percent Auto 0.1 % (0-2); Eosinophils Absolute Auto 0.1 X10*3/uL (0.0-0.4); Eosinophils Percent Auto 0.6 % (0-4); Hematocrit 26.2 % (42.0-52.0); Hemoglobin 9.1 g/dl (14.0-18.0); Imm Gran Abs Auto 0.15 X10*3/uL (0.00-0.03); Imm Gran Pct Auto 0.7 % (0.0-0.4); Lymphocytes Absolute Auto 1.2 X10*3/uL (1.2-4.9); Lymphocytes Percent Auto 5.7 % (20-40); Mean Corpuscular HGB Conc 34.7 g/dl (31.0-36.0); Mean Corpuscular Volume 94.9 fL (80.0-98.0); Mean Platelet Volume 11.7 fL (9.4-12.4); Monocytes Absolute Auto 1.4 X10*3/uL (0.1-1.2); Monocytes Percent Auto 6.5 % (2-11); Neutrophils Absolute Auto 18.5 x10*3/uL (2.0-8.3); Neutrophils Percent Auto 86.4 % (45-73); Platelet Count 346 X10*3/uL (160-400); Red Blood Count 2.76 X10*6/uL (4.60-5.80); Red Cell Distribution Width 14.9 % (11.0-16.0); White Blood Count 21.4 X10*3/uL (4.8-10.8)
[2024-11-13 05:21] LABS: Alanine Aminotransferase 52 U/L (0-40); Albumin Level 3.3 g/dL (3.5-5.0); Alkaline Phosphatase 118 U/L (39-117); Anion Gap 15 (12-20); Aspartate Amino Transferase 62 U/L (5-37); Bilirubin Total 0.7 mg/dL (0.0-1.0); Blood Urea Nitrogen 97 mg/dL (9-16); Calcium 8.8 mg/dL (8.4-10.2); Carbon Dioxide 20 mmol/L (22-29); Chloride 121 mmol/L (96-108); Creatinine Clr Calc Pharmacy 32.3; Estimated Glomerular Filt Rate 21; Glucose Random 261 mg/dL (60-115); Magnesium 2.6 mg/dL (1.6-2.6); Phosphorus 4.1 mg/dL (2.7-4.5); Potassium 4.3 mmol/L (3.3-5.1); Sodium 152 mmol/L (135-145); Total Protein 6.5 g/dL (6.5-8.0)
--- NOTE | 2024-11-13 06:40 | PC.NURSE ---
Assumed care at 1900. Upon initial?assessment, patient remains intubated and sedated, precedex gtt running per OCT. Patient has weak cough, weak gag, and grimaces with oral care. No peripheral pain response. Extremities flaccid, pupils equal but sluggish. Does not open eyes or follow commands. Afib on tele, HR 120s-130s. Cardizem gtt and amio gtt running per OCT. Patient is generally edematous, non pitting. Patient continues on ventilator support, see vent assessment. Patient tachypneic, RR 30s-40s, PA aware. Abdomen large and round, TF infusing at goal. FMS in place, patent and draining?dark greenish liquid stool. Manzano catheter in place, draining clear pale yellow urine. Skin warm and dry, bruising/mottling to thighs and blanchable redness to buttock. Cooling blanket in use, core temp reading 102.4, PA aware. Bed locked in lowest position, bed alarm on.? 2030: Patient converted to SR. Patient had brief episode of hypotension (SBP 90s, MAP 60-63) and esmolol gtt held per PA.? 2200: Patient temperature 103.1. Cooling blanket repositioned and cold bath given. Patient tolerated turning and bath without issue. 0200: Cardizem gtt paused?for HR 50s-60s, see OCT. JARETH Roche aware. 0530: Patient HR 40s-50s, Amio gtt paused per JARETH Roche precedex gtt titrated accordingly-- see OCT. 0645: Report given to oncoming RN. Patient repositioned Q2HR, bed locked in lowest position, bed alarm on.
[2024-11-13] MEDS: Famotidine/PF 20 MG/2 ML VIAL IVPUSH (08:08)
[2024-11-13] MEDS: Chlorhexidine Gluc Oral Rinse 15 ML MOUTHWASH BUCCAL ×3 (08:08→20:13)
[2024-11-13] MEDS: dexmedeTOMIDidine HCL/NS 400 MCG/100 ML INFUS..BTL 22.58 MCG IVCONT (08:08)
[2024-11-13] MEDS: Furosemide 40 MG/4 ML VIAL IVPUSH ×2 (08:08→17:24)
[2024-11-13] MEDS: fentaNYL citrate/PF 100 MCG/2 ML VIAL 25 MCG IVPUSH (09:09)
--- NOTE | 2024-11-13 11:19 | PM.CCPN ---
Subjective Subjective Date of Service: 11/13/24 Interval History: Another episode of AFib with RVR that lasted over 8 hours yesterday following which she converted to sinus rhythm and is currently in sinus rhythm. Amiodarone drip had to be turned off last night due to bradycardia Still on Precedex and on ventilator support White counts improving down to 20,000, renal function slowly improving. Critical Care Time (minutes): 40 Physical Exam Vital Signs: Vital Signs: Last Vital Signs Temp 101.1 F H 11/13/24 11:00 Pulse 81 11/13/24 11:00 Resp 29 H 11/13/24 11:00 BP 157/77 H 11/13/24 11:00 Pulse Ox 99 11/13/24 11:12 O2 Del Method Mechanical Ventil ation 11/13/24 11:00 O2 Flow Rate 8 11/06/24 09:00 FiO2 30 11/13/24 11:12 Oxygen Flow Rate 8 11/03/24 19:38 BMI result Body Mass Index 39.7 General: Middle-aged male morbidly obese, well-nourished lying or unresponsive in the bed connected to the ventilator Eyes: appearance normal, both eyes and all related structures; Alignment and Position: alignment normal and position normal Neck: No lymphadenopathy, no thyromegaly Resp: bilateral air entry equal, occasional added sounds present Cardio: Regular rate, regular rhythm; Heart sounds: S1 normal heart sound present and S2 normal heart sound present GI: soft, nontender, no guarding, no hepatosplenomegaly : bladder normal to inspection, bladder normal to palpation, no renal angle tenderness Skin: no rashes or lesions noted and elasticity normal Neuro: Unable to neurological examination as patient is on Precedex drip Objective Data Labs 11/13/24 04:45 11/13/24 04:44 Labs: Laboratory Results - last 24 hr 11/12/24 11/12/24 11/12/24 11:56 17:26 19:49 WBC RBC Hgb Hct MCV MCH MCHC RDW Plt Count MPV Immature Gran % (Auto) Neut % (Auto) Lymph % (Auto) [place] % (Auto) Eos % (Auto) Baso % (Auto) Lymph # (Auto) [place] # (Auto) Eos # (Auto) Baso # (Auto) Abs Immat Gran (auto) Absolute Neuts (auto) Absolute Nucleated RBC Nucleated RBC % (auto) VBG pH VBG pCO2 VBG pO2 VBG HCO3 VBG O2 Saturation VBG Base Excess Sodium 149 H Potassium 4.6 Chloride 119 H Carbon Dioxide 23 Anion Gap 12 BUN 102 H Creatinine 3.36 H Estim Creat Clear Calc 29.6 Estimated GFR 19 POC Glucose 288 H 302 H Random Glucose 327 H Calcium 8.6 Phosphorus 4.3 Magnesium 2.4 Total Bilirubin 0.8 AST 40 H ALT 37 Alkaline Phosphatase 100 Total Protein 6.3 L Albumin 3.0 L 11/12/24 11/13/24 11/13/24 23:54 04:44 04:45 WBC 21.4 H RBC 2.76 L Hgb 9.1 L Hct 26.2 L MCV 94.9 MCH 33.0 MCHC 34.7 RDW 14.9 Plt Count 346 MPV 11.7 Immature Gran % (Auto) 0.7 H Neut % (Auto) 86.4 H Lymph % (Auto) 5.7 L [place] % (Auto) 6.5 Eos % (Auto) 0.6 Baso % (Auto) 0.1 Lymph # (Auto) 1.2 [place] # (Auto) 1.4 H Eos # (Auto) 0.1 Baso # (Auto) 0.0 Abs Immat Gran (auto) 0.15 H Absolute Neuts (auto) 18.5 H Absolute Nucleated RBC 0.000 Nucleated RBC % (auto) 0.0 VBG pH 7.48 H VBG pCO2 29 VBG pO2 40 VBG HCO3 22 VBG O2 Saturation 67.0 VBG Base Excess -0.3 Sodium 152 H Potassium 4.3 Chloride 121 H Carbon Dioxide 20 L Anion Gap 15 BUN 97 H Creatinine 3.08 H Estim Creat Clear Calc 32.3 Estimated GFR 21 POC Glucose 214 H Random Glucose 261 H Calcium 8.8 Phosphorus 4.1 Magnesium 2.6 Total Bilirubin 0.7 AST 62 H ALT 52 H Alkaline Phosphatase 118 H Total Protein 6.5 Albumin 3.3 L Microbiology Microbiology Results: Microbiology 11/10/24 20:07 Sputum - Suctioned Gram Stain - Final 11/10/24 20:07 Sputum - Suctioned Sputum Culture - Final 11/10/24 14:59 Blood - Venous Blood Culture - Preliminary No growth after 48 hours. 11/10/24 14:57 Blood - Venous Blood Culture - Preliminary No growth after 48 hours. 11/10/24 20:26 Urine clean catch - Clean Catch Midstream Urine Culture - Final No growth. 11/04/24 13:35 Blood - Venous Blood Culture - Final No growth after 5 days. 11/04/24 13:35 Blood - Venous Blood Culture - Final No growth after 5 days. 11/04/24 11:55 Cerebrospinal Fluid Gram Stain - Final 11/04/24 11:55 Cerebrospinal Fluid CSF Examination - Final 11/04/24 11:55 Cerebrospinal Fluid Fluid Description - Final 11/04/24 11:55 Cerebrospinal Fluid CSF Culture - Final Streptococcus pneumoniae 11/03/24 23:52 Cerebrospinal Fluid Gram Stain - Final 11/03/24 23:52 Cerebrospinal Fluid CSF Examination - Final 11/03/24 23:52 Cerebrospinal Fluid Fluid Description - Final 11/03/24 23:52 Cerebrospinal Fluid CSF Culture - Final Streptococcus pneumoniae 11/03/24 20:03 Blood - Venous Blood Culture - Final Streptococcus pneumoniae 11/03/24 19:58 Blood - Venous Blood Culture - Final Streptococcus pneumoniae Progress Note: A&P Assessment and plan (1) PAF (paroxysmal atrial fibrillation): Status: Acute (2) Class 3 obesity: Status: Acute (3) CORINA (acute kidney injury): Status: Acute (4) Hypokalemia: Status: Acute (5) Streptococcal bacteremia: Status: Acute (6) Pulmonary aspiration: Status: Acute (7) Acute respiratory failure with hypoxia: Status: Acute (8) Encephalitis: Status: Acute (9) Streptococcal meningitis: Status: Acute Plan 59-year-old gentleman with underlying 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 On ER evaluation patient encephalopathic with significant leukocytosis. Initial CT head with no acute findings. Initial LP with on insufficiency so for PCR that is positive for Streptococcus. Blood cultures positive for Streptococcus. 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 Repeat LP performed in IR with additional CSF culture positive for Streptococcus. Required intubation on 11/06/2024 for pulmonary aspiration and acute refractory hypoxia. 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 MRI of the brain showed bilateral significant hypodensities secondary to meningitis and encephalitis. EEG showing generalized slowing, no seizures. on Precedex for anxiolysis, off propofol Close neurological status monitoring in the ICU every hour Cardiac: Paroxysmal atrial fibrillation: remains in sinus rhythm Continue amiodarone drip, as patient had another episode of AFib with RVR yesterday Respiratory: Acute hypoxemic respiratory failure due to aspiration pneumonia from poor mental status, reintubated on 11/06/2024 Currently on ventilator support On PC mode FiO2 30%, 12/5, rate 18, poor candidate for weaning trials due to poor mental status Peak pressures and plateau pressures are under the curve Ventilator management bundle with head end elevation, aspiration precaution, chlorhexidine mouthwash, daily awakening trials, daily spontaneous breathing trials GI: on tube feeds s/p spleenectomy during childhood secondary to trauma Renal: Acute kidney injury possibly secondary to ATN from strep bacteremia Creatinine slowly improving with diuresis, down to 3.08 today Net fluid balance negative 1 litres yesterday, continue Lasix to 40 mg B.i.d. Overall volume overloaded IVC. We will closely monitor I's and O's Avoid nephrotoxic medications Acute hypernatremia: Sodium 152 continue free water flushes Acute hyperphosphatemia: down to 4.7, tube feeds changed to nepro Heme: Chronic anemia,HB stable at 10.3; will watch for signs for bleeding closely monitor H&H, transfuse for hemoglobin less than 7 grams/deciliter WBC count down to 27k Endocrine: blood sugars better after stopping dextrose drip Sliding scale insulin as needed Infectious disease: Blood and CSF cultures positive for strep, in the setting of s/p spleenectomy Initially treated with dexamethasone for 4 days for the management of strep meningitis Antibiotics escalated to cefepime and Zyvox due to worsening leuckocytosis and fevers CT chest abdomen and pelvis suggestive of bilateral pneumonia and perinephric stranding. Blood and urine cultures negative. Musculoskeletal: Decubitus ulcer prevention protocol Lines: left IJ TLC placed on 11/10/2024 Manzano due to failed voiding trials Prophylaxis: heparin, famotidine Quality Stroke Does the patient have a stroke diagnosis?: No VTE Prior VTE?: No VTE Risk Level:: Medical - moderate - high VTE Device Contraindication: N/A - Device Ordered VTE Drug Contraindication: N/A - Med Ordered
[2024-11-13] MEDS: dexmedeTOMIDidine HCL/NS 400 MCG/100 ML INFUS..BTL 29.03 MCG IVCONT ×3 (11:32→18:17)
[2024-11-13 11:39] LABS: Glucose, Whole Blood 191 mg/dL (60-115)
[2024-11-13 17:37] LABS: Glucose, Whole Blood 235 mg/dL (60-115)
--- NOTE | 2024-11-13 18:30 | PC.NURSE ---
Assumed care at 0700- pt. remains mechanically vented. Precedex gtt titrated per OCT. Pt. placed on PSV at approx 0830- see vent assessment. Neuro assessment remains unchanged through shift- see shift assessment. SR on tele, HR 60s-70s. Amio gtt restarted per MD verbal order. RR 20s-30s, PRN fentanyl given once with good effect. OGT running nepro at goal, no s/s of TF intolerance. Fecal management system patent, draining dark brown liquid stool. Manzano remains in place draining pale yellow urine, 100-400cc/hr. Cooling blanket remains in place, Tmax 101.1- MD aware. Q2 oral care and repositioning performed. Famiy at bedside, updated by this RN and MD. Plan of care ongoing.
[2024-11-13] MEDS: dexmedeTOMIDidine HCL/NS 400 MCG/100 ML INFUS..BTL 32.25 MCG IVCONT (21:27)
[2024-11-13] MEDS: Amiodarone HCL 900 MG in 0.9 % Sodium Chloride 500 ML 17.27 MG IVCONT (22:44)
[2024-11-14] VITALS (45 sets, daily range): BP systolic 100–150; BP diastolic 40–82; PULSE 41–140; RESP 15–36; TEMP 34.8–39.1; O2SAT 94–100; BMI 39.4
[2024-11-14] MEDS: dexmedeTOMIDidine HCL/NS 400 MCG/100 ML INFUS..BTL 32.25 MCG IVCONT ×4 (00:17→21:07)
[2024-11-14] MEDS: Insulin Lispro 100 UNIT/ML 3 ML VIAL SUBCUT ×5 (00:17→23:57)
[2024-11-14] MEDS: Heparin Sodium,Porcine 5,000 UNIT/ML VIAL 5000 UNIT SUBCUT ×3 (01:16→16:16)
[2024-11-14] MEDS: cefEPime HCl 1 GM in 0.9 % Sodium Chloride 50 ML IV ×2 (03:21→15:39)
[2024-11-14] MEDS: Acetaminophen 325 MG TABLET 650 MG PO (03:25)
[2024-11-14] MEDS: Linezolid/D5W 600 MG/300 ML PIGGYBACK 300 MG IV ×2 (04:51→16:20)
[2024-11-14 05:13] LABS: VBG Base Excess 1.7 mmol/L; VBG HCO3 23 mmol/L (22-26); VBG pCO2 28 mmHg; VBG pH 7.52 (7.32-7.43); VBG pO2 42 mmHg
[2024-11-14 05:13] LABS: Glucose, Whole Blood 243 mg/dL (60-115)
[2024-11-14 05:33] LABS: MANUAL DIFF FLAG NO
[2024-11-14 05:37] LABS: Basophils Percent Auto 0.1 % (0-2); Eosinophils Absolute Auto 0.2 X10*3/uL (0.0-0.4); Hematocrit 25.5 % (42.0-52.0); Hemoglobin 8.9 g/dl (14.0-18.0); Imm Gran Pct Auto 0.7 % (0.0-0.4); Lymphocytes Absolute Auto 1.2 X10*3/uL (1.2-4.9); Lymphocytes Percent Auto 7.9 % (20-40); Mean Corpuscular HGB Conc 34.9 g/dl (31.0-36.0); Mean Corpuscular Volume 94.4 fL (80.0-98.0); Mean Platelet Volume 11.9 fL (9.4-12.4); Monocytes Absolute Auto 1.2 X10*3/uL (0.1-1.2); Monocytes Percent Auto 7.6 % (2-11); Neutrophils Absolute Auto 12.5 x10*3/uL (2.0-8.3); Neutrophils Percent Auto 82.7 % (45-73); Platelet Count 383 X10*3/uL (160-400); Red Cell Distribution Width 14.8 % (11.0-16.0); White Blood Count 15.1 X10*3/uL (4.8-10.8)
[2024-11-14 05:52] LABS: Alanine Aminotransferase 89 U/L (0-40); Albumin Level 2.9 g/dL (3.5-5.0); Alkaline Phosphatase 163 U/L (39-117); Anion Gap 15 (12-20); Aspartate Amino Transferase 87 U/L (5-37); Bilirubin Total 0.7 mg/dL (0.0-1.0); Blood Urea Nitrogen 112 mg/dL (9-16); Calcium 8.9 mg/dL (8.4-10.2); Carbon Dioxide 21 mmol/L (22-29); Chloride 121 mmol/L (96-108); Creatinine Clr Calc Pharmacy 30.4; Estimated Glomerular Filt Rate 20; Glucose Random 289 mg/dL (60-115); Magnesium 2.5 mg/dL (1.6-2.6); Phosphorus 4.8 mg/dL (2.7-4.5); Potassium 4.1 mmol/L (3.3-5.1); Sodium 153 mmol/L (135-145); Total Protein 6.6 g/dL (6.5-8.0)
[2024-11-14] MEDS: dexmedeTOMIDidine HCL/NS 400 MCG/100 ML INFUS..BTL 38.7 MCG IVCONT ×4 (06:12→23:59)
--- NOTE | 2024-11-14 06:43 | PC.NURSE ---
Assumed care at 1900. Patient remains intubated/sedated, Precedex gtt running per OCT. Patient has weak gag, weak cough, and weak pain response. Extremities flaccid, pupils equal and reactive but sluggish. SR on tele, HR 60s-70s. Amio gtt running per OCT. Patient remains vented, see vent assessment. RR 20s-30s. Abdomen large and round, hyperactive bowel sounds x4. Nepro TF infusing at goal, see TF assessment. FMS in place and patent, draining dark brown liquid stool. Manzano remains in place and patent, draining clear yellow urine, UOP 100-200mL/hr. Cooling blanket remains in place and in use, see VS. Skin is generally edematous and nonpitting, bilateral hands with scant weeping. Patient is notably more mottled than previous shift, mottling now noted to BUE as well as bilateral lower thighs. [place] foam in place on coccyx for protection. Patient repositioned Q2HR, bed locked in lowest position, bed alarm on.? Approx 0600: While washing/turning patient, converted to Afib on tele, HR 110s-120s. PA notified, no new orders at this time.
[2024-11-14] MEDS: Furosemide 40 MG/4 ML VIAL IVPUSH (08:12)
[2024-11-14] MEDS: Chlorhexidine Gluc Oral Rinse 15 ML MOUTHWASH BUCCAL ×3 (08:12→19:10)
[2024-11-14] MEDS: 0.9 % Sodium Chloride Flush 3 ML SYRINGE IVFLUSH ×3 (08:12→23:57)
[2024-11-14] MEDS: Famotidine/PF 20 MG/2 ML VIAL IVPUSH (08:12)
[2024-11-14] MEDS: Albumin Human 25 % 100 ML 133.33 ML IV ×2 (11:10→11:53)
[2024-11-14 11:38] LABS: Glucose, Whole Blood 220 mg/dL (60-115)
[2024-11-14 11:50] LABS: Venous Blood Gas Refer to POC result
--- NOTE | 2024-11-14 12:03 | PM.CCPN ---
Subjective Subjective Date of Service: 11/14/24 Interval History: Continues to be on ventilator support, currently in sinus rhythm with rate controlled On Precedex for anxiolysis Critical Care Time (minutes): 35 Physical Exam Vital Signs: Vital Signs: Last Vital Signs Temp 99.9 F 11/14/24 11:00 Pulse 50 11/14/24 11:02 Resp 21 H 11/14/24 11:00 BP 138/72 11/14/24 11:00 Pulse Ox 100 11/14/24 11:16 O2 Del Method Mechanical Ventil ation 11/14/24 11:00 O2 Flow Rate 8 11/06/24 09:00 FiO2 25 11/14/24 11:16 Oxygen Flow Rate 8 11/03/24 19:38 BMI result Body Mass Index 39.4 General: Middle-aged obese male, lying unresponsive connected to the ventilator Nutritional Appearance: well nourished and overweight Eyes: appearance normal, both eyes and all related structures; Alignment and Position: alignment normal and position normal Neck: No lymphadenopathy, no thyromegaly Resp: bilateral air entry equal, crackles heard in bilateral lung base Cardio: Regular rate, regular rhythm; Heart sounds: S1 normal heart sound present and S2 normal heart sound present GI: soft, nontender, no guarding, no hepatosplenomegaly : bladder normal to inspection, bladder normal to palpation, no renal angle tenderness Skin: no rashes or lesions noted and elasticity normal Neuro: Poor neurological response, no purposeful movement, opens eyes upon commands Objective Data Labs 11/14/24 05:31 11/14/24 05:00 Labs: Laboratory Results - last 24 hr 11/13/24 11/14/24 11/14/24 17:12 00:13 05:00 WBC RBC Hgb Hct MCV MCH MCHC RDW Plt Count MPV Immature Gran % (Auto) Neut % (Auto) Lymph % (Auto) [place] % (Auto) Eos % (Auto) Baso % (Auto) Lymph # (Auto) [place] # (Auto) Eos # (Auto) Baso # (Auto) Abs Immat Gran (auto) Absolute Neuts (auto) Absolute Nucleated RBC Nucleated RBC % (auto) VBG pH VBG pCO2 VBG pO2 VBG HCO3 VBG O2 Saturation VBG Base Excess Sodium 153 H Potassium 4.1 Chloride 121 H Carbon Dioxide 21 L Anion Gap 15 BUN 112 H Creatinine 3.18 H Estim Creat Clear Calc 30.4 Estimated GFR 20 POC Glucose 235 H 243 H Random Glucose 289 H Calcium 8.9 Phosphorus 4.8 H Magnesium 2.5 Total Bilirubin 0.7 AST 87 H ALT 89 H Alkaline Phosphatase 163 H Total Protein 6.6 Albumin 2.9 L 11/14/24 11/14/24 11/14/24 05:02 05:31 11:07 WBC 15.1 H RBC 2.70 L Hgb 8.9 L Hct 25.5 L MCV 94.4 MCH 33.0 MCHC 34.9 RDW 14.8 Plt Count 383 MPV 11.9 Immature Gran % (Auto) 0.7 H Neut % (Auto) 82.7 H Lymph % (Auto) 7.9 L [place] % (Auto) 7.6 Eos % (Auto) 1.0 Baso % (Auto) 0.1 Lymph # (Auto) 1.2 [place] # (Auto) 1.2 Eos # (Auto) 0.2 Baso # (Auto) 0.0 Abs Immat Gran (auto) 0.10 H Absolute Neuts (auto) 12.5 H Absolute Nucleated RBC 0.000 Nucleated RBC % (auto) 0.0 VBG pH 7.52 H VBG pCO2 28 VBG pO2 42 VBG HCO3 23 VBG O2 Saturation 70.0 VBG Base Excess 1.7 Sodium Potassium Chloride Carbon Dioxide Anion Gap BUN Creatinine Estim Creat Clear Calc Estimated GFR POC Glucose 220 H Random Glucose Calcium Phosphorus Magnesium Total Bilirubin AST ALT Alkaline Phosphatase Total Protein Albumin Microbiology Microbiology Results: Microbiology 11/10/24 20:07 Sputum - Suctioned Gram Stain - Final 11/10/24 20:07 Sputum - Suctioned Sputum Culture - Final 11/10/24 14:59 Blood - Venous Blood Culture - Preliminary No growth after 48 hours. 11/10/24 14:57 Blood - Venous Blood Culture - Preliminary No growth after 48 hours. 11/10/24 20:26 Urine clean catch - Clean Catch Midstream Urine Culture - Final No growth. 11/04/24 13:35 Blood - Venous Blood Culture - Final No growth after 5 days. 11/04/24 13:35 Blood - Venous Blood Culture - Final No growth after 5 days. 11/04/24 11:55 Cerebrospinal Fluid Gram Stain - Final 11/04/24 11:55 Cerebrospinal Fluid CSF Examination - Final 11/04/24 11:55 Cerebrospinal Fluid Fluid Description - Final 11/04/24 11:55 Cerebrospinal Fluid CSF Culture - Final Streptococcus pneumoniae 11/03/24 23:52 Cerebrospinal Fluid Gram Stain - Final 11/03/24 23:52 Cerebrospinal Fluid CSF Examination - Final 11/03/24 23:52 Cerebrospinal Fluid Fluid Description - Final 11/03/24 23:52 Cerebrospinal Fluid CSF Culture - Final Streptococcus pneumoniae 11/03/24 20:03 Blood - Venous Blood Culture - Final Streptococcus pneumoniae 11/03/24 19:58 Blood - Venous Blood Culture - Final Streptococcus pneumoniae Progress Note: A&P Assessment and plan (1) PAF (paroxysmal atrial fibrillation): Status: Acute (2) Class 3 obesity: Status: Acute (3) CORINA (acute kidney injury): Status: Acute (4) Streptococcal meningitis: Status: Acute (5) Streptococcal bacteremia: Status: Acute (6) Acute viral syndrome: Status: Acute (7) Metabolic encephalopathy: Status: Acute (8) Pulmonary aspiration: Status: Acute (9) Acute respiratory failure with hypoxia: Status: Acute Plan 59-year-old gentleman with underlying 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 On ER evaluation patient encephalopathic with significant leukocytosis. Initial CT head with no acute findings. Initial LP with on insufficiency so for PCR that is positive for Streptococcus. Blood cultures positive for Streptococcus. 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 Repeat LP performed in IR with additional CSF culture positive for Streptococcus. Required intubation on 11/06/2024 for pulmonary aspiration and acute refractory hypoxia. 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 MRI of the brain showed bilateral significant hypodensities secondary to meningitis and encephalitis. EEG showing generalized slowing, no seizures. on Precedex for anxiolysis, off propofol for a few days now Close neurological status monitoring in the ICU every hour Cardiac: Paroxysmal atrial fibrillation: remains in sinus rhythm Continue amiodarone drip, as patient had another episode of AFib with RVR on 11/10/2024 and 11/12/2024 Respiratory: Acute hypoxemic respiratory failure due to aspiration pneumonia from poor mental status, reintubated on 11/06/2024 Currently on ventilator support On PC mode FiO2 25%, /, rate 18, poor candidate for weaning trials due to poor mental status Peak pressures and plateau pressures are under the curve Ventilator management bundle with head end elevation, aspiration precaution, chlorhexidine mouthwash, daily awakening trials, daily spontaneous breathing trials GI: on tube feeds 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 Will repeat BMP if above 150 will start on D5W continue free water flushes Acute hyperphosphatemia: down to 4.7, tube feeds changed to nepro Heme: Chronic anemia,HB stable at 10.3; will watch for signs for bleeding closely monitor H&H, transfuse for hemoglobin less than 7 grams/deciliter WBC count down to 27k Endocrine: blood sugars better after stopping dextrose drip Sliding scale insulin as needed Infectious disease: Blood and CSF cultures positive for strep, in the setting of s/p spleenectomy Initially treated with dexamethasone for 4 days for the management of strep meningitis Antibiotics escalated to cefepime and Zyvox due to worsening leuckocytosis and fevers, currently leucocytosis is improving down to 15k, fever curve has got better too CT chest abdomen and pelvis suggestive of bilateral pneumonia and perinephric stranding. Blood and urine cultures negative. Musculoskeletal: Decubitus ulcer prevention protocol Lines: left IJ TLC placed on 11/10/2024 Manzano due to failed voiding trials Prophylaxis: heparin, famotidine A transfer request was placed to [facility] on Friday due to family's request. Pending insurance clearance for transport of the patient, case management working on it. Quality Stroke Does the patient have a stroke diagnosis?: No VTE Prior VTE?: No VTE Risk Level:: Medical - moderate - high VTE Device Contraindication: N/A - Device Ordered VTE Drug Contraindication: N/A - Med Ordered
[2024-11-14 13:23] LABS: Anion Gap 16 (12-20); Blood Urea Nitrogen 105 mg/dL (9-16); Calcium 9.6 mg/dL (8.4-10.2); Carbon Dioxide 22 mmol/L (22-29); Chloride 119 mmol/L (96-108); Creatinine Clr Calc Pharmacy 30.6; Estimated Glomerular Filt Rate 20; Glucose Random 278 mg/dL (60-115); Potassium 3.7 mmol/L (3.3-5.1); Sodium 153 mmol/L (135-145)
[2024-11-14] MEDS: dilTIAZem HCL 125 MG in 0.9 % Sodium Chloride 100 ML 10 MG IVCONT (15:09)
[2024-11-14] MEDS: fentaNYL citrate/PF 100 MCG/2 ML VIAL 50 MCG IVPUSH ×2 (15:11→19:08)
[2024-11-14] MEDS: dexmedeTOMIDidine HCL/NS 400 MCG/100 ML INFUS..BTL 48.38 MCG IVCONT ×2 (16:15→18:12)
[2024-11-14 17:04] LABS: Fungitell <31 pg/mL (<60); Fungitell 1,3 beta glucan Negative
--- NOTE | 2024-11-14 18:17 | PC.NURSE ---
Assumed care at 0700- pt. remains mechanically vented- Pt. placed on PSV at approx 1000- see vent assessment. Changed to ACPC by RT at approx 1800 d/t low RR on PSV. Precedex gtt titrated per OCT for vent synchrony. Pt. remains with weak cough, gag, and pain response, extremities flaccid, does not open eyes or follow commands. Pupils 3mm, sluggish but reactive. On assumption of care, pt. afib on tele- pt. converted to SR at approx 0730, HR 50s-70s. continues on amio gtt per OCT. At approx 1500 after oral care, asynchronous with vent, coughing. RT at bedside, 50 mcg fentanyl given per OCT. Pt. converted back to afib at this time, HR 120s-140s. Cardizem gtt restarted per MD, titrated per OCT. Nepro running at goal rate via OGT, no s/s of TF intolerance. FMS patent, draining dark brown liquid stool. Pt. remains on cooling blanket for temperature management. Q2 oral care and repositioning performed. Family at bedside, updated by this RN and MD. Plan of care ongoing.
[2024-11-14 21:05] LABS: Glucose, Whole Blood 228 mg/dL (60-115)
[2024-11-15] VITALS (31 sets, daily range): BP systolic 95–142; BP diastolic 48–82; PULSE 53–80; RESP 15–34; TEMP 35–37.5; O2SAT 62–100; BMI 39.0
[2024-11-15 01:01] LABS: Glucose, Whole Blood 257 mg/dL (60-115)
[2024-11-15] MEDS: dexmedeTOMIDidine HCL/NS 400 MCG/100 ML INFUS..BTL 38.7 MCG IVCONT ×3 (02:38→07:44)
[2024-11-15] MEDS: cefEPime HCl 1 GM in 0.9 % Sodium Chloride 50 ML IV ×2 (03:07→16:07)
[2024-11-15] MEDS: Linezolid/D5W 600 MG/300 ML PIGGYBACK 300 MG IV ×2 (04:01→16:09)
[2024-11-15] MEDS: fentaNYL citrate/PF 100 MCG/2 ML VIAL 50 MCG IVPUSH (04:11)
[2024-11-15 04:16] LABS: VBG Base Excess 0.1 mmol/L; VBG HCO3 21 mmol/L (22-26); VBG pCO2 25 mmHg; VBG pH 7.53 (7.32-7.43); VBG pO2 43 mmHg
[2024-11-15 04:35] LABS: Venous Blood Gas Refer to POC result
[2024-11-15] MEDS: Amiodarone HCL 900 MG in 0.9 % Sodium Chloride 500 ML 17.27 MG IVCONT (04:35)
[2024-11-15 04:54] LABS: MANUAL DIFF FLAG NO
[2024-11-15 04:56] LABS: Basophils Percent Auto 0.1 % (0-2); Eosinophils Absolute Auto 0.2 X10*3/uL (0.0-0.4); Eosinophils Percent Auto 1.1 % (0-4); Hematocrit 23.9 % (42.0-52.0); Hemoglobin 8.3 g/dl (14.0-18.0); Imm Gran Abs Auto 0.09 X10*3/uL (0.00-0.03); Imm Gran Pct Auto 0.6 % (0.0-0.4); Lymphocytes Absolute Auto 1.2 X10*3/uL (1.2-4.9); Lymphocytes Percent Auto 7.9 % (20-40); Mean Corpuscular HGB Conc 34.7 g/dl (31.0-36.0); Mean Corpuscular Hemoglobin 33.2 pg (27.0-33.0); Mean Corpuscular Volume 95.6 fL (80.0-98.0); Mean Platelet Volume 12.4 fL (9.4-12.4); Monocytes Absolute Auto 0.7 X10*3/uL (0.1-1.2); Monocytes Percent Auto 4.4 % (2-11); Neutrophils Absolute Auto 12.9 x10*3/uL (2.0-8.3); Neutrophils Percent Auto 85.9 % (45-73); Platelet Count 411 X10*3/uL (160-400); Red Cell Distribution Width 15.2 % (11.0-16.0); White Blood Count 15.1 X10*3/uL (4.8-10.8)
[2024-11-15 05:11] LABS: Alanine Aminotransferase 72 U/L (0-40); Albumin Level 3.1 g/dL (3.5-5.0); Alkaline Phosphatase 138 U/L (39-117); Anion Gap 16 (12-20); Aspartate Amino Transferase 38 U/L (5-37); Bilirubin Total 0.6 mg/dL (0.0-1.0); Blood Urea Nitrogen 116 mg/dL (9-16); Carbon Dioxide 19 mmol/L (22-29); Chloride 123 mmol/L (96-108); Creatinine Clr Calc Pharmacy 31.4; Estimated Glomerular Filt Rate 21; Glucose Random 312 mg/dL (60-115); Magnesium 2.6 mg/dL (1.6-2.6); Phosphorus 4.9 mg/dL (2.7-4.5); Potassium 3.8 mmol/L (3.3-5.1); Sodium 154 mmol/L (135-145); Total Protein 6.8 g/dL (6.5-8.0)
[2024-11-15] MEDS: Insulin Lispro 100 UNIT/ML 3 ML VIAL SUBCUT ×4 (05:26→22:59)
--- NOTE | 2024-11-15 06:02 | PC.NURSE ---
Assumed care at 1900. Patient remains intubated/sedated. Neuro status largely unchanged. Precedex gtt running per OCT. Afib/SB/SR on tele, HR from 50s-90s. Edematous to all extremities, non pitting. Amio gtt running per OCT, Cardizem gtt paused for bradycardia. Patient remains vented, see vent assessment. Abdomen large and round, Nepro running at goal. FMS removed due to decreased output. Manzano catheter remains in place, draining approx 100-200mL/hr clear yellow urine. Skin remains?diffusely mottled. Cooling blanket in place to maintain temperature,?see VS flowsheet. Repositioned Q2HR, bed locked in lowest position, bed alarm on.
[2024-11-15] MEDS: 0.9 % Sodium Chloride Flush 3 ML SYRINGE IVFLUSH ×2 (08:21→16:02)
[2024-11-15] MEDS: Famotidine/PF 20 MG/2 ML VIAL IVPUSH (08:21)
[2024-11-15] MEDS: Heparin Sodium,Porcine 5,000 UNIT/ML VIAL 5000 UNIT SUBCUT ×3 (08:21→16:09)
[2024-11-15] MEDS: Chlorhexidine Gluc Oral Rinse 15 ML MOUTHWASH BUCCAL ×3 (08:21→21:52)
[2024-11-15] MEDS: Dextrose 5 % 1,000 ML 200 ML IVCONT ×2 (10:14→16:02)
--- NOTE | 2024-11-15 10:17 | MHC.CLN ---
F/U PT REMAINS INTUBATED DISCUSSED AT ROUNDS WITH MD-MRI TODAY PT RECEIVING NEPRO AT MAX GOAL RATE 40ML/HR WITH 300ML FWF Q 4 HRS PROVIDES 1728KCALS (25KCALS/KG BASED ON IBW), 78G PROTEIN (1.1G/KG), 2498ML TOTAL WATER FROM FORMULA AND FLUSHES (36ML/KG) MONITOR TOLERANCE AND LYTES
[2024-11-15] MEDS: dexmedeTOMIDidine HCL/NS 400 MCG/100 ML INFUS..BTL 32.25 MCG IVCONT (10:20)
--- NOTE | 2024-11-15 10:54 | P.PNCC_ITS ---
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 On ER evaluation patient encephalopathic with significant leukocytosis. Initial CT head with no acute findings. Initial LP with on insufficiency so for PCR that is positive for Streptococcus. Blood cultures positive for Streptococcus. 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 Repeat LP performed in IR with additional CSF culture positive for Streptococcus. Required intubation on 11/06/2024 for pulmonary aspiration and acute refractory hypoxia. 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 No events overnight. Critical Care Time (minutes): 60 Physical Exam 2 Vital Signs: Vital Signs: Last Vital Signs Temp 99.0 F 11/15/24 09:00 Pulse 66 11/15/24 09:00 Resp 29 H 11/15/24 09:00 BP 116/79 11/15/24 09:00 Pulse Ox 100 11/15/24 09:00 O2 Del Method Mechanical Ventil ation 11/15/24 09:00 O2 Flow Rate 25 11/15/24 09:00 FiO2 25 11/15/24 08:00 Oxygen Flow Rate 8 11/03/24 19:38 BMI result Body Mass Index 39.0 Const: General: no acute distress and other (No arousal off sedation, attempts to track) Nutritional Appearance: obese and Edematous Eyes: Sclerae: sclerae normal EOM: EOMs intact bilaterally Neck: Neck: Yes no lymphadenopathy, Yes trachea midline and Yes supple Resp: Auscultation: crackles (Mild bibasilar) Cardio: Rate: bradycardic Rhythm: regular rhythm Heart sounds: no gallops, no murmurs and no rubs GI: Palpation (GI): Soft to palpation and Other GI palpation findings present ( Nontender) Auscultation: normal bowel sounds Extrem: General: No clubbing, No cyanosis and Yes edema (1+ bilateral) Objective Data Labs 11/15/24 03:56 11/15/24 03:56 Labs: Laboratory Results - last 24 hr 11/11/24 11/14/24 11/14/24 15:58 11:07 12:35 WBC RBC Hgb Hct MCV MCH MCHC RDW Plt Count MPV Immature Gran % (Auto) Neut % (Auto) Lymph % (Auto) [place] % (Auto) Eos % (Auto) Baso % (Auto) Lymph # (Auto) [place] # (Auto) Eos # (Auto) Baso # (Auto) Abs Immat Gran (auto) Absolute Neuts (auto) Absolute Nucleated RBC Nucleated RBC % (auto) Hold Purple Top SEE NOTE VBG pH VBG pCO2 VBG pO2 VBG HCO3 VBG O2 Saturation VBG Base Excess Sodium 153 H Potassium 3.7 Chloride 119 H Carbon Dioxide 22 Anion Gap 16 BUN 105 H Creatinine 3.15 H Estim Creat Clear Calc 30.6 Estimated GFR 20 POC Glucose 220 H Random Glucose 278 H Calcium 9.6 D Phosphorus Magnesium Total Bilirubin AST ALT Alkaline Phosphatase Total Protein Albumin Beta-(1,3)-D-Glucan <31 B-(1,3)-D-Glucan Intrp Negative 11/14/24 11/14/24 11/15/24 17:12 23:36 03:56 WBC 15.1 H RBC 2.50 L Hgb 8.3 L Hct 23.9 L MCV 95.6 MCH 33.2 H MCHC 34.7 RDW 15.2 Plt Count 411 H MPV 12.4 Immature Gran % (Auto) 0.6 H Neut % (Auto) 85.9 H Lymph % (Auto) 7.9 L [place] % (Auto) 4.4 Eos % (Auto) 1.1 Baso % (Auto) 0.1 Lymph # (Auto) 1.2 [place] # (Auto) 0.7 Eos # (Auto) 0.2 Baso # (Auto) 0.0 Abs Immat Gran (auto) 0.09 H Absolute Neuts (auto) 12.9 H Absolute Nucleated RBC 0.000 Nucleated RBC % (auto) 0.0 Hold Purple Top VBG pH VBG pCO2 VBG pO2 VBG HCO3 VBG O2 Saturation VBG Base Excess Sodium 154 H Potassium 3.8 Chloride 123 H Carbon Dioxide 19 L Anion Gap 16 BUN 116 H Creatinine 3.07 H Estim Creat Clear Calc 31.4 Estimated GFR 21 POC Glucose 228 H 257 H Random Glucose 312 H Calcium 9.0 D Phosphorus 4.9 H Magnesium 2.6 Total Bilirubin 0.6 AST 38 H ALT 72 H Alkaline Phosphatase 138 H Total Protein 6.8 Albumin 3.1 L Beta-(1,3)-D-Glucan B-(1,3)-D-Glucan Intrp 11/15/24 04:11 WBC RBC Hgb Hct MCV MCH MCHC RDW Plt Count MPV Immature Gran % (Auto) Neut % (Auto) Lymph % (Auto) [place] % (Auto) Eos % (Auto) Baso % (Auto) Lymph # (Auto) [place] # (Auto) Eos # (Auto) Baso # (Auto) Abs Immat Gran (auto) Absolute Neuts (auto) Absolute Nucleated RBC Nucleated RBC % (auto) Hold Purple Top VBG pH 7.53 H VBG pCO2 25 VBG pO2 43 VBG HCO3 21 L VBG O2 Saturation 76.0 VBG Base Excess 0.1 Sodium Potassium Chloride Carbon Dioxide Anion Gap BUN Creatinine Estim Creat Clear Calc Estimated GFR POC Glucose Random Glucose Calcium Phosphorus Magnesium Total Bilirubin AST ALT Alkaline Phosphatase Total Protein Albumin Beta-(1,3)-D-Glucan B-(1,3)-D-Glucan Intr Microbiology Microbiology Results: Microbiology 11/10/24 20:07 Sputum - Suctioned Gram Stain - Final 11/10/24 20:07 Sputum - Suctioned Sputum Culture - Final 11/10/24 14:59 Blood - Venous Blood Culture - Preliminary No growth after 48 hours. 11/10/24 14:57 Blood - Venous Blood Culture - Preliminary No growth after 48 hours. 11/10/24 20:26 Urine clean catch - Clean Catch Midstream Urine Culture - Final No growth. 11/04/24 13:35 Blood - Venous Blood Culture - Final No growth after 5 days. 11/04/24 13:35 Blood - Venous Blood Culture - Final No growth after 5 days. 11/04/24 11:55 Cerebrospinal Fluid Gram Stain - Final 11/04/24 11:55 Cerebrospinal Fluid CSF Examination - Final 11/04/24 11:55 Cerebrospinal Fluid Fluid Description - Final 11/04/24 11:55 Cerebrospinal Fluid CSF Culture - Final Streptococcus pneumoniae 11/03/24 23:52 Cerebrospinal Fluid Gram Stain - Final 11/03/24 23:52 Cerebrospinal Fluid CSF Examination - Final 11/03/24 23:52 Cerebrospinal Fluid Fluid Description - Final 11/03/24 23:52 Cerebrospinal Fluid CSF Culture - Final Streptococcus pneumoniae 11/03/24 20:03 Blood - Venous Blood Culture - Final Streptococcus pneumoniae 11/03/24 19:58 Blood - Venous Blood Culture - Final Streptococcus pneumoniae Progress Note: A&P Assessment and plan (1) Acute respiratory failure with hypoxia: Status: Acute (2) Pulmonary aspiration: Status: Acute (3) Encephalopathy: Status: Acute (4) Streptococcal meningitis: Status: Acute (5) CORINA (acute kidney injury): Status: Acute (6) PAF (paroxysmal atrial fibrillation): Status: Acute Plan Assessment: 59-year-old gentleman admitted with encephalopathy secondary to streptococcal meningitis/bacteremia further complicated by pulmonary aspiration requiring intubation and ventilatory support Plan: Neuro: Streptococcal meningitis with persistent encephalopathy. MRI on 11/09 with evidence of meningeal encephalitis, poor arousal with sedation vacation, will repeat MRI brain. Cardiac: Paroxysmal AFib now requiring amiodarone drip, continue to titrate off as tolerated. Pulmonary: Acute hypoxic respiratory failure secondary to pulmonary aspiration requiring intubation and ventilatory support. Continue to titrate off as tolerated. Renal: Acute kidney injury with metabolic acidosis and hypernatremia, likely secondary to ATN. Non oliguric. Continue on D5. Continue to monitor renal indices and urine output. Endo: No acute issues. GI: No acute issues. ID: Streptococcal bacteremia and streptococcal meningitis. Continues on cefepime and linezolid. Repeat blood cultures negative to date. 2D echo with no evidence of vegetation. Heme/Onc: No acute issues. Psych: No acute issues. Miscellaneous: No acute issues. Prophylaxis: Heparin, famotidine Diet: Tube feeds Critical care time spent: 60 minutes Quality Stroke Does the patient have a stroke diagnosis?: No VTE Prior VTE?: No VTE Risk Level:: Medical - moderate - high VTE Device Contraindication: N/A - Device Ordered VTE Drug Contraindication: N/A - Med Ordered
[2024-11-15 13:08] LABS: Glucose, Whole Blood 215 mg/dL (60-115)
[2024-11-15] MEDS: dexmedeTOMIDidine HCL/NS 400 MCG/100 ML INFUS..BTL 25.8 MCG IVCONT ×2 (13:12→16:33)
--- NOTE | 2024-11-15 14:11 | MHC.CM.PN ---
Pt remains on ventilatory support: pt slightly more alert: weakly tracking at times: continues on amiodorone gtt for Afib: to have repeat MRI. ? if pt will transfer to [facility]. states no immediate plans. CM to follow
[2024-11-15] MEDS: dexmedeTOMIDidine HCL/NS 400 MCG/100 ML INFUS..BTL 19.35 MCG IVCONT ×2 (19:45→23:02)
--- NOTE | 2024-11-15 20:05 | PC.NURSE ---
Assumed care 0700 11/15/24. patient in intubated and sedated on DEX per OCT. patient initially stable, however at approx 0900 patient began to have respiratory distress. low tidal volumes, rapid rate, inline suction difficult to advance, and noises heard around the ETT cuff. MD and RT aware and to the bedside. ETT exchanged by provider without complication. new ETT tube 7.5 and 26 at the lip. x-ray confirmed placement. old ETT had visible hardened secretions at tip of catheter. patients respirations improved and began to synchronize better with vent. during rounds shortly after... MD stated will get brain MRI today... patient brought to MRI for 1700 and returned to ICU without complication. patient settled, full bed-bath... handed off 1900 11/15/24.
[2024-11-15 21:21] LABS: Glucose, Whole Blood 301 mg/dL (60-115)
[2024-11-15 21:21] LABS: Glucose, Whole Blood 302 mg/dL (60-115)
[2024-11-15 22:40] LABS: Anion Gap 14 (12-20); Blood Urea Nitrogen 103 mg/dL (9-16); Carbon Dioxide 19 mmol/L (22-29); Chloride 121 mmol/L (96-108); Creatinine Clr Calc Pharmacy 33.9; Estimated Glomerular Filt Rate 23; Glucose Random 407 mg/dL (60-115); Potassium 3.6 mmol/L (3.3-5.1); Sodium 150 mmol/L (135-145)
[2024-11-15] MEDS: Dextrose 5 % 1,000 ML 100 ML IVCONT (22:56)
[2024-11-15 23:06] LABS: Glucose, Whole Blood 289 mg/dL (60-115)
[2024-11-16] VITALS (40 sets, daily range): BP systolic 110–153; BP diastolic 35–77; PULSE 73–99; RESP 17–45; TEMP 34.1–38.7; O2SAT 92–100; BMI 38.9
[2024-11-16] MEDS: 0.9 % Sodium Chloride Flush 3 ML SYRINGE IVFLUSH ×3 (00:52→15:55)
[2024-11-16 01:18] LABS: Glucose, Whole Blood 294 mg/dL (60-115)
[2024-11-16] MEDS: Acetaminophen 325 MG TABLET 650 MG PO (03:19)
[2024-11-16] MEDS: cefEPime HCl 1 GM in 0.9 % Sodium Chloride 50 ML IV (03:37)
[2024-11-16] MEDS: fentaNYL citrate/PF 100 MCG/2 ML VIAL 50 MCG IVPUSH ×2 (03:51→04:30)
[2024-11-16] MEDS: dexmedeTOMIDidine HCL/NS 400 MCG/100 ML INFUS..BTL 19.35 MCG IVCONT (03:55)
[2024-11-16] MEDS: Linezolid/D5W 600 MG/300 ML PIGGYBACK 300 MG IV (04:46)
[2024-11-16] MEDS: fentaNYL citrate/NS 1,000 MCG/100 ML PLAST..BAG 2.5 MCG IVCONT (05:24)
[2024-11-16 05:29] LABS: VBG Base Excess -1.8 mmol/L; VBG HCO3 19 mmol/L (22-26); VBG pCO2 22 mmHg; VBG pH 7.54 (7.32-7.43); VBG pO2 43 mmHg
[2024-11-16 05:29] LABS: Glucose, Whole Blood 280 mg/dL (60-115)
[2024-11-16] MEDS: Amiodarone HCL 900 MG in 0.9 % Sodium Chloride 500 ML 17.27 MG IVCONT ×2 (05:31→19:55)
[2024-11-16] MEDS: Insulin Lispro 100 UNIT/ML 3 ML VIAL SUBCUT ×4 (05:33→23:29)
[2024-11-16 05:35] LABS: Venous Blood Gas Refer to POC result
[2024-11-16 05:47] LABS: MANUAL DIFF FLAG NO
[2024-11-16 05:50] LABS: Basophils Percent Auto 0.2 % (0-2); Eosinophils Absolute Auto 0.2 X10*3/uL (0.0-0.4); Eosinophils Percent Auto 1.3 % (0-4); Imm Gran Abs Auto 0.07 X10*3/uL (0.00-0.03); Imm Gran Pct Auto 0.6 % (0.0-0.4); Lymphocytes Absolute Auto 1.2 X10*3/uL (1.2-4.9); Lymphocytes Percent Auto 9.7 % (20-40); Mean Corpuscular HGB Conc 34.6 g/dl (31.0-36.0); Mean Corpuscular Hemoglobin 32.7 pg (27.0-33.0); Mean Corpuscular Volume 94.6 fL (80.0-98.0); Monocytes Absolute Auto 0.5 X10*3/uL (0.1-1.2); Monocytes Percent Auto 3.8 % (2-11); Neutrophils Absolute Auto 10.7 x10*3/uL (2.0-8.3); Neutrophils Percent Auto 84.4 % (45-73); Platelet Count 356 X10*3/uL (160-400); Red Blood Count 2.02 X10*6/uL (4.60-5.80); Red Cell Distribution Width 15.1 % (11.0-16.0); White Blood Count 12.7 X10*3/uL (4.8-10.8)
[2024-11-16 05:53] LABS: Hemoglobin 6.6 g/dl (14.0-18.0)
[2024-11-16 05:54] LABS: Hematocrit 19.1 % (42.0-52.0)
[2024-11-16 06:14] LABS: Alanine Aminotransferase 84 U/L (0-40); Albumin Level 2.5 g/dL (3.5-5.0); Alkaline Phosphatase 200 U/L (39-117); Anion Gap 14 (12-20); Aspartate Amino Transferase 74 U/L (5-37); Bilirubin Total 0.6 mg/dL (0.0-1.0); Blood Urea Nitrogen 106 mg/dL (9-16); Calcium 8.6 mg/dL (8.4-10.2); Carbon Dioxide 17 mmol/L (22-29); Chloride 121 mmol/L (96-108); Creatinine Clr Calc Pharmacy 34.5; Estimated Glomerular Filt Rate 23; Glucose Random 332 mg/dL (60-115); Magnesium 2.3 mg/dL (1.6-2.6); Phosphorus 3.9 mg/dL (2.7-4.5); Potassium 3.6 mmol/L (3.3-5.1); Sodium 148 mmol/L (135-145)
--- NOTE | 2024-11-16 07:10 | PC.NURSE ---
Upon initial assessment at approximately 1900- Pt intubated and sedated. RASS -4. Precedex gtt infusing and titrated per MAR. Pupils 3mm, equal and reactive. Weak cough, minimal gag. Weakly opens eyes and grimaces to painful stimuli, does not track. Does not follow commands. Bilateral UE flaccid. Bilateral LE severe weakness. Intermittent twitching to left upper arm, [employer] aware. NSR, HR 60-80s. Amiodarone gtt infusing per MAR. ETT #7.5, 25cm at the lip. On PC settings, FiO2 25%, SpO2 >95%. Lungs diminished. OGT in place, TF infusing at goal rate, no s/s of intolerance, 300cc water flush Q4H administered per order. Patient incontinent of large amount of liquid black stool, fecal management system placed and [employer] [place] made aware. Manzano in place, draining yellow urine. Blanchable redness to buttocks- new foam applied. Mottling to bilateral hands and bilateral LE.? ? Approximately 0300- pt febrile, Tmax 101.3- ice packs applied to patient and PRN Tylenol administered per MAR. Episodes of tachypnea and tachycardia. RR 40s and HR 110s. [employer] notified. PRN IVP Fentanyl given with good effect. Fentanyl gtt started and titrated per MAR.? Provider aware of critical labs this morning. Type and Screen, and pRBC ordered per TAR. No consent in chart. Oncoming RN aware. See EMR/ Flowsheet for further details.?
[2024-11-16] MEDS: dexmedeTOMIDidine HCL/NS 400 MCG/100 ML INFUS..BTL 25.8 MCG IVCONT ×5 (08:14→23:28)
[2024-11-16] MEDS: Famotidine/PF 20 MG/2 ML VIAL IVPUSH (08:15)
[2024-11-16] MEDS: Albumin Human 25 % 100 ML IV ×3 (08:16→19:47)
[2024-11-16] MEDS: Chlorhexidine Gluc Oral Rinse 15 ML MOUTHWASH BUCCAL ×3 (08:16→23:28)
--- NOTE | 2024-11-16 10:40 | MHC.CLN ---
F/U PT REMAINS INTUBATED DISCUSSED AT ROUNDS WITH CONTINUE NEPRO AT MAX GOAL RATE 40ML/HR WITH 300ML FWF Q 4 HRS PROVIDES 1728KCALS (25KCALS/KG BASED ON IBW), 78G PROTEIN (1.1G/KG), 2498ML TOTAL WATER FROM FORMULA AND FLUSHES (36ML/KG) MONITOR TOLERANCE AND LYTES
[2024-11-16 12:10] LABS: Glucose, Whole Blood 190 mg/dL (60-115)
--- NOTE | 2024-11-16 14:57 | P.PNCC_ITS ---
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 On ER evaluation patient encephalopathic with significant leukocytosis. Initial CT head with no acute findings. Initial LP with on insufficiency so for PCR that is positive for Streptococcus. Blood cultures positive for Streptococcus. 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 Repeat LP performed in IR with additional CSF culture positive for Streptococcus. Required intubation on 11/06/2024 for pulmonary aspiration and acute refractory hypoxia. 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 Overnight with development of tarry stools and drop of hemoglobin down to 6.6. Critical Care Time (minutes): 60 Physical Exam 2 Vital Signs: Vital Signs: Last Vital Signs Temp 101.1 F H 11/16/24 14:00 Pulse 81 11/16/24 14:00 Resp 18 11/16/24 14:00 BP 120/58 L 11/16/24 14:00 Pulse Ox 100 11/16/24 14:00 O2 Del Method Mechanical Ventil ation 11/16/24 14:00 O2 Flow Rate 25 11/15/24 09:00 FiO2 25 11/16/24 14:00 Oxygen Flow Rate 8 11/03/24 19:38 BMI result Body Mass Index 38.9 Const: General: no acute distress and other (Sedated on ventilatory support, minimal arousal with sedation vacation) Nutritional Appearance: Edematous Eyes: Sclerae: sclerae normal Neck: Neck: Yes no lymphadenopathy, Yes trachea midline and Yes supple Resp: Auscultation: crackles bilateral Cardio: Rate: regular rate Rhythm: regular rhythm Heart sounds: no gallops, no murmurs and no rubs GI: Palpation (GI): Soft to palpation and Other GI palpation findings present ( Nontender) Auscultation: normal bowel sounds Extrem: General: No clubbing, No cyanosis and Yes edema (1+ bilateral) Objective Data Labs 11/16/24 05:20 11/16/24 05:20 Labs: Laboratory Results - last 24 hr 11/15/24 11/15/24 11/15/24 18:46 19:31 21:59 WBC RBC Hgb Hct MCV MCH MCHC RDW Plt Count MPV Immature Gran % (Auto) Neut % (Auto) Lymph % (Auto) [place] % (Auto) Eos % (Auto) Baso % (Auto) Lymph # (Auto) [place] # (Auto) Eos # (Auto) Baso # (Auto) Abs Immat Gran (auto) Absolute Neuts (auto) Absolute Nucleated RBC Nucleated RBC % (auto) VBG pH VBG pCO2 VBG pO2 VBG HCO3 VBG O2 Saturation VBG Base Excess Sodium 150 H Potassium 3.6 Chloride 121 H Carbon Dioxide 19 L Anion Gap 14 BUN 103 H Creatinine 2.83 H Estim Creat Clear Calc 33.9 Estimated GFR 23 POC Glucose 302 H 301 H Random Glucose 407 H* Calcium 9.0 Phosphorus Magnesium Total Bilirubin AST ALT Alkaline Phosphatase Total Protein Albumin Blood Type Antibody Screen Crossmatch 11/15/24 11/15/24 11/16/24 22:44 23:44 05:06 WBC RBC Hgb Hct MCV MCH MCHC RDW Plt Count MPV Immature Gran % (Auto) Neut % (Auto) Lymph % (Auto) [place] % (Auto) Eos % (Auto) Baso % (Auto) Lymph # (Auto) [place] # (Auto) Eos # (Auto) Baso # (Auto) Abs Immat Gran (auto) Absolute Neuts (auto) Absolute Nucleated RBC Nucleated RBC % (auto) VBG pH VBG pCO2 VBG pO2 VBG HCO3 VBG O2 Saturation VBG Base Excess Sodium Potassium Chloride Carbon Dioxide Anion Gap BUN Creatinine Estim Creat Clear Calc Estimated GFR POC Glucose 289 H 294 H 280 H Random Glucose Calcium Phosphorus Magnesium Total Bilirubin AST ALT Alkaline Phosphatase Total Protein Albumin Blood Type Antibody Screen Crossmatch 11/16/24 11/16/24 11/16/24 05:20 05:22 07:12 WBC 12.7 H RBC 2.02 L Hgb 6.6 L* D Hct 19.1 L* D MCV 94.6 MCH 32.7 MCHC 34.6 RDW 15.1 Plt Count 356 MPV 12.0 Immature Gran % (Auto) 0.6 H Neut % (Auto) 84.4 H Lymph % (Auto) 9.7 L [place] % (Auto) 3.8 Eos % (Auto) 1.3 Baso % (Auto) 0.2 Lymph # (Auto) 1.2 [place] # (Auto) 0.5 Eos # (Auto) 0.2 Baso # (Auto) 0.0 Abs Immat Gran (auto) 0.07 H Absolute Neuts (auto) 10.7 H Absolute Nucleated RBC 0.000 Nucleated RBC % (auto) 0.0 VBG pH 7.54 H VBG pCO2 22 VBG pO2 43 VBG HCO3 19 L VBG O2 Saturation 75.0 VBG Base Excess -1.8 Sodium 148 H Potassium 3.6 Chloride 121 H Carbon Dioxide 17 L Anion Gap 14 BUN 106 H Creatinine 2.78 H Estim Creat Clear Calc 34.5 Estimated GFR 23 POC Glucose Random Glucose 332 H Calcium 8.6 Phosphorus 3.9 Magnesium 2.3 Total Bilirubin 0.6 AST 74 H ALT 84 H Alkaline Phosphatase 200 H Total Protein 6.0 L Albumin 2.5 L Blood Type O Positive Antibody Screen NEGATIVE Crossmatch See Detail 11/16/24 12:07 WBC RBC Hgb Hct MCV MCH MCHC RDW Plt Count MPV Immature Gran % (Auto) Neut % (Auto) Lymph % (Auto) [place] % (Auto) Eos % (Auto) Baso % (Auto) Lymph # (Auto) [place] # (Auto) Eos # (Auto) Baso # (Auto) Abs Immat Gran (auto) Absolute Neuts (auto) Absolute Nucleated RBC Nucleated RBC % (auto) VBG pH VBG pCO2 VBG pO2 VBG HCO3 VBG O2 Saturation VBG Base Excess Sodium Potassium Chloride Carbon Dioxide Anion Gap BUN Creatinine Estim Creat Clear Calc Estimated GFR POC Glucose 190 H Random Glucose Calcium Phosphorus Magnesium Total Bilirubin AST ALT Alkaline Phosphatase Total Protein Albumin Blood Type Antibody Screen Crossmatch Microbiology Microbiology Results: Microbiology 11/10/24 14:59 Blood - Venous Blood Culture - Final No growth after 5 days. 11/10/24 14:57 Blood - Venous Blood Culture - Final No growth after 5 days. 11/10/24 20:07 Sputum - Suctioned Gram Stain - Final 11/10/24 20:07 Sputum - Suctioned Sputum Culture - Final 11/10/24 20:26 Urine clean catch - Clean Catch Midstream Urine Culture - Final No growth. 11/04/24 13:35 Blood - Venous Blood Culture - Final No growth after 5 days. 11/04/24 13:35 Blood - Venous Blood Culture - Final No growth after 5 days. 11/04/24 11:55 Cerebrospinal Fluid Gram Stain - Final 11/04/24 11:55 Cerebrospinal Fluid CSF Examination - Final 11/04/24 11:55 Cerebrospinal Fluid Fluid Description - Final 11/04/24 11:55 Cerebrospinal Fluid CSF Culture - Final Streptococcus pneumoniae 11/03/24 23:52 Cerebrospinal Fluid Gram Stain - Final 11/03/24 23:52 Cerebrospinal Fluid CSF Examination - Final 11/03/24 23:52 Cerebrospinal Fluid Fluid Description - Final 11/03/24 23:52 Cerebrospinal Fluid CSF Culture - Final Streptococcus pneumoniae 11/03/24 20:03 Blood - Venous Blood Culture - Final Streptococcus pneumoniae 11/03/24 19:58 Blood - Venous Blood Culture - Final Streptococcus pneumoniae Progress Note: A&P Assessment and plan (1) Acute blood loss anemia: Status: Acute (2) PAF (paroxysmal atrial fibrillation): Status: Acute (3) Class 3 obesity: Status: Acute (4) Hx of splenectomy: Status: Acute (5) CORINA (acute kidney injury): Status: Acute (6) Streptococcal bacteremia: Status: Acute (7) Streptococcal meningitis: Status: Acute (8) Encephalitis: Status: Acute (9) Acute respiratory failure with hypoxia: Status: Acute Plan Assessment: 59-year-old gentleman admitted with encephalopathy secondary to streptococcal meningitis/bacteremia further complicated by pulmonary aspiration requiring intubation and ventilatory support and acute kidney injury Plan: Neuro: Streptococcal meningitis with persistent encephalopathy. MRI on 11/15 with worsening encephalitis Cardiac: Paroxysmal AFib now requiring amiodarone drip, continue to titrate off as tolerated. Pulmonary: Acute hypoxic respiratory failure secondary to pulmonary aspiration requiring intubation and ventilatory support. Continue to titrate off as tolerated. Renal: Acute kidney injury with metabolic acidosis and hypernatremia, likely secondary to ATN. Non oliguric. Continue on D5. Continue to monitor renal indices and urine output. Endo: No acute issues. GI: Likely upper GI bleed, famotidine changed to PPI, gastroenterology evaluation requested. ID: Streptococcal bacteremia and streptococcal meningitis. Continues on cefepime and linezolid. Repeat blood cultures negative to date. 2D echo with no evidence of vegetation. Infectious Disease service care appreciated. Heme/Onc: Acute blood loss anemia likely secondary to upper GI bleed. Suggest to hemoglobin goal of 7. Psych: No acute issues. Miscellaneous: No acute issues. Prophylaxis: Heparin, ppi Diet: Tube feeds Critical care time spent: 60 minutes Quality Stroke Does the patient have a stroke diagnosis?: No VTE Prior VTE?: No VTE Risk Level:: Medical - moderate - high VTE Device Contraindication: N/A - Device Ordered VTE Drug Contraindication: N/A - Med Ordered
[2024-11-16] MEDS: cefTRIAXone sodium 2 GM VIAL IVPUSH (15:53)
[2024-11-16] MEDS: Pantoprazole Sodium 40 MG/10 ML VIAL IVPUSH (15:56)
[2024-11-16] MEDS: vancomycin/NS 2,000 MG/500 ML PLAST..BAG 250 MG IV (17:05)
[2024-11-16] MEDS: fentaNYL citrate/NS 1,000 MCG/100 ML PLAST..BAG 7.5 MCG IVCONT (17:23)
[2024-11-16 17:52] LABS: Glucose, Whole Blood 182 mg/dL (60-115)
--- NOTE | 2024-11-16 18:38 | PC.NURSE ---
Neuro/Resp:? Continues Sedated/intubated,? on? precedex and fentanyl gtt? per MAR. Does not open eyes , does not track, does not follow commands, flaccid extremities (passive ROM performed/reposition maintained).? Cardiac: Sinus Rhythm, Amiodarone gtt.? GI: Fecal management device in place , +bowel sounds, OGT in place, tolerating? TF without signs of intolerance. POC Q6hr : Manzano in place, patent /draining. Infectious: ? On IV Antibiotics? Lines: TLC L. IJ, ?peripheral IV? Temp up to 101.5 place on a cooling blanket H&H drop, Blood products given per TAR? ?Plan for upper endoscopy tomorrow
--- NOTE | 2024-11-16 22:07 | PM.EVENT ---
Event Note Date of Service: 11/16/24 Event Note: GI consult dictated EGD tomorrow for evaluation of melena. Time Spent With Patient Time: Total time managing care of this patient today ____ minutes.
[2024-11-16 23:26] LABS: Glucose, Whole Blood 171 mg/dL (60-115)
--- NOTE | 2024-11-16 23:47 | CONS_ITS ---
DATE OF SERVICE: 11/16/2024 REFERRING PHYSICIAN: Dr. Spence REASON FOR CONSULTATION: Melena. HISTORY OF PRESENT ILLNESS: The patient is a 59-year-old man who was admitted to the hospital on November 03 with altered mental status. He was diagnosed with sepsis and metabolic encephalopathy. Subsequent evaluation after his transfer to the intensive care unit for respiratory failure went through a diagnosis of meningoencephalitis and he required endotracheal intubation for respiratory failure. He has had persistent encephalopathy and began to have melena today. He had been on prophylactic famotidine, which was changed to a proton pump inhibitor anticoagulation, which had been done with heparin was stopped and blood counts today showed a drop in his hematocrit from 23.9 at 3:30 a.m. to 19.9 at 5:20 a.m. He is currently being transfused 2 units of packed red blood cells and has had stable vital signs. Laboratory studies have additionally shown normal coags and a normal platelet count. There is no prior history of peptic ulcer disease. His GI history is remarkable for colonoscopy in September 2020 done for screening, which showed no significant findings. 10-year followup was recommended. PAST MEDICAL HISTORY: 1. Hypertension. 2. Asthma with COPD. 3. Encephalopathy as above. 4. Obesity. 5. Umbilical hernia repair. 6. Splenectomy. 7. Appendectomy. CURRENT MEDICATIONS: Current medication list is reviewed in the chart. ALLERGIES: THERE ARE NONE REPORTED. FAMILY HISTORY: This is reviewed in the electronic medical record and is noncontributory. SOCIAL HISTORY: There is no reported substance abuse. REVIEW OF SYSTEMS: This is not obtainable. PHYSICAL EXAMINATION: GENERAL: Shows an intubated male, lying on a bed. VITAL SIGNS: In the ICU are stable. Multiple IV infusions are being administered as are tube feeds. SKIN: Pale. HEENT: Shows no scleral icterus. NECK: Without lymphadenopathy or thyromegaly. LUNGS: Show coarse breath sounds. HEART: Shows regular rate and rhythm. S1, S2. No murmur. ABDOMEN: Soft without focal masses or tenderness. Bowel sounds are present. No organomegaly is noted. EXTREMITIES: Without edema. LABORATORY DATA AND IMAGING STUDIES: Reviewed. The orogastric tube that was present was flushed at the bedside. No active bleeding was identified. Tube feedings were started. IMPRESSION: Upper gastrointestinal bleeding. I have discussed with his registered nurse the presentation and it appears that he did have acute upper gastrointestinal bleeding. This could be related to stress ulceration, peptic ulcer disease, arteriovenous malformations, or mass lesion. I agree with holding his anticoagulation currently. His family is meeting with Dr. Spence regarding further care for him and if they would like to continue aggressive management, then endoscopy will be arranged for tomorrow. In the interim, I agree with treating him with a proton pump inhibitor and transfusing him and following his H and H. Thanks for asking me to see him. I will follow him in the hospital with you. MD FRANKLIN Naranjo/JACQUELINE / [phone]
[2024-11-17] VITALS (37 sets, daily range): BP systolic 102–161; BP diastolic 42–77; PULSE 54–99; RESP 19–30; TEMP 35–38.5; O2SAT 95–100; BMI 39.5
[2024-11-17] MEDS: Acetaminophen 325 MG TABLET 650 MG PO (00:09)
[2024-11-17] MEDS: Midazolam HCl 2 MG/2 ML VIAL 1 MG IVPUSH ×2 (00:37→06:15)
[2024-11-17] MEDS: Albumin Human 25 % 100 ML IV (02:26)
[2024-11-17] MEDS: dexmedeTOMIDidine HCL/NS 400 MCG/100 ML INFUS..BTL 25.8 MCG IVCONT (02:52)
[2024-11-17] MEDS: fentaNYL citrate/NS 1,000 MCG/100 ML PLAST..BAG 7.5 MCG IVCONT (03:00)
[2024-11-17] MEDS: cefTRIAXone sodium 2 GM VIAL IVPUSH ×2 (04:36→15:23)
[2024-11-17 05:35] LABS: VBG HCO3 18 mmol/L (22-26); VBG pCO2 25 mmHg; VBG pH 7.47 (7.32-7.43); VBG pO2 45 mmHg
[2024-11-17 05:39] LABS: Venous Blood Gas Refer to POC result
[2024-11-17 05:58] LABS: Basophils Percent Auto 0.3 % (0-2); Eosinophils Absolute Auto 0.4 X10*3/uL (0.0-0.4); Eosinophils Percent Auto 2.8 % (0-4); Hemoglobin 7.2 g/dl (14.0-18.0); Imm Gran Abs Auto 0.09 X10*3/uL (0.00-0.03); Imm Gran Pct Auto 0.7 % (0.0-0.4); MANUAL DIFF FLAG SCAN; Mean Corpuscular HGB Conc 34.6 g/dl (31.0-36.0); Mean Corpuscular Volume 92.4 fL (80.0-98.0); Mean Platelet Volume 11.7 fL (9.4-12.4); Monocytes Absolute Auto 0.2 X10*3/uL (0.1-1.2); Monocytes Percent Auto 1.4 % (2-11); NRBC Pct Auto 0.1 /100WBC (0.0-0.2); Neutrophils Absolute Auto 12.1 x10*3/uL (2.0-8.3); Neutrophils Percent Auto 87.8 % (45-73); Platelet Count 287 X10*3/uL (160-400); Red Blood Count 2.25 X10*6/uL (4.60-5.80); Red Cell Distribution Width 15.3 % (11.0-16.0); SCAN SMEAR FLAG 1; White Blood Count 13.8 X10*3/uL (4.8-10.8)
[2024-11-17 06:09] LABS: Hematocrit 20.8 % (42.0-52.0)
[2024-11-17] MEDS: vancomycin HCL 500 MG in 0.9 % Sodium Chloride 100 ML 110 MG IV (06:19)
[2024-11-17] MEDS: Pantoprazole Sodium 40 MG/10 ML VIAL IVPUSH ×2 (06:19→15:23)
[2024-11-17 06:21] LABS: Alanine Aminotransferase 66 U/L (0-40); Albumin Level 3.3 g/dL (3.5-5.0); Alkaline Phosphatase 142 U/L (39-117); Anion Gap 12 (12-20); Aspartate Amino Transferase 48 U/L (5-37); Bilirubin Total 0.7 mg/dL (0.0-1.0); Blood Urea Nitrogen 100 mg/dL (9-16); Carbon Dioxide 17 mmol/L (22-29); Chloride 127 mmol/L (96-108); Estimated Glomerular Filt Rate 23; Glucose Random 198 mg/dL (60-115); Magnesium 2.6 mg/dL (1.6-2.6); Phosphorus 5.1 mg/dL (2.7-4.5); Potassium 3.7 mmol/L (3.3-5.1); Sodium 152 mmol/L (135-145); Total Protein 6.5 g/dL (6.5-8.0)
[2024-11-17] MEDS: Chlorhexidine Gluc Oral Rinse 15 ML MOUTHWASH BUCCAL ×3 (07:27→20:05)
[2024-11-17] MEDS: 0.9 % Sodium Chloride Flush 3 ML SYRINGE IVFLUSH ×2 (07:34→15:23)
[2024-11-17] MEDS: dexmedeTOMIDidine HCL/NS 400 MCG/100 ML INFUS..BTL 12.9 MCG IVCONT ×3 (08:23→22:59)
[2024-11-17] MEDS: Dextrose 5 % 1,000 ML 200 ML IVCONT ×4 (08:27→23:01)
[2024-11-17 08:29] LABS: SLIDE REVIEW VERIFIED
[2024-11-17] MEDS: levETIRAcetam in NaCl (iso-os) 1,000 MG/100 ML PIGGYBACK 400 MG IV ×2 (08:34→19:18)
--- NOTE | 2024-11-17 09:44 | PC.NURSE ---
Addendum entered by Mitra Aragon RN 11/17/24 13:34: Upper endoscopy performed at bedside approx. from 12:30-13:[address] Dubose Original Note: Neuro/Resp:? Continues Sedated/intubated,? on? precedex and fentanyl gtt? per OCT. Does not open eyes , does not track, does not follow commands, flaccid extremities (passive ROM performed/reposition maintained).? Cardiac: Sinus Rhythm, Amiodarone gtt.? GI: Fecal management device in place , + bowel sounds, OGT in place, NPO awaiting procedure, POC Q6hr : Manzano in place, patent /draining. Infectious: ? On IV Antibiotics? Lines: TLC L. IJ, Midline left upper arm, and peripheral IV? H&H 7.2/20.8,? infusing 1 unit of RBC per TAR Plan for upper endoscopy today
--- NOTE | 2024-11-17 10:32 | MHC.CM.PN ---
Discussed transfer with ICU provider: Pt will need pre certification per [facility]. Call placed to [facility] pre cert at [phone] to initiate request. Clinical faxed to [phone]. Per cert specialist, [facility] Dong MD has 24 hours to review and issue a determination if the request if for non urgent/tertiary transfer. Receiving MD at [facility] is Dr. Alphonse Arboleda. This information given to ICU MD and call placed to pts family to inform them of the process. CM to follow
[2024-11-17 11:20] LABS: Glucose, Whole Blood 195 mg/dL (60-115)
--- NOTE | 2024-11-17 11:21 | MHC.CLN ---
F/U DISCUSSED AT ROUNDS WITH PT IS NPO TODAY R/T EGT SCHEDULED TODAY WHEN TF TO RESUME, RECOMMEND RE-STARTING NEPRO AT MAX GOAL RATE 40ML/HR WITH 300ML FWF Q 4 HRS PROVIDES 1728KCALS (25KCALS/KG BASED ON IBW), 78G PROTEIN (1.1G/KG), 2498ML TOTAL WATER FROM FORMULA AND FLUSHES (36ML/KG) MONITOR TOLERANCE AND LYTES
[2024-11-17] MEDS: fentaNYL citrate/NS 1,000 MCG/100 ML PLAST..BAG 17.5 MCG IVCONT (11:32)
--- NOTE | 2024-11-17 11:35 | PM.CCPN ---
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 On ER evaluation patient encephalopathic with significant leukocytosis. Initial CT head with no acute findings. Initial LP with on insufficiency so for PCR that is positive for Streptococcus. Blood cultures positive for Streptococcus. 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 Repeat LP performed in IR with additional CSF culture positive for Streptococcus. Required intubation on 11/06/2024 for pulmonary aspiration and acute refractory hypoxia. 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 No events overnight. Critical Care Time (minutes): 60 Physical Exam Vital Signs: Vital Signs: Last Vital Signs Temp 99.3 F 11/17/24 11:00 Pulse 72 11/17/24 11:00 Resp 25 H 11/17/24 11:00 BP 126/72 11/17/24 11:00 Pulse Ox 95 11/17/24 11:00 O2 Del Method Mechanical Ventil ation 11/17/24 11:00 O2 Flow Rate 25 11/15/24 09:00 FiO2 25 11/17/24 11:06 Oxygen Flow Rate 8 11/03/24 19:38 BMI result Body Mass Index 39.5 Const: General: no acute distress and patient obtunded Nutritional Appearance: obese and Edematous Orientation/consciousness: patient obtunded Eyes: Sclerae: sclerae normal Neck: Neck: Yes no lymphadenopathy, Yes trachea midline and Yes supple Resp: Auscultation: clear to auscultation bilaterally Cardio: Rate: regular rate Rhythm: regular rhythm Heart sounds: no gallops, no murmurs and no rubs GI: Palpation (GI): Soft to palpation and Other GI palpation findings present ( Nontender) Auscultation: normal bowel sounds Neuro: General: patient obtunded Extrem: General: No clubbing, No cyanosis and Yes edema (1+ bilateral) Objective Data Labs 11/17/24 05:11 11/17/24 05:11 Labs: Laboratory Results - last 24 hr 11/16/24 11/16/24 11/16/24 07:12 12:07 17:48 WBC RBC Hgb Hct MCV MCH MCHC RDW Plt Count MPV Immature Gran % (Auto) Neut % (Auto) Lymph % (Auto) [place] % (Auto) Eos % (Auto) Baso % (Auto) Lymph # (Auto) [place] # (Auto) Eos # (Auto) Baso # (Auto) Abs Immat Gran (auto) Absolute Neuts (auto) Absolute Nucleated RBC Nucleated RBC % (auto) Smear Tech's Comments VBG pH VBG pCO2 VBG pO2 VBG HCO3 VBG O2 Saturation VBG Base Excess Sodium Potassium Chloride Carbon Dioxide Anion Gap BUN Creatinine Estim Creat Clear Calc Estimated GFR POC Glucose 190 H 182 H Random Glucose Calcium Phosphorus Magnesium Total Bilirubin AST ALT Alkaline Phosphatase Total Protein Albumin Blood Type O Positive Antibody Screen NEGATIVE Crossmatch See Detail 11/16/24 11/17/24 11/17/24 23:23 05:11 05:30 WBC 13.8 H RBC 2.25 L Hgb 7.2 L Hct 20.8 L* MCV 92.4 MCH 32.0 MCHC 34.6 RDW 15.3 Plt Count 287 MPV 11.7 Immature Gran % (Auto) 0.7 H Neut % (Auto) 87.8 H Lymph % (Auto) 7.0 L [place] % (Auto) 1.4 L Eos % (Auto) 2.8 Baso % (Auto) 0.3 Lymph # (Auto) 1.0 L [place] # (Auto) 0.2 Eos # (Auto) 0.4 Baso # (Auto) 0.0 Abs Immat Gran (auto) 0.09 H Absolute Neuts (auto) 12.1 H Absolute Nucleated RBC 0.020 H Nucleated RBC % (auto) 0.1 Smear Tech's Comments VERIFIED VBG pH 7.47 H VBG pCO2 25 VBG pO2 45 VBG HCO3 18 L VBG O2 Saturation 79.0 VBG Base Excess -4.0 Sodium 152 H Potassium 3.7 Chloride 127 H Carbon Dioxide 17 L Anion Gap 12 BUN 100 H Creatinine 2.84 H Estim Creat Clear Calc 34.0 Estimated GFR 23 POC Glucose 171 H Random Glucose 198 H Calcium 9.0 Phosphorus 5.1 H Magnesium 2.6 Total Bilirubin 0.7 AST 48 H ALT 66 H Alkaline Phosphatase 142 H Total Protein 6.5 Albumin 3.3 L Blood Type Antibody Screen Crossmatch 11/17/24 11:15 WBC RBC Hgb Hct MCV MCH MCHC RDW Plt Count MPV Immature Gran % (Auto) Neut % (Auto) Lymph % (Auto) [place] % (Auto) Eos % (Auto) Baso % (Auto) Lymph # (Auto) [place] # (Auto) Eos # (Auto) Baso # (Auto) Abs Immat Gran (auto) Absolute Neuts (auto) Absolute Nucleated RBC Nucleated RBC % (auto) Smear Tech's Comments VBG pH VBG pCO2 VBG pO2 VBG HCO3 VBG O2 Saturation VBG Base Excess Sodium Potassium Chloride Carbon Dioxide Anion Gap BUN Creatinine Estim Creat Clear Calc Estimated GFR POC Glucose 195 H Random Glucose Calcium Phosphorus Magnesium Total Bilirubin AST ALT Alkaline Phosphatase Total Protein Albumin Blood Type Antibody Screen Crossmatch Microbiology Microbiology Results: Microbiology 11/16/24 15:34 Blood - Venous Blood Culture - Final 11/10/24 14:59 Blood - Venous Blood Culture - Final No growth after 5 days. 11/10/24 14:57 Blood - Venous Blood Culture - Final No growth after 5 days. 11/10/24 20:07 Sputum - Suctioned Gram Stain - Final 11/10/24 20:07 Sputum - Suctioned Sputum Culture - Final 11/10/24 20:26 Urine clean catch - Clean Catch Midstream Urine Culture - Final No growth. 11/04/24 13:35 Blood - Venous Blood Culture - Final No growth after 5 days. 11/04/24 13:35 Blood - Venous Blood Culture - Final No growth after 5 days. 11/04/24 11:55 Cerebrospinal Fluid Gram Stain - Final 11/04/24 11:55 Cerebrospinal Fluid CSF Examination - Final 11/04/24 11:55 Cerebrospinal Fluid Fluid Description - Final 11/04/24 11:55 Cerebrospinal Fluid CSF Culture - Final Streptococcus pneumoniae 11/03/24 23:52 Cerebrospinal Fluid Gram Stain - Final 11/03/24 23:52 Cerebrospinal Fluid CSF Examination - Final 11/03/24 23:52 Cerebrospinal Fluid Fluid Description - Final 11/03/24 23:52 Cerebrospinal Fluid CSF Culture - Final Streptococcus pneumoniae 11/03/24 20:03 Blood - Venous Blood Culture - Final Streptococcus pneumoniae 11/03/24 19:58 Blood - Venous Blood Culture - Final Streptococcus pneumoniae Progress Note: A&P Assessment and plan (1) PAF (paroxysmal atrial fibrillation): Status: Acute (2) Class 3 obesity: Status: Acute (3) Hx of splenectomy: Status: Acute (4) CORINA (acute kidney injury): Status: Acute (5) Acute blood loss anemia: Status: Acute (6) Streptococcal meningitis: Status: Acute (7) Encephalitis: Status: Acute (8) Encephalopathy: Status: Acute (9) Pulmonary aspiration: Status: Acute (10) Acute respiratory failure with hypoxia: Status: Acute Plan Assessment: 59-year-old gentleman admitted with encephalopathy secondary to streptococcal meningitis/bacteremia further complicated by pulmonary aspiration requiring intubation and ventilatory support and acute kidney injury Plan: Neuro: Streptococcal meningitis with persistent encephalopathy. MRI on 11/15 with worsening encephalitis. Empiric Keppra. Cardiac: Paroxysmal AFib initially requiring amiodarone drip, now titrated to p.o. amiodarone. Pulmonary: Acute hypoxic respiratory failure secondary to pulmonary aspiration requiring intubation and ventilatory support. Continue to titrate off as tolerated. Renal: Acute kidney injury with metabolic acidosis and hypernatremia, likely secondary to ATN. Non oliguric. Continue on D5. Continue to monitor renal indices and urine output. Endo: No acute issues. GI: Likely upper GI bleed, continue PPI. Gastroenterology service care appreciated. Planned for EGD later today. ID: Streptococcal bacteremia and streptococcal meningitis, we discussed with infectious disease service, antibiotics changed to ceftriaxone vancomycin. Repeat blood cultures negative to date. 2D echo with no evidence of vegetation. Infectious Disease service care appreciated. Heme/Onc: Acute blood loss anemia likely secondary to upper GI bleed. Transfuse to hemoglobin goal of 7. Psych: No acute issues. Miscellaneous: No acute issues. Prophylaxis: Heparin, ppi Diet: Tube feeds Critical care time spent: 60 minutes Quality Stroke Does the patient have a stroke diagnosis?: No VTE Prior VTE?: No VTE Risk Level:: Medical - moderate - high VTE Device Contraindication: N/A - Device Ordered VTE Drug Contraindication: N/A - Med Ordered
[2024-11-17] MEDS: propofoL 1,000 MG/100 ML VIAL 21.2 MG IVCONT (12:55)
[2024-11-17] MEDS: propofoL 200 MG/20 ML VIAL 50 MG IVPUSH (12:58)
--- NOTE | 2024-11-17 14:33 | OP_ITS ---
DATE OF SERVICE: 11/17/2024 SURGEON: Addy Dubose MD INDICATIONS: Upper GI bleeding. PREOPERATIVE DIAGNOSIS: POSTOPERATIVE DIAGNOSIS: PROCEDURE PERFORMED: Upper endoscopy with control of hemorrhage. ESTIMATED BLOOD LOSS: COMPLICATIONS: ANESTHESIA: The patient was given intravenous sedation by the ICU registered nurse under the direction of Dr. Spence. ASSISTANTS: SPECIMENS: DESCRIPTION OF PROCEDURE: A history and physical was performed. The risks and benefits of the procedure were explained to the patient's brother, and informed consent was obtained. The patient was placed in the semi left lateral decubitus position. The Olympus video gastroscope was introduced into the esophagus, stomach, and duodenum. Examination was performed. The scope was removed. He tolerated the procedure well and was stable at the termination of the procedure in the ICU. FINDINGS: The procedure was done with the patient's orogastric tube remaining in place. The esophagus was normal. Stomach: The stomach showed some old blood. There was no active bleeding in the stomach. Duodenum: There was a large duodenal ulcer on the anterior wall, measuring approximately 2 cm with a visible vessel that was actively bleeding. A total of 3 cc of epinephrine was injected submucosally in the vicinity of the ulcer with good blanching of the mucosa and cessation of most of the hemorrhage. Next, the gold probe was used to cauterize the bleeding vessel. The ulcer did not appear amenable to endoscopic clip placement based on its location and size. There was no bleeding at the termination of the procedure. IMPRESSION: Duodenal ulcer. RECOMMENDATION: 1. Monitor carefully in the ICU with serial hematocrits. 2. Continue proton pump inhibitor. 3. If he has rebleeding, he will likely need Interventional Radiology with embolization due to the nature of this ulcer. These results were communicated to the patient's brother, Julian, after the procedure. MD FRANKLIN Naranjo/JACQUELINE / [id number]
[2024-11-17 16:28] LABS: Vancomycin Random 19.4 mcg/mL (15-20)
--- NOTE | 2024-11-17 16:44 | HE.PHANOTE ---
Re: Lyndseyo NO changes in renal function, but poor. Trough returned at 19.4. Dose of 500 q12h for 1800 was held, and rescheduled to dose to resume at 0800. Next trough 11/18 @ 0600.
[2024-11-17] MEDS: fentaNYL citrate/NS 1,000 MCG/100 ML PLAST..BAG 15 MCG IVCONT ×2 (17:36→23:30)
[2024-11-17 17:39] LABS: Glucose, Whole Blood 214 mg/dL (60-115)
[2024-11-17] MEDS: Insulin Lispro 100 UNIT/ML 3 ML VIAL SUBCUT (17:42)
[2024-11-17] MEDS: Amiodarone HCL 200 MG TABLET PO (20:05)
[2024-11-17 23:52] LABS: Glucose, Whole Blood 190 mg/dL (60-115)
[2024-11-18] VITALS (32 sets, daily range): BP systolic 108–154; BP diastolic 50–80; PULSE 60–93; RESP 16–36; TEMP 35–38; O2SAT 94–97; BMI 40.2
[2024-11-18] MEDS: 0.9 % Sodium Chloride Flush 3 ML SYRINGE IVFLUSH ×3 (00:09→15:50)
[2024-11-18] MEDS: Insulin Lispro 100 UNIT/ML 3 ML VIAL SUBCUT ×4 (00:10→17:58)
[2024-11-18] MEDS: cefTRIAXone sodium 2 GM VIAL IVPUSH ×2 (03:15→15:50)
[2024-11-18] MEDS: Dextrose 5 % 1,000 ML 200 ML IVCONT ×4 (04:17→20:16)
[2024-11-18] MEDS: dexmedeTOMIDidine HCL/NS 400 MCG/100 ML INFUS..BTL 12.9 MCG IVCONT ×2 (05:29→17:52)
[2024-11-18] MEDS: fentaNYL citrate/NS 1,000 MCG/100 ML PLAST..BAG 15 MCG IVCONT (05:30)
[2024-11-18 05:32] LABS: ABG Base Excess -5.1 mmol/L; ABG HCO3 17 mmol/L (22-26); ABG pCO2 23 mmHg (32-45); ABG pH 7.46 (7.35-7.45); ABG pO2 55 mmHg (83-108)
[2024-11-18] MEDS: Pantoprazole Sodium 40 MG/10 ML VIAL IVPUSH ×2 (05:35→15:50)
[2024-11-18 05:55] LABS: Glucose, Whole Blood 196 mg/dL (60-115)
[2024-11-18 06:08] LABS: Alanine Aminotransferase 46 U/L (0-40); Albumin Level 2.9 g/dL (3.5-5.0); Alkaline Phosphatase 108 U/L (39-117); Anion Gap 12 (12-20); Aspartate Amino Transferase 31 U/L (5-37); Basophils Percent Auto 0.2 % (0-2); Bilirubin Total 0.4 mg/dL (0.0-1.0); Blood Urea Nitrogen 79 mg/dL (9-16); Calcium 8.9 mg/dL (8.4-10.2); Carbon Dioxide 17 mmol/L (22-29); Chloride 124 mmol/L (96-108); Eosinophils Absolute Auto 0.5 X10*3/uL (0.0-0.4); Eosinophils Percent Auto 3.7 % (0-4); Estimated Glomerular Filt Rate 27; Glucose Random 224 mg/dL (60-115); Hematocrit 22.5 % (42.0-52.0); Hemoglobin 7.8 g/dl (14.0-18.0); Imm Gran Abs Auto 0.09 X10*3/uL (0.00-0.03); Imm Gran Pct Auto 0.6 % (0.0-0.4); Lymphocytes Absolute Auto 1.1 X10*3/uL (1.2-4.9); Lymphocytes Percent Auto 7.9 % (20-40); MANUAL DIFF FLAG SCAN; Magnesium 2.4 mg/dL (1.6-2.6); Mean Corpuscular HGB Conc 34.7 g/dl (31.0-36.0); Mean Corpuscular Hemoglobin 32.8 pg (27.0-33.0); Mean Corpuscular Volume 94.5 fL (80.0-98.0); Mean Platelet Volume 11.5 fL (9.4-12.4); Monocytes Absolute Auto 0.3 X10*3/uL (0.1-1.2); Neutrophils Absolute Auto 12.2 x10*3/uL (2.0-8.3); Neutrophils Percent Auto 85.6 % (45-73); Phosphorus 5.3 mg/dL (2.7-4.5); Platelet Count 276 X10*3/uL (160-400); Potassium 4.2 mmol/L (3.3-5.1); Red Blood Count 2.38 X10*6/uL (4.60-5.80); Red Cell Distribution Width 15.9 % (11.0-16.0); SCAN SMEAR FLAG 1; Sodium 149 mmol/L (135-145); Total Protein 6.4 g/dL (6.5-8.0); White Blood Count 14.2 X10*3/uL (4.8-10.8)
--- NOTE | 2024-11-18 06:19 | HE.PHANOTE ---
RE: VANCO DOSING Trough came back as 15 mg/L. Renal function is improving but still poor. Dose is set at 750 mg q24h starting @0800 11/18/24. Next trough scheduled for 11/19/24 @0600.
--- NOTE | 2024-11-18 06:39 | PC.NURSE ---
assumed care 1900 pt remain intubated and sedated per emar, SR on tele, tube feeds on hold per EMBOSSING MACHINE OPERATOR at this time. hernandez removed previous shift, straight cath x2 pre nurse driven protocol, next DTV 11am. repo q2. plan of care continues.
[2024-11-18 06:46] LABS: SLIDE REVIEW VERIFIED
[2024-11-18] MEDS: Albumin Human 25 % 50 ML 100 ML IV ×2 (07:30→10:40)
[2024-11-18] MEDS: levETIRAcetam in NaCl (iso-os) 1,000 MG/100 ML PIGGYBACK 400 MG IV ×2 (07:31→19:55)
[2024-11-18] MEDS: vancomycin HCL 750 MG in 0.9 % Sodium Chloride 250 ML 265 MG IV (07:31)
[2024-11-18] MEDS: Chlorhexidine Gluc Oral Rinse 15 ML MOUTHWASH BUCCAL ×3 (07:31→19:57)
[2024-11-18] MEDS: Amiodarone HCL 200 MG TABLET PO ×2 (08:05→19:57)
--- NOTE | 2024-11-18 10:38 | P.PNGI_ITS ---
Subjective Subjective Date of Service: 11/18/24 Interval History: intubated sedated nursing reports decreased rectal tube output Critical Care Time (minutes): 20 Physical Exam 2 Vital Signs: Vital Signs: Last Vital Signs Temp 100.0 F 11/18/24 10:00 Pulse 66 11/18/24 10:00 Resp 23 H 11/18/24 10:00 BP 145/71 H 11/18/24 10:00 Pulse Ox 94 11/18/24 10:00 O2 Del Method Mechanical Ventil ation 11/18/24 10:00 O2 Flow Rate 25 11/15/24 09:00 FiO2 25 11/18/24 10:00 Oxygen Flow Rate 8 11/03/24 19:38 BMI result Body Mass Index 40.2 GI: Other: abdomen is soft. OG tube flushed with 60 ml water, clear return. Objective Data Labs 11/18/24 05:25 11/18/24 05:25 Microbiology Microbiology Results: Microbiology 11/16/24 22:38 Blood - Venous Blood Culture - Preliminary No growth after 24 hours. 11/16/24 15:34 Blood - Venous Blood Culture - Final 11/10/24 14:59 Blood - Venous Blood Culture - Final No growth after 5 days. 11/10/24 14:57 Blood - Venous Blood Culture - Final No growth after 5 days. 11/10/24 20:07 Sputum - Suctioned Gram Stain - Final 11/10/24 20:07 Sputum - Suctioned Sputum Culture - Final 11/10/24 20:26 Urine clean catch - Clean Catch Midstream Urine Culture - Final No growth. 11/04/24 13:35 Blood - Venous Blood Culture - Final No growth after 5 days. 11/04/24 13:35 Blood - Venous Blood Culture - Final No growth after 5 days. 11/04/24 11:55 Cerebrospinal Fluid Gram Stain - Final 11/04/24 11:55 Cerebrospinal Fluid CSF Examination - Final 11/04/24 11:55 Cerebrospinal Fluid Fluid Description - Final 11/04/24 11:55 Cerebrospinal Fluid CSF Culture - Final Streptococcus pneumoniae 11/03/24 23:52 Cerebrospinal Fluid Gram Stain - Final 11/03/24 23:52 Cerebrospinal Fluid CSF Examination - Final 11/03/24 23:52 Cerebrospinal Fluid Fluid Description - Final 11/03/24 23:52 Cerebrospinal Fluid CSF Culture - Final Streptococcus pneumoniae 11/03/24 20:03 Blood - Venous Blood Culture - Final Streptococcus pneumoniae 11/03/24 19:58 Blood - Venous Blood Culture - Final Streptococcus pneumoniae Procedures Date of Service Date of Service: 11/18/24 Progress Note: A&P Assessment and plan (1) Acute blood loss anemia: Status: Acute Assessment and Plan: s/p egd and control of hemorrhage continue ppi monitor hematocrit. Time Spent With Patient Time: Total time managing care of this patient today ____ minutes. Quality Stroke Does the patient have a stroke diagnosis?: No VTE Prior VTE?: No VTE Risk Level:: Medical - moderate - high VTE Device Contraindication: N/A - Device Ordered VTE Drug Contraindication: N/A - Med Ordered
[2024-11-18 11:03] LABS: Glucose, Whole Blood 208 mg/dL (60-115)
--- NOTE | 2024-11-18 12:20 | MHC.CLN ---
F/U DISCUSSED AT ROUNDS WITH MD-TO RE-START TF PT S/P EGD RECOMMEND RE-STARTING NEPRO AT MAX GOAL RATE 40ML/HR WITH 300ML FWF Q 4 HRS PROVIDES 1728KCALS (25KCALS/KG BASED ON IBW), 78G PROTEIN (1.1G/KG), 2498ML TOTAL WATER FROM FORMULA AND FLUSHES (36ML/KG) MONITOR TOLERANCE AND LYTES
--- NOTE | 2024-11-18 13:13 | P.PNCC_ITS ---
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 On ER evaluation patient encephalopathic with significant leukocytosis. Initial CT head with no acute findings. Initial LP with on insufficiency so for PCR that is positive for Streptococcus. Blood cultures positive for Streptococcus. 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 Repeat LP performed in IR with additional CSF culture positive for Streptococcus. Required intubation on 11/06/2024 for pulmonary aspiration and acute refractory hypoxia. 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 No events overnight. Critical Care Time (minutes): 60 Physical Exam 2 Vital Signs: Vital Signs: Last Vital Signs Temp 99.7 F 11/18/24 12:00 Pulse 68 11/18/24 12:00 Resp 23 H 11/18/24 12:00 BP 138/66 11/18/24 12:00 Pulse Ox 96 11/18/24 12:00 O2 Del Method Mechanical Ventil ation 11/18/24 12:00 O2 Flow Rate 25 11/15/24 09:00 FiO2 25 11/18/24 12:00 Oxygen Flow Rate 8 11/03/24 19:38 BMI result Body Mass Index 40.2 Const: General: no acute distress and other (Poor arousal with sedation vacation) Nutritional Appearance: obese and Edematous Eyes: Sclerae: sclerae normal Pupils: Equal, round and reactive pupils present Neck: Neck: Yes no lymphadenopathy, Yes trachea midline and Yes supple Resp: Auscultation: crackles (Bibasilar) Cardio: Rate: tachycardic Rhythm: regular rhythm Heart sounds: no gallops, no murmurs and no rubs GI: Palpation (GI): Soft to palpation and Other GI palpation findings present ( Nontender) Auscultation: normal bowel sounds Neuro: Cranial nerves: Yes Equal, round and reactive pupils present Extrem: General: No clubbing, No cyanosis and Yes edema (2+ bilateral) Objective Data Labs 11/18/24 05:25 11/18/24 05:25 Labs: Laboratory Results - last 24 hr 11/17/24 11/17/24 11/17/24 16:00 17:33 23:44 WBC RBC Hgb Hct MCV MCH MCHC RDW Plt Count MPV Immature Gran % (Auto) Neut % (Auto) Lymph % (Auto) [place] % (Auto) Eos % (Auto) Baso % (Auto) Lymph # (Auto) [place] # (Auto) Eos # (Auto) Baso # (Auto) Abs Immat Gran (auto) Absolute Neuts (auto) Absolute Nucleated RBC Nucleated RBC % (auto) Smear Tech's Comments O2 Saturation ABG pH at Pt Temp ABG pCO2 at Pt Temp ABG pO2 at Pt Temp ABG HCO3 ABG Base Excess (Actual) Sodium Potassium Chloride Carbon Dioxide Anion Gap BUN Creatinine Estim Creat Clear Calc Estimated GFR POC Glucose 214 H 190 H Random Glucose Calcium Phosphorus Magnesium Total Bilirubin AST ALT Alkaline Phosphatase Total Protein Albumin Random Vancomycin 19.4 11/18/24 11/18/24 11/18/24 05:25 05:27 05:51 WBC 14.2 H RBC 2.38 L Hgb 7.8 L Hct 22.5 L MCV 94.5 MCH 32.8 MCHC 34.7 RDW 15.9 Plt Count 276 MPV 11.5 Immature Gran % (Auto) 0.6 H Neut % (Auto) 85.6 H Lymph % (Auto) 7.9 L [place] % (Auto) 2.0 Eos % (Auto) 3.7 Baso % (Auto) 0.2 Lymph # (Auto) 1.1 L [place] # (Auto) 0.3 Eos # (Auto) 0.5 H Baso # (Auto) 0.0 Abs Immat Gran (auto) 0.09 H Absolute Neuts (auto) 12.2 H Absolute Nucleated RBC 0.000 Nucleated RBC % (auto) 0.0 Smear Tech's Comments VERIFIED O2 Saturation 90.0 ABG pH at Pt Temp 7.46 H ABG pCO2 at Pt Temp 23 L ABG pO2 at Pt Temp 55 L ABG HCO3 17 L ABG Base Excess (Actual) -5.1 Sodium 149 H Potassium 4.2 Chloride 124 H Carbon Dioxide 17 L Anion Gap 12 BUN 79 H Creatinine 2.44 H Estim Creat Clear Calc 40.0 Estimated GFR 27 POC Glucose 196 H Random Glucose 224 H Calcium 8.9 Phosphorus 5.3 H Magnesium 2.4 Total Bilirubin 0.4 AST 31 ALT 46 H Alkaline Phosphatase 108 Total Protein 6.4 L Albumin 2.9 L Random Vancomycin 15.0 11/18/24 10:59 WBC RBC Hgb Hct MCV MCH MCHC RDW Plt Count MPV Immature Gran % (Auto) Neut % (Auto) Lymph % (Auto) [place] % (Auto) Eos % (Auto) Baso % (Auto) Lymph # (Auto) [place] # (Auto) Eos # (Auto) Baso # (Auto) Abs Immat Gran (auto) Absolute Neuts (auto) Absolute Nucleated RBC Nucleated RBC % (auto) Smear Tech's Comments O2 Saturation ABG pH at Pt Temp ABG pCO2 at Pt Temp ABG pO2 at Pt Temp ABG HCO3 ABG Base Excess (Actual) Sodium Potassium Chloride Carbon Dioxide Anion Gap BUN Creatinine Estim Creat Clear Calc Estimated GFR POC Glucose 208 H Random Glucose Calcium Phosphorus Magnesium Total Bilirubin AST ALT Alkaline Phosphatase Total Protein Albumin Random Vancomycin Microbiology Microbiology Results: Microbiology 11/16/24 22:38 Blood - Venous Blood Culture - Preliminary No growth after 24 hours. 11/16/24 15:34 Blood - Venous Blood Culture - Final 11/10/24 14:59 Blood - Venous Blood Culture - Final No growth after 5 days. 11/10/24 14:57 Blood - Venous Blood Culture - Final No growth after 5 days. 11/10/24 20:07 Sputum - Suctioned Gram Stain - Final 11/10/24 20:07 Sputum - Suctioned Sputum Culture - Final 11/10/24 20:26 Urine clean catch - Clean Catch Midstream Urine Culture - Final No growth. 11/04/24 13:35 Blood - Venous Blood Culture - Final No growth after 5 days. 11/04/24 13:35 Blood - Venous Blood Culture - Final No growth after 5 days. 11/04/24 11:55 Cerebrospinal Fluid Gram Stain - Final 11/04/24 11:55 Cerebrospinal Fluid CSF Examination - Final 11/04/24 11:55 Cerebrospinal Fluid Fluid Description - Final 11/04/24 11:55 Cerebrospinal Fluid CSF Culture - Final Streptococcus pneumoniae 11/03/24 23:52 Cerebrospinal Fluid Gram Stain - Final 11/03/24 23:52 Cerebrospinal Fluid CSF Examination - Final 11/03/24 23:52 Cerebrospinal Fluid Fluid Description - Final 11/03/24 23:52 Cerebrospinal Fluid CSF Culture - Final Streptococcus pneumoniae 11/03/24 20:03 Blood - Venous Blood Culture - Final Streptococcus pneumoniae 11/03/24 19:58 Blood - Venous Blood Culture - Final Streptococcus pneumoniae Progress Note: A&P Assessment and plan (1) PAF (paroxysmal atrial fibrillation): Status: Acute (2) Class 3 obesity: Status: Acute (3) Hx of splenectomy: Status: Acute (4) CORINA (acute kidney injury): Status: Acute (5) Acute blood loss anemia: Status: Acute (6) Streptococcal meningitis: Status: Acute (7) Encephalitis: Status: Acute (8) Encephalopathy: Status: Acute (9) Pulmonary aspiration: Status: Acute (10) Acute respiratory failure with hypoxia: Status: Acute (11) Upper GI bleed: Status: Acute Plan Assessment: 59-year-old gentleman admitted with encephalopathy secondary to streptococcal meningitis/bacteremia further complicated by pulmonary aspiration requiring intubation and ventilatory support and acute kidney injury Plan: Neuro: Streptococcal meningitis with persistent encephalopathy. MRI on 11/15 with worsening encephalitis. Empiric Keppra. Cardiac: Paroxysmal AFib initially requiring amiodarone drip, now titrated to p.o. amiodarone. Pulmonary: Acute hypoxic respiratory failure secondary to pulmonary aspiration requiring intubation and ventilatory support. Now with failure to wean from mechanical ventilation, will plan for tracheostomy/gastrostomy. Renal: Acute kidney injury with metabolic acidosis and hypernatremia, likely secondary to ATN, improving. Non oliguric. Continue on D5. Continue to monitor renal indices and urine output. Endo: No acute issues. GI: Upper GI bleed secondary to gastric ulcer, now status post EGD with coagulation. Gastroenterology service care appreciated. Continue PPI. ID: Streptococcal bacteremia and streptococcal meningitis, we discussed with infectious disease service, antibiotics changed to ceftriaxone vancomycin. Repeat blood cultures negative to date. 2D echo with no evidence of vegetation. Infectious Disease service care appreciated. Heme/Onc: Acute blood loss anemia likely secondary to upper GI bleed. Continue to monitor hemoglobin level, transfusion threshold of 7. Psych: No acute issues. Miscellaneous: No acute issues. Prophylaxis: Heparin, ppi Diet: Tube feeds Critical care time spent: 60 minutes Quality Stroke Does the patient have a stroke diagnosis?: No VTE Prior VTE?: No VTE Risk Level:: Medical - moderate - high VTE Device Contraindication: N/A - Device Ordered VTE Drug Contraindication: N/A - Med Ordered
[2024-11-18] MEDS: Doxazosin Mesylate 1 MG TABLET PO (14:11)
[2024-11-18] MEDS: fentaNYL citrate/NS 1,000 MCG/100 ML PLAST..BAG 10 MCG IVCONT (14:12)
--- NOTE | 2024-11-18 14:25 | HO.THORCON_ITS ---
History of Present Illness Consult details Consult date: 11/18/24 Requesting physician: Eugene Rasheed Narrative: 59-year-old gentleman admitted with encephalopathy secondary to streptococcal meningitis/bacteremia further complicated by pulmonary aspiration requiring intubation and ventilatory support. He has been unable to be weaned from mechanical ventilation. Had UGI bleed and underwent EGD yesterday and was found to have large bleeding duodenal ulcer. H/H stable this morning. Thoracic/general surgery was consulted for tracheostomy and PEG tube placement. Review of Systems 2 Review of Systems: Yes unobtainable due to endotracheal tube and Unobtainable due to mental status PMFSH Past Medical History Medical History Umbilical hernia (04/12/23) Obesity (BMI 30-39.9) Hypertension Asthma Family History Family history: reviewed and not pertinent Surgical History Surgical History History of appendectomy (04/12/23) Hx of splenectomy Social History Social History Household Members: Significant Other Housing: House Do you presently have visiting nurse or other home services: No Alcohol intake: current Alcohol intake frequency: a few times a week Patient Tobacco Use Status: Never used Tobacco service: No Meds Allergies Allergy/AdvReac Type Severity Reaction Status Date / Time No Known Allergies Allergy Verified 11/03/24 19:43 Active Medications: Current Medications Acetaminophen (Acetaminophen 325 Mg Tablet) 650 mg PO Q6H PRN PRN Reason: Pain, Mild 1-3,fever,headache Last Admin: 11/17/24 00:09 Dose: 650 mg Amiodarone HCl (Amiodarone Hcl 200 Mg Tablet) 200 mg PO BID [facility] Last Admin: 11/18/24 08:05 Dose: 200 mg Ceftriaxone Sodium (Ceftriaxone Sodium 2 Gm Vial) 2 gm IVPUSH Q12H [facility] Last Admin: 11/18/24 03:15 Dose: 2 gm Chlorhexidine Gluconate (Chlorhexidine Gluc Oral Rinse 15 Ml Mouthwash) 15 ml BUCCAL TID [facility] Last Admin: 11/18/24 14:11 Dose: 15 ml Doxazosin Mesylate (Doxazosin Mesylate 1 Mg Tablet) 1 mg PO DAILY [facility] Last Admin: 11/18/24 14:11 Dose: 1 mg Fentanyl (Fentanyl Citrate/Pf 100 Mcg/2 Ml Vial) 50 mcg IVPUSH Q2H PRN; Protocol PRN Reason: agitation Last Admin: 11/16/24 04:30 Dose: 50 mcg Heparin Sodium (Porcine) (Heparin Sodium,Porcine 5,000 Unit/Ml Vial) 5,000 unit SUBCUT Q8H MEG Last Admin: 11/16/24 00:53 Dose: Not Given Dexmedetomidine HCl (Precedex) 400 mcg in 100 mls @ 0 mls/hr IVCONT .Q0M MEG; Protocol Last Titration: 11/18/24 07:45 Dose: 0.2 mcg/kg/hr, 6.45 mls/hr Phenylephrine HCl 20 mg/ (Sodium Chloride) 252 mls @ 0 mls/hr IVCONT .Q0M MEG; Protocol Last Titration: 11/11/24 20:12 Dose: Infused Esmolol HCl (Brevibloc/Nacl) 2,500 mg in 250 mls @ 0 mls/hr IVCONT .Q0M MEG; Protocol Fentanyl (Sublimaze/Ns) 1,000 mcg in 100 mls @ 0 mls/hr IVCONT .Q0M MEG; Protocol Last Admin: 11/18/24 14:12 Dose: 100 mcg/hr, 10 mls/hr Dextrose (D5w) 1,000 mls @ 200 mls/hr IVCONT .Q5H MEG Last Admin: 11/18/24 09:35 Dose: 200 mls/hr Levetiracetam (Keppra) 1,000 mg in 100 mls @ 400 mls/hr IV Q12H MEG Last Infusion: 11/18/24 08:20 Dose: Infused Propofol (Diprivan) 1,000 mg in 100 mls @ 0 mls/hr IVCONT .Q0M MEG; Protocol Last Titration: 11/17/24 13:05 Dose: Infused Vancomycin HCl 750 mg/ Sodium (Chloride) 265 mls @ 265 mls/hr IV Q24H [facility] Last Infusion: 11/18/24 11:06 Dose: Infused Insulin Human Lispro (Insulin Lispro 100 Unit/Ml 3 Ml Vial) 0 unit SUBCUT Q6H MEG; Protocol Last Admin: 11/18/24 11:05 Dose: 4 unit Naloxone HCl (Naloxone Hcl 0.4 Mg/Ml Vial) 0.2 mg IVPUSH Q2M PRN PRN Reason: Excessive sedation or RR < 8 Pantoprazole Sodium (Pantoprazole Sodium 40 Mg/10 Ml Vial) 40 mg IVPUSH BID@0630,1630 [facility] Last Admin: 11/18/24 05:35 Dose: 40 mg Pharmacy Consult (Consult Rx Vancomycin Dosing) 1 each MISCELLANE DAILY PRN PRN Reason: Consult order Propofol (Propofol 200 Mg/20 Ml Vial) 50 mg IVPUSH Q15M PRN PRN Reason: Sedation Last Admin: 11/17/24 12:58 Dose: 50 mg Sodium Chloride (0.9 % Sodium Chloride Flush 3 Ml Syringe) 3 ml IVFLUSH QSHIFT [facility] Last Admin: 11/18/24 07:30 Dose: 3 ml Home Medications ?Medication ?Instructions ?Recorded ?Confirmed ?Last Taken ?Type montelukast 10 mg tablet 10 mg PO BEDTIME 10/09/20 11/04/24 04/11/23 History naproxen sodium 220 mg capsule 220 mg PO BID PRN Pain 10/09/20 11/04/24 Unknown History (Aleve) valsartan 160 mg tablet 160 mg PO DAILY 04/12/23 11/04/24 04/12/23 History prednisone 20 mg tablet 20 mg PO BID 11/04/24 11/04/24 Unknown History sildenafil 100 mg tablet 100 mg PO DAILY PRN Erectile 11/04/24 11/04/24 Unknown History Dysfunction Physical Exam 2 Vital Signs: Vital Signs: Last Vital Signs Temp 99.7 F 11/18/24 12:00 Pulse 68 11/18/24 13:00 Resp 22 H 11/18/24 13:00 BP 126/59 L 11/18/24 13:00 Pulse Ox 96 11/18/24 13:00 O2 Del Method Mechanical Ventil ation 11/18/24 13:00 O2 Flow Rate 25 11/15/24 09:00 FiO2 25 11/18/24 13:00 Oxygen Flow Rate 8 11/03/24 19:38 BMI result Body Mass Index 40.2 Neck: Other: large neck trachea midline Resp: Other: intubated, on vent GI: Inspection: No distended and Yes scar (multiple abd scars present ) P alpation (GI): Soft to palpation, nontender and no guarding Abdomen image: 1. midline laparotomy scar 2. transverse appendectomy scar 3. 4. Skin: Other: warm and dry Results Labs 11/18/24 05:25 11/18/24 05:25 Labs: Abnormal lab results 11/17/24 11/17/24 11/18/24 Range/Units 17:33 23:44 05:25 WBC 14.2 H (4.8-10.8) X10*3/uL RBC 2.38 L (4.60-5.80) X10*6/uL Hgb 7.8 L (14.0-18.0) g/dl Hct 22.5 L (42.0-52.0) % Immature Gran % (Auto) 0.6 H (0.0-0.4) % Neut % (Auto) 85.6 H (45-73) % Lymph % (Auto) 7.9 L (20-40) % Lymph # (Auto) 1.1 L (1.2-4.9) X10*3/uL Eos # (Auto) 0.5 H (0.0-0.4) X10*3/uL Abs Immat Gran (auto) 0.09 H (0.00-0.03) X10*3/uL Absolute Neuts (auto) 12.2 H (2.0-8.3) x10*3/uL ABG pH at Pt Temp (7.35-7.45) ABG pCO2 at Pt Temp (32-45) mmHg ABG pO2 at Pt Temp (83-108) mmHg ABG HCO3 (22-26) mmol/L Sodium 149 H (135-145) mmol/L Chloride 124 H (96-108) mmol/L Carbon Dioxide 17 L (22-29) mmol/L BUN 79 H (9-16) mg/dL Creatinine 2.44 H (0.5-1.4) mg/dL POC Glucose 214 H 190 H (60-115) mg/dL Random Glucose 224 H (60-115) mg/dL Phosphorus 5.3 H (2.7-4.5) mg/dL ALT 46 H (0-40) U/L Total Protein 6.4 L (6.5-8.0) g/dL Albumin 2.9 L (3.5-5.0) g/dL 0411/18/24 11/18/24 Range/Units 05:27 05:51 10:59 WBC (4.8-10.8) X10*3/uL RBC (4.60-5.80) X10*6/uL Hgb (14.0-18.0) g/dl Hct (42.0-52.0) % Immature Gran % (Auto) (0.0-0.4) % Neut % (Auto) (45-73) % Lymph % (Auto) (20-40) % Lymph # (Auto) (1.2-4.9) X10*3/uL Eos # (Auto) (0.0-0.4) X10*3/uL Abs Immat Gran (auto) (0.00-0.03) X10*3/uL Absolute Neuts (auto) (2.0-8.3) x10*3/uL ABG pH at Pt Temp 7.46 H (7.35-7.45) ABG pCO2 at Pt Temp 23 L (32-45) mmHg ABG pO2 at Pt Temp 55 L (83-108) mmHg ABG HCO3 17 L (22-26) mmol/L Sodium (135-145) mmol/L Chloride (96-108) mmol/L Carbon Dioxide (22-29) mmol/L BUN (9-16) mg/dL Creatinine (0.5-1.4) mg/dL POC Glucose 196 H 208 H (60-115) mg/dL Random Glucose (60-115) mg/dL Phosphorus (2.7-4.5) mg/dL ALT (0-40) U/L Total Protein (6.5-8.0) g/dL Albumin (3.5-5.0) g/dL Short CBC 11/18/24 Range/Units 05:25 WBC 14.2 H (4.8-10.8) X10*3/uL Hgb 7.8 L (14.0-18.0) g/dl Hct 22.5 L (42.0-52.0) % Plt Count 276 (160-400) X10*3/uL BMP 11/18/24 05:25 Sodium 149 H Potassium 4.2 Chloride 124 H Carbon Dioxide 17 L BUN 79 H Creatinine 2.44 H Calcium 8.9 Liver Function 11/18/24 Range/Units 05:25 Total Bilirubin 0.4 (0.0-1.0) mg/dL AST 31 (5-37) U/L ALT 46 H (0-40) U/L Alkaline Phosphatase 108 (39-117) U/L Albumin 2.9 L (3.5-5.0) g/dL Urine 11/03/24 11/10/24 Range/Units 20:30 20:07 Urine Color Dark Yellow Yellow Urine Appearance Cloudy Clear Urine pH 5.5 5.0 (5.0-9.0) Ur Specific [place] 1.025 1.010 (1.005-1.025) Urine Protein 100 (2+) H Trace (Neg-Trace) mg/dL Urine Glucose (UA) Negative Negative (Negative) mg/dL All other labs normal. Imaging Chest x-ray: report reviewed and image reviewed Abdomen CT scan report/results: report reviewed and image reviewed Assessment and Plan (1) Encephalitis: Status: Acute (2) Acute respiratory failure with hypoxia: Status: Acute Plan 59-year-old gentleman admitted with encephalopathy secondary to streptococcal meningitis/bacteremia further complicated by pulmonary aspiration requiring intubation and ventilatory support and has been unable to be weaned from mechanical ventilation. Consulted for trach/PEG tube placement. He has been added onto the OR schedule for this on Friday. 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 Procedures Date of Service Date of Service: 11/18/24
[2024-11-18 18:03] LABS: Glucose, Whole Blood 199 mg/dL (60-115)
--- NOTE | 2024-11-18 18:49 | PC.NURSE ---
Assumed care of patient 0700. Pt mechanically vented ACPC /5.0/ 25%? Pt straight catheterized approx 11:00 and 16:30 for >1000 ml pale yellow urine. Pt has had 4 straight caths s/p hernandez removal 18:00 11/17/24. Case management updated that we are awaiting authorization from [facility], all paperwork submitted. Plan for possible transfer to [facility] per family request. Family updated regarding this process. Thoracic consult for patient came to bedside. Pt is on the OR schedule for trach/PEG placement Friday.?
[2024-11-18] MEDS: Acetaminophen 325 MG TABLET 650 MG PO (19:57)
[2024-11-19] VITALS (27 sets, daily range): BP systolic 109–157; BP diastolic 31–78; PULSE 59–93; RESP 18–33; TEMP 35–38.3; O2SAT 94–97; BMI 40.5
[2024-11-19 00:29] LABS: Glucose, Whole Blood 180 mg/dL (60-115)
[2024-11-19] MEDS: dexmedeTOMIDidine HCL/NS 400 MCG/100 ML INFUS..BTL 12.9 MCG IVCONT ×3 (00:30→15:59)
[2024-11-19] MEDS: Insulin Lispro 100 UNIT/ML 3 ML VIAL SUBCUT ×2 (00:30→06:18)
[2024-11-19] MEDS: fentaNYL citrate/NS 1,000 MCG/100 ML PLAST..BAG 10 MCG IVCONT ×2 (00:32→10:09)
[2024-11-19] MEDS: 0.9 % Sodium Chloride Flush 3 ML SYRINGE IVFLUSH ×3 (00:34→15:59)
[2024-11-19] MEDS: Dextrose 5 % 1,000 ML 200 ML IVCONT ×2 (01:22→06:22)
[2024-11-19] MEDS: cefTRIAXone sodium 2 GM VIAL IVPUSH ×2 (03:07→15:59)
[2024-11-19 05:25] LABS: VBG Base Excess -5.2 mmol/L; VBG HCO3 17 mmol/L (22-26); VBG pCO2 23 mmHg; VBG pH 7.47 (7.32-7.43); VBG pO2 49 mmHg
[2024-11-19 05:35] LABS: Glucose, Whole Blood 176 mg/dL (60-115)
[2024-11-19 05:44] LABS: MANUAL DIFF FLAG NO
[2024-11-19 05:47] LABS: Basophils Percent Auto 0.1 % (0-2); Eosinophils Absolute Auto 0.4 X10*3/uL (0.0-0.4); Eosinophils Percent Auto 3.7 % (0-4); Hemoglobin 7.4 g/dl (14.0-18.0); Imm Gran Abs Auto 0.06 X10*3/uL (0.00-0.03); Imm Gran Pct Auto 0.5 % (0.0-0.4); Lymphocytes Absolute Auto 0.9 X10*3/uL (1.2-4.9); Mean Corpuscular HGB Conc 33.6 g/dl (31.0-36.0); Mean Corpuscular Hemoglobin 32.3 pg (27.0-33.0); Mean Corpuscular Volume 96.1 fL (80.0-98.0); Mean Platelet Volume 11.2 fL (9.4-12.4); Monocytes Absolute Auto 0.2 X10*3/uL (0.1-1.2); NRBC Pct Auto 0.5 /100WBC (0.0-0.2); Neutrophils Absolute Auto 9.9 x10*3/uL (2.0-8.3); Neutrophils Percent Auto 85.7 % (45-73); Platelet Count 273 X10*3/uL (160-400); Red Blood Count 2.29 X10*6/uL (4.60-5.80); Red Cell Distribution Width 16.3 % (11.0-16.0); White Blood Count 11.5 X10*3/uL (4.8-10.8)
[2024-11-19 05:49] LABS: Venous Blood Gas Refer to POC result
[2024-11-19 06:08] LABS: Vancomycin Random 13.7 mcg/mL (15-20)
[2024-11-19 06:14] LABS: Alanine Aminotransferase 43 U/L (0-40); Albumin Level 2.8 g/dL (3.5-5.0); Alkaline Phosphatase 144 U/L (39-117); Anion Gap 11 (12-20); Aspartate Amino Transferase 45 U/L (5-37); Bilirubin Total 1.3 mg/dL (0.0-1.0); Blood Urea Nitrogen 67 mg/dL (9-16); Carbon Dioxide 18 mmol/L (22-29); Chloride 120 mmol/L (96-108); Creatinine Clr Calc Pharmacy 42.6; Estimated Glomerular Filt Rate 29; Glucose Random 194 mg/dL (60-115); Magnesium 2.2 mg/dL (1.6-2.6); Potassium 3.8 mmol/L (3.3-5.1); Sodium 145 mmol/L (135-145); Total Protein 6.4 g/dL (6.5-8.0)
[2024-11-19] MEDS: Pantoprazole Sodium 40 MG/10 ML VIAL IVPUSH ×2 (06:18→15:59)
--- NOTE | 2024-11-19 07:14 | PC.NURSE ---
Assumed care 1899 - pt intubated and sedated. RASS -4 on precedex and fentanyl for vent synchrony - see MAR. On ACPC settings - see vent assessment. SR on tele with occasional bursts of afib to 130s. Tmax 100.4 - Tylenol administered per OCT. Bladder scan >600 ml,? MINGLER OPERATOR Vernon notified?- Manzano catheter ordered and placed. Tolerating tube feeds, per MINGLER OPERATOR continue Nepro at 20 ml/hr and decrease water flush 150 ml Q4H.
[2024-11-19] MEDS: Albumin Human 25 % 50 ML 100 ML IV ×2 (08:06→08:34)
[2024-11-19] MEDS: Chlorhexidine Gluc Oral Rinse 15 ML MOUTHWASH BUCCAL ×2 (08:08→14:48)
[2024-11-19] MEDS: vancomycin HCL 750 MG in 0.9 % Sodium Chloride 250 ML 265 MG IV (08:13)
[2024-11-19] MEDS: levETIRAcetam in NaCl (iso-os) 1,000 MG/100 ML PIGGYBACK 400 MG IV (08:18)
--- NOTE | 2024-11-19 09:34 | MHC.CM.PN ---
Pt has received [employer] pre cert auth to transfer to [facility]. Auth number [id number]. Information relayed to ICU care team. CM to contact pt's HCP/brother to inform him of determination. Unknown transfer time - MD to contact accepting facility to coordinate. Pt will need ALS transport for continuous IV medications and vent support.
--- NOTE | 2024-11-19 11:09 | MHC.CLN ---
F/U DISCUSSED AT ROUNDS WITH TF ON HOLD R/T 700ML RESIDUAL PT WITH REGULAR BM RECORDED WHEN TF TO RE-START; RECOMMEND NEPRO AT MAX GOAL RATE 40ML/HR WITH 300ML FWF Q 4 HRS PROVIDES 1728KCALS (25KCALS/KG BASED ON IBW), 78G PROTEIN (1.1G/KG), 2498ML TOTAL WATER FROM FORMULA AND FLUSHES (36ML/KG) START AT 10ML/HR AND INCREASE BY 10 Q 4 HRS UNTIL MAX GOAL IS ACHIEVED FOLLOWING FOR DIET ADVANCEMENT PT POSSIBLE TRANSFER TO [facility] PER CM
[2024-11-19 11:21] LABS: Glucose, Whole Blood 115 mg/dL (60-115)
--- NOTE | 2024-11-19 13:43 | PM.GIPN ---
Subjective Subjective Date of Service: 11/19/24 Interval History: intubated and sedated Critical Care Time (minutes): 15 Physical Exam Vital Signs: Vital Signs: Last Vital Signs Temp 100.2 F 11/19/24 12:00 Pulse 75 11/19/24 12:00 Resp 26 H 11/19/24 12:00 BP 132/64 11/19/24 12:00 Pulse Ox 97 11/19/24 12:00 O2 Del Method Mechanical Ventil ation 11/19/24 12:00 O2 Flow Rate 25 11/15/24 09:00 FiO2 25 11/19/24 12:00 Oxygen Flow Rate 8 11/03/24 19:38 BMI result Body Mass Index 40.5 GI: Other: abdomen is soft rectal tube mostly clear OG tube feeds on hold due to large residuals per nursing Objective Data Labs 11/19/24 05:11 11/19/24 05:11 Labs: Laboratory Results - last 24 hr 11/18/24 11/18/24 11/19/24 17:57 23:45 05:11 WBC 11.5 H RBC 2.29 L Hgb 7.4 L Hct 22.0 L MCV 96.1 MCH 32.3 MCHC 33.6 RDW 16.3 H Plt Count 273 MPV 11.2 Immature Gran % (Auto) 0.5 H Neut % (Auto) 85.7 H Lymph % (Auto) 8.0 L [place] % (Auto) 2.0 Eos % (Auto) 3.7 Baso % (Auto) 0.1 Lymph # (Auto) 0.9 L [place] # (Auto) 0.2 Eos # (Auto) 0.4 Baso # (Auto) 0.0 Abs Immat Gran (auto) 0.06 H Absolute Neuts (auto) 9.9 H Absolute Nucleated RBC 0.060 H Nucleated RBC % (auto) 0.5 H VBG pH VBG pCO2 VBG pO2 VBG HCO3 VBG O2 Saturation VBG Base Excess Sodium 145 Potassium 3.8 Chloride 120 H Carbon Dioxide 18 L Anion Gap 11 L BUN 67 H Creatinine 2.29 H Estim Creat Clear Calc 42.6 Estimated GFR 29 POC Glucose 199 H 180 H Random Glucose 194 H Calcium 9.0 Phosphorus 5.0 H Magnesium 2.2 Total Bilirubin 1.3 H AST 45 H ALT 43 H Alkaline Phosphatase 144 H Total Protein 6.4 L Albumin 2.8 L Random Vancomycin 13.7 L 11/19/24 11/19/24 11/19/24 05:14 05:28 11:15 WBC RBC Hgb Hct MCV MCH MCHC RDW Plt Count MPV Immature Gran % (Auto) Neut % (Auto) Lymph % (Auto) [place] % (Auto) Eos % (Auto) Baso % (Auto) Lymph # (Auto) [place] # (Auto) Eos # (Auto) Baso # (Auto) Abs Immat Gran (auto) Absolute Neuts (auto) Absolute Nucleated RBC Nucleated RBC % (auto) VBG pH 7.47 H VBG pCO2 23 VBG pO2 49 VBG HCO3 17 L VBG O2 Saturation 85.0 VBG Base Excess -5.2 Sodium Potassium Chloride Carbon Dioxide Anion Gap BUN Creatinine Estim Creat Clear Calc Estimated GFR POC Glucose 176 H 115 Random Glucose Calcium Phosphorus Magnesium Total Bilirubin AST ALT Alkaline Phosphatase Total Protein Albumin Random Vancomycin Microbiology Microbiology Results: Microbiology 11/16/24 22:38 Blood - Venous Blood Culture - Preliminary No growth after 48 hours. 11/16/24 15:34 Blood - Venous Blood Culture - Final 11/10/24 14:59 Blood - Venous Blood Culture - Final No growth after 5 days. 11/10/24 14:57 Blood - Venous Blood Culture - Final No growth after 5 days. 11/10/24 20:07 Sputum - Suctioned Gram Stain - Final 11/10/24 20:07 Sputum - Suctioned Sputum Culture - Final 11/10/24 20:26 Urine clean catch - Clean Catch Midstream Urine Culture - Final No growth. 11/04/24 13:35 Blood - Venous Blood Culture - Final No growth after 5 days. 11/04/24 13:35 Blood - Venous Blood Culture - Final No growth after 5 days. 11/04/24 11:55 Cerebrospinal Fluid Gram Stain - Final 11/04/24 11:55 Cerebrospinal Fluid CSF Examination - Final 11/04/24 11:55 Cerebrospinal Fluid Fluid Description - Final 11/04/24 11:55 Cerebrospinal Fluid CSF Culture - Final Streptococcus pneumoniae 11/03/24 23:52 Cerebrospinal Fluid Gram Stain - Final 11/03/24 23:52 Cerebrospinal Fluid CSF Examination - Final 11/03/24 23:52 Cerebrospinal Fluid Fluid Description - Final 11/03/24 23:52 Cerebrospinal Fluid CSF Culture - Final Streptococcus pneumoniae 11/03/24 20:03 Blood - Venous Blood Culture - Final Streptococcus pneumoniae 11/03/24 19:58 Blood - Venous Blood Culture - Final Streptococcus pneumoniae Procedures Date of Service Date of Service: 11/19/24 Progress Note: A&P Assessment and plan (1) Upper GI bleed: Status: Acute Assessment and Plan: duodenal ulcer s/p endoscopic treatment hematocrit holding, no additional transfusion requirement may need to restart feedings gradually and work up slowly due to edema from treatment. cont ppi follow hct. Time Spent With Patient Time: Total time managing care of this patient today ____ minutes. Quality Stroke Does the patient have a stroke diagnosis?: No VTE Prior VTE?: No VTE Risk Level:: Medical - moderate - high VTE Device Contraindication: N/A - Device Ordered VTE Drug Contraindication: N/A - Med Ordered
--- NOTE | 2024-11-19 13:49 | P.PNCC_ITS ---
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 On ER evaluation patient encephalopathic with significant leukocytosis. Initial CT head with no acute findings. Initial LP with on insufficiency so for PCR that is positive for Streptococcus. Blood cultures positive for Streptococcus. 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 Repeat LP performed in IR with additional CSF culture positive for Streptococcus. Required intubation on 11/06/2024 for pulmonary aspiration and acute refractory hypoxia. 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 No events overnight. Critical Care Time (minutes): 60 Physical Exam 2 Vital Signs: Vital Signs: Last Vital Signs Temp 100.2 F 11/19/24 13:00 Pulse 82 11/19/24 13:00 Resp 28 H 11/19/24 13:00 BP 128/62 11/19/24 13:00 Pulse Ox 97 11/19/24 13:00 O2 Del Method Mechanical Ventil ation 11/19/24 13:00 O2 Flow Rate 25 11/15/24 09:00 FiO2 25 11/19/24 13:00 Oxygen Flow Rate 8 11/03/24 19:38 BMI result Body Mass Index 40.5 Const: General: no acute distress and other (Poor arousal with sedation vacation) Nutritional Appearance: obese and Edematous Eyes: Sclerae: sclerae normal Pupils: Equal, round and reactive pupils present Neck: Neck: Yes no lymphadenopathy, Yes trachea midline and Yes supple Resp: Auscultation: crackles (Mild bilateral) Cardio: Rate: regular rate Rhythm: regular rhythm Heart sounds: no gallops, no murmurs and no rubs GI: Palpation (GI): Soft to palpation and Other GI palpation findings present ( Nontender) Auscultation: normal bowel sounds Neuro: Cranial nerves: Yes Equal, round and reactive pupils present Extrem: General: No clubbing, No cyanosis and Yes edema (2+ bilateral) Objective Data Labs 11/19/24 05:11 11/19/24 05:11 Labs: Laboratory Results - last 24 hr 11/18/24 11/18/24 11/19/24 17:57 23:45 05:11 WBC 11.5 H RBC 2.29 L Hgb 7.4 L Hct 22.0 L MCV 96.1 MCH 32.3 MCHC 33.6 RDW 16.3 H Plt Count 273 MPV 11.2 Immature Gran % (Auto) 0.5 H Neut % (Auto) 85.7 H Lymph % (Auto) 8.0 L [place] % (Auto) 2.0 Eos % (Auto) 3.7 Baso % (Auto) 0.1 Lymph # (Auto) 0.9 L [place] # (Auto) 0.2 Eos # (Auto) 0.4 Baso # (Auto) 0.0 Abs Immat Gran (auto) 0.06 H Absolute Neuts (auto) 9.9 H Absolute Nucleated RBC 0.060 H Nucleated RBC % (auto) 0.5 H VBG pH VBG pCO2 VBG pO2 VBG HCO3 VBG O2 Saturation VBG Base Excess Sodium 145 Potassium 3.8 Chloride 120 H Carbon Dioxide 18 L Anion Gap 11 L BUN 67 H Creatinine 2.29 H Estim Creat Clear Calc 42.6 Estimated GFR 29 POC Glucose 199 H 180 H Random Glucose 194 H Calcium 9.0 Phosphorus 5.0 H Magnesium 2.2 Total Bilirubin 1.3 H AST 45 H ALT 43 H Alkaline Phosphatase 144 H Total Protein 6.4 L Albumin 2.8 L Random Vancomycin 13.7 L 11/19/24 11/19/24 11/19/24 05:14 05:28 11:15 WBC RBC Hgb Hct MCV MCH MCHC RDW Plt Count MPV Immature Gran % (Auto) Neut % (Auto) Lymph % (Auto) [place] % (Auto) Eos % (Auto) Baso % (Auto) Lymph # (Auto) [place] # (Auto) Eos # (Auto) Baso # (Auto) Abs Immat Gran (auto) Absolute Neuts (auto) Absolute Nucleated RBC Nucleated RBC % (auto) VBG pH 7.47 H VBG pCO2 23 VBG pO2 49 VBG HCO3 17 L VBG O2 Saturation 85.0 VBG Base Excess -5.2 Sodium Potassium Chloride Carbon Dioxide Anion Gap BUN Creatinine Estim Creat Clear Calc Estimated GFR POC Glucose 176 H 115 Random Glucose Calcium Phosphorus Magnesium Total Bilirubin AST ALT Alkaline Phosphatase Total Protein Albumin Random Vancomycin Microbiology Microbiology Results: Microbiology 11/16/24 22:38 Blood - Venous Blood Culture - Preliminary No growth after 48 hours. 11/16/24 15:34 Blood - Venous Blood Culture - Final 11/10/24 14:59 Blood - Venous Blood Culture - Final No growth after 5 days. 11/10/24 14:57 Blood - Venous Blood Culture - Final No growth after 5 days. 11/10/24 20:07 Sputum - Suctioned Gram Stain - Final 11/10/24 20:07 Sputum - Suctioned Sputum Culture - Final 11/10/24 20:26 Urine clean catch - Clean Catch Midstream Urine Culture - Final No growth. 11/04/24 13:35 Blood - Venous Blood Culture - Final No growth after 5 days. 11/04/24 13:35 Blood - Venous Blood Culture - Final No growth after 5 days. 11/04/24 11:55 Cerebrospinal Fluid Gram Stain - Final 11/04/24 11:55 Cerebrospinal Fluid CSF Examination - Final 11/04/24 11:55 Cerebrospinal Fluid Fluid Description - Final 11/04/24 11:55 Cerebrospinal Fluid CSF Culture - Final Streptococcus pneumoniae 11/03/24 23:52 Cerebrospinal Fluid Gram Stain - Final 11/03/24 23:52 Cerebrospinal Fluid CSF Examination - Final 11/03/24 23:52 Cerebrospinal Fluid Fluid Description - Final 11/03/24 23:52 Cerebrospinal Fluid CSF Culture - Final Streptococcus pneumoniae 11/03/24 20:03 Blood - Venous Blood Culture - Final Streptococcus pneumoniae 11/03/24 19:58 Blood - Venous Blood Culture - Final Streptococcus pneumoniae Progress Note: A&P Assessment and plan (1) PAF (paroxysmal atrial fibrillation): Status: Acute (2) Class 3 obesity: Status: Acute (3) Upper GI bleed: Status: Acute (4) Hx of splenectomy: Status: Acute (5) CORINA (acute kidney injury): Status: Acute (6) Streptococcal meningitis: Status: Acute (7) Encephalitis: Status: Acute (8) Encephalopathy: Status: Acute (9) Acute respiratory failure with hypoxia: Status: Acute Plan Assessment: 59-year-old gentleman admitted with encephalopathy secondary to streptococcal meningitis/bacteremia further complicated by pulmonary aspiration requiring intubation and ventilatory support and acute kidney injury Plan: Neuro: Streptococcal meningitis with persistent encephalopathy. MRI on 11/15 with worsening encephalitis. Empiric Keppra. Cardiac: Paroxysmal AFib initially requiring amiodarone drip, now titrated to p.o. amiodarone. Pulmonary: Acute hypoxic respiratory failure secondary to pulmonary aspiration requiring intubation and ventilatory support. Now with failure to wean from mechanical ventilation, thoracic surgery consulted for tracheostomy/gastrostomy. Renal: Acute kidney injury with metabolic acidosis and hypernatremia, likely secondary to ATN, improving. Non oliguric. Continue to monitor renal indices and urine output. Endo: No acute issues. GI: Upper GI bleed secondary to gastric ulcer, now status post EGD with coagulation. Gastroenterology service care appreciated. Continue PPI. ID: Streptococcal bacteremia and streptococcal meningitis, we discussed with infectious disease service, antibiotics changed to ceftriaxone vancomycin. Repeat blood cultures negative to date. 2D echo with no evidence of vegetation. Infectious Disease service care appreciated. Heme/Onc: Acute blood loss anemia secondary to upper GI bleed, resolved. Hemoglobin level stabilized. Continue to monitor hemoglobin level, transfusion threshold of 7. Psych: No acute issues. Miscellaneous: No acute issues. Prophylaxis: Heparin, ppi Diet: Tube feeds Critical care time spent: 60 minutes Quality Stroke Does the patient have a stroke diagnosis?: No VTE Prior VTE?: No VTE Risk Level:: Medical - moderate - high VTE Device Contraindication: N/A - Device Ordered VTE Drug Contraindication: N/A - Med Ordered
[2024-11-19] MEDS: fentaNYL citrate/PF 100 MCG/2 ML VIAL 50 MCG IVPUSH (14:41)
[2024-11-19 17:35] LABS: Glucose, Whole Blood 101 mg/dL (60-115)
[2024-11-19] MEDS: fentaNYL citrate/NS 1,000 MCG/100 ML PLAST..BAG 15 MCG IVCONT (18:01)
--- NOTE | 2024-11-19 18:39 | PC.NURSE ---
Assumed care at 0700- pt. remians mechanically vented. Sedation per OCT for vent synchrony. PSV trial peprformed from approx. [id number]- see vent assessment. Pt. remains SR on tele, HR 60s-80s with breif, non-sustained episodes of afib HR 130s. OGT with 700cc dark green residual volume- residual discarded and TF paused per MD. PO meds held. FMS remains in place, minimal output. BS faint and hypoactive. Manzano remains in place, draining bright yellow urine, approx. 150-250cc/hr. Q2 oral care and repositioning performed, hovermat system in place. Family at bedside and updated by this RN and MD. Pt. accepted by [facility], room assigned [place] [id number] ICU bed 11- RN report called. [facility] contacted for transport, pending ambulance time. Plan of care ongoing.
--- NOTE | 2024-11-19 19:25 | PM.DS ---
DS: Providers Provider Date of Service: 11/19/24 Date of admission: 11/03/24 23:34 Date of discharge: 11/19/24 Primary care physician: Marcos Woods MD Admitting clinician: Mason Spence Attending physician on admission: Emilia Acuna Consults: 11/04/24 01:19 Consult to Cardiology Routine Consulting Provider: [facility] Reason for consultation: afib with rvr Has provider been notified: Yes 11/04/24 07:51 Consult to Neurology Routine Consulting Provider: [facility] Reason for consultation: strepococcus meningitis/encephalitis Has provider been notified: No 11/04/24 07:52 Consult to Infectious Diseases Routine Consulting Provider: [facility] Reason for consultation: strep meningitis vs encephalitis Has provider been notified: No 11/04/24 08:35 Consult to Critical Care Routine Consulting Provider: Mason Spence Reason for consultation: Level of care Has provider been notified: No 11/16/24 15:02 Consult to Gastroenterology Routine Consulting Provider: [facility] Reason for consultation: Upper GI bleed Has provider been notified: No 11/18/24 13:18 Consult to Thoracic Surgery Routine Consulting Provider: Eugene Rasheed Reason for consultation: Please evaluate for tracheostomy/gastrostomy placement Has provider been notified: No Attending physician on discharge: Mason Spence Discharging clinician: Kaci Junior DS: Transfer Hospital Acceptance Reason for Transfer: Tertiary care evaluation Name of Facility: [facility] Accepting Provider: Dr. 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 On ER evaluation patient encephalopathic with significant leukocytosis.? Initial CT head with no acute findings.? Initial LP with on insufficiency so for PCR that is positive for Streptococcus.? Blood cultures positive for Streptococcus.? Patient started empiric therapy for streptococcal meningitis and bacteremia, including empiric antibiotics and adjunctive dexamethasone, and admitted to the intensive care unit.? Repeat LP performed in IR with additional CSF culture positive for Streptococcus.? Required intubation on 11/06/2024 for pulmonary aspiration and acute refractory hypoxia.? 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 Status at Discharge Cognitive/behavioral status at discharge: Encephalopathic Functional status at discharge: bed bound Overall status at discharge: patient is not back to baseline Time Attestation Total time managing care of this patient today: 45 mintues. Discharge Coordination Time (in mins): 60 Quality: Safe Use of Opioids Does Pt have an Active Cancer Diagnosis on the Problem List?: No Quality: Stroke Does the patient have a stroke diagnosis?: No Physical Exam Vital Signs: Vital Signs: Last Vital Signs Temp 100.9 F H 11/19/24 19:00 Pulse 74 11/19/24 19:00 Resp 24 H 11/19/24 19:00 BP 116/64 11/19/24 19:00 Pulse Ox 94 11/19/24 19:00 O2 Del Method Mechanical Ventil ation 11/19/24 19:00 O2 Flow Rate 25 11/15/24 09:00 FiO2 25 11/19/24 19:00 Oxygen Flow Rate 8 11/03/24 19:38 BMI result Body Mass Index 40.5 Const: General: no acute distress, lethargic ((withdraws to pain)) and other ((Lower extremities mottled)) Nutritional Appearance: obese Orientation/consciousness: lethargic ((withdraws to pain)) Eyes: Sclerae: sclerae normal Neck: Neck: Yes no lymphadenopathy, Yes trachea midline and Yes supple Resp: Effort & Inspection: normal respiratory effort and no respiratory distress Auscultation: clear to auscultation bilaterally Cardio: Rate: regular rate Rhythm: regular rhythm Heart sounds: no gallops, no murmurs and no rubs GI: Auscultation: normal bowel sounds Extrem: General: Yes no pedal edema, No clubbing and No cyanosis DS: Data Data Completed and Pending Completed studies during hospitalization [Text1]: Pending at discharge 11/17/24 13:27 Surgical [PTH] Routine Procedures Repair Abdominal Wall, Percutaneous Endoscopic Approach (04/12/23) Resection of Appendix, Percutaneous Endoscopic Approach (04/12/23) Labs on day of discharge: Laboratory Results - last 24 hr 11/18/24 11/19/24 11/19/24 23:45 05:11 05:14 WBC 11.5 H RBC 2.29 L Hgb 7.4 L Hct 22.0 L MCV 96.1 MCH 32.3 MCHC 33.6 RDW 16.3 H Plt Count 273 MPV 11.2 Immature Gran % (Auto) 0.5 H Neut % (Auto) 85.7 H Lymph % (Auto) 8.0 L Hale % (Auto) 2.0 Eos % (Auto) 3.7 Baso % (Auto) 0.1 Lymph # (Auto) 0.9 L Hale # (Auto) 0.2 Eos # (Auto) 0.4 Baso # (Auto) 0.0 Abs Immat Gran (auto) 0.06 H Absolute Neuts (auto) 9.9 H Absolute Nucleated RBC 0.060 H Nucleated RBC % (auto) 0.5 H VBG pH 7.47 H VBG pCO2 23 VBG pO2 49 VBG HCO3 17 L VBG O2 Saturation 85.0 VBG Base Excess -5.2 Sodium 145 Potassium 3.8 Chloride 120 H Carbon Dioxide 18 L Anion Gap 11 L BUN 67 H Creatinine 2.29 H Estim Creat Clear Calc 42.6 Estimated GFR 29 POC Glucose 180 H Random Glucose 194 H Calcium 9.0 Phosphorus 5.0 H Magnesium 2.2 Total Bilirubin 1.3 H AST 45 H ALT 43 H Alkaline Phosphatase 144 H Total Protein 6.4 L Albumin 2.8 L Random Vancomycin 13.7 L 11/19/24 11/19/24 11/19/24 05:28 11:15 17:31 WBC RBC Hgb Hct MCV MCH MCHC RDW Plt Count MPV Immature Gran % (Auto) Neut % (Auto) Lymph % (Auto) Hale % (Auto) Eos % (Auto) Baso % (Auto) Lymph # (Auto) Hale # (Auto) Eos # (Auto) Baso # (Auto) Abs Immat Gran (auto) Absolute Neuts (auto) Absolute Nucleated RBC Nucleated RBC % (auto) VBG pH VBG pCO2 VBG pO2 VBG HCO3 VBG O2 Saturation VBG Base Excess Sodium Potassium Chloride Carbon Dioxide Anion Gap BUN Creatinine Estim Creat Clear Calc Estimated GFR POC Glucose 176 H 115 101 Random Glucose Calcium Phosphorus Magnesium Total Bilirubin AST ALT Alkaline Phosphatase Total Protein Albumin Random Vancomycin Preliminary micro results at discharge 11/16/24 22:38 Blood Culture - Preliminary Blood - Venous No growth after 48 hours. Discharge Plan Discharge Anticipated Discharge Date/Time: 11/19/24 20:00 Patient Disposition: Xfer Acute Care Hospital Discharge Diagnosis: Streptococcal bacteremia, Streptococcal meningitis, Hx of splenectomy, Encephalopathy Referrals: Physician,Unknown J [Physician] - 1 Week Discharge Medications: Discontinued montelukast 10 mg tablet 10 mg PO BEDTIME naproxen sodium [Aleve] 220 mg Capsule 220 mg PO BID PRN (Reason: Pain) valsartan 160 mg tablet 160 mg PO DAILY prednisone 20 mg tablet 20 mg PO BID Rx Instructions: ORDERED 10/25/24 FOR 14 DAYS sildenafil 100 mg tablet 100 mg PO DAILY PRN (Reason: Erectile Dysfunction) albuterol sulfate 90 mcg/actuation HFA aerosol inhaler 2 puff inhalation Q6H PRN (Reason: shortness of breath or wheezing or cough) Qty: 8.5 0RF Discharge Orders: Discharge Order (Routine); Ordered 11/19/24 Ordered By: Kaci Junior Stand Alone Forms: Patient Portal Discharge page, Community Support Print Language: American Care Plan Goals: Tertiary care evalution Health Concerns: Streptococcal meningitis with encephalitis Plan of Treatment: Neuro: Streptococcal meningitis based on CSF PCR studies. CSF culture is pending. Continue empiric antibiotics and general dexamethasone. Initial CT head with no acute findings. Cardiac: No acute issues. Pulmonary: No acute issues. Renal: Acute renal failure resolved. Endo: No acute issues. GI: No acute issues. ID: Streptococcal bacteremia and streptococcal meningitis. Continue empiric antibiotics Inogen dexamethasone. Cultures are pending. Repeat blood cultures positive, will consider 2D echo. Heme/Onc: No acute issues. Psych: No acute issues. Miscellaneous: No acute issues. Prophylaxis: Heparin Diet: NPO Assessment: Plan Assessment: 59-year-old gentleman admitted with encephalopathy secondary to streptococcal meningitis/bacteremia
--- NOTE | 2024-11-19 20:14 | PC.NURSE ---
Assumed care of patient at 1900. Patient transferred to [facility] via [facility] ambulance at 2004. Fentanyl and precedex drips infusing upon discharge.
== END 2024-11-19 20:05 | disposition short-term general hospital (02) | DRG 871 ==
LOC: HO.ED 23:43 → HO.EDOVER 23:52 → HO.ICU 11-04 11:55
PROVIDERS: Internal Medicine Gastroenterology; Nurse Practitioner Family; Physician Assistant Medical; Registered Nurse Community Health; Admitting Provider Student in an Organized Health Care Education/Training Program; Emergency Provider Emergency Medicine; PCP Internal Medicine; Responsible Provider Internal Medicine Critical Care Medicine; Visit Provider Internal Medicine Pulmonary Disease
PROC: 3E0G8GC Introduction of Other Therapeutic Substance into Upper GI, Via Natural or Artificial Opening Endoscopic (ICD-10-PCS; principal; 2024-11-17 12:20)
DX: A41.9 Sepsis, unspecified organism (principal); G04.2 Bacterial meningoencephalitis and meningomyelitis, not elsewhere classified; G93.41 Metabolic encephalopathy; J96.01 Acute respiratory failure with hypoxia; N17.0 Acute kidney failure with tubular necrosis; J69.0 Pneumonitis due to inhalation of food and vomit; K26.4 Chronic or unspecified duodenal ulcer with hemorrhage; Z68.41 Body mass index [BMI] 40.0-44.9, adult; E87.0 Hyperosmolality and hypernatremia; D62 Acute posthemorrhagic anemia; I48.0 Paroxysmal atrial fibrillation; I16.0 Hypertensive urgency; B95.3 Streptococcus pneumoniae as the cause of diseases classified elsewhere; J44.9 Chronic obstructive pulmonary disease, unspecified; E83.39 Other disorders of phosphorus metabolism; I95.2 Hypotension due to drugs; T41.295A Adverse effect of other general anesthetics, initial encounter; R65.20 Severe sepsis without septic shock; E87.6 Hypokalemia; E66.813 Obesity, class 3; Z90.81 Acquired absence of spleen; Z20.822 Contact with and (suspected) exposure to COVID-19
CPT/HCPCS: 0241U; 36415; 36600; 62328; 70450; 70551; 70553; 71045; 71250; 71275; 74176; 74177; 80048; 80053; 80202; 80307; 81001; 82040; 82140; 82248; 82272; 82550; 82565; 82803; 82947; 83605; 83690; 83735; 83880; 83935; 84100; 84300; 84443; 84484; 85007; 85025; 85027; 85610; 86140; 86850; 86900; 86901; 86923; 87015; 87040; 87070; 87077; 87086; 87205; 87449; 87483; 87633; 88305; 88342; 89051; 93005; 93306; 94002; 94003; 94799; 95816; 99285; A9585; C1889; J0131; J0133; J0171; J0282; J0283; J0290; J0692; J0696; J1100; J1644; J1650; J1920; J1940; J1953; J2020; J2250; J2371; J2404; J2470; J2543; J2704; J3010; J3370; J3371; J3480; J7120; P9016; P9047; Q9957; Q9967

== ENCOUNTER → 2024-11-03 19:52 | Outpatient (BNV) | payer OTHER, SELFPAY | PROVIDERS: Emergency Provider Emergency Medicine; Visit Provider Radiology Diagnostic Radiology | DX: R41.82 Altered mental status, unspecified (principal); R53.1 Weakness; R61 Generalized hyperhidrosis | CPT/HCPCS: 62328; 70450; 71045; 71275; 74177 ==

== ENCOUNTER → 2024-11-03 19:52 | Outpatient (BNV) | payer OTHER, SELFPAY | PROVIDERS: Admitting Provider Student in an Organized Health Care Education/Training Program; Emergency Provider Emergency Medicine; Visit Provider Internal Medicine Cardiovascular Disease | DX: I25.2 Old myocardial infarction (principal) | CPT/HCPCS: 93010 ==

== ENCOUNTER 2024-11-03 23:34 | Outpatient (BNV) | payer OTHER, SELFPAY | END 2024-11-04 01:10 | PROVIDERS: Admitting Provider Student in an Organized Health Care Education/Training Program; Emergency Provider Emergency Medicine; Visit Provider Internal Medicine Cardiovascular Disease | DX: I48.91 Unspecified atrial fibrillation (principal) | CPT/HCPCS: 93010; 93306 ==

== ENCOUNTER 2024-11-03 23:34 | Outpatient (BNV) | payer OTHER, SELFPAY | END 2024-11-10 13:30 | PROVIDERS: Admitting Provider Student in an Organized Health Care Education/Training Program; Emergency Provider Emergency Medicine; PCP Internal Medicine; Responsible Provider Internal Medicine Critical Care Medicine; Visit Provider Radiology Diagnostic Radiology | DX: D72.829 Elevated white blood cell count, unspecified (principal); Z45.2 Encounter for adjustment and management of vascular access device | CPT/HCPCS: 71045; 71250; 74176 ==

== ENCOUNTER 2024-11-03 23:34 | Outpatient (BNV) | payer OTHER, SELFPAY | END 2024-11-15 09:50 | PROVIDERS: Admitting Provider Student in an Organized Health Care Education/Training Program; Emergency Provider Emergency Medicine; PCP Internal Medicine; Responsible Provider Internal Medicine Critical Care Medicine; Visit Provider Radiology Diagnostic Radiology | DX: G93.40 Encephalopathy, unspecified (principal); Z46.82 Encounter for fitting and adjustment of non-vascular catheter | CPT/HCPCS: 70551; 71045 ==

== ENCOUNTER 2024-11-03 23:34 | Outpatient (BNV) | payer OTHER, SELFPAY | END 2024-11-06 10:10 | PROVIDERS: Admitting Provider Student in an Organized Health Care Education/Training Program; Emergency Provider Emergency Medicine; Visit Provider Radiology Vascular & Interventional Radiology | DX: Z93.0 Tracheostomy status (principal) | CPT/HCPCS: 71045 ==

== ENCOUNTER 2024-11-03 23:34 | Outpatient (BNV) | payer OTHER, SELFPAY | END 2024-11-12 20:52 | PROVIDERS: Admitting Provider Student in an Organized Health Care Education/Training Program; Emergency Provider Emergency Medicine; PCP Internal Medicine; Responsible Provider Internal Medicine Critical Care Medicine; Visit Provider Internal Medicine Cardiovascular Disease | DX: I49.9 Cardiac arrhythmia, unspecified (principal) | CPT/HCPCS: 93010 ==

== ENCOUNTER 2024-11-03 23:34 | Outpatient (BNV) | payer OTHER, SELFPAY | END 2024-11-09 12:30 | PROVIDERS: Admitting Provider Student in an Organized Health Care Education/Training Program; Emergency Provider Emergency Medicine; PCP Internal Medicine; Responsible Provider Internal Medicine Critical Care Medicine; Visit Provider Radiology Diagnostic Radiology | DX: G04.2 Bacterial meningoencephalitis and meningomyelitis, not elsewhere classified (principal) | CPT/HCPCS: 70553 ==

== ENCOUNTER → 2024-11-03 23:34 | Outpatient (BNV) | payer OTHER, SELFPAY | PROVIDERS: Admitting Provider Student in an Organized Health Care Education/Training Program; Emergency Provider Emergency Medicine; Visit Provider Internal Medicine Cardiovascular Disease | DX: G00.2 Streptococcal meningitis (principal); I48.0 Paroxysmal atrial fibrillation | CPT/HCPCS: 99223; 99232 ==

== ENCOUNTER → 2024-11-03 23:34 | Outpatient (BNV) | payer OTHER, SELFPAY | PROVIDERS: Admitting Provider Student in an Organized Health Care Education/Training Program; Emergency Provider Emergency Medicine; Visit Provider Physician Assistant | DX: N17.9 Acute kidney failure, unspecified (principal); A41.9 Sepsis, unspecified organism; R65.20 Severe sepsis without septic shock; G93.41 Metabolic encephalopathy; E87.21 Acute metabolic acidosis; R74.01 Elevation of levels of liver transaminase levels | CPT/HCPCS: 99223; 99233; 99499 ==

== ENCOUNTER → 2024-11-03 23:34 | Outpatient (BNV) | payer OTHER, SELFPAY | PROVIDERS: Admitting Provider Student in an Organized Health Care Education/Training Program; Emergency Provider Emergency Medicine; PCP Internal Medicine; Responsible Provider Internal Medicine Critical Care Medicine; Visit Provider Physician Assistant Surgical | DX: G04.90 Encephalitis and encephalomyelitis, unspecified (principal); J96.01 Acute respiratory failure with hypoxia | CPT/HCPCS: 99222 ==

== ENCOUNTER → 2024-11-03 23:34 | Outpatient (BNV) | payer OTHER, SELFPAY | PROVIDERS: Admitting Provider Student in an Organized Health Care Education/Training Program; Emergency Provider Emergency Medicine; Visit Provider Internal Medicine Pulmonary Disease | DX: I48.0 Paroxysmal atrial fibrillation (principal); N17.9 Acute kidney failure, unspecified; G00.2 Streptococcal meningitis; R78.81 Bacteremia; B95.5 Unspecified streptococcus as the cause of diseases classified elsewhere; E66.813 Obesity, class 3; T17.900A Unspecified foreign body in respiratory tract, part unspecified causing asphyxiation, initial encounter; J96.01 Acute respiratory failure with hypoxia | CPT/HCPCS: 31500; 99291 ==

== ENCOUNTER → 2024-11-03 23:34 | Outpatient (BNV) | payer OTHER, SELFPAY | PROVIDERS: Admitting Provider Student in an Organized Health Care Education/Training Program; Emergency Provider Emergency Medicine; PCP Internal Medicine; Responsible Provider Internal Medicine Critical Care Medicine; Visit Provider Internal Medicine Critical Care Medicine | DX: I48.0 Paroxysmal atrial fibrillation (principal); N17.9 Acute kidney failure, unspecified; E87.6 Hypokalemia; E66.813 Obesity, class 3; G93.41 Metabolic encephalopathy; T17.900A Unspecified foreign body in respiratory tract, part unspecified causing asphyxiation, initial encounter; J96.01 Acute respiratory failure with hypoxia | CPT/HCPCS: 99291 ==

== ENCOUNTER → 2024-11-03 23:34 | Outpatient (BNV) | payer OTHER, SELFPAY | PROVIDERS: Admitting Provider Student in an Organized Health Care Education/Training Program; Emergency Provider Emergency Medicine; Visit Provider Psychiatry & Neurology Neurology | DX: G92.8 Other toxic encephalopathy (principal) | CPT/HCPCS: 99222 ==

== ENCOUNTER → 2024-11-03 23:34 | Outpatient (BNV) | payer OTHER, SELFPAY | PROVIDERS: Admitting Provider Student in an Organized Health Care Education/Training Program; Emergency Provider Emergency Medicine; Visit Provider Internal Medicine | DX: Z90.81 Acquired absence of spleen (principal); G00.2 Streptococcal meningitis; R78.81 Bacteremia; B95.5 Unspecified streptococcus as the cause of diseases classified elsewhere; A41.9 Sepsis, unspecified organism | CPT/HCPCS: 99222; 99232 ==